=== PATIENT | female | born 1980 | race Caucasian/White ===

== ENCOUNTER 2022-11-24 07:08 | Outpatient (OUT) | payer SELFPAY ==
--- NOTE | 2022-11-24 | MM_ITS ---
Patient: FABI CARLTON Exam Date: 11/24/2022 : 1980 Gender:F Ordering : DR Ceasar Smith . Admission #: [id number] Family : SAGE RESTREPO Order #: [id number] CLICK HERE TO VIEW EXAM RADIOLOGY REPORT PROCEDURE: MM TOMOSYNTHESIS SCREENING BI COMPARISON: MG MAMM RT DIAG FU, 04/08/2021. MG MAMM DIAGNOSTIC 3D SHERIF CAD, 10/21/2021. INDICATIONS: Screening Calculator Name NCI Breast Cancer Risk Assessment Tool 5 Year Breast Cancer Risk 1.70% Lifetime Breast Cancer Risk 19.70% Personal Breast Cancer No Personal Ovarian Cancer No Treatments None Family Cancers Mother with breast cancer at age 60. LOCATION: [facility] BREAST COMPOSITION: Heterogeneously dense,which may obscure small masses. FINDINGS: DIAGNOSTIC CATEGORY 2--BENIGN FINDING. NO CHANGE FROM COMPARISON. Very dense heterogeneous parenchymal pattern grossly stable but limiting diagnostic sensitivity. Scattered benign-appearing nodules are present. Scattered benign-appearing calcifications are present. Scattered benign-appearing lymph nodes are present. RIGHT BREAST: No significant suspicious finding. LEFT BREAST: No significant suspicious finding. RECOMMENDATIONS: ROUTINE MAMMOGRAM AND CLINICAL EVALUATION IN 12 MONTHS. PLEASE NOTE: A NORMAL MAMMOGRAM DOES NOT EXCLUDE THE POSSIBILITY OF BREAST CANCER. A CLINICALLY SUSPICIOUS PALPABLE LUMP SHOULD BE BIOPSIED. Dictated by: Mike Guillen MD on 11/24/2022 at 08:20 Approved by: Mkie Guillen MD on 11/24/2022 at 08:21
== END 2022-11-24 07:09 | disposition home or self-care (01) ==
LOC: MAMMO 07:08
PROVIDERS: Visit Provider Obstetrics & Gynecology
DX: Z12.31 Encounter for screening mammogram for malignant neoplasm of breast (principal); Z80.3 Family history of malignant neoplasm of breast
CPT/HCPCS: 77063; 77067

== ENCOUNTER 2023-01-24 20:18 | Outpatient (REF) | payer BC, SELFPAY ==
--- OUTSIDE RECORDS SUMMARY | 2023-01-25 10:12 | XMS_ITS | CCD ---
Author Name Unknown Address [address] [place] [address] Organization [facility] Care Team Providers Care [employer] Worker Name Role Phone Cyril Britt Primary Care Provider [phone] WENDY FOREMAN Attending Unavailable CYRIL BRITT Primary Care Unavailable MARY JANE SMITH HE Referring Unavailable CYRIL BRITT Primary Care Unavailable WILMA, DR NELSY Huizar Primary Care Unavailable RONY, DR HINTON Admitting Unavailable WEST, DR EDNA Reyes Consulting Unavailable RONY, DR HINTON Attending Unavailable RONY, DR HINTON Consulting Unavailable RONY, DR HINTON Admitting Unavailable RINE, DR NELSY Huizar Primary Care Unavailable RONY, DR HINTON Attending Unavailable RONY, DR HINTON Consulting Unavailable ZIEBER, DR JIMBO Dale Consulting Unavailable RONY, DR HINTON Admitting Unavailable RINE, DR NELSY Huizar Primary Care Unavailable RONY, DR HINTON Attending Unavailable RONY, DR HINTON Consulting Unavailable RONY, DR HINTON Admitting Unavailable WEST, DR EDNA Reyes Consulting Unavailable RINE, DR NELSY Huizar Primary Care Unavailable RONY, DR HINTON Attending Unavailable RONY, DR HINTON Consulting Unavailable SELF, SELF Referring Unavailable HOLLY WHITE Attending Unavaila ble Allergies Allergy Classification Reported Allergen(s) Allergy Type Date of Onset Reaction(s) Facility (2 sources) Codeine Drug Allergy 3 Nausea And Vomiting [facility] [place] (1 source) Codeine Drug Allergy 5 [facility] Medications Current Medications Medication Drug Class(es) Dates Sig (Normalized) Sig (Original) doxycycline hyclate 100 mg oral tablet (1 source) Tetracycline-clas s Drug Start: 05-11-2019 End: 05-21-2019 take 1 tablet by mouth twice daily doxycycline hyclate (VIBRA-TABS) 100 MG tablet Take 1 tablet by mouth 2 times daily for 10 days 20 tablet 0 05/11/2019 05/21/2019 Active loratadine 10 mg oral capsule (2 sources) take 1 capsule by mouth once daily loratadine (CLARITIN) 10 MG capsule Take 10 mg by mouth daily 0 Active omeprazole 20 mg delayed release oral capsule (2 sources) Proton Pump Inhibitor take 1 capsule by mouth once daily omeprazole (PRILOSEC) 20 MG capsule Take 20 mg by mouth daily. 0 Active Problems Active Problems Problem Classification Problem Date Documented Da te Episodic/Chronic Menstrual disorders (4 sources) Excessive and frequent menstruation with regular cycle; Translations: [EXCESS FREQ MENSTRUATION W/REG CYCL] Onset: 10-21-2021 Chronic Nonmalignant breast conditions (5 sources) Mastodynia; Translations: [Solitary cyst of right breast] Onset: 03-30-2021 Episodic Residual codes; unclassified (3 sources) Family history of malignant neoplasm of breast; Translations: [FAMILY HX MALIG NEOPLASM OF BREAST] Onset: 03-30-2021 Episodic Skin and subcutaneous tissue infections (1 source) Abscess; Translations: [Abscess] Episodic Past or Other Problems Problem Classification Problem Date Documented Date Episodic/Chronic Immunizations and screening for infectious disease (1 source) Encounter for screening for human papillomavirus (HPV); Translations: [ENC SCREENING HUMAN PAPILLOMAVIRUS] Onset: 03-10-2021 Episodic Other screening for suspected conditions (not mental disorders or infectious disease) (12 sources) Other abnormal and inconclusive findings on diagnostic imaging of breast; Translations: [Encounter for screening mammogram for malignant neoplasm of breast] Onset: 03-08-2021 Episodic Results Test Name Value Interpretation Reference Range Facility CBC AUTO DIFFon 10-21-2021 BASO # 0.1 103/ul Normal 0.0-0.1 [facility] Comment on above: Performed By: #### C BC #### [facility] [address] [address] [address] Ilsa Soto Basophils/100 WBC (Bld) 1.1 % Normal 0.2-2.0 [facility] Comment on above: Performed By: #### C BC #### [facility] [address] [address] [address] Ilsa Soto EO # 0.1 103/ul Normal 0.0-0.7 [facility] Comment on above: Performed By: #### C BC #### [facility] [address] [place] [address] Dr. Ilsa Soto Eosinophils/100 WBC (Bld) 2.0 % Normal 0.9-7.0 [facility] Comment on above: Performed By: #### C BC #### [facility] [address] [place] [address] Dr. Ilsa Soto Erythrocyte distribution width (RBC) [Ratio] 11.7 % Normal 11.0-15.0 [facility] Comment on above: Performed By: #### C BC #### [facility] [address] [place] [address] Dr. Ilsa Soto Hematocrit (Bld) [Volume fraction] 41.0 % Normal 36.0-48.0 [facility] Comment on above: Performed By: #### C BC #### [facility] [address] [place] [address] Dr. Ilsa Soto Hemoglobin (Bld) [Mass/Vol] 14.1 g/dL Normal 12.0-16.0 [facility] Comment on above: Performed By: #### C BC #### [facility] [address] [place] [address] Dr. Ilsa Soto IG # 0.02 10e3/ul Normal 0.00-0.03 [facility] Comment on above: Performed By: #### C BC #### [facility] [address] [place] [address] Dr. Ilsa Soto IG % 0.3 % Normal 0.0-0.5 [facility] Comment on above: Performed By: #### C BC #### [facility] [address] [place] [address] Dr. Ilsa Soto LYMPH # 2.3 103/ul Normal 1.2-3.8 [facility] Comment on above: Performed By: #### C BC #### [facility] [address] [place] [address] Dr. Ilsa Soto Lymphocytes/100 WBC (Bld) 32.4 % Normal 20.5-60.0 [facility] Comment on above: Performed By: #### C BC #### [facility] [address] [place] [address] Dr. Ilsa Soto MANUAL DIFF REQ NO Normal [facility] Comment on above: Performed By: #### C BC #### [facility] [address] [place] [address] Dr. Ilsa Soto MCH (RBC) [Entitic mass] 32.5 pg Normal 26.7-34.0 [facility] Comment on above: Performed By: #### C BC #### [facility] [address] [place] [address] Dr. Ilsa Soto MCHC (RBC) [Mass/Vol] 34.4 g/dL Normal 29.9-35.2 [facility] Comment on above: Performed By: #### C BC #### [facility] [address] [place] [address] Dr. Ilsa Soto MCV (RBC) [Entitic vol] 94.5 fL Normal 81.0-99.0 [facility] Comment on above: Performed By: #### C BC #### [facility] [address] [place] [address] Dr. Ilsa Soto MONO # 0.5 103/ul Normal 0.3-0.8 [facility] Comment on above: Performed By: #### C BC #### [facility] [address] [place] [address] Dr. Ilsa Soto Monocytes/100 WBC (Bld) 6.9 % Normal 1.7-12.0 [facility] Comment on above: Performed By: #### C BC #### [facility] [address] [place] [address] Dr. Ilsa Soto NEUT # 4.1 103/ul Normal 1.4-6.5 [facility] Comment on above: Performed By: #### C BC #### [facility] [address] [place] [address] Dr. Ilsa Soto Neutrophils/100 WBC (Bld) 57.3 % Normal 43.0-75.0 [facility] Comment on above: Performed By: #### C BC #### [facility] [address] [place] [address] Dr. Ilsa Soto Platelet mean volume (Bld) [Entitic vol] 9.3 fL Critically low 9.5-13.5 [facility] Comment on above: Performed By: #### C BC #### [facility] [address] [place] [address] Dr. Ilsa Soto PLT 272 103/ul Normal 150-450 [facility] Comment on above: Performed By: #### C BC #### [facility] [address] [place] [address] Dr. Ilsa Soto RBC 4.34 106/ul Normal 4.20-5.40 [facility] Comment on above: Performed By: #### C BC #### [facility] [address] [place] [address] Dr. Ilsa Soto WBC 7.1 103/ul Normal 4.0-11.0 [facility] Comment on above: Performed By: #### C BC #### [facility] [address] [place] [address] Dr. Ilsa Soto FREE T4on 10-21-2021 Free T4 [Mass/Vol] 1.14 ng/dL Normal 0.76-1.46 [facility] Comment on above: Performed By: #### P TT, PT #### [facility] [address] [place] [address] Dr. Ilsa Soto GLYCOHEMOGLOBIN A1Con 2021 ADA RECOMMENDATION SEE BELOW Normal [facility] Comment on above: Result Comment: ADA RECOMMENDED LIMIT 4.0 - 6.0 ADA THERAPEUTIC TARGET < 7.0 ACTION SUGGESTED > 7.0 Performed By: #### P TT, PT #### [facility] [address] [place] [address] Dr. Ilsa Soto Glucose [Mass/Vol] 103 mg/dL Normal [facility] Comment on above: Performed By: #### P TT, PT #### [facility] [address] [place] [address] Dr. Ilsa Soto HbA1c (Bld) [Mass fraction] 5.2 % Normal 4.5-6.2 [facility] Comment on above: Performed By: #### P TT, PT #### [facility] [address] [address] [address] Ilsa Soto MG MAMM DIAGNOSTIC 3D SHERIF CA Don 10-21-2021 MG MAMM DIAGNOSTIC 3D SHERIF CAD Patient: FABI CARLTON Exam Date: 10/21/2021 : 1980 Gender:F Ordering : DR MARY JANE SMITH . Admission #: [id number] Family : Order #: [id number] CLICK HERE TO VIEW EXAM RADIOLOGY REPORT PROCEDURE: MAMMOGRAM DIAGNOSTIC 3D BILATERAL CAD, 10/21/2021, 12:59 ULTRASOUND BREAST BILATERAL COMPLETE, 10/21/2021, 14:56 COMPARISON: MG MAMM RT DIAG FU, 04/08/2021. INDICATIONS: Pain of breast Calculator Name NCI Breast Cancer Risk Assessment Tool 5 Year Breast Cancer Risk 1.50% Lifetime Breast Cancer Risk 19.90% Personal Breast Cancer No Personal Ovarian Cancer No Treatments None Family Cancers Mother with breast cancer at age 60. LOCATION: [facility] BREAST COMPOSITION: Heterogeneously dense,which may obscure small masses. FINDINGS: DIAGNOSTIC CATEGORY 2--BENIGN FINDING: The breasts are very heterogeneous in echotexture with scattered microcalcifications. Benign-appearing bilateral axillary lymph nodes. No new areas of clustered suspicious microcalcification, architectural distortion or mass lesion. Ultrasound demonstrates dense fibroglandular tissue bilaterally with multiple areas of anechoic echogenicity consistent with simple cysts. No focal mass observed by ultrasound. I favor overall fibrocystic changes of the breast. Further evaluation of breast pain should be based on clinical and physical exam. RECOMMENDATIONS: ROUTINE MAMMOGRAM AND CLINICAL EVALUATION IN 12 MONTHS. PLEASE NOTE: A NORMAL MAMMOGRAM DOES NOT EXCLUDE THE POSSIBILITY OF BREAST CANCER. A CLINICALLY SUSPICIOUS PALPABLE LUMP SHOULD BE BIOPSIED. Dictated by: Edna Purvis MD on 10/21/2021 at 15:20 Approved by: Edna Purvis MD on 10/21/2021 at 15:25 Normal [facility] PREG QUANT HCGon 10-21-2021 HCG QUANT 1 mIU/mL Normal [facility] Comment on above: Performed By: #### P TT, PT #### [facility] [address] [place] [address] Dr. Ilsa Soto HCG RANGE SEE BELOW Normal [facility] Comment on above: Result Comment: 5-50 0.2-1 WEEK 50-500 1-2 WEEKS 100-5,000 2-3 WEEKS 500-10,000 3-4 WEEKS 1,000-50,000 4-5 WEEKS 10,000-100,000 5-6 WEEKS 15,000-200,000 6-8 WEEKS 10,000-100,000 2-3 MONTHS Performed By: #### P TT, PT #### [facility] [address] [place] [address] Dr. Ilsa Soto PROTIMEon 10-21-2021 INR Coag (PPP) [Relative time] 1.01 {INR} Normal [facility] Comment on above: Performed By: #### P TT, PT #### [facility] [address] [place] [address] Dr. Ilsa Soto INR GUIDELINES SEE BELOW Normal [facility] Comment on above: Result Comment: RODY RED INR: 2.0 - 3.0 CONDITIONS NOT LISTED BELOW 2.5 - 3.5 FOR PROSTHETIC HEART VALVE REPLACEMENT 2.5 - 3.5 RECURRENT THROMBOSIS Performed By: #### P TT, PT #### [facility] [address] [place] [address] Dr. Ilsa Soto PT Coag (PPP) [Time] 10.9 s Normal 9.0-11.6 [facility] Comment on above: Performed By: #### P TT, PT #### [facility] [address] [place] [address] Dr. Ilsa Soto PTTon 10-21-2021 aPTT Coag (Bld) [Time] 27.5 s Normal 22.3-36.2 [facility] Comment on above: Performed By: #### P TT, PT #### [facility] [address] [place] [address] Dr. Ilsa Soto TSHon 10-21-2021 TSH 1.571 uIU/mL Normal 0.358-3.740 [facility] Comment on above: Performed By: #### P TT, PT #### [facility] [address] [address] [address] Ilsa Soto US BREAST SHERIF COMPLETEon US BREAST SHERIF COMPLETE Patient: FABI CARLTON Exam Date: 10/21/2021 : 1980 Gender:F Ordering : DR MARY JANE SMITH . Admission #: [id number] Family : Order #: [id number] CLICK HERE TO VIEW EXAM RADIOLOGY REPORT PROCEDURE: MAMMOGRAM DIAGNOSTIC 3D BILATERAL CAD, 10/21/2021, 12:59 ULTRASOUND BREAST BILATERAL COMPLETE, 10/21/2021, 14:56 COMPARISON: MG MAMM RT DIAG FU, 04/08/2021. INDICATIONS: Pain of breast Calculator Name NCI Breast Cancer Risk Assessment Tool 5 Year Breast Cancer Risk 1.50% Lifetime Breast Cancer Risk 19.90% Personal Breast Cancer No Personal Ovarian Cancer No Treatments None Family Cancers Mother with breast cancer at age 60. LOCATION: [facility] BREAST COMPOSITION: Heterogeneously dense,which may obscure small masses. FINDINGS: DIAGNOSTIC CATEGORY 2--BENIGN FINDING: The breasts are very heterogeneous in echotexture with scattered microcalcifications. Benign-appearing bilateral axillary lymph nodes. No new areas of clustered suspicious microcalcification, architectural distortion or mass lesion. Ultrasound demonstrates dense fibroglandular tissue bilaterally with multiple areas of anechoic echogenicity consistent with simple cysts. No focal mass observed by ultrasound. I favor overall fibrocystic changes of the breast. Further evaluation of breast pain should be based on clinical and physical exam. RECOMMENDATIONS: ROUTINE MAMMOGRAM AND CLINICAL EVALUATION IN 12 MONTHS. PLEASE NOTE: A NORMAL MAMMOGRAM DOES NOT EXCLUDE THE POSSIBILITY OF BREAST CANCER. A CLINICALLY SUSPICIOUS PALPABLE LUMP SHOULD BE BIOPSIED. Dictated by: Edna Purvis MD on 10/21/2021 at 15:20 Approved by: Edna Purvis MD on 10/21/2021 at 15:25 Normal [facility] US PELVIS AND TRANSVAGon US PELVIS AND TRANSVAG EXAMINATION: US PELVIS AND TRANSVAG HISTORY: Excessive and frequent menstruation COMPARISON: 07/18/2019 FINDINGS: Transabdominal and transvaginal images The uterus measures 8.7 x 5.7 x 3.8 cm, anteverted. Heterogeneous echotexture with no definite focal mass The endometrium measures 5 mm, normal The right ovary is not visualized The left ovary is normal in appearance measuring 1.7 x 1.5 x 1.5 cm. Normal color Doppler flow No free fluid IMPRESSION: Heterogeneous myometrium with no focal mass Electronically authenticated by: EDNA PURVIS Date: 2021-10-21 16:18 Normal [facility] Complete Blood Count with Au to Diffon 06-14-2021 Basophils (Bld) [#/Vol] 0.07 10*3/uL Normal 0.00-0.20 [facility] Comment on above: Performed By: #### Iesha COBB FE Prof #### [facility] [address] [place] [address] Basophils/100 WBC (Bld) 1.2 % Normal [facility] Comment on above: Performed By: #### Iesha COBB FE Prof #### [facility] [address] [place] [address] Eosinophils (Bld) [#/Vol] 0.12 10*3/uL Normal 0.02-0.50 [facility] Comment on above: Performed By: #### Iesha COBB, FE Prof #### [facility] [address] [place] [address] Eosinophils/100 WBC (Bld) 2.0 % Normal [facility] Comment on above: Performed By: #### Iesha COBB FE Prof #### [facility] [address] [place] [address] Erythrocyte distribution width (RBC) [Ratio] 12.7 % Normal 11.0-15.0 [facility] Comment on above: Performed By: #### Iesha COBB FE Prof #### [facility] [address] [place] [address] Hematocrit (Bld) [Volume fraction] 44.4 % Normal 35.0-47.0 [facility] Comment on above: Performed By: #### Iesha COBB FE Prof #### [facility] [address] [place] [address] Hemoglobin (Bld) [Mass/Vol] 14.7 g/dL Normal 11.6-15.5 [facility] Comment on above: Performed By: #### Iesha COBB FE Prof #### [facility] [address] [place] [address] Lymphocytes (Bld) [#/Vol] 2.1 10*3/uL Normal 0.9-3.9 [facility] Comment on above: Performed By: #### Iesha COBB, FE Prof #### [facility] [address] [place] [address] Lymphocytes/100 WBC (Bld) 34.9 % Normal [facility] Comment on above: Performed By: #### Iesha COBB, FE Prof #### [facility] [address] [place] [address] MCH (RBC) [Entitic mass] 30.8 pg Normal 27.0-33.0 [facility] Comment on above: Performed By: #### Iesha COBB, FE Prof #### [facility] [address] [place] [address] MCHC (RBC) [Mass/Vol] 33.1 g/dL Normal 32.0-36.0 [facility] Comment on above: Performed By: #### Iesha COBB, FE Prof #### [facility] [address] [place] [address] MCV (RBC) [Entitic vol] 93 fL Normal 80-100 [facility] Comment on above: Performed By: #### Iesha COBB, FE Prof #### [facility] [address] [place] [address] Monocytes (Bld) [#/Vol] 0.5 10*3/uL Normal 0.2-0.9 [facility] Comment on above: Performed By: #### Iesha COBB, FE Prof #### [facility] [address] [place] [address] Monocytes/100 WBC (Bld) 7.6 % Normal [facility] Comment on above: Performed By: #### Iesha COBB, FE Prof #### [facility] [address] [place] [address] Neutrophils (Bld) [#/Vol] 3.3 10*3/uL Normal 1.5-7.8 [facility] Comment on above: Performed By: #### Iesha COBB, FE Prof #### [facility] [address] [place] [address] Neutrophils/100 WBC (Bld) 54.0 % Normal [facility] Comment on above: Performed By: #### C BCAD, FE Prof #### [facility] [address] [place] [address] Platelet mean volume (Bld) [Entitic vol] 10.10 fL Normal 7.50-12.50 [facility] Comment on above: Performed By: #### C BCAD, FE Prof #### [facility] [address] [place] [address] Platelets (Bld) [#/Vol] 255 10*3/uL Normal 140-400 [facility] Comment on above: Performed By: #### C BCAD, FE Prof #### [facility] [address] [place] [address] RBC (Bld) [#/Vol] 4.77 10*6/uL Normal 3.90-5.20 [facility] Comment on above: Performed By: #### Iesha BCAD, FE Prof #### [facility] [address] [place] [address] RDW-SD 43.6 fL Normal 37.0-50.0 [facility] Comment on above: Performed By: #### C BCAD, FE Prof #### [facility] [address] [place] [address] WBC (Bld) [#/Vol] 6.1 10*3/uL Normal 3.8-11.0 [facility] Comment on above: Performed By: #### Iesha BCAD, FE Prof #### [facility] [address] [place] [address] Vitamin D 25-OHon 06-14-2021 VIT D 25 OH 60 ng/mL Normal 30-100 [facility] Comment on above: Order Comment: [facility] Testing performed at: QPT, [facility], [address], [address] [facility], [place], [address], New Car Inspector: Scout Lin MD [facility] Collection Date/Time: [id number] [facility] Results Received Date/Time: [id number] [facility] Reported Date/Time: [id number] Result Comment: Niru min D Status 25-OH Vitamin D: Deficiency: <20 ng/mL Insufficiency: 20 - 29 ng/mL Optimal: > or = 30 ng/mL For 25-OH Vitamin D testing on patients on D2-supplementation and patients for whom quantitation of D2 and D3 fractions is required, the QuestAssureD(TM) 25-OH VIT D, (D2,D3), LC/MS/MS is recommended: order code [id number] (patients >2yrs). See Note 1 Note 1 For additional information, please refer to http://education.Armor5/faq/WTL331 (This link is being provided for informational/ educational purposes only.) Performed By: #### V ITD #### [facility] [address] [place] [address] MG MAMM RT DIAG FUon 022 MG MAMM RT DIAG Patient: FABI CARLTON Exam Date: 04/08/2021 : 1980 Gender:F Ordering : DR MARY JANE SMITH . Admission #: [id number] Family : Order #: [id number] CLICK HERE TO VIEW EXAM RADIOLOGY REPORT PROCEDURE: MAMMOGRAM RIGHT DIAGNOSTIC DIGITAL FOLLOW UP, 04/08/2021, 11:01 ULTRASOUND BREAST RIGHT LIMITED, 04/08/2021, 11:21 COMPARISON: MG MAMM SCREEN 3D SHERIF CAD, 03/28/2021. INDICATIONS: Abnormal findings on diagnostic imaging of breast Calculator Name NCI Breast Cancer Risk Assessment Tool 5 Year Breast Cancer Risk 1.50% Lifetime Breast Cancer Risk 19.90% Personal Breast Cancer No Personal Ovarian Cancer No Treatments None Family Cancers Mother with breast cancer at age 60. LOCATION: [facility] BREAST COMPOSITION: Heterogeneously dense,which may obscure small masses. FINDINGS: DIAGNOSTIC CATEGORY 3--PROBABLY BENIGN FINDING. THE FOLLOWING FINDING(S) HAS A HIGH PROBABILITY OF A BENIGN ETIOLOGY: Two spot compression views demonstrate partial dispersion on the MLO projection with the area of focal asymmetry measuring 0.9 x 0.7 cm, still present on the CC projection. No suspicious calcifications. Ultrasound demonstrates at the 4 o'clock position a in oval well-circumscribed 5.8 x 2.2 x 5.6 mm lesion having both solid and cystic components. I favor a complex cyst over a lymph node. The ultrasound findings likely do not correspond to the mammographic findings. Six-month follow-up of both areas is recommended RECOMMENDATIONS: SHORT TERM FOLLOW-UP ULTRASOUND RIGHT BREAST IN 6 MONTHS. SHORT TERM FOLLOW-UP DIAGNOSTIC MAMMOGRAM RIGHT BREAST IN 6 MONTHS. PLEASE NOTE: A NORMAL MAMMOGRAM DOES NOT EXCLUDE THE POSSIBILITY OF BREAST CANCER. A CLINICALLY SUSPICIOUS PALPABLE LUMP SHOULD BE BIOPSIED. Dictated by: Edna Purvis MD on 04/08/2021 at 11:44 Approved by: Edna Purivs MD on 04/08/2021 at 11:50 Normal [facility] US BREAST RIGHT LIMITEDon US BREAST RIGHT LIMITED Patient: FABI CARLTON Exam Date: 04/08/2021 : 1980 Gender:F Ordering : DR MARY JANE SMITH . Admission #: [id number] Family : Order #: [id number] CLICK HERE TO VIEW EXAM RADIOLOGY REPORT PROCEDURE: MAMMOGRAM RIGHT DIAGNOSTIC DIGITAL FOLLOW UP, 04/08/2021, 11:01 ULTRASOUND BREAST RIGHT LIMITED, 04/08/2021, 11:21 COMPARISON: MG MAMM SCREEN 3D SHERIF CAD, 03/28/2021. INDICATIONS: Abnormal findings on diagnostic imaging of breast Calculator Name NCI Breast Cancer Risk Assessment Tool 5 Year Breast Cancer Risk 1.50% Lifetime Breast Cancer Risk 19.90% Personal Breast Cancer No Personal Ovarian Cancer No Treatments None Family Cancers Mother with breast cancer at age 60. LOCATION: [facility] BREAST COMPOSITION: Heterogeneously dense,which may obscure small masses. FINDINGS: DIAGNOSTIC CATEGORY 3--PROBABLY BENIGN FINDING. THE FOLLOWING FINDING(S) HAS A HIGH PROBABILITY OF A BENIGN ETIOLOGY: Two spot compression views demonstrate partial dispersion on the MLO projection with the area of focal asymmetry measuring 0.9 x 0.7 cm, still present on the CC projection. No suspicious calcifications. Ultrasound demonstrates at the 4 o'clock position a in oval well-circumscribed 5.8 x 2.2 x 5.6 mm lesion having both solid and cystic components. I favor a complex cyst over a lymph node. The ultrasound findings likely do not correspond to the mammographic findings. Six-month follow-up of both areas is recommended RECOMMENDATIONS: SHORT TERM FOLLOW-UP ULTRASOUND RIGHT BREAST IN 6 MONTHS. SHORT TERM FOLLOW-UP DIAGNOSTIC MAMMOGRAM RIGHT BREAST IN 6 MONTHS. PLEASE NOTE: A NORMAL MAMMOGRAM DOES NOT EXCLUDE THE POSSIBILITY OF BREAST CANCER. A CLINICALLY SUSPICIOUS PALPABLE LUMP SHOULD BE BIOPSIED. Dictated by: Edna Purvis MD on 04/08/2021 at 11:44 Approved by: Edna Purvis MD on 04/08/2021 at 11:50 Normal [facility] MG MAMM SCREEN 3D SHERIF CADon 03-28-2021 MG MAMM SCREEN 3D SHERIF CAD Patient: FABI CARLTON Exam Date: 03/28/2021 : 1980 Gender:F Ordering : DR MARY JANE SMITH . Admission #: [id number] Family : Order #: [id number] CLICK HERE TO VIEW EXAM RADIOLOGY REPORT PROCEDURE: MAMMOGRAM SCREENING 3D BILATERAL CAD COMPARISON: MG MAMM SCREEN SHERIF W CAD, 2019. INDICATIONS: Screening mammography Calculator Name NCI Breast Cancer Risk Assessment Tool 5 Year Breast Cancer Risk 1.50% Lifetime Breast Cancer Risk 19.90% Personal Breast Cancer No Personal Ovarian Cancer No Treatments None Family Cancers Mother with breast cancer at age 60. LOCATION: [facility] BREAST COMPOSITION: Heterogeneously dense,which may obscure small masses. FINDINGS: DIAGNOSTIC CATEGORY 0--INCOMPLETE: NEED ADDITIONAL IMAGING EVALUATION. RIGHT BREAST: 9 mm spiculated asymmetry within the medial mid breast on the CC view, suspected to be within the lower breast on the MLO view. Tomographic views suggests this represents summation of overlapping fibroglandular tissue. Spot magnification views and ultrasound evaluation are recommended for further evaluation/confirmati on. LEFT BREAST: No significant suspicious finding. No significant change has occurred. RECOMMENDATIONS: ADDITIONAL MAMMOGRAPHIC VIEWS REQUIRED: RIGHT BREAST - RIGHT CRANIOCAUDAL SPOT MAGNIFICATION VIEW - RIGHT OBLIQUE SPOT MAGNIFICATION VIEW - ULTRASOUND: RIGHT BREAST PLEASE NOTE: A NORMAL MAMMOGRAM DOES NOT EXCLUDE THE POSSIBILITY OF BREAST CANCER. A CLINICALLY SUSPICIOUS PALPABLE LUMP SHOULD BE BIOPSIED. Dictated by: Jimbo Mclean M.D. on 03/29/2021 at 11:38 Approved by: Jimbo Mclean M.D. on 03/29/2021 at 11:46 Normal [facility] Complete Blood Count with Au to Diffon 03-21-2021 BASOABS 52 cells/uL Normal 0-200 [facility] Uniform Attendant Comment on above: Order Comment: [facility] performed at: [facility], [facility], [address] [place] [address], [address] [place], [address], New Car Inspector: Scout Lin MD [facility] Collection Date/Time: [facility] Results Received Date/Time: [facility] Reported Date/Time: Performed By: #### Iesha COBB FE Prof #### [facility] Default [address] [place] [address] Basophils/100 WBC (Bld) 1.2 % Normal [facility] Comment on above: Order Comment: [facility] performed at: [employer] [employer], [address] , [address] [place] [address], [address] [place] [address], New Car Inspector: Scout Lin MD [facility] Collection Date/Time: [facility] Results Received Date/Time: [facility] Reported Date/Time: Performed By: #### Iesha COBB, FE Prof #### [facility] Default [address] [place] [address] EOSABS 103 cells/uL Normal 15-500 [facility] Comment on above: Order Comment: [facility] performed at: [employer] [employer], [address] , [address] [place] [address], [address] [place] [address], New Car Inspector: Scout Lin MD [facility] Date/Time: [facility] Results Received Date/Time: [facility] Reported Date/Time: Performed By: #### Iesha COBB, FE Prof #### [facility] Default [address] [place] [address] Eosinophils/100 WBC (Bld) 2.4 % Normal [facility] Comment on above: Order Comment: [facility] performed at: [employer] [employer], [address] , [address] [place] [address], [address] [place] [address], New Car Inspector: Scout Lin MD [facility] Date/Time: [facility] Results Received Date/Time: [facility] Reported Date/Time: Performed By: #### Iesha COBB, FE Prof #### [facility] Default [address] [place] [address] Erythrocyte distribution width (RBC) [Ratio] 18.5 % High 11.0-15.0 [facility] Uniform Attendant Comment on above: Order Comment: [facility] performed at: [employer] [employer], [address] [place] [address], [address] [place] [address], [address] [place] [address], New Car Inspector: Scout Lin MD [facility] Date/Time: [facility] Results Received Date/Time: [facility] Reported Date/Time: Performed By: #### Iesha COBB, FE Prof #### [facility] Default [address] [place] [address] Hematocrit (Bld) [Volume fraction] 41.6 % Normal 35.0-45.0 [facility] Uniform Attendant Comment on above: Order Comment: [facility] performed at: [facility], [employer], [address] [place] [address], [address] [place] [address], [address] [place] [address], New Car Inspector: Scout Lin MD [facility] Date/Time: [facility] Results Received Date/Time: [facility] Reported Date/Time: Performed By: #### Iesha COBB, FE Prof #### [facility] Default [address] [place] [address] Hemoglobin (Bld) [Mass/Vol] 13.6 g/dL Normal 11.7-15.5 [facility] Uniform Attendant Comment on above: Order Comment: [facility] performed at: [employer] [facility], [address] [place] [address], [address] [place] [address], [address] [place] [address], New Car Inspector: Scout Lin MD [facility] Date/Time: [facility] Results Received Date/Time: [facility] Reported Date/Time: Performed By: #### Iesha COBB, FE Prof #### [facility] Default [address] [place] [address] Lymphocytes (Bld) [#/Vol] 1.961 10*3/uL Normal 850-3900 [facility] Uniform Attendant Comment on above: Order Comment: [facility] performed at: [employer] [employer] [facility], [address] [facility], [address] [place] [address], [id number], New Car Inspector: Scout Lin MD [facility] Date/Time: [facility] Results Received Date/Time: [facility] Reported Date/Time: Performed By: #### Iesha COBB, FE Prof #### [facility] Default [address] [place] [address] Lymphocytes/100 WBC (Bld) 45.6 % Normal [facility] Uniform Attendant Comment on above: Order Comment: [facility] performed at: [employer] [employer] [facility], [address] [place] [address], [address] [place] [address], [address] [place] [address], New Car Inspector: Scout Lin MD [facility] Date/Time: [facility] Results Received Date/Time: [facility] Reported Date/Time: Performed By: #### Iesha COBB, FE Prof #### [facility] Default [address] [place] [address] MCH (RBC) [Entitic mass] 28.5 pg Normal 27.0-33.0 [facility] Uniform Attendant Comment on above: Order Comment: [facility] performed at: [employer] [employer] [facility], [address] [facility], [address] [place] [address], [phone], New Car Inspector: Scout Lin MD [facility] Date/Time: [facility] Results Received Date/Time: [facility] Reported Date/Time: Performed By: #### Iesha COBB, FE Prof #### [facility] Default [address] [place] [address] MCHC (RBC) [Mass/Vol] 32.7 g/dL Normal 32.0-36.0 [facility] Uniform Attendant Comment on above: Order Comment: [facility] performed at: [facility], [employer], [address] [place] [address], [address] [place] [address], [address] [place] [address], New Car Inspector: Scout Lin MD [facility] Date/Time: [facility] Results Received Date/Time: [facility] Reported Date/Time: Performed By: #### Iesha COBB FE Prof #### [facility] Default [address] [place] [address] MCV (RBC) [Entitic vol] 87.0 fL Normal 80.0-100.0 [facility] Specialist Comment on above: Order Comment: [facility] performed at: [employer] [employer] [facility], [address] , [address] [place] [address], [address] [place] [address], New Car Inspector: Scout Lin MD [facility] Date/Time: [facility] Results Received Date/Time: [facility] Reported Date/Time: Performed By: #### Iesha COBB, FE Prof #### [facility] Default [address] [place] [address] MONOABS 353 cells/uL Normal 200-950 [facility] Specialist Comment on above: Order Comment: [facility] performed at: [employer] [employer] [facility], [address] [facility], [address] [place] [address], [address] [place] [address], New Car Inspector: Scout Lin MD [facility] Date/Time: [facility] Results Received Date/Time: [facility] Reported Date/Time: Performed By: #### Iesha COBB FE Prof #### [facility] Default [address] [place] [address] Monocytes/100 WBC (Bld) 8.2 % Normal [facility] Specialist Comment on above: Order Comment: [facility] performed at: [employer] [facility], [address] [facility], [address] [place] [address], [address] [place] [address], New Car Inspector: Scout Lin MD [facility] Date/Time: [facility] Results Received Date/Time: [facility] Reported Date/Time: Performed By: #### Iesha COBB, FE Prof #### [facility] Default [address] [place] [address] Neutrophils (Bld) [#/Vol] 1.832 10*3/uL Normal 3727-1612 [facility] Specialist Comment on above: Order Comment: [facility] performed at: [employer] [employer] [facility], [address] [place] [address], [address] [place] [address], [address] [place] [address], New Car Inspector: Scout Lin MD [facility] Date/Time: [facility] Results Received Date/Time: [facility] Reported Date/Time: Performed By: #### Iesha COBB, FE Prof #### [facility] Default [address] [place] [address] Neutrophils/100 WBC (Bld) 42.6 % Normal [facility] Specialist Comment on above: Order Comment: [facility] performed at: [employer] [employer] [facility], [address] [place] [address], [address] [place] [address], [address] [place] [address], New Car Inspector: Scout Lin MD [facility] Date/Time: [facility] Results Received Date/Time: [facility] Reported Date/Time: Performed By: #### Iesha COBB, FE Prof #### [facility] Default [address] [place] [address] Platelet mean volume (Bld) [Entitic vol] 10.7 fL Normal 7.5-12.5 [facility] Uniform Attendant Comment on above: Order Comment: [facility] performed at: [employer] [facility], [address] [place] [address], [address] [place] [address], [address] [place] [address], New Car Inspector: Scout Lin MD [facility] Collection Date/Time: [facility] Results Received Date/Time: [facility] Reported Date/Time: Performed By: #### Iesha COBB, FE Prof #### [facility] Default [address] [place] [address] Platelets (Bld) [#/Vol] 265 10*3/uL Normal 140-400 [facility] Uniform Attendant Comment on above: Order Comment: [facility] performed at: [employer] [employer] [facility], [address] , [address] [place] [address], [address] [place] [address], New Car Inspector: Scout Lin MD [facility] Date/Time: [facility] Results Received Date/Time: [facility] Reported Date/Time: Performed By: #### Iesha DUGGAND, FE Prof #### [facility] Default [address] [place] [address] RBC (Bld) [#/Vol] 4.78 10*6/uL Normal 3.80-5.10 [facility] Uniform Attendant Comment on above: Order Comment: [facility] performed at: [employer], [address] , [address] [place] [address], [address] [place] [address], New Car Inspector: Scout Lin MD [facility] Date/Time: [facility] Results Received Date/Time: [facility] Reported Date/Time: Performed By: #### Iesha COBB, FE Prof #### [facility] Default [address] [place] [address] WBC (Bld) [#/Vol] 4.3 10*3/uL Normal 3.8-10.8 [facility] Uniform Attendant Comment on above: Order Comment: [facility] performed at: [employer] [facility], [address] , [address] [place] [address], [address] [place] [address], New Car Inspector: Scout Lin MD [facility] Collection Date/Time: [facility] Results Received Date/Time: [facility] Reported Date/Time: Performed By: #### Iesha DUGGAND, FE Prof #### [facility] Default [address] [place] [address] Iron Profileon 03-21-2021 % SATURATION 26 % (calc) Normal 16-45 [facility] Uniform Attendant Comment on above: Order Comment: [facility] performed at: [employer] [employer] [facility], [address] , [address] [place] [address], [address] [place] [address], New Car Inspector: Scout Lin MD [facility] Date/Time: [facility] Results Received Date/Time: [facility] Reported Date/Time: Performed By: #### C BCAD, FE Prof #### [facility] Default [address] [place] [address] FE 85 mcg/dL Normal 40-190 [facility] Uniform Attendant Comment on above: Order Comment: [facility] performed at: [employer] [employer] [facility], [address] [place] [address], [address] [place] [address], [address] [place] [address], New Car Inspector: Scout Lin MD [facility] Date/Time: [facility] Results Received Date/Time: [facility] Reported Date/Time: Performed By: #### C BCAD, FE Prof #### [facility] Default [address] [place] [address] IRON BINDING CAPACITY 325 mcg/dL (calc) Normal 250-450 [facility] Uniform Attendant Comment on above: Order Comment: [facility] performed at: [employer] [facility], [address] [place] [address], [address] [place] [address], [address] [place] [address], New Car Inspector: Scout Lin MD [facility] Date/Time: [facility] Results Received Date/Time: [facility] Reported Date/Time: Performed By: #### C BCAD, FE Prof #### [facility] Default [address] [place] [address] Q - UR CULT REFLEXon 022 REFLEXIVE URINE CULTURE SEE NOTE Normal [facility] Specialist Comment on above: Order Comment: [facility] performed at: [employer] [employer] [facility], [address] [place] [address], [address] [place] [address], [address] [place] [address], New Car Inspector: Scout Lin MD [facility] Date/Time: [facility] Results Received Date/Time: [facility] Reported Date/Time: Result Comment: NO C ULTURE INDICATED Performed By: #### C BCAD, FE Prof #### [facility] Default [address] [place] [address] Q - URINALYSIS,COMPLETE,WITH REFLEX TO CULTUREon 03-21-2021 Appearance (U) CLOUDY Abnormal CLEAR [facility] Specialist Comment on above: Order Comment: [facility] performed at: [employer] [employer] [facility], [address] [place] [address], [address] [place] [address], [address] [place] [address], New Car Inspector: Scout Lin MD [facility] Collection Date/Time: [facility] Results Received Date/Time: [facility] Reported Date/Time: Performed By: #### Iesha COBB, FE Prof #### [facility] Default [address] [place] [address] BACTERIA MANY Abnormal NONE SEEN [facility] Uniform Attendant Comment on above: Order Comment: [facility] performed at: [employer] [employer] [facility], [address] [place] [address], [address] [place] [address], [address] [place] [address], New Car Inspector: Scout Lin MD [facility] Date/Time: [facility] Results Received Date/Time: [facility] Reported Date/Time: Performed By: #### Iesha COBB, FE Prof #### [facility] Default [address] [place] [address] Bilirubin Ql (U) Negative Normal NEGATIVE [facility] Uniform Attendant Comment on above: Order Comment: [facility] performed at: [employer] [employer] [facility], [address] [place], [place] [id number] , [address] [place] [address], [address] [place] [address], New Car Inspector: Scout Lin MD [facility] Date/Time: [facility] Results Received Date/Time: [facility] Reported Date/Time: Performed By: #### Iesha COBB, FE Prof #### [facility] Default [address] [place] [address] CALCIUM OXALATE CRYSTALS FEW Normal NONE OR FEW [facility] Uniform Attendant Comment on above: Order Comment: [facility] performed at: [employer] [employer] [facility], [address] , [address] [place] [address], [address] [place] [address], New Car Inspector: Scout Lin MD [facility] Date/Time: [facility] Results Received Date/Time: [facility] Reported Date/Time: Performed By: #### Iesha COBB, FE Prof #### [facility] Default [address] [place] [address] Color (U) YELLOW Normal YELLOW [facility] Uniform Attendant Comment on above: Order Comment: [facility] performed at: [employer] [facility], [address] [facility], [address] [place] [address], [address] [place] [address], New Car Inspector: Scout Lin MD [facility] Date/Time: [facility] Results Received Date/Time: [facility] Reported Date/Time: Performed By: #### Iesha COBB, FE Prof #### [facility] Default [address] [place] [address] Glucose Ql (U) Negative Normal NEGATIVE [facility] Uniform Attendant Comment on above: Order Comment: [facility] performed at: [employer] [employer] [facility], [address] [facility], [address] [place] [address], [address] [place] [address], New Car Inspector: Scout Lin MD [facility] Date/Time: [facility] Results Received Date/Time: [facility] Reported Date/Time: Performed By: #### C REZA, FE Prof #### [facility] Default [address] [place] [address] HYALINE CAST NONE SEEN Normal NONE SEEN [facility] Uniform Attendant Comment on above: Order Comment: [facility] performed at: [employer] [employer] [facility], [address] [facility], [address] [place] [address], [address] [place] [address], New Car Inspector: Scout Lin MD [facility] Date/Time: [facility] Results Received Date/Time: [facility] Reported Date/Time: Performed By: #### Iesha COBB, FE Prof #### [facility] Default [address] [place] [address] Ketones Ql (U) Negative Normal NEGATIVE [facility] Uniform Attendant Comment on above: Order Comment: [facility] performed at: [facility], [employer], [address] [facility], [address] [place] [address], [address] [place] [address], New Car Inspector: Scout Lin MD [facility] Date/Time: [facility] Results Received Date/Time: [facility] Reported Date/Time: Performed By: #### C REZA, FE Prof #### [facility] Default [address] [place] [address] Leukocyte esterase Test strip Ql (U) Negative Normal NEGATIVE [facility] Uniform Attendant Comment on above: Order Comment: [facility] performed at: [facility], [employer], [address] [place] [address], [address] [place] [address], [address] [place] [address], New Car Inspector: Scout Lin MD [facility] Date/Time: [facility] Results Received Date/Time: [facility] Reported Date/Time: Performed By: #### C REZA, FE Prof #### [facility] Default [address] [place] [address] Nitrite Ql (U) Positive Abnormal NEGATIVE [facility] Uniform Attendant Comment on above: Order Comment: [facility] performed at: [facility], [employer], [address] [facility], [address] [place] [address], [address] [place] [address], New Car Inspector: Scout Lin MD [facility] Date/Time: [facility] Results Received Date/Time: [facility] Reported Date/Time: Performed By: #### Iesha COBB, FE Prof #### [facility] Default [address] [place] [address] OCCULT BLOOD Negative Normal NEGATIVE [facility] Uniform Attendant Comment on above: Order Comment: [facility] performed at: [facility], [employer] [facility], [address] [place] [address], [address] [place] [address], [address] [place] [address], New Car Inspector: Scout Lin MD [facility] Date/Time: [facility] Results Received Date/Time: [facility] Reported Date/Time: Performed By: #### Iesha COBB, FE Prof #### [facility] Default [address] [place] [address] pH (U) 5.5 [pH] Normal 5.0-8.0 [facility] Uniform Attendant Comment on above: Order Comment: [facility] performed at: [employer] [employer] [facility], [address] [facility], [address] [place] [address], [address] [place] [address], New Car Inspector: Scout Lin MD [facility] Date/Time: [facility] Results Received Date/Time: [facility] Reported Date/Time: Performed By: #### Iesha COBB, FE Prof #### [facility] Default [address] [place] [address] Protein Ql (U) Negative Normal NEGATIVE [facility] Specialist Comment on above: Order Comment: [facility] performed at: [employer] [employer] [facility], [address] [facility], [address] [place] [address], [address] [place] [address], New Car Inspector: Scout Lin MD [facility] Date/Time: [facility] Results Received Date/Time: [facility] Reported Date/Time: Performed By: #### Iesha COBB, FE Prof #### [facility] Default [address] [place] [address] RBC NONE SEEN Normal < OR = 2 [facility] Uniform Attendant Comment on above: Order Comment: [facility] performed at: [employer] [employer] [facility], [address] , [address] [place] [address], [address] [place] [address], New Car Inspector: Scout Lin MD [facility] Date/Time: [facility] Results Received Date/Time: [facility] Reported Date/Time: Performed By: #### Iesha COBB, FE Prof #### [facility] Default [address] [place] [address] Specific gravity (U) [Rel density] 1.019 Normal 1.001-1.035 [facility] Uniform Attendant Comment on above: Order Comment: [facility] performed at: [facility], [employer] [facility], [address] [facility], [address] [place] [address], [address] [place] [address], New Car Inspector: Scout Lin MD [facility] Date/Time: [facility] Results Received Date/Time: [facility] Reported Date/Time: Performed By: #### Iesha COBB, FE Prof #### [facility] Default [address] [place] [address] SQUAMOUS EPITHELIAL CELLS 0-5 Normal < OR = 5 [facility] Uniform Attendant Comment on above: Order Comment: [facility] performed at: [facility], [facility], [address] [facility], [address] [place] [address], [address] [place] [address], New Car Inspector: Scout Lin MD [facility] Date/Time: [facility] Results Received Date/Time: [facility] Reported Date/Time: Performed By: #### Iesha COBB, FE Prof #### [facility] Default [address] [place] [address] WBC 0-5 Normal < OR = 5 [facility] Uniform Attendant Comment on above: Order Comment: [facility] performed at: [facility], [facility], 5 [facility], [address] [place] [address], [address] [place] [address], New Car Inspector: Scout Lin MD [facility] Collection Date/Time: [facility] Results Received Date/Time: [facility] Reported Date/Time: Performed By: #### Iesha COBB, FE Prof #### [facility] [address] [place] [address] PAP ACOG PANEL 2: 30 to 65on 03-11-2021 . . Normal [facility] Comment on above: Result Comment: Perf ormed at: WB Performed By: #### [id number] #### [facility] [address] [place] [address] Dr. Ilsa Soto Age Gdln ACOG Testing 30-65 Normal [facility] Comment on above: Performed By: #### [id number] #### [facility] [address] [place] [address] Dr. Ilsa Soto DIAGNOSIS: Comment Normal [facility] Comment on above: Result Comment: NEGA TIVE FOR INTRAEPITHELIAL LESION OR MALIGNANCY. Performed at: WB Performed By: #### 4 [id number] #### [facility] [address] [place] [address] Dr. Ilsa Soto HPV Aptima Negative Normal Negative [facility] Comment on above: Result Comment: This nucleic acid amplification test detects fourteen high-risk HPV types (16,18,31,33,35,39,45,51,52,56,58,59,66,68) without differentiation. Performed at: =G Performed By: #### [id number] #### [facility] [address] [place] [address] Dr. Ilsa Soto Methodology: Comment Normal [facility] Comment on above: Result Comment: This liquid based ThinPrep(R) pap test was screened with the use of an image guided system. Performed at: WB Performed By: #### [id number] #### [facility] [address] [place] [address] Dr. Ilsa Soto Note: Comment Normal [facility] Comment on above: Result Comment: The Pap smear is a screening test designed to aid in the detection of premalignant and malignant conditions of the uterine cervix. It is not a diagnostic procedure and should not be used as the sole means of detecting cervical cancer. Both false-positive and false-negative reports do occur. . Performed at: WB Performed By: #### 4 [id number] #### [facility] [address] [place] [address] Dr. Ilsa Soto Performed by: Comment Normal [facility] Comment on above: Result Comment: Shai Rodriguez, Director Public Policy (ASCP) Performed at: WB Performed By: #### 4 [id number] #### [facility] [address] [place] [address] Dr. Ilsa Soto Specimen adequacy: Comment Normal [facility] Comment on above: Result Comment: Sati sfactory for evaluation. Endocervical and/or squamous metaplastic cells (endocervical component) are present. Performed at: WB Performed By: #### 4 [id number] #### [facility] [address] [address] [address] Ilsa Soto Complete Blood Counton 01-24 Erythrocyte distribution width (RBC) [Ratio] 13.8 % Normal 11.0-15.0 [facility] Attendant Comment on above: Performed By: #### C REZA, FE Prof #### [facility] [address] [place] [address] Hematocrit (Bld) [Volume fraction] 33.9 % Low 35.0-47.0 [facility] Attendant Comment on above: Performed By: #### Iesha COBB, FE Prof #### [facility] [address] [place] [address] Hemoglobin (Bld) [Mass/Vol] 10.7 g/dL Low 11.6-15.5 [facility] Comment on above: Performed By: #### Iesha COBB, FE Prof #### [facility] [address] [place] [address] MCH (RBC) [Entitic mass] 27.1 pg Normal 27.0-33.0 [facility] Comment on above: Performed By: #### Iesha COBB, FE Prof #### [facility] [address] [place] [address] MCHC (RBC) [Mass/Vol] 31.6 g/dL Low 32.0-36.0 [facility] Attendant Comment on above: Performed By: #### C REZA, FE Prof #### [facility] [address] [place] [address] MCV (RBC) [Entitic vol] 86 fL Normal 80-100 [facility] Attendant Comment on above: Performed By: #### Iesha COBB, FE Prof #### [facility] [address] [place] [address] Platelet mean volume (Bld) [Entitic vol] 10.10 fL Normal 7.50-12.50 [facility] Uniform Attendant Comment on above: Performed By: #### Iesha COBB, FE Prof #### [facility] [address] [place] [address] Platelets (Bld) [#/Vol] 335 10*3/uL Normal 140-400 [facility] Comment on above: Performed By: #### C REZA, FE Prof #### [facility] [address] [place] [address] RBC (Bld) [#/Vol] 3.95 10*6/uL Normal 3.90-5.20 [facility] Comment on above: Performed By: #### C REZA, FE Prof #### [facility] [address] [place] [address] RDW-SD 43.7 fL Normal 37.0-50.0 [facility] Comment on above: Performed By: #### C REZA, FE Prof #### [facility] [address] [place] [address] WBC (Bld) [#/Vol] 3.6 10*3/uL Low 3.8-11.0 [facility] Comment on above: Performed By: #### C REZA, FE Prof #### [facility] [address] [place] [address] Comprehensive Metabolic Pane [facility] 01-24-2021 Albumin [Mass/Vol] 4.4 g/dL Normal 3.6-5.1 [facility] Comment on above: Performed By: #### C MP, TSH, FT4, VITD, LIPD, CBC #### [facility] [address] [place], [place] [id number] Albumin/Globulin [Mass ratio] 1.8 {ratio} Normal 1.0-2.5 [facility] Comment on above: Performed By: #### C MP, TSH, FT4, VITD, LIPD, CBC #### [facility] [address] [place], [place] [id number] ALP [Catalytic activity/Vol] 84 U/L Normal 35-119 [facility] Comment on above: Performed By: #### C MP, TSH, FT4, VITD, LIPD, CBC #### [facility] [address] [place], [place] [id number] ALT [Catalytic activity/Vol] 17 U/L Normal 6-33 [facility] Comment on above: Result Comment: 01/05 Female reference range changed. Performed By: #### C MP, TSH, FT4, VITD, LIPD, CBC #### [facility] [address] [place], [place] [id number] Anion gap [Moles/Vol] 16 mmol/L Normal 12-20 [facility] Comment on above: Result Comment: Effe ctive 02/10/2019 reference range changed. Performed By: #### C MP, TSH, FT4, VITD, LIPD, CBC #### [facility] [address] [place], [place] [id number] AST [Catalytic activity/Vol] 16 U/L Normal 9-34 [facility] Comment on above: Performed By: #### C MP, TSH, FT4, VITD, LIPD, CBC #### [facility] [address] [place], [place] [id number] BUN/CREA 14 Ratio Normal 6-22 [facility] Comment on above: Performed By: #### C MP, TSH, FT4, VITD, LIPD, CBC #### [facility] [address] [place], [place] [id number] Calcium [Mass/Vol] 9.4 mg/dL Normal 8.6-10.2 [facility] Comment on above: Performed By: #### C MP, TSH, FT4, VITD, LIPD, CBC #### [facility] [address] [place], [place] [id number] Chloride [Moles/Vol] 105 mmol/L Normal 98-107 [facility] Comment on above: Performed By: #### C MP, TSH, FT4, VITD, LIPD, CBC #### [facility] [address] [place], [place] [id number] CO2 [Moles/Vol] 21 mmol/L Normal 20-31 [facility] Comment on above: Performed By: #### C MP, TSH, FT4, VITD, LIPD, CBC #### [facility] [address] [place], [place] [id number] Creatinine [Mass/Vol] 0.8 mg/dL Normal 0.6-1.4 [facility] Attendant Comment on above: Performed By: #### C MP, TSH, FT4, VITD, LIPD, CBC #### [facility] [address] [place], [place] [id number] eGFRAA 94 mL/min/1.73m2 Normal >60 [facility] Attendant Comment on above: Performed By: #### C MP, TSH, FT4, VITD, LIPD, CBC #### [facility] [address] [place], [place] [id number] eGFRNAA 78 mL/min/1.73m2 Normal >60 [facility] Attendant Comment on above: Performed By: #### C MP, TSH, FT4, VITD, LIPD, CBC #### [facility] [address] [place], [place] [id number] Globulin (S) [Mass/Vol] 2.5 g/dL Normal 1.9-3.7 [facility] Attendant Comment on above: Performed By: #### C MP, TSH, FT4, VITD, LIPD, CBC #### [facility] [address] [place], [place] [id number] Glucose [Mass/Vol] 101 mg/dL High 65-99 [facility] Uniform Attendant Comment on above: Result Comment: For FASTING Glucose --- ADA reference ranges: Normal 65-99 mg/dl Prediabetes 100-125 Diabetes >/= 126 Performed By: #### C MP, TSH, FT4, VITD, LIPD, CBC #### [facility] [address] [place], [place] [id number] Potassium [Moles/Vol] 3.9 mmol/L Normal 3.5-5.5 [facility] Attendant Comment on above: Performed By: #### C MP, TSH, FT4, VITD, LIPD, CBC #### [facility] [address] [place], [place] [id number] Protein [Mass/Vol] 6.9 g/dL Normal 6.1-8.1 [facility] Uniform Attendant Comment on above: Performed By: #### C MP, TSH, FT4, VITD, LIPD, CBC #### [facility] [address] [place], [place] [id number] Sodium [Moles/Vol] 139 mmol/L Normal 135-146 [facility] Uniform Attendant Comment on above: Performed By: #### C MP, TSH, FT4, VITD, LIPD, CBC #### [facility] [address] [place], [place] [id number] TBIL <0.3 Normal [facility] Attendant Comment on above: Performed By: #### C MP, TSH, FT4, VITD, LIPD, CBC #### [facility] [address] [place], [place] [id number] Urea nitrogen [Mass/Vol] 11 mg/dL Normal 7-25 [facility] Attendant Comment on above: Performed By: #### C MP, TSH, FT4, VITD, LIPD, CBC #### [facility] [address] [place], [place] [id number] Free T4on 01-24-2021 Free T4 [Mass/Vol] 1.10 ng/dL Normal 0.80-1.80 [facility] Uniform Attendant Comment on above: Performed By: #### C MP, TSH, FT4, VITD, LIPD, CBC #### [facility] [address] [place], [place] [id number] Lipid Panelon 01-24-2021 Cholesterol [Mass/Vol] 215 mg/dL High 125-200 [facility] Attendant Comment on above: Result Comment: Low risk < 200mg/dL Borderline risk 201-239 mg/dl High risk > or equal to 240 Performed By: #### C REZA, FE Prof #### [facility] [address] [place] [address] Cholesterol in HDL [Mass/Vol] 65 mg/dL Normal >40 [facility] Attendant Comment on above: Result Comment: High Cardiovascular Risk HDL <40 mg/dL Low Cardiovascular Risk HDL > or equal to 60 mg/dl Performed By: #### C REZA, FE Prof #### [facility] [address] [place] [address] Cholesterol in LDL [Mass/Vol] 132 mg/dL Normal [facility] Attendant Comment on above: Result Comment: LDL ATP III CLASSIFICATION LDL less than 100 mg/dl Optimal LDL 100-129 mg/dl Near or above optimal LDL 130-159 Borderline high LDL 160-189 High LDL greater than 189 mg/dl Very High Performed By: #### C REZA, FE Prof #### [facility] [address] [place] [address] Cholesterol in VLDL [Mass/Vol] 18 mg/dL Normal [facility] Comment on above: Performed By: #### C REZA, FE Prof #### [facility] Default [address] [place] [address] Cholesterol.total/Ch olesterol in HDL [Mass ratio] 3 {ratio} Normal [facility] Comment on above: Performed By: #### C REZA, FE Prof #### [facility] [address] [place] [address] Triglyceride [Mass/Vol] 91 mg/dL Normal 30-150 [facility] Comment on above: Result Comment: TRIG ATPIII CLASSIFICATIONS TRIG less than 150 mg/dl Normal TRIG 150-199 mg/dl Borderline High TRIG 200-500 mg/dl High TRIG greather than 500 mg/dl Very High Performed By: #### C REZA, FE Prof #### [facility] [address] [place] [address] Q - CULTURE,URINE,ROUTINEon 01-24-2021 CULTURE, URINE, ROUTINE SEE NOTE Abnormal [facility] Attendant Comment on above: Order Comment: [facility] Testing performed at: [facility], [address] [place] [address], [address] [place] [address], [phone], New Car Inspector: Scout Lin MD [facility] Collection Date/Time: [id number] [facility] Results Received Date/Time: [facility] Reported Date/Time: Result Comment: CULT URE, URINE, ROUTINE Micro Number: [id number] Test Status: Final Specimen Source: Urine Specimen Quality: Adequate Result: Greater than 100,000 CFU/mL of Escherichia coli E.coli INT CARLOS AMOX/CLAVULANATE S <=2 AMPICILLIN S 4 AMP/SULBACTAM S <=2 CEFAZOLIN NR <=4 2 CEFEPIME S <=1 CEFTRIAXONE S <=1 CIPROFLOXACIN S <=0.25 ERTAPENEM S <=0.5 GENTAMICIN S <=1 IMIPENEM S <=0.25 LEVOFLOXACIN S <=0.12 NITROFURANTOIN S <=16 PIP/TAZOBACTAM S <=4 TOBRAMYCIN S <=1 TRIMETHOPRIM/SULFA S <=20 S=Susceptible I=Intermediate R=Resistant * = Not Tested NR = Not Reported NN = See Therapy Comments THERAPY COMMENTS Note 1: For infections other than uncomplicated UTI caused by E. coli, K. pneumoniae or P. mirabilis: Cefazolin is resistant if CARLOS > or = 8 mcg/mL. (Distinguishing susceptible versus intermediate for isolates with CARLOS < or = 4 mcg/mL requires additional testing.) Note 2: For uncomplicated UTI caused by E. coli, K. pneumoniae or P. mirabilis: Cefazolin is susceptible if CARLOS <32 mcg/mL and predicts susceptible to the oral agents cefaclor, cefdinir, cefpodoxime, cefprozil, cefuroxime, cephalexin and loracarbef. Performed By: #### 6 304R, 3020X, %SBCULI #### [facility] [address] [place] [address] Q - UR CULT [id number] REFLEXIVE URINE CULTURE SEE NOTE Normal [facility] Att[facility] Comment on above: Order Comment: [facility] Testing performed at: [employer] [facility], [address] [place] [address], [address] [place] [address], [phone], New Car Inspector: Scout Lin MD [facility] Collection Date/Time: [facility] Results Received Date/Time: [facility] Reported Date/Time: Result Comment: CULT URE INDICATED - RESULTS TO FOLLOW Performed By: #### 6 304R, 3020X, %SBCULI #### [facility] [address] [place] [address] Q - URINALYSIS,COMPLETE,WITH REFLEX TO CULTUREon 01-24-2021 Appearance (U) CLOUDY Abnormal CLEAR [facility] Uniform Attendant Comment on above: Order Comment: [facility] Testing performed at: [facility], [address] [facility], [address] [place] [address], [phone], New Car Inspector: Scout Lin MD [facility] Collection Date/Time: [facility] Results Received Date/Time: [facility] Reported Date/Time: Performed By: #### 6 304R, 3020X, %SBCULI #### [facility] Default [address] [place] [address] BACTERIA MANY Abnormal NONE SEEN [facility] Specialist Comment on above: Order Comment: [facility] Testing performed at: [facility], [facility], [address] , [address] [place] [address], [phone], New Car Inspector: Scout Lin MD [facility] Collection Date/Time: [facility] Results Received Date/Time: [facility] Reported Date/Time: Performed By: #### 6 304R, 3020X, %SBCULI #### [facility] Default [address] [place] [address] Bilirubin Ql (U) Negative Normal NEGATIVE [facility] Specialist Comment on above: Order Comment: [facility] Testing performed at: [facility], [address] , [address] [place] [address], [phone], New Car Inspector: Scout Lin MD [facility] Collection Date/Time: [facility] Results Received Date/Time: [facility] Reported Date/Time: Performed By: #### 6 304R, 3020X, %SBCULI #### [facility] [address] [place] [address] Color (U) YELLOW Normal YELLOW [facility] Specialist Comment on above: Order Comment: [facility] Testing performed at: [facility], [address] , [address] [place] [address], [address] [place] [address], New Car Inspector: Scout Lin MD [facility] Collection Date/Time: [facility] Results Received Date/Time: [facility] Reported Date/Time: Performed By: #### 6 304R, 3020X, %SBCULI #### [facility] [address] [place] [address] Glucose Ql (U) Negative Normal NEGATIVE [facility] Specialist Comment on above: Order Comment: [facility] Testing performed at: [facility], [address] [facility], [address] [place] [address], [address] [place] [address], New Car Inspector: Scout Lin MD [facility] Collection Date/Time: [facility] Results Received Date/Time: [facility] Reported Date/Time: Performed By: #### 6 304R, 3020X, %SBCULI #### [facility] [address] [place] [address] HYALINE CAST 1-3 Abnormal NONE SEEN [facility] Uniform Attendant Comment on above: Order Comment: [facility] Testing performed at: [employer] [facility], [address] [place] [address], [address] [place] [address], [address] [place] [address], New Car Inspector: Scout Lin MD [facility] Collection Date/Time: [facility] Results Received Date/Time: [facility] Reported Date/Time: Performed By: #### 6 304R, 3020X, %SBCULI #### [facility] [address] [place] [address] Ketones Ql (U) TRACE Abnormal NEGATIVE [facility] Uniform Attendant Comment on above: Order Comment: [facility] Testing performed at: [employer] [facility], [address] [facility], [address] [place] [address], [address] [place] [address], New Car Inspector: Scout Lin MD [facility] Collection Date/Time: [facility] Results Received Date/Time: [facility] Reported Date/Time: Performed By: #### 6 304R, 3020X, %SBCULI #### [facility] [address] [place] [address] Leukocyte esterase Test strip Ql (U) TRACE Abnormal NEGATIVE [facility] Specialist Comment on above: Order Comment: [facility] Testing performed at: [employer] [facility], [address], [address] [place] [address], [phone], New Car Inspector: Scout Lin MD [facility] Collection Date/Time: [facility] Results Received Date/Time: [facility] Reported Date/Time: Performed By: #### 6 304R, 3020X, %SBCULI #### [facility] [address] [place] [address] Nitrite Ql (U) Positive Abnormal NEGATIVE [facility] Uniform Attendant Comment on above: Order Comment: [facility] Testing performed at: [facility], [address] , [address] [place] [address], [address] [place] [address], New Car Inspector: Scout Lin MD [facility] Collection Date/Time: [facility] Results Received Date/Time: [facility] Reported Date/Time: Performed By: #### 6 304R, 3020X, %SBCULI #### [facility] [address] [place] [address] OCCULT BLOOD 2+ Abnormal NEGATIVE [facility] Uniform Attendant Comment on above: Order Comment: [facility] Testing performed at: [facility], [address] , [address] [place] [address], [address] [place] [address], New Car Inspector: Scout Lin MD [facility] Collection Date/Time: [facility] Results Received Date/Time: [facility] Reported Date/Time: Performed By: #### 6 304R, 3020X, %SBCULI #### [facility] [address] [place] [address] pH (U) [pH] Normal 5.0-8.0 [facility] Uniform Attendant Comment on above: Order Comment: [facility] Testing performed at: [facility], [address] , [address] [place] [address], [address] [place] [address], New Car Inspector: Scout Lin MD [facility] Collection Date/Time: [id number] [facility] Results Received Date/Time: [facility] Reported Date/Time: Performed By: #### 6 304R, 3020X, %SBCULI #### [facility] [address] [place] [address] Protein Ql (U) Negative Normal NEGATIVE [facility] Specialist Comment on above: Order Comment: [facility] Testing performed at: [facility], [address] [place] [address], [address] [place] [address], [address] [place] [address], New Car Inspector: Scout Lin MD [facility] Collection Date/Time: [facility] Results Received Date/Time: [facility] Reported Date/Time: Performed By: #### 6 304R, 3020X, %SBCULI #### [facility] [address] [place] [address] RBC 0-2 Normal < OR = 2 [facility] Uniform Attendant Comment on above: Order Comment: [facility] Testing performed at: [facility], [address] [place] [address], [address] [place] [address], [address] [place] [address], New Car Inspector: Scout Lin MD [facility] Collection Date/Time: [facility] Results Received Date/Time: [facility] Reported Date/Time: Performed By: #### 6 304R, 3020X, %SBCULI #### [facility] [address] [place] [address] Specific gravity (U) [Rel density] 1.021 Normal 1.001-1.035 [facility] Uniform Attendant Comment on above: Order Comment: [facility] Testing performed at: [facility], [address] [place] [address], [address] [place] [address], [address] [place] [address], New Car Inspector: Scout Lin MD [facility] Collection Date/Time: [facility] Results Received Date/Time: [facility] Reported Date/Time: Performed By: #### 6 304R, 3020X, %SBCULI #### [facility] [address] [place] [address] SQUAMOUS EPITHELIAL CELLS 40-60 Abnormal < OR = 5 [facility] Specialist Comment on above: Order Comment: [facility] Testing performed at: [facility] [employer], [address] [facility], [address] [place] [address], [phone], New Car Inspector: Scout Lin MD [facility] Collection Date/Time: [facility] Results Received Date/Time: [facility] Reported Date/Time: Performed By: #### 6 304R, 3020X, %SBCULI #### [facility] [address] [place] [address] WBC 0-5 Normal < OR = 5 [facility] Specialist Comment on above: Order Comment: [facility] Testing performed at: [employer], [address] [facility], [address] [place] [address], [phone], New Car Inspector: Scout Lin MD [facility] Collection Date/Time: [facility] Results Received Date/Time: [facility] Reported Date/Time: Performed By: #### 6 304R, 3020X, %SBCULI #### [facility] [address] [place] [address] TSHon 01-24-2021 TSH 2.230 uIU/mL Normal 0.400-4.500 [facility] Uniform Attendant Comment on above: Performed By: #### C MP, TSH, FT4, VITD, LIPD, CBC #### [facility] [address] [place], [place] [id number] Vitamin D 25-OHon 01-24-2021 VIT D 25 OH 25 ng/ml Low >29 [facility] Specialist Comment on above: Result Comment: Niru min D Status Deficiency <20 ng/mL Insufficiency 20-29 ng/mL Optimal 30-100 ng/mL Possible Toxicity >=150 ng/mL Performed By: #### C MP, TSH, FT4, VITD, LIPD, CBC #### [facility] [address] [place], [place] [id number] HCG, Quanton 07-11-2019 HCG, Quant <1 Normal <5 [facility] Comment on above: Result Comment: Non-preg premeno <=5 Postmeno <=8 Male <=3 If HCG results do not concur with clinical observations, additional testing to confirm results is recommended. Elevated results not associated with may be found in patients with other diseases such as tumors of the germ cells (testis, ovaries, etc.), bladder, pancreas, stomach, lungs, and liver. Performed By: #### B HCG #### [facility] [address] [place] [address] Director [employer]: He Baptiste MD HCG, Quantitative, on 07-11-2019 hCG Quant <1 <5 IU/L [place], [place] Comment on above: Non-preg premeno <=5 Postmeno <=8 Male <=3 If HCG results do not concur with clinical observations, additional testing to confirm results is recommended. Elevated results not associated with may be found in patients with other diseases such as tumors of the germ cells (testis, ovaries, etc.), bladder, pancreas, stomach, lungs, and liver. Vital Signs Date Time Vital Sign Value Performing Clinician Faci lity 05-11-2019 10:32-0400 BMI (Body Mass Index) 37.11 kg/m2 [facility], [place] 05-11-2019 10:32-0400 Body Temperature 98.1 [degF] [facility], [place] 05-11-2019 10:32-0400 Body weight 86.18 kg [facility] , [place] 05-11-2019 10:32-0400 BP Diastolic 95 mm[Hg] [facility] , [place] 05-11-2019 10:32-0400 BP Systolic 126 mm[Hg] [facility] [place] 05-11-2019 10:32-0400 Height 152.4 cm [facility] [place] 05-11-2019 10:32-0400 Pulse (Heart Rate) 80 /min [facility] [place] 05-11-2019 10:32-0400 Pulse Oximetry 98 % [facility] [place], [place] 05-11-2019 10:32-0400 Respiratory Rate 16 /min [facility] , Encounters Encounter Date Encounter Type Care Provider Facility Start: 04-18-2022 ambulatory SELF SELF Facility:Pamela ESPA[facility]AES Start: 10-21-2021 End: 10-22-[address] NELSY DILLON Facility:[facility] Start: 04-08-2021 End: 04-09-[address] MARY JANE SMITH Facility:[facility] Start: 03-28-2021 End: 03-29-[address] MARY JANE SMITH Facility:[facility] Start: 03-08-2021 End: 03-08-[address] MARY JANE SMITH Facility:[facility] Start: 07-11-2019 End: 07-12-2019 [facility] Start: 07-11-2019 End: 07-11-2019 Subsequent hospital visit by physician Cyril Britt [facility] Start: 05-11-2019 End: 05-11-2019 Emergency department patient visit [facility] Start: 05-11-2019 End: 05-11-2019 Emergency department patient visit [facility] Work Phone: [facility] ED Comment on above: Abscess (Primary Dx) Procedures Date Procedure Procedure Detail Performing Clinician Start: 07-11-2019 Gonadotropin chorion ic quantitative WENDY FOREMAN Start: 07-11-2019 Gonadotropin chorion ic quantitative Mary Jane Smith Work Phone: Start: 05-11-2019 INCISION AND DRAINAGE Tito FOREMAN Plan of Treatment Date Care Activity Detail Author Start: 10-07-2019 Influenza vaccination Flu vacc ine (Season Ended) [place], [place] Start: 2018 Diabetes screen Diabetes screen [place], [place] Start: 2018 Lipid panel Lipid screen [place], [place] Start: 2018 Lipid screen Lipid screen [place], [place] Start: 1999 Cervical cancer screen Cervical canc er screen [place], [place] Start: 1999 Screening for malign ant neoplasm of cervix Cervical cancer screen [place], [place] Start: 1997 DTaP/Tdap/Td vaccine (1 - Tdap) DTaP/Tdap/Td vaccine (1 - Tdap) [place], [place] Start: 1993 HIV screen HIV screen Hailey Tyson [place], [place] Start: 1993 [facility] [place] [place] Payers Date Payer Category Payer Unknown [id number] 2019 Unknown [employer] [address] xxxxxxxxxxxx 2019-Present [phone] [address] [place] [address] xxxxxxxxxxxx [id number] 2019 Unknown [id number] 1978 Unknown [id number] 1978 Unknown [id number] 1978 Unknown [id number] 1978 Unknown [id number] 1978 Unknown [id number] 1978 Unknown [id number] 1978 Unknown [id number] 1959 Private Health Insurance [id number] Social History Date Type Detail Facility Start: 05-11-2019 Tobacco smoking status NHIS Never sm oker [place], [place] Sex Assigned At Not on file [place] Exposure to SARS-CoV -2 (event) Unable to assess [place] Discharge Instructions * Instructions* Wendy Foreman MD - 05/11/2019 If you have a fever unable to keep things by mouth or any other concerns please return to emergencydepartment. * Attachments The following attachments cannot be sent through Care Everywhere. * Abscess: Skin (Danish) documented in this encounter Assessments Diagnosis Abscess Cellulitis and abscess of unspecified site Advance Directives No Advanced Directives Records FoundDocuments on File Type Date Recorded Patient Part Time Expl anation Advance Directives and Living Will Power of Rn Hemodialysis Charge Summary Purpose Family History No Family History Records FoundNo Family History Records FoundNo Family History Records FoundNo Family History Records Found Additional Source Comments Reason for Visit (unrecogniz ed section and content) Reason Comments Abscess Right breast, ongoin g, but became infected 2 days ago INFORMATION SOURCE (unrecogn ized section and content) DATE CREATED AUTHOR 07/12/2019 [facility] DATE CREATED AUTHOR AUTHOR'S ORGANIZ ATION 06/16/2021 [facility] dical Specialist DATE CREATED AUTHOR AUTHOR'S ORGANIZ ATION 11/04/2021 [facility] DATE CREATED AUTHOR AUTHOR'S ORGANIZ ATION 04/18/[address] [facility] FOR RECORDS PERTAINING TO PATIENTS WHO ARE OR HAVE BEEN ENROLLED IN A CHEMICAL DEPENDENCY/SUBSTANCEABUSE PROGRAM, SOME INFORMATION MAY BE OMITTED. This clinical summary was aggregated from multiple sources. Caution should be exercised in using it in the provision of clinical care. This summary normalizes information from multiple sources, and as a consequence, information in this document may materially change the coding, format and clinical context of patient data. In addition, data may be omitted in some cases. CLINICAL DECISIONS SHOULD BE BASED ON THE PRIMARY CLINICAL RECORDS. [employer] provides no warranty or guarantee of the accuracy or completeness of information in this document.
[2023-01-31 11:08] LABS: Age Gdln ACOG Testing Note (.); HPV Aptima Negative (Negative); IGP, Aptima HPV, rfx 16/18,45 Note (.)
== END 2023-01-24 20:19 | disposition home or self-care (01) ==
LOC: LAB 20:18
PROVIDERS: Visit Provider Obstetrics & Gynecology
DX: Z01.419 Encounter for gynecological examination (general) (routine) without abnormal findings (principal)
CPT/HCPCS: 87624; G0145

== ENCOUNTER 2023-12-21 06:59 | Outpatient (OUT) | payer OTHER, SELFPAY ==
--- OUTSIDE RECORDS SUMMARY | 2023-12-21 07:04 | XMS_ITS | CCD ---
Author Organization [facility] Care Team Providers Care Prior Authorization Nurse Name Role Phone Cyril Britt Primary Care Provider [phone] WILMA, DR ASHLEIGH Huizar Primary Care Unavailable RONY, DR HINTON Admitting Unavailable WEST, DR EDNA Reyes Consulting Unavailable RONY, DR HINTON Attending Unavailable RONY, DR HINTON Consulting Unavailable RONY, DR HINTON Admitting Unavailable RINE, DR ASHLEIGH Huizar Primary Care Unavailable RONY, DR HINTON Attending Unavailable RONY, DR HINTON Consulting Unavailable ZIEBER, DR ANAMIKA Dale Consulting Unavailable RONY, DR HINTON Admitting Unavailable RINE, DR ASHLEIGH Huizar Primary Care Unavailable RONY, DR HINTON Attending Unavailable RONY, DR HINTNO Consulting Unavailable RONY, DR HINTON Admitting Unavailable WEST, DR EDNA Reyes Consulting Unavailable RINGogo, DR ASHLEIGH Huizar Primary Care Unavailable RONY, DR HINTON Attending Unavailable RONY, DR HINTON Consulting Unavailable SELF, SELF Referring Unavailable HOLLY WHITE Attending Unavaila ble Cyril Britt DO Primary Care Provider Cyril Britt DO Primary Care Provider Cyril Britt DO Unavailable Kimberly Garcia PA-C Attending Kobe LYONS, Mary Patton Primary Care Liliana Diana Finch Attending Unavailable Kimberly Garcia PA-C Referring Kobe LYONS, Mary Patton Primary Care Liliana vailable Radha SHARP, Kimberly Loyola Attending Kobe Dillon CNP, Ashleigh Loyola Referring Unavailable Abraham LYONS, [facility] Primary Care Liliana vailable ENID DENIS Referring Unavailab le CYRIL BRITT Primary Care Unavailable RINE, ASHLEIGH L Referring Unavailable LORENZACYRIL Dale Primary Care Unavailable RINE, ASHLEIGH L Referring Unavailable LORENZACYRIL Primary Care Unavailable LORENZACYRIL Primary Care Unavailable DARLENE NUÑEZ Attending Unavailable CYRIL BRITT Primary Care Unavailable RINE, ASHLEIGH L Referring Unavailable LORENZACYRIL Primary Care Unavailable RINE, ASHLEIGH L Referring Unavailable DANNI RICHARDSON Attending Unavailable ISAE, ASHLEIGH L Attending Unavailable ISAEJACQUELINERI L Attending Unavailable CYRIL DUCKWORTH Attending Unavailable ENID DENIS Referring Unavailable ISAE ASHLEIGH L Attending Unavailable CEASAR SMITH Attending Unavailable DANNI RICHARDSON Attending Unavailable ASHLEIGH DILLON Attending Unavailable CEASAR SMITH Attending Unavailable Allergies Allergy Classification Reported Allergen(s) Allergy Type Date of Onset Reaction(s) Facility (13 sources) Codeine; Translations: [codeine] Drug Allergy 3 Nausea And Vomiting [place], [place] (1 source) Codeine Drug Allergy 5 [facility] Repository Medications Current Medications Medication Drug Class(es) Dates Sig (Normalized) Sig (Original) [id number] 200 actuat albuterol 0.09 mg/actuat metered dose inhaler (1 source) beta2-Adrenergic Agonist Start: 03-20-2023 End: 03-19-2024 take 2 puff(s) by inhalation every four hours for wheezing albuterol HFA 90 mcg/act inhaler Indications: Acute cough Inhale 2 puffs every 4 (four) hours if needed for wheezing 18 g 1 03/20/2023 03/19/2024 Active amoxicillin 500 mg oral capsule (3 sources) Penicillin-class Antibacterial Start: 03-19-2023 take 2 capsules by mouth in the morning amoxicillin (Amoxil) 500 MG capsule Indications: Pharyngitis due to other organism Take 2 capsules (1,000 mg) by mouth in the morning and 2 capsules (1,000 mg) before bedtime. 40 capsule 0 03/19/2023 Active ascorbic acid 250 mg oral tablet (10 sources) Vitamin C take 1 tablet by mouth once daily Ascorbic Acid (VITAMIN C) 250 MG tablet Take 1 tablet by mouth daily 0 Active atorvastatin 10 mg oral tablet (11 sources) HMG-CoA Reductase Inhibitor Start: 12-13-2022 End: 03-20-2023 take 1 tablet by mouth once daily in the morning atorvastatin (Lipitor) 10 MG tablet Indications: Dyslipidemia (CMS/HCC) TAKE ONE TABLET BY MOUTH EVERY MORNING 30 tablet 2 03/20/2023 Active benzonatate 200 mg oral capsule (1 source) Non-narcotic Antitussive Start: 03-20-2023 End: 03-27-2023 take 1 capsule by mouth three times daily as needed for cough benzonatate (Tessalon) 200 MG capsule Indications: Acute cough Take 1 capsule (200 mg) by mouth 3 (three) times a day as needed for cough for up to 7 days Do not crush or chew. 20 capsule 0 03/20/2023 03/27/2023 Active chlorthalidone 25 mg oral tablet (11 sources) Thiazide-like Diuretic Start: 12-13-2022 End: 03-20-2023 take 1 tablet by mouth once daily in the morning as needed chlorthalidone (Hygroton) 25 MG tablet Indications: Localized edema TAKE ONE TABLET BY MOUTH EVERY MORNING NEEDED 30 tablet 2 03/20/2023 Active doxycycline hyclate 100 mg oral tablet (1 source) Tetracycline-class Drug Start: 05-11-2019 End: 05-21-2019 take 1 tablet by mouth twice daily doxycycline hyclate (VIBRA-TABS) 100 MG tablet Take 1 tablet by mouth 2 times daily for 10 days 20 tablet 0 05/11/2019 05/21/2019 Active ergocalciferol 1.25 mg oral capsule (10 sources) Provitamin D2 Compound Start: 12-06-2022 take 1 capsule by mouth every week ergocalciferol (Vitamin D2) 1.25 MG (80810 UT) capsule Indications: Vitamin D deficiency Take 1 capsule (1.25 mg) by mouth 1 (one) time per week. 12 capsule 1 12/06/2022 Active estradiol 0.5 mg oral tablet (10 sources) Estrogen Start: 02-27-2023 End: 05-28-2023 take 1 tablet by mouth in the morning estradiol (Estrace) 0.5 MG tablet Indications: Vaginal dryness Take 1 tablet (0.5 mg) by mouth in the morning. Take 1 tablet by mouth for 30 days. 30 tablet 2 02/27/2023 05/28/2023 Active loratadine 10 mg oral capsule (5 sources) take 1 capsule by mouth once daily loratadine (CLARITIN) 10 MG capsule Take 10 mg by mouth daily 0 Active meclizine hydrochloride 25 mg oral tablet (10 sources) Antiemetic Start: 02-28-2023 take 1 tablet by mouth four times daily as needed for dizziness meclizine (Antivert) 25 MG tablet Indications: Vertigo Take 1 tablet (25 mg) by mouth 4 (four) times a day as needed for dizziness 30 tablet 1 03/13/2023 Active take 1 tablet by caesar th three times daily as needed for dizziness meclizine (ANTIVERT) 25 MG tablet Take 1 tablet by mouth 3 times daily as needed for Dizziness 0 Active meloxicam 15 mg disintegrating oral tablet (10 sources) Nonsteroidal Anti-inflammatory Drug Start: 09-13-2022 take 1 tablet by mouth in the morning Meloxicam 15 MG tablet dispersible Indications: Trochanteric bursitis of both hips Take 15 mg by mouth in the morning. 30 tablet 2 09/13/2022 Active take 1 tablet by mouth once rima y meloxicam (MOBIC) 15 MG tablet Take 1 tablet by mouth daily 0 Active methylPREDNISolone (4 sources) Corticosteroid Start: 03-17-2023 End: 03-24-2023 methylPREDNISolone (MEDROL, JEANNINE,) 4 MG tablets Indications: Acute cough Follow schedule on package instructions 21 tablet 0 03/17/2023 03/24/2023 Active Multiple Vitamins-Minerals (Eye Vitamins) capsule (7 sources) take 1 tablet by mouth in the morning Multiple Vitamins-Minerals (Eye Vitamins) capsule Take 1 tablet by mouth in the morning. 0 Active Multiple Vitamins-Minerals (THERAPEUTIC MULTIVITAMIN-MINERALS) tablet (3 sources) take 1 tablet by mouth once daily Multiple Vitamins-Minerals (THERAPEUTIC MULTIVITAMIN-MINERALS ) tablet Take 1 tablet by mouth daily 0 Active omeprazole 20 mg delayed release oral capsule (12 sources) Proton Pump Inhibitor Start: 03-06-2023 End: 03-05-2024 take 1 capsule by mouth before mealtime omeprazole (PriLOSEC) [address] capsule Indications: Gastroesophageal reflux disease without esophagitis Take 1 capsule (20 mg) by mouth in the morning. Take before meals. Do not crush or chew.. 0 03/06/2023 03/05/2024 Active ondansetron 4 mg oral tablet (7 sources) Serotonin-3 Receptor Antagonist Start: 02-28-2023 take 1 tablet by mouth every eight hours for vomiting ondansetron (Zofran) 4 MG tablet Indications: Vertigo Take 1 tablet (4 mg) by mouth every 8 (eight) hours if needed for vomiting 12 tablet 0 02/28/2023 Active oseltamivir 75 mg oral capsule (4 sources) Neuraminidase Inhibitor Start: 03-19-2023 take 1 capsule by mouth in the morning oseltamivir (Tamiflu) 75 MG capsule Indications: Influenza B Take 1 capsule (75 mg) by mouth in the morning and 1 capsule (75 mg) before bedtime. 10 capsule 0 03/19/2023 Active predniSONE 20 mg oral tablet (7 sources) Start: 03-09-2023 predniSONE (Deltasone) 20 MG tablet Indications: Vertigo 3 daily for 3 days, 2 daily for 3 days, then 1 daily for 3 days 18 tablet 0 03/09/2023 Active 72 hr scopolamine 0.0139 mg/hr transdermal system (6 sources) Anticholinergic Start: 03-13-2023 scopolamine (Transderm-Scop) 1 mg/72 hr patch 72 hour patch Indications: Vertigo Place 1 patch on the skin every 3rd (third) day 2 patch 0 03/13/2023 Active Completed/Discontinued Medications Medication Drug Class(es) Dates Sig (Normalized) Sig (Original) gadoteridol (PROHANCE) injection 17 mL (1 source) Start: 03-30-2023 End: 03-30-2023 gadoteridol (PROHANCE) injection 17 mL 1 ml ketorolac tromethamine 30 mg/ml cartridge (1 source) Nonsteroidal Anti-inflammatory Drug, Cyclooxygenase Inhibitor Start: 03-07-2023 End: 03-07-2023 ketorolac (TORADOL) injection 30 mg 50 ml sodium chloride 9 mg/ml injection (1 source) Start: 03-07-2023 End: 03-07-2023 sodium chloride 0.9 % bolus 1,000 mL Problems Active Problems Problem Classification Problem Date Documented Date Episodic/Chronic Disorders of lipid metabolism (8 sources) Dyslipidemia; Translations: [Hyperlipidemia, unspecified] Onset: 09-11-2022 09-11-2022 Chronic Esophageal disorders (7 sources) Gastroesophageal reflux disease without esophagitis; Translations: [Gastro-esophageal reflux disease without esophagitis] Onset: 09-11-2022 09-11-2022 Chronic Headache; including migraine (7 sources) Migraine with aura; Translations: [Migraine with aura, not intractable, without status migrainosus] Onset: 08-01-2007 09-11-2022 Chronic Influenza (1 source) Influenza due to Influenza B virus; Translations: [Influenza due to other identified influenza virus with other respiratory manifestations] 03-19-2023 Episodic Menstrual disorders (4 sources) Excessive and frequent menstruation with regular cycle; Translations: [EXCESS FREQ MENSTRUATION W/REG CYCL] Onset: 10-21-2021 Chronic Nutritional deficiencies (7 sources) Vitamin D deficiency; Translations: [Vitamin D deficiency, unspecified] Onset: 09-11-2022 09-11-2022 Chronic Other circulatory disease (1 source) Elevated blood-pressure reading, without diagnosis of hypertension; Translations: [Elevated blood-pressure reading, without diagnosis of hypertension] Onset: 08-28-2023 Episodic Other circulatory disease (1 source) Elevated blood-pressure reading without diagnosis of hypertension; Translations: [Elevated blood-pressure reading, without diagnosis of hypertension] 08-28-2023 Episodic Other lower respiratory disease (1 source) Cough; Translations: [Acute cough] 03-20-2023 Episodic Other lower respiratory disease (1 source) Other forms of dyspnea; Translations: [Other forms of dyspnea] Onset: 08-28-2023 Episodic Other nervous system disorders (7 sources) Impairment of balance; Translations: [Other abnormalities of gait and mobility] Onset: 03-15-2023 03-15-2023 Episodic Other nervous system disorders (1 source) Ataxia; Translations: [Ataxia, unspecified] 03-30-2023 Episodic Other upper respiratory disease (7 sources) Allergic rhinitis; Translations: [Allergic rhinitis, unspecified] Onset: 08-01-2007 09-11-2022 Chronic Other upper respiratory infections (1 source) Infective pharyngitis; Translations: [Acute pharyngitis due to other specified organisms] 03-19-2023 Episodic Peripheral and visceral atherosclerosis (2 sources) Unspecified atherosclerosis; Translations: [Arteriosclerotic vascular disease] Onset: 08-28-2023 08-28-2023 Chronic Residual codes; unclassified (3 sources) Family history of malignant neoplasm of breast; Translations: [FAMILY HX MALIG NEOPLASM OF BREAST] Onset: 03-30-2021 Episodic Residual codes; unclassified (1 source) Localized edema; Translations: [Localized edema] 03-20-2023 Episodic Residual codes; unclassified (1 source) Family history of ischemic heart disease and other diseases of the circulatory system; Translations: [Family history of ischemic heart disease and other diseases of the circulatory system] Onset: 08-28-2023 Episodic Residual codes; unclassified (1 source) FH: Cardiovascular disease; Translations: [Family history of ischemic heart disease and other diseases of the circulatory system] 08-28-2023 Episodic Skin and subcutaneous tissue infections (1 source) Abscess; Translations: [Abscess] Episodic Spondylosis; intervertebral disc disorders; other back problems (7 sources) Neck pain; Translations: [Cervicalgia] Onset: 03-16-2023 03-16-2023 Episodic Past or Other Problems Problem Classification Problem Date Documented Date Episodic/Chronic Conditions associated with dizziness or vertigo (11 sources) Benign paroxysmal positional vertigo; Translations: [Benign paroxysmal vertigo, unspecified ear] Onset: 03-07-2023 03-07-2023 Episodic Deficiency and other anemia (7 sources) Microcytic anemia; Translations: [Iron deficiency anemia, unspecified] Onset: 09-11-2022 Resolved: 09-13-2022 09-13-2022 Episodic Genitourinary symptoms and ill-defined conditions (7 sources) Dysuria; Translations: [Dysuria] Onset: 09-11-2022 Resolved: 09-13-2022 09-13-2022 Episodic Immunizations and screening for infectious disease (1 source) Encounter for screening for human papillomavirus (HPV); Translations: [ENC SCREENING HUMAN PAPILLOMAVIRUS] Onset: 03-10-2021 Episodic Mood disorders (7 sources) Affective psychosis; Translations: [Unspecified mood [affective] disorder] Onset: 09-11-2022 Resolved: 09-13-2022 09-13-2022 Chronic Nonmalignant breast conditions (12 sources) Mastodynia; Translations: [Solitary cyst of right breast] Onset: 03-30-2021 09-11-2022 Episodic Other nervous system disorders (1 source) Ataxia, unspecified; Translations: [Ataxia, unspecified] Onset: 03-30-2023 Episodic Other nervous system disorders (1 source) Other symptoms and signs involving cognitive functions and awareness; Translations: [Other symptoms and signs involving cognitive functions and awareness] Onset: 03-06-2023 Episodic Other nervous system disorders (1 source) Unspecified abnormalities of gait and mobility; Translations: [Unspecified abnormalities of gait and mobility] Onset: 03-06-2023 Episodic Other nutritional; endocrine; and metabolic disorders (7 sources) Abnormal weight gain; Translations: [Abnormal weight gain] Onset: 09-11-2022 09-11-2022 Episodic Other nutritional; endocrine; and metabolic disorders (7 sources) Weight loss; Translations: [Abnormal weight loss] Onset: 09-11-2022 Resolved: 09-13-2022 09-13-2022 Episodic Other screening for suspected conditions (not mental disorders or infectious disease) (19 sources) Other abnormal and inconclusive findings on diagnostic imaging of breast; Translations: [Encounter for screening mammogram for malignant neoplasm of breast] Onset: 03-08-2021 Resolved: 09-13-2022 Episodic Results Test Name Value Interpretation Reference Range Facility Vascular AAA screeningon No evidence of abdominal aortic aneurysm. [facility] EXAMINATION: RETROPERITONEAL ULTRASOUND OF THE AORTA 08/28/2023 TECHNIQUE: Duplex ultrasound using B-mode/zamora scaled imaging, Doppler spectral analysis and color flow Doppler was obtained of the aorta. COMPARISON: None. HISTORY: ORDERING SYSTEM PROVIDED HISTORY: Screening for AAA FINDINGS: Aorta: Proximal: 2.1 x 2 cm. Mid: 1.9 x 1.8 cm. Distal: 1.7 x 1.6 cm. Iliacs: Iliac arteries are patent and normal in caliber. [facility] Silva Kitchen MD - 08/29/2023 EXAMINATION: RETROPERITONEAL ULTRASOUND OF THE AORTA 08/28/2023 TECHNIQUE: Duplex ultrasound using B-mode/zamora scaled imaging, Doppler spectral analysis and color flow Doppler was obtained of the aorta. COMPARISON: None. HISTORY: ORDERING SYSTEM PROVIDED HISTORY: Screening for AAA FINDINGS: Aorta: Proximal: 2.1 x 2 cm. Mid: 1.9 x 1.8 cm. Distal: 1.7 x 1.6 cm. Iliacs: Iliac arteries are patent and normal in caliber. IMPRESSION: No evidence of abdominal aortic aneurysm. [facility] Vascular AAA screeningOrdere d By: Silva Kitchen on 08-29-2023 [facility] Work Phone: Vascular AAA screeningon Radiology Study observation (narrative) [facility] Otolaryngology Office/Clinic Noteon 04-19-2023 Otolaryngology Office/Clinic Note Chief Complaint VNG History of Present Illness History of Present Illness pt is here for VNG Review of Systems no pertinent ros Physical Exam Additional Vitals No qualifying data available. Assessment/Plan 1. Vertigo vng completed Medical Decision Making Chronic conditions NOT treated during this visit that affected my overall medical decision making: [] Treatment plans discussed but not opted for at this time: [] Prescribed medication that requires intensive monitoring for toxicity: [] I have reviewed the patient?s medication list for medication interactions/contraindi cations and/or for upcoming procedures: [yes or no] Time Spent with the Patient I have personally spent [] minutes on this date, directly related to today's patient visit, including pre and post visit work, for this date of service. Time listed does not include time spent on separately billable services. Problem List/Past Medical History Ongoing Abnormal weight gain Allergic rhinitis Disorder of breast Dyslipidemia Gastroesophageal reflux disease without esophagitis Migraine with aura Vitamin D deficiency Historical No qualifying data Medications amoxicillin-clavulanate 875 mg-125 mg oral tablet atorvastatin 10 mg oral tablet benzonatate 200 mg oral capsule chlorthalidone 25 mg oral tablet ergocalciferol 50,000 intl units (1.25 mg) oral capsule estradiol 0.5 mg oral tablet Eye Multivitamin, Oral, Daily meloxicam 15 mg oral tablet omeprazole 20 mg oral delayed release capsule, 20 mg= 1 caps, Oral, Daily scopolamine 1 mg/72 hr transdermal film, extended release Allergies codeine (Heart rate altered, Vomiting, Nausea) Social History Tobacco Never (less than 100 in lifetime) Use:. Electronically signed by ___ Radha SHARPKimberly 04/19/23 10:[address] [facility] MR Brain WO and W contrast Rayne Lopez 03-31-2023 No acute intracrania l abnormality. No structural lesion identified to account for the patient's symptoms. Minimal left sphenoid sinus disease. [facility] EXAMINATION: MRI OF THE BRAIN and IAC WITHOUT AND WITH CONTRAST 03/30/2023 9:44 am TECHNIQUE: Multiplanar multisequence MRI of the head/brain and IAC was performed without and with the administration of intravenous contrast. COMPARISON: None. HISTORY: ORDERING SYSTEM PROVIDED HISTORY: Ataxia TECHNOLOGIST PROVIDED HISTORY: STAT Creatinine as needed:->No What is the sedation requirement?->None FINDINGS: INTRACRANIAL STRUCTURES/VENTRICLES: There is no acute infarct. No mass effect or midline shift. No evidence of an acute intracranial hemorrhage. The ventricles and sulci are normal in size and configuration. The sellar/suprasellar regions appear unremarkable. The normal signal voids within the major intracranial vessels appear maintained. No abnormal focus of enhancement is seen within the brain. Normal appearance of the IAC. ORBITS: The visualized portion of the orbits demonstrate no acute abnormality. SINUSES: Trace mucosal thickening in the left sphenoid sinus. The remaining paranasal sinuses are clear. BONES/SOFT TISSUES: The bone marrow signal intensity appears normal. The soft tissues demonstrate no acute abnormality. [facility] Sushant Conrad MD - 03/31/2023 EXAMINATION: MRI OF THE BRAIN and IAC WITHOUT AND WITH CONTRAST 03/30/2023 9:44 am TECHNIQUE: Multiplanar multisequence MRI of the head/brain and IAC was performed without and with the administration of intravenous contrast. COMPARISON: None. HISTORY: ORDERING SYSTEM PROVIDED HISTORY: Ataxia TECHNOLOGIST PROVIDED HISTORY: STAT Creatinine as needed:->No What is the sedation requirement?->None FINDINGS: INTRACRANIAL STRUCTURES/VENTRICLES: There is no acute infarct. No mass effect or midline shift. No evidence of an acute intracranial hemorrhage. The ventricles and sulci are normal in size and configuration. The sellar/suprasellar regions appear unremarkable. The normal signal voids within the major intracranial vessels appear maintained. No abnormal focus of enhancement is seen within the brain. Normal appearance of the IAC. ORBITS: The visualized portion of the orbits demonstrate no acute abnormality. SINUSES: Trace mucosal thickening in the left sphenoid sinus. The remaining paranasal sinuses are clear. BONES/SOFT TISSUES: The bone marrow signal intensity appears normal. The soft tissues demonstrate no acute abnormality. IMPRESSION: No acute intracranial abnormality. No structural lesion identified to account for the patient's symptoms. Minimal left sphenoid sinus disease. [facility] MR Brain WO and W contrast I VOrdered By: Sushant Conrad on 03-31-2023 [facility] MRI BRAIN W WO CONTRASTon MRI BRAIN W WO CONTRAST EXAMINATION: MRI OF THE BRAIN and IAC WITHOUT AND WITH CONTRAST 03/30/2023 9:44 am TECHNIQUE: Multiplanar multisequence MRI of the head/brain and IAC was performed without and with the administration of intravenous contrast. COMPARISON: None. HISTORY: ORDERING SYSTEM PROVIDED HISTORY: Ataxia TECHNOLOGIST PROVIDED HISTORY: STAT Creatinine as needed:->No What is the sedation requirement?->None FINDINGS: INTRACRANIAL STRUCTURES/VENTRICLES: There is no acute infarct. No mass effect or midline shift. No evidence of an acute intracranial hemorrhage. The ventricles and sulci are normal in size and configuration. The sellar/suprasellar regions appear unremarkable. The normal signal voids within the major intracranial vessels appear maintained. No abnormal focus of enhancement is seen within the brain. Normal appearance of the IAC. ORBITS: The visualized portion of the orbits demonstrate no acute abnormality. SINUSES: Trace mucosal thickening in the left sphenoid sinus. The remaining paranasal sinuses are clear. BONES/SOFT TISSUES: The bone marrow signal intensity appears normal. The soft tissues demonstrate no acute abnormality. IMPRESSION: No acute intracranial abnormality. No structural lesion identified to account for the patient's symptoms. Minimal left sphenoid sinus disease. Interpreted by: Sushant Conrad MD Signed by: Sushant Conrad MD 03/31/23 Final result Normal [facility] MR Brain WO and W contrast I Von 03-30-2023 Radiology Study observation (narrative) [facility] Otolaryngology Office/Clinic Noteon 03-22-2023 Otolaryngology Office/Clinic Note History of Present Illness History of Present Illness HPI: Pt is a 43 yr old female in office for vertigo. Pt states ongoing 4 wks. Pt states she has cold as well. Fells like on boat. More imbalance than fainting sensation. No tinnitus. Pain/Pressure in rt ear. Pressure in back of head. Has sinus infection recently. Pt states initially this started with her waking up with spinning. This lasted all day with n/v. BP was elevated at first, this seemed to gradually get better but not fully resolve to now feels like she is moving all the time. every 3 days she will feel worse. she has had several rounds of atb that help some. tried meclizine but has been off for the last 6d. nothing has fully resolved issues. She has current head cold and congestion.SHe has some right ear pressure that fluctuates but states this was not happening at first. hearing is unaffected. prior to the last several months, no hx of issues. she has been to ED and GP with normal labs and MRI is planned for near future. Review of Systems General Adult ROS Fatigue: No Appetite change: No Other General: No Weakness: No Weight gain: No Weight Loss: No Cardiovascular Chest pain/pressure: No Claudication: No Edema: No Orthopnea: No Other Cardiovascular: No Palpitations: No Syncope: No EENMT Bleeding gums: No Dental pain: No Ear drainage: No Ear pain: Yes Facial pain: Yes Hearing loss: No Hoarseness: No Mouth lesions: No Nasal congestion: No Nasal discharge: No Nosebleeds: No Other EENMT: Yes Postnasal drainage: No Sore_throat: No Tinnitus: No Vision Changes: No Gastrointestinal Abdominal pain: No Constipation: No Diarrhea: No Dysphagia: No Fecal incontinence: No Heartburn: No Nausea: No Other GI: No Stools, black/bloody: No Vomiting: No Vomiting blood: No Genitourinary Decreased urine output: No Dysuria: No Frequency: No Genital irritation: No Hematuria: No Hesitancy: No Impaired urge sensation: No Other Genitourinary: No Polyuria: No Sexual dysfunction: No Urgency: No Urinary Incontinence: No Vaginal discharge: No Hematologic/Lymphatic Musculoskeletal Neurological Psychiatric Respiratory Apnea: No Cough: No Hemoptysis: No Other Respiratory: No Shortness_of_breath: No Snoring: No Sputum production: No Wheezing: No Skin Physical Exam Vitals & Measurements T: 36.7 ?C (Temporal Artery) HT: 152.8 cm WT: 90.6 kg WT: 90.6 kg (Dosing) BMI: 38.8 Additional Vitals No qualifying data available. Overall:[Communication mode is clear, normal] [Appearance- no acute distress, appears stated age and is well nourished] Assistive device:[ none] Head:[normocephalic, no trauma, lesions or asymmetry] Ocular appearance:[ Conjuctiva- clear and bright, no drainage or infection. EOM intact] Ears:[ external ear- normal shape, no signs of infection, mass, lesion or asymmetry bilaterally. Ear canal is healthy, free from wax and infection, right. left has wax, this was removed with microinstrumentation without issue] [Eardrum-healthy, no sign of infection, trauma, perforation or infection, right left has retraction] [Middle ear- healthy, no obvious fluid present or infection] Nose:[ External- healthy, no sign of asymmetry, lesion or infection] Septum:[ Midline, no sign of perforation, infection or deviation] Turbinates:[ normal, no hypertrophy, mass or polyp] Nasal passages:[ clear, no infection, drainage or obstruction] Oral cavity:[ Normal, tongue healthy no mass, lesion or infection. Soft and hard palate normal. Bimanual palpation is normal. Mucosa moist, free from infection][ Benign gingiva, good dental hygiene][Tonsil size is normal, no asymmetry, mass or lesionn][oropharynx- clear, no evidence of post nasal drip, cobblestoning or other abnormalities] Nasopharynx:[ unable to view with mirror due to gagging] Larynx:[ Unable to view with mirror due to gagging] Neck:[ Salivary gland exam is normal, no enlargement or tenderness. No lymph node enlargement. TMJ exam is normal, no tenderness noted][ Thyroid exam is normal, no masses or tenderness] Mental Status:[Alert and oriented x3][Mood and affect normal][Gait is normal]. leslie-pike neg Audiogram:[ Word recognition is normal. Hearing is normal bilaterally. No asymmetry noted] Tympanogram: [Normal right, left retracted Assessment/Plan 1. Impacted cerumen, left ear wax present and cleaned left ear 2. Vertigo Pt has chronic now imbalance, feels like she is floating all the time. this makes it hard to function. this will come and go in intensity. Differential includes ortho assistant vs menieres issues. Discussed vng, monitoring salt and follow through with MRI. Leonid suggested as well for ET issues. REcheck onces testing is completed. PT to call if symptoms change or worsen 3. Dysfunction of both eustachian tubes Medical Decision Making Chronic conditions NOT treated during this visit that affected my overall medical decision m (more content not included)... [facility] Anion gap [Moles/Vol] 12 mmol/L 9 - 17 mmol/L [facility] Calcium [Mass/Vol] 9.8 mg/dL 8.6 - 10. 4 mg/dL [facility] Chloride [Moles/Vol] 97 mmol/L Low 98 - 10 7 mmol/L [facility] CO2 [Moles/Vol] 26 mmol/L 20 - 31 mmol/L [place] [facility] Creatinine [Mass/Vol] 0.7 mg/dL 0.5 - 0.9 mg/dL [facility] GFR/1.73 sq M.predicted MDRD (S/P/Bld) [Vol rate/Area] - [facility] Comment on above: These results are not intended for use in patients <18 years of age. eGFR results are calculated without a race factor using the 2020 CKD-EPI equation. Careful clinical correlation is recommended, particularly when comparing to results calculated using previous equations. The CKD-EPI equation is less accurate in patients with extremes of muscle mass, extra-renal metabolism of creatine, excessive creatine ingestion, or following therapy that affects renal tubular secretion. Glucose [Mass/Vol] 121 mg/dL High 70 - 99 mg/dL [facility] Interpretation and review of laboratory results Abnormal [facility] Potassium [Moles/Vol] 3.4 mmol/L Low 3.7 - 5.3 mmol/L [facility] Sodium [Moles/Vol] 135 mmol/L 135 - 144 mmol/L [place] [facility] Urea nitrogen [Mass/Vol] 15 mg/dL 6 - 20 mg/dL [place] [facility] Urea nitrogen/Creatinine [Mass ratio] 21 mg/mg High 9 - 20 [place] [facility] Basic Metabolic Profon 03-07 Anion gap [Moles/Vol] 12 mmol/L Normal 9-17 [facility] Comment on above: Performed By: #### C RP, BMP, SED, CDP #### [facility] [address] [place], [place] [id number] Career Technology Teacher: Edna Sanchez MD BUN/CRE Ratio 21 High 9-20 [facility] Comment on above: Performed By: #### C RP, BMP, SED, CDP #### [facility] [address] [place], [place] [id number] Career Technology Teacher: Edna Sanchez MD Calcium [Mass/Vol] 9.8 mg/dL Normal 8.6-10.4 [facility] Comment on above: Performed By: #### C RP, BMP, SED, CDP #### [facility] [address] [place], [place] [id number] Career Technology Teacher: Edna Sanchez MD Chloride [Moles/Vol] 97 mmol/L Low 98-107 [facility] Comment on above: Performed By: #### C RP, BMP, SED, CDP #### [facility] [address] [place], [place] [id number] Career Technology Teacher: Edna Sanchez MD CO2 [Moles/Vol] 26 mmol/L Normal - [facility] Comment on above: Performed By: #### C RP, BMP, SED, CDP #### [facility] [address] [place], [place] [id number] Career Technology Teacher: Edna Sanchez MD Creatinine [Mass/Vol] 0.7 mg/dL Normal 0.5-0.9 [facility] Comment on above: Performed By: #### C RP, BMP, SED, CDP #### [facility] [address] [place], [place] [id number] Career Technology Teacher: Enda Sanchez MD GFR/1.73 sq M.predicted among non-blacks MDRD (S/P/Bld) [Vol rate/Area] mL/min/{1.73_m2} Normal >60 [facility] Comment on above: Result Comment: These results are not intended for use in patients <18 years of age. eGFR results are calculated without a race factor using the 2020 CKD-EPI equation. Careful clinical correlation is recommended, particularly when comparing to results calculated using previous equations. The CKD-EPI equation is less accurate in patients with extremes of muscle mass, extra-renal metabolism of creatine, excessive creatine ingestion, or following therapy that affects renal tubular secretion. Performed By: #### C RP, BMP, SED, CDP #### [facility] [address] [place] [address] Career Technology Teacher: Edna Sanchez MD Glucose [Mass/Vol] 121 mg/dL High 70-99 [facility] Comment on above: Performed By: #### C RP, BMP, SED, CDP #### [facility] [address] [place], [place] [id number] Career Technology Teacher: Edna Sanchez MD Potassium [Moles/Vol] 3.4 mmol/L Low 3.7-5.3 [facility] Comment on above: Performed By: #### C RP, BMP, SED, CDP #### [facility] [address] [place], [place] [id number] Career Technology Teacher: Edna Sanchez MD Sodium [Moles/Vol] 135 mmol/L Normal 135-144 [facility] Comment on above: Performed By: #### C RP, BMP, SED, CDP #### [facility] [address] [place], [place] [id number] Career Technology Teacher: Edna Sanchez MD Urea nitrogen [Mass/Vol] 15 mg/dL Normal 6-20 [facility] Comment on above: Performed By: #### C RP, BMP, SED, CDP #### [facility] [address] [place] [address] Career Technology Teacher: Edna Sanchez MD C-Reactive Proteinon 024 CRP High sensitivity method [Mass/Vol] mg/L 0.0 - 5.0 mg/L [facility] CRP [Mass/Vol] mg/L Normal 0.0-5.0 [facility] Comment on above: Performed By: #### C RP, BMP, SED, CDP #### [facility] [address] [place] [address] Career Technology Teacher: Edna Sanchez MD CBC with Auto Differentialon 03-07-2023 Basophils (Bld) [#/Vol] 0.04 10*3/uL [facility] Basophils/100 WBC (Bld) 0 % 0 - 2 % [facility] Eosinophils (Bld) [#/Vol] [facility] Eosinophils/100 WBC (Bld) 0 % Low 1 - 4 % [facility] Erythrocyte distribution width (RBC) [Ratio] 11.2 % Low 11.8 - 14.4 % [facility] Hematocrit (Bld) [Volume fraction] 46.3 % 36.3 - 47.1 % [facility] Hemoglobin (Bld) [Mass/Vol] 16.7 g/dL High 11.9 - 15.1 g/dL [facility] Immature granulocytes (Bld) [#/Vol] 0.20 10*3/uL [facility] Immature granulocytes/100 WBC (Bld) 1 % High 0 [facility] Interpretation and review of laboratory results Abnormal [facility] Lymphocytes/100 WBC (Bld) 10 % Low 24 - 43 % [facility] Lymphocytes/100 WBC (Bld) 1.66 % [facility] MCH (RBC) [Entitic mass] 31.9 pg 25.2 - 33.5 pg [facility] MCHC (RBC) [Mass/Vol] 36.1 g/dL High 28.4 - 34.8 g/dL [facility] MCV (RBC) [Entitic vol] 88.4 fL 82.6 - 102.9 fL [facility] Monocytes/100 WBC (Bld) 3 % 3 - 12 % [facility] Monocytes/100 WBC (Bld) 0.44 % [facility] Neutrophils/100 WBC (Bld) 86 % High 36 - 65 % [facility] Nucleated RBC/100 WBC (Bld) [Ratio] 0.0 % 0.0 per 100 WBC [facility] Platelet mean volume (Bld) [Entitic vol] 9.4 fL 8.1 - 13.5 fL [facility] Platelets (Bld) [#/Vol] 364 10*3/uL [facility] RBC (Bld) [#/Vol] 5.24 10*6/uL High 3.95 - 5.1 1 m/uL [facility] Segmented neutrophils/100 WBC (Bld) 13.62 % High [facility] WBC other (Bld) [#/Vol] 16.0 High [facility] CBC with Diffon 03-07-2023 Abs. Basophil 0.04 k/uL Normal 0.00-0.20 [facility] Comment on above: Performed By: #### C RP, BMP, SED, CDP #### [facility] [address] [place] [address] Dr. [place], [place] [address] Career Technology Teacher: Edna Sanchez MD Abs. Eosinophil <0.03 Normal 0.00-0.44 [facility] Comment on above: Performed By: #### C RP, BMP, SED, CDP #### [address] [place] [address] Career Technology Teacher: Edna Sanchez MD Abs.Imm.Granulocyte 0.20 k/uL Normal 0.00-0.30 [facility] Comment on above: Performed By: #### C RP, BMP, SED, CDP #### [address] [place] [address] Career Technology Teacher: Edna Sanchez MD Abs.Neutrophil (Seg) 13.62 k/uL High 1.50-8.10 [facility] Comment on above: Performed By: #### C RP, BMP, SED, CDP #### [facility] [address] [place] [address] Dr. [place], [facility]83 Career Technology Teacher: Edna Sanchez MD Basophils/100 WBC (Bld) 0 % Normal 0-2 [facility] Comment on above: Performed By: #### C RP, BMP, SED, CDP #### [address] [place], [facility]83 Career Technology Teacher: Edna Sanchez MD Eosinophils/100 WBC (Bld) 0 % Low 1-4 [facility] Comment on above: Performed By: #### C RP, BMP, SED, CDP #### [address] [place] [id number] Career Technology Teacher: Edna Sanchez MD Erythrocyte distribution width (RBC) [Ratio] 11.2 % Low 11.8-14.4 [facility] Comment on above: Performed By: #### C RP, BMP, SED, CDP #### [address] [place], [facility]83 Career Technology Teacher: Edna Sanchez MD Hematocrit (Bld) [Volume fraction] 46.3 % Normal 36.3-47.1 [facility] Comment on above: Performed By: #### C RP, BMP, SED, CDP #### [address] [place], [facility]83 Career Technology Teacher: Edna Sanchez MD Hemoglobin (Bld) [Mass/Vol] 16.7 g/dL High 11.9-15.1 [facility] Comment on above: Performed By: #### C RP, BMP, SED, CDP #### [address] [place] [address] Career Technology Teacher: Edna Sanchez MD Immature granulocytes/100 WBC (Bld) 1 % High 0 [facility] Comment on above: Performed By: #### C RP, BMP, SED, CDP #### [address] [place], [facility]83 Career Technology Teacher: Edna Sanchez MD Lymphocytes (Bld) [#/Vol] 1.66 10*3/uL Normal 1.10-3.70 [facility] Comment on above: Performed By: #### C RP, BMP, SED, CDP #### [address] [place], [facility]83 Career Technology Teacher: Edna Sanchez MD Lymphocytes/100 WBC (Bld) 10 % Low 24-43 [facility] Comment on above: Performed By: #### C RP, BMP, SED, CDP #### [address] [place], [facility]83 Career Technology Teacher: Edna Sanchez MD MCH (RBC) [Entitic mass] 31.9 pg Normal 25.2-33.5 [facility] Comment on above: Performed By: #### C RP, BMP, SED, CDP #### [address] [place], [facility]83 Career Technology Teacher: Edna Sanchez MD MCHC (RBC) [Mass/Vol] 36.1 g/dL High 28.4-34.8 [facility] Comment on above: Performed By: #### C RP, BMP, SED, CDP #### [address] [place], [facility]83 Career Technology Teacher: Edna Sanchez MD MCV (RBC) [Entitic vol] 88.4 fL Normal 82.6-102.9 [facility] Comment on above: Performed By: #### C RP, BMP, SED, CDP #### [address] [place], [facility]83 Career Technology Teacher: Edna Sanchez MD Monocytes (Bld) [#/Vol] 0.44 10*3/uL Normal 0.10-1.20 [facility] Comment on above: Performed By: #### C RP, BMP, SED, CDP #### [facility] [address] [place], [place] [id number] Career Technology Teacher: Edna Sanchez MD Monocytes/100 WBC (Bld) 3 % Normal 3-12 [facility] Comment on above: Performed By: #### C RP, BMP, SED, CDP #### [facility] [address] [place], [place] [id number] Career Technology Teacher: Edna Sanchez MD Neutrophil (Seg) 86 % High 36-65 [facility] Comment on above: Performed By: #### C RP, BMP, SED, CDP #### [facility] [address] [place], [facility]83 Career Technology Teacher: Edna Sanchez MD NRBC Automated 0.0 per 100 WBC Normal 0.0 [facility] Comment on above: Performed By: #### C RP, BMP, SED, CDP #### [address] [place], [facility]83 Career Technology Teacher: Edna Sanchez MD Platelet mean volume (Bld) [Entitic vol] 9.4 fL Normal 8.1-13.5 [facility] Comment on above: Performed By: #### C RP, BMP, SED, CDP #### [address] [place], [facility]83 Career Technology Teacher: Edna Sanchez MD Platelets (Bld) [#/Vol] 364 10*3/uL Normal 138-453 [facility] Comment on above: Performed By: #### C RP, BMP, SED, CDP #### [address] [place], [place] [id number] Career Technology Teacher: Edna Sanchez MD RBC (Bld) [#/Vol] 5.24 10*6/uL High 3.95-5.11 [facility] Comment on above: Performed By: #### C RP, BMP, SED, CDP #### [address] [place] [address] Career Technology Teacher: Edna Sanchez MD WBC (Bld) [#/Vol] 16.0 10*3/uL High 3.5-11.3 [facility] Comment on above: Performed By: #### C RP, BMP, SED, CDP #### [facility] [address] [place] [id number] Career Technology Teacher: Edna Sanchez MD Sedimentation Rateon 024 ESR Photometric method (Bld) [Velocity] 19 [facility] Sedimentation Rate 19 mm/Hr Normal 0-20 [facility] Comment on above: Performed By: #### C RP, BMP, SED, CDP #### [facility] [address] [place] [address] Career Technology Teacher: Edna Sanchez MD BUN + Creatinineon 4 Creatinine [Mass/Vol] 0.8 mg/dL Normal 0.5-0.9 [facility] Comment on above: Performed By: #### B UNCRT #### [facility] [address] [place] [address] Career Technology Teacher: Edna Sanchez MD GFR/1.73 sq M.predicted among non-blacks MDRD (S/P/Bld) [Vol rate/Area] mL/min/{1.73_m2} Normal >60 [facility] Comment on above: Result Comment: These results are not intended for use in patients <18 years of age. eGFR results are calculated without a race factor using the 2020 CKD-EPI equation. Careful clinical correlation is recommended, particularly when comparing to results calculated using previous equations. The CKD-EPI equation is less accurate in patients with extremes of muscle mass, extra-renal metabolism of creatine, excessive creatine ingestion, or following therapy that affects renal tubular secretion. Performed By: #### B UNCRT #### [facility] [address] [place] [id number] Career Technology Teacher: Edna Sanchez MD Urea nitrogen [Mass/Vol] 16 mg/dL Normal 6-20 [facility] Comment on above: Performed By: #### B UNCRT #### [facility] [address] [place] [address] Career Technology Teacher: Edna Sanchez MD CTA HEAD NECK W WO CONTRASTo n 03-06-2023 CTA HEAD NECK W WO CONTRAST EXAMINATION: CTA OF THE HEAD AND NECK WITH CONTRAST 03/06/2023 3:04 pm: TECHNIQUE: CTA of the head and neck was performed with the administration of intravenous contrast. Multiplanar reformatted images are provided for review. MIP images are provided for review. Stenosis of the internal carotid arteries measured using NASCET criteria. Automated exposure control, iterative reconstruction, and/or weight based adjustment of the mA/kV was utilized to reduce the radiation dose to as low as reasonably achievable. COMPARISON: None. HISTORY: ORDERING SYSTEM PROVIDED HISTORY: Vertigo TECHNOLOGIST PROVIDED HISTORY: STAT Creatinine as needed:->No FINDINGS: CTA NECK: AORTIC ARCH/ARCH VESSELS: No dissection or arterial injury. No significant stenosis of the brachiocephalic or subclavian arteries. CAROTID ARTERIES: No dissection, arterial injury, or hemodynamically significant stenosis by NASCET criteria. VERTEBRAL ARTERIES: No dissection, arterial injury, or significant stenosis. SOFT TISSUES: The lung apices are clear. Scattered calcified granuloma are seen. No cervical or superior mediastinal lymphadenopathy. The larynx and pharynx are unremarkable. No acute abnormality of the salivary and thyroid glands. BONES: No acute osseous abnormality. CTA HEAD: ANTERIOR CIRCULATION: No significant stenosis of the intracranial internal carotid, anterior cerebral, or middle cerebral arteries. No aneurysm. POSTERIOR CIRCULATION: No significant stenosis of the vertebral, basilar, or posterior cerebral arteries. No aneurysm. OTHER: No dural venous sinus thrombosis on this non-dedicated study. BRAIN: No mass effect or midline shift. No extra-axial fluid collection. The zamora-white differentiation is maintained. IMPRESSION: Unremarkable CTA of the head and neck. Interpreted by: Frederick Casas MD Signed by: Frederick Casas MD 03/06/23 Final result Normal [facility] CBC AUTO DIFFon 10-21-2021 BASO # 0.1 103/ul Normal 0.0-0.1 [facility] Comment on above: Performed By: #### C BC #### [facility] [address] [place] [address] Dr. Ilsa Soto Basophils/100 WBC (Bld) 1.1 % Normal 0.2-2.0 [facility] Comment on above: Performed By: #### C BC #### [facility] [address] [place] [address] Dr. Ilsa Soto EO # 0.1 103/ul Normal 0.0-0.7 [facility] Comment on above: Performed By: #### C BC #### [facility] [address] [place] [address] Dr. Ilsa Soto Eosinophils/100 WBC (Bld) 2.0 % Normal 0.9-7.0 [facility] Comment on above: Performed By: #### C BC #### [facility] [address] [place] [address] Dr. Ilsa Soto Erythrocyte distribution width (RBC) [Ratio] 11.7 % Normal 11.0-15.0 [facility] Comment on above: Performed By: #### C BC #### [facility] [address] [place] [address] Dr. Ilsa Soto Hematocrit (Bld) [Volume fraction] 41.0 % Normal 36.0-48.0 [facility] Comment on above: Performed By: #### C BC #### [facility] [address] [place] [address] Dr. Ilsa Soto Hemoglobin (Bld) [Mass/Vol] 14.1 g/dL Normal 12.0-16.0 [facility] Comment on above: Performed By: #### C BC #### [facility] [address] [place] [address] Dr. Ilsa Soto IG # 0.02 10e3/ul Normal 0.00-0.03 [facility] Comment on above: Performed By: #### C BC #### [facility] [address] [place] [address] Dr. Ilsa Soto IG % 0.3 % Normal 0.0-0.5 [facility] Comment on above: Performed By: #### C BC #### [facility] [address] [place] [address] Dr. Ilsa Soto LYMPH # 2.3 103/ul Normal 1.2-3.8 [facility] Comment on above: Performed By: #### C BC #### [facility] [address] [place] [address] Dr. Ilsa Soto Lymphocytes/100 WBC (Bld) 32.4 % Normal 20.5-60.0 [facility] Comment on above: Performed By: #### C BC #### [facility] [address] [place] [address] Dr. Ilsa Soto MANUAL DIFF REQ NO Normal [facility] Comment on above: Performed By: #### C BC #### [facility] [address] [place] [address] Dr. Ilsa Soto MCH (RBC) [Entitic mass] 32.5 pg Normal 26.7-34.0 [facility] Comment on above: Performed By: #### C BC #### [facility] [address] [place] [address] Dr. Ilsa Soto MCHC (RBC) [Mass/Vol] 34.4 g/dL Normal 29.9-35.2 [facility] Comment on above: Performed By: #### C BC #### [facility] [address] [place] [address] Dr. Ilsa Soto MCV (RBC) [Entitic vol] 94.5 fL Normal 81.0-99.0 [facility] Comment on above: Performed By: #### C BC #### [facility] [address] [place] [address] Dr. Ilsa Soto MONO # 0.5 103/ul Normal 0.3-0.8 [facility] Comment on above: Performed By: #### C BC #### [facility] [address] [place] [address] Dr. Ilsa Soto Monocytes/100 WBC (Bld) 6.9 % Normal 1.7-12.0 [facility] Comment on above: Performed By: #### C BC #### [facility] [address] [address] [address] Ilsa Soto NEUT # 4.1 103/ul Normal 1.4-6.5 [facility] Comment on above: Performed By: #### C BC #### [facility] [address] [place] [address] Dr. Ilsa Soto Neutrophils/100 WBC (Bld) 57.3 % Normal 43.0-75.0 [facility] Comment on above: Performed By: #### C BC #### [facility] [address] [place] [address] Dr. Ilsa Soto Platelet mean volume (Bld) [Entitic vol] 9.3 fL Critically low 9.5-13.5 [facility] Comment on above: Performed By: #### C BC #### [facility] [address] [place] [address] Dr. Ilsa Soto PLT 272 103/ul Normal 150-450 [facility] Comment on above: Performed By: #### C BC #### [facility] [address] [place] [address] Dr. Ilsa Soto RBC 4.34 106/ul Normal 4.20-5.40 [facility] Comment on above: Performed By: #### C BC #### [facility] [address] [place] [address] Dr. Ilsa Soto WBC 7.1 103/ul Normal 4.0-11.0 [facility] Comment on above: Performed By: #### C BC #### [facility] [address] [place] [address] Dr. Ilsa Soto FREE T4on 10-21-2021 Free T4 [Mass/Vol] 1.14 ng/dL Normal 0.76-1.46 [facility] Comment on above: Performed By: #### P TT, PT #### [facility] [address] [place] [address] Dr. Ilsa Soto GLYCOHEMOGLOBIN A1Con 2021 ADA RECOMMENDATION SEE BELOW Normal [facility] Comment on above: Result Comment: ADA RECOMMENDED LIMIT 4.0 - 6.0 ADA THERAPEUTIC TARGET < 7.0 ACTION SUGGESTED > 7.0 Performed By: #### P TT, PT #### [facility] [address] [place], [place] [address] Dr. Ilsa Soto Glucose [Mass/Vol] 103 mg/dL Normal [facility] Comment on above: Performed By: #### P TT, PT #### [facility] [address], [place] [address] Dr. Ilsa Soto HbA1c (Bld) [Mass fraction] 5.2 % Normal 4.5-6.2 [facility] Comment on above: Performed By: #### P TT, PT #### [facility] [address], [place] [address] Dr. Ilsa Soto MG MAMM DIAGNOSTIC 3D SHERIF CA Don 10-21-2021 MG MAMM DIAGNOSTIC 3D SHERIF CAD Patient: FABI CARLTON Exam Date: 10/21/2021 : 1980 Gender:F Ordering : DR CEASAR SMITH . Admission #: [id number] Family : Order #: [id number] CLICK HERE TO VIEW EXAM RADIOLOGY REPORT [...] breast cancer at age 58. LOCATION: [facility] BREAST COMPOSITION: Heterogeneously dense,which may obscure small [...] MD on 10/21/2021 at 15:25 Normal [facility] PREG QUANT HCGon 10-21-2021 HCG QUANT 1 mIU/mL Normal [facility] Comment on above: Performed By: #### P TT, PT #### [facility] [address] [place] [address] Dr. Ilsa Soto HCG RANGE SEE BELOW Normal [facility] Comment on above: Result Comment: 5-50 0.2-1 WEEK 50-500 1-2 WEEKS 100-5,000 2-3 WEEKS 500-10,000 3-4 WEEKS 1,000-50,000 4-5 WEEKS 10,000-100,000 5-6 WEEKS 15,000-200,000 6-8 WEEKS 10,000-100,000 2-3 MONTHS Performed By: #### P TT, PT #### [facility] [address] [place] [address] Dr. Ilsa Soto PROTIMEon 10-21-2021 INR Coag (PPP) [Relative time] 1.01 {INR} Normal [facility] Comment on above: Performed By: #### P TT, PT #### [facility] [address] [place] [address] Dr. Ilsa Soto INR GUIDELINES SEE BELOW Normal [facility] Comment on above: Result Comment: RODY RED INR: 2.0 - 3.0 CONDITIONS NOT LISTED BELOW 2.5 - 3.5 FOR PROSTHETIC HEART VALVE REPLACEMENT 2.5 - 3.5 RECURRENT THROMBOSIS Performed By: #### P TT, PT #### [facility] [address] [place] [address] Dr. Ilsa Soto PT Coag (PPP) [Time] 10.9 s Normal 9.0-11.6 [facility] Comment on above: Performed By: #### P TT, PT #### [facility] [address] [place] [address] Dr. Ilsa Soto PTTon 10-21-2021 aPTT Coag (Bld) [Time] 27.5 s Normal 22.3-36.2 [facility] Comment on above: Performed By: #### P TT, PT #### [facility] [address], [place] [address] Dr. Ilsa Soto TSHon 10-21-2021 TSH 1.571 uIU/mL Normal 0.358-3.740 [facility] Comment on above: Performed By: #### P TT, PT #### [facility] [address], [place] [address] Dr. Ilsa Soto US BREAST SHERIF COMPLETEon US BREAST SHERIF COMPLETE Patient: FABI CARLTON Exam Date: 10/21/2021 : 1980 Gender:F Ordering : DR CEASAR SMITH . Admission #: [id number] Family : Order #: [id number] CLICK HERE TO VIEW EXAM RADIOLOGY REPORT [...] breast cancer at age 58. LOCATION: [facility] BREAST COMPOSITION: Heterogeneously dense,which may obscure small [...] MD on 10/21/2021 at 15:25 Normal [facility] US PELVIS AND TRANSVAGon US PELVIS AND [...] EDNA PURVIS Date: 2021-10-21 16:18 Normal [facility] Complete Blood Count with Au to Diffon 06-14-2021 Basophils (Bld) [#/Vol] 0.07 10*3/uL Normal 0.00-0.20 [facility] Comment on above: Performed By: #### Iesha OCBB FE Prof #### [facility] Default [address] [place] [address] Basophils/100 WBC (Bld) 1.2 % Normal [facility] Comment on above: Performed By: #### Iesha COBB FE Prof #### [facility] [address] [place] [address] Eosinophils (Bld) [#/Vol] 0.12 10*3/uL Normal 0.02-0.50 [facility] Comment on above: Performed By: #### Iesha COBB FE Prof #### [facility] [address] [place] [address] Eosinophils/100 WBC (Bld) 2.0 % Normal [facility] Comment on above: Performed By: #### Iesha COBB FE Prof #### [facility] [address] [place] [address] Erythrocyte distribution width (RBC) [Ratio] 12.7 % Normal 11.0-15.0 [facility] Comment on above: Performed By: #### Iesha COBB FE Prof #### [facility] [address] [place] [address] Hematocrit (Bld) [Volume fraction] 44.4 % Normal 35.0-47.0 [facility] Comment on above: Performed By: #### C REZA, FE Prof #### [facility] [address] [place] [address] Hemoglobin (Bld) [Mass/Vol] 14.7 g/dL Normal 11.6-15.5 [facility] Comment on above: Performed By: #### Iesha COBB, FE Prof #### [facility] [address] [place] [address] Lymphocytes (Bld) [#/Vol] 2.1 10*3/uL Normal 0.9-3.9 [facility] Comment on above: Performed By: #### Iesha COBB, FE Prof #### [facility] [address] [place] [address] Lymphocytes/100 WBC (Bld) 34.9 % Normal [facility] Comment on above: Performed By: #### Iesha COBB, FE Prof #### [facility] [address] [place] [address] MCH (RBC) [Entitic mass] 30.8 pg Normal 27.0-33.0 [facility] Comment on above: Performed By: #### C REZA, FE Prof #### [facility] [address] [place] [address] MCHC (RBC) [Mass/Vol] 33.1 g/dL Normal 32.0-36.0 [facility] Comment on above: Performed By: #### Iesha COBB, FE Prof #### [facility] [address] [place] [address] MCV (RBC) [Entitic vol] 93 fL Normal 80-100 [facility] Comment on above: Performed By: #### C REZA, FE Prof #### [facility] [address] [place] [address] Monocytes (Bld) [#/Vol] 0.5 10*3/uL Normal 0.2-0.9 [facility] Comment on above: Performed By: #### Iesha COBB, FE Prof #### [facility] [address] [place] [address] Monocytes/100 WBC (Bld) 7.6 % Normal [facility] Comment on above: Performed By: #### Iesha COBB, FE Prof #### [facility] [address] [place] [address] Neutrophils (Bld) [#/Vol] 3.3 10*3/uL Normal 1.5-7.8 [facility] Comment on above: Performed By: #### Iesah COBB, GADIEL Prof #### [facility] [address] [place] [address] Neutrophils/100 WBC (Bld) 54.0 % Normal [facility] Comment on above: Performed By: #### Iesha COBB, FE Prof #### [facility] [address] [place] [address] Platelet mean volume (Bld) [Entitic vol] 10.10 fL Normal 7.50-12.50 [facility] Comment on above: Performed By: #### Iesha COBB, GADIEL Prof #### [facility] [address] [place] [address] Platelets (Bld) [#/Vol] 255 10*3/uL Normal 140-400 [facility] Comment on above: Performed By: #### Iesha COBB, GADIEL Prof #### [facility] [address] [place] [address] RBC (Bld) [#/Vol] 4.77 10*6/uL Normal 3.90-5.20 [facility] Comment on above: Performed By: #### Iesha COBB, GADIEL Prof #### [facility] [address] [place] [address] RDW-SD 43.6 fL Normal 37.0-50.0 [facility] Comment on above: Performed By: #### Iesha COBB, GADIEL Prof #### [facility] [address] [place] [address] WBC (Bld) [#/Vol] 6.1 10*3/uL Normal 3.8-11.0 [facility] Comment on above: Performed By: #### Iesha COBB, FE Prof #### [facility] [address] [place] [address] Vitamin D 25-OHon 06-14-2021 VIT D 25 OH 60 ng/mL Normal 30-100 [facility] Comment on above: Order Comment: [facility] performed at: [facility], [facility], [address], [address] [facility], [place], [address], [employer] Specialist: Scout Lin MD [facility] Collection Date/Time: [id number] [facility] Results Received Date/Time: [id number] [facility] Reported Date/Time: [id number] Result Comment: Niru min D Status 25-OH Vitamin D: Deficiency: <20 ng/mL Insufficiency: 20 - 29 ng/mL Optimal: > or = 30 ng/mL For 25-OH Vitamin D testing on patients on D2-supplementation and patients for whom quantitation of D2 and D3 fractions is required, the QuestAssureD(TM) 25-OH VIT D, (D2,D3), LC/MS/MS is recommended: order code 84563 (patients >2yrs). See Note 1 Note 1 For additional information, please refer to http://education.AutoSpot/faq/ATH033 (This link is being provided for informational/ educational purposes only.) Performed By: #### V ITD #### [facility] [address] [place] [address] MG MAMM RT DIAG FUon 022 MG MAMM RT DIAG FU Patient: GREGORY CARLTON Exam Date: 04/08/2021 : 1980 Gender:F Ordering : DR CEASAR SMITH . Admission #: [id number] Family : Order #: [id number] CLICK HERE TO VIEW EXAM RADIOLOGY REPORT [...] breast cancer at age 58. LOCATION: [facility] BREAST COMPOSITION: Heterogeneously dense,which may obscure small [...] MD on 04/08/2021 at 11:50 Normal [facility] US BREAST RIGHT LIMITEDon US BREAST RIGHT LIMITED Patient: FABI CARLTON Exam Date: 04/08/2021 : 1980 Gender:F Ordering : DR CEASAR SMITH . Admission #: [id number] Family : Order #: [id number] CLICK HERE TO VIEW EXAM RADIOLOGY REPORT [...] breast cancer at age 58. LOCATION: [facility] BREAST COMPOSITION: Heterogeneously dense,which may obscure small [...] Purvis MD on 04/08/2021 at 11:50 Normal [facility] MG MAMM SCREEN 3D SHERIF CADon 03-28-2021 MG MAMM SCREEN 3D SHERIF CAD Patient: FABI CARLTON Exam Date: 03/28/2021 : 1980 Gender:F Ordering : DR CEASAR SMITH . Admission #: [id number] Family : Order #: [id number] CLICK HERE TO VIEW EXAM RADIOLOGY REPORT [...] breast cancer at age 58. LOCATION: [facility] BREAST COMPOSITION: Heterogeneously dense,which may obscure small masses. FINDINGS: DIAGNOSTIC CATEGORY 0--INCOMPLETE: NEED ADDITIONAL IMAGING EVALUATION. RIGHT BREAST: 9 mm spiculated asymmetry within the medial mid breast on the CC view, suspected to be within the lower breast on the MLO view. Tomographic views suggests this represents summation of overlapping fibroglandular tissue. Spot magnification views and ultrasound evaluation are recommended for further evaluation/confirmation . LEFT BREAST: No significant suspicious finding. No significant change has occurred. RECOMMENDATIONS: ADDITIONAL MAMMOGRAPHIC VIEWS REQUIRED: RIGHT BREAST - RIGHT CRANIOCAUDAL SPOT MAGNIFICATION VIEW - RIGHT OBLIQUE SPOT MAGNIFICATION VIEW - ULTRASOUND: RIGHT BREAST PLEASE NOTE: A NORMAL MAMMOGRAM DOES NOT EXCLUDE THE POSSIBILITY OF BREAST CANCER. A CLINICALLY SUSPICIOUS PALPABLE LUMP SHOULD BE BIOPSIED. Dictated by: Anamika Mclean M.D. on 03/29/2021 at 11:38 Approved by: Anamika Mclean M.D. on 03/29/2021 at 11:46 Normal [facility] Complete Blood Count with Au to Diffon 03-21-2021 BASOABS 52 cells/uL Normal 0-200 [facility] Comment on above: Order Comment: [facility] performed at: [facility], [facility], [address] , [address] [place] [address], [address], [employer] Specialist: Scout Lin MD [facility] Collection Date/Time: [facility] Results Received Date/Time: [facility] Reported Date/Time: Performed By: #### Iesha COBB, FE Prof #### [facility] [address] [place] [address] Basophils/100 WBC (Bld) 1.2 % Normal [facility] Comment on above: Order Comment: [facility] performed at: [facility], [facility], [address] [place] [address], [address] [place] [address], [address] [place] [address], [employer] Specialist: Scout Lin MD [facility] Date/Time: [facility] Results Received Date/Time: [facility] Reported Date/Time: Performed By: #### Iesha COBB, FE Prof #### [facility] Default [address] [place] [address] EOSABS 103 cells/uL Normal 15-500 [facility] Comment on above: Order Comment: [facility] performed at: [facility], [facility], [address] [place] [address], [address] [place] [address], [address] [place] [address], [employer] Specialist: Scout Lin MD [facility] Date/Time: [facility] Results Received Date/Time: [facility] Reported Date/Time: Performed By: #### Iesha COBB, FE Prof #### [facility] Default [address] [place] [address] Eosinophils/100 WBC (Bld) 2.4 % Normal [facility] Comment on above: Order Comment: [facility] performed at: [facility], [facility], [address] [place] [address], [address] [place] [address], [address] [place] [address], [employer] Specialist: Scout Lin MD [facility] Date/Time: [facility] Results Received Date/Time: [facility] Reported Date/Time: Performed By: #### Iesha COBB FE Prof #### [facility] [address] [place] [address] Erythrocyte distribution width (RBC) [Ratio] 18.5 % High 11.0-15.0 [facility] Comment on above: Order Comment: [facility] performed at: [facility], [facility], [address] [facility], [address] [place] [address], [address] [place] [address], [employer] Specialist: Scout Lin MD [facility] Date/Time: [facility] Results Received Date/Time: [facility] Reported Date/Time: Performed By: #### Iesha COBB FE Prof #### [facility] [address] [place] [address] Hematocrit (Bld) [Volume fraction] 41.6 % Normal 35.0-45.0 [facility] Comment on above: Order Comment: [facility] performed at: [facility], [facility], [address] [place] [address], [address] [place] [address], [address] [place] [address], [employer] Specialist: Scout Lin MD [facility] Date/Time: [facility] Results Received Date/Time: [facility] Reported Date/Time: Performed By: #### Iesha COBB, FE Prof #### [facility] [address] [place] [address] Hemoglobin (Bld) [Mass/Vol] 13.6 g/dL Normal 11.7-15.5 [facility] Comment on above: Order Comment: [facility] performed at: [facility], [facility], [address] [facility], [address] [place] [address], [address] [place] [address], [employer] Specialist: Scout Lin MD [facility] Date/Time: [facility] Results Received Date/Time: [facility] Reported Date/Time: Performed By: #### Iesha COBB, FE Prof #### [facility] Default [address] [place] [address] Lymphocytes (Bld) [#/Vol] 1.961 10*3/uL Normal 850-3900 [facility] Comment on above: Order Comment: [facility] performed at: [facility], [facility], [address] , [address] [place] [address], [address] [place] [address], [employer] Specialist: Scout Lin MD [facility] Date/Time: [facility] Results Received Date/Time: [facility] Reported Date/Time: Performed By: #### Iesha COBB, FE Prof #### [facility] Default [address] [place] [address] Lymphocytes/100 WBC (Bld) 45.6 % Normal [facility] Comment on above: Order Comment: [facility] performed at: [facility], [facility], [address] , [address] [place] [address], [address] [place] [address], [employer] Specialist: Scout Lin MD [facility] Date/Time: [facility] Results Received Date/Time: [facility] Reported Date/Time: Performed By: #### Iesha COBB, FE Prof #### [facility] Default [address] [place] [address] MCH (RBC) [Entitic mass] 28.5 pg Normal 27.0-33.0 [facility] Comment on above: Order Comment: [facility] performed at: [facility], [facility], [address] , [address] [place] [address], [address] [place] [address], [employer] Specialist: Scout Lin MD [facility] Date/Time: [facility] Results Received Date/Time: [facility] Reported Date/Time: Performed By: #### Iesha OCBB, FE Prof #### [facility] Default [address] [place] [address] MCHC (RBC) [Mass/Vol] 32.7 g/dL Normal 32.0-36.0 [facility] Comment on above: Order Comment: [facility] performed at: [facility], [facility], [address] [facility], [address] [place] [address], [address], [employer] Specialist: Scout Lin MD [facility] Date/Time: [facility] Results Received Date/Time: [facility] Reported Date/Time: Performed By: #### Iesha COBB, FE Prof #### [facility] Default [address] [place] [address] MCV (RBC) [Entitic vol] 87.0 fL Normal 80.0-100.0 [facility] Comment on above: Order Comment: [facility] performed at: [facility], [facility], [address] [place] [address], [address] [place] [address], [phone], [employer] Specialist: Scout Lin MD [facility] Date/Time: [facility] Results Received Date/Time: [facility] Reported Date/Time: Performed By: #### Iesha COBB, FE Prof #### [facility] Default [address] [place] [address] MONOABS 353 cells/uL Normal 200-950 [facility] Comment on above: Order Comment: [facility] performed at: [facility], [facility], [address] [place] [address], [address] [place] [address], [address], [employer] Specialist: Scout Lin MD [facility] Date/Time: [facility] Results Received Date/Time: [facility] Reported Date/Time: Performed By: #### Iesha COBB, FE Prof #### [facility] Default [address] [place] [address] Monocytes/100 WBC (Bld) 8.2 % Normal [facility] Comment on above: Order Comment: [facility] performed at: [facility], [facility], [address] [place] [address], [address] [place] [address], [address] [place] [address], [employer] Specialist: Scout Lin MD [facility] Date/Time: [facility] Results Received Date/Time: [facility] Reported Date/Time: Performed By: #### Iesha COBB, FE Prof #### [facility] Default [address] [place] [address] Neutrophils (Bld) [#/Vol] 1.832 10*3/uL Normal 9992-0343 [facility] Comment on above: Order Comment: [facility] performed at: [facility], [facility], [address] [place] [address], [address] [place] [address], [address] [place] [address], [employer] Specialist: Scout Lin MD [facility] Date/Time: [facility] Results Received Date/Time: [facility] Reported Date/Time: Performed By: #### Iesha COBB, FE Prof #### [facility] Default [address] [place] [address] Neutrophils/100 WBC (Bld) 42.6 % Normal [facility] Comment on above: Order Comment: [facility] performed at: [facility], [facility], [address] [place] [address], [address] [place] [address], [address] [place] [address], [employer] Specialist: Scout Lin MD [facility] Date/Time: [facility] Results Received Date/Time: [facility] Reported Date/Time: Performed By: #### Iesha COBB, FE Prof #### [facility] Default [address] [place] [address] Platelet mean volume (Bld) [Entitic vol] 10.7 fL Normal 7.5-12.5 [facility] Comment on above: Order Comment: [facility] performed at: [facility], [facility], [address] [facility], [address] [place] [address], [address] [place] [address], [employer] Specialist: Scout Lin MD [facility] Date/Time: [facility] Results Received Date/Time: [facility] Reported Date/Time: Performed By: #### Iesha COBB, FE Prof #### [facility] Default [address] [place] [address] Platelets (Bld) [#/Vol] 265 10*3/uL Normal 140-400 [facility] Comment on above: Order Comment: [facility] performed at: [facility], [facility], [address] , [address] [place] [address], [address] [place] [address], [employer] Specialist: Scout Lin MD [facility] Date/Time: [facility] Results Received Date/Time: [facility] Reported Date/Time: Performed By: #### Iesha COBB, FE Prof #### [facility] Default [address] [place] [address] RBC (Bld) [#/Vol] 4.78 10*6/uL Normal 3.80-5.10 [facility] Comment on above: Order Comment: [facility] performed at: [facility], [facility], [address] , [address] [place] [address], [address] [place] [address], [employer] Specialist: Scout Lin MD [facility] Date/Time: [facility] Results Received Date/Time: [facility] Reported Date/Time: Performed By: #### Iesha COBB, FE Prof #### [facility] Default [address] [place] [address] WBC (Bld) [#/Vol] 4.3 10*3/uL Normal 3.8-10.8 [facility] Comment on above: Order Comment: [facility] performed at: [facility], [facility], [address] [place] , [address] [place] [address], [address] [place] [address], [employer] Specialist: Scout Lin MD [facility] Collection Date/Time: [facility] Results Received Date/Time: [facility] Reported Date/Time: Performed By: #### C BCAD, FE Prof #### [facility] [address] [place] [address] Iron Profileon 03-21-2021 % SATURATION 26 % (calc) Normal 16-45 [facility] Comment on above: Order Comment: [facility] Testing performed at: [facility], [address] [facility], [address] [place] [address], [address] [place] [address], [employer] Specialist: Scout Lin MD [facility] Collection Date/Time: [facility] Results Received Date/Time: [facility] Reported Date/Time: Performed By: #### C BCAD, FE Prof #### [facility] [address] [place] [address] FE 85 mcg/dL Normal 40-190 [facility] Comment on above: Order Comment: [facility] Testing performed at: [facility], [facility], [address] [place] [address], [address] [place] [address], [employer] Specialist: Scout Lin MD [facility] Collection Date/Time: [facility] Results Received Date/Time: [facility] Reported Date/Time: Performed By: #### C BCAD, FE Prof #### [facility] [address] [place] [address] IRON BINDING CAPACITY 325 mcg/dL (calc) Normal 250-450 [facility] Comment on above: Order Comment: [facility] Testing performed at: [facility], [address] [facility], [address] [place] [address], [address] [place] [address], [employer] Specialist: Scout Lin MD [facility] Collection Date/Time: [facility] Results Received Date/Time: [facility] Reported Date/Time: Performed By: #### C BCAD, FE Prof #### [facility] [address] [place] [address] Q - UR CULT REFLEXon 022 REFLEXIVE URINE CULTURE SEE NOTE Normal [facility] Comment on above: Order Comment: [facility] Testing performed at: [facility], [address] [place] , [address] [place] [address], [address] [place] [address], [employer] Specialist: Scout Lin MD [facility] Collection Date/Time: [facility] Results Received Date/Time: [facility] Reported Date/Time: Result Comment: NO C ULTURE INDICATED Performed By: #### C REZA, FE Prof #### [facility] Default [address] [place] [address] Q - URINALYSIS,COMPLETE,WITH REFLEX TO CULTUREon 03-21-2021 Appearance (U) CLOUDY Abnormal CLEAR [facility] Comment on above: Order Comment: [facility] Testing performed at: [facility], [facility], [address] [place] , [address] [place] [address], [address] [place] [address], [employer] Specialist: Scout Lin MD [facility] Collection Date/Time: [facility] Results Received Date/Time: [facility] Reported Date/Time: Performed By: #### C REZA, FE Prof #### [facility] [address] [place] [address] BACTERIA MANY Abnormal NONE SEEN [facility] Comment on above: Order Comment: [facility] Testing performed at: [facility], [facility], [address] [place] , [address] [place] [address], [address] [place] [address], [employer] Specialist: Scout Lin MD [facility] Collection Date/Time: [facility] Results Received Date/Time: [facility] Reported Date/Time: Performed By: #### C REZA, FE Prof #### [facility] [address] [place] [address] Bilirubin Ql (U) Negative Normal NEGATIVE [facility] Comment on above: Order Comment: [facility] Testing performed at: [facility], [facility], [address] [place] , [address] [place] [address], [address] [place] [address], [employer] Specialist: Scout Lin MD [facility] Collection Date/Time: [facility] Results Received Date/Time: [facility] Reported Date/Time: Performed By: #### Iesha COBB, FE Prof #### [facility] [address] [place] [address] CALCIUM OXALATE CRYSTALS FEW Normal NONE OR FEW [facility] Comment on above: Order Comment: [facility] Testing performed at: [facility], [facility], [address] [place] [address], [address] [place] [address], [address] [place] [address], [employer] Specialist: Scout Lin MD [facility] Collection Date/Time: [facility] Results Received Date/Time: [facility] Reported Date/Time: Performed By: #### Iesha COBB, FE Prof #### [facility] [address] [place] [address] Color (U) YELLOW Normal YELLOW [facility] Comment on above: Order Comment: [facility] Testing performed at: [facility], [facility], [address] [place] [address], [address] [place] [address], [address] [place] [address], [employer] Specialist: Scout iLn MD [facility] Collection Date/Time: [facility] Results Received Date/Time: [facility] Reported Date/Time: Performed By: #### Iesha COBB FE Prof #### [facility] [address] [facility] [place] [address] Glucose Ql (U) Negative Normal NEGATIVE [facility] Comment on above: Order Comment: [facility] Testing performed at: [facility], [address] [facility], [address] [place] [address], [address] [place] [address], [employer] Specialist: Scout Lin MD [facility] Collection Date/Time: [facility] Results Received Date/Time: [facility] Reported Date/Time: Performed By: #### Iesha COBB, FE Prof #### [facility] [address] [place] [address] HYALINE CAST NONE SEEN Normal NONE SEEN [facility] Comment on above: Order Comment: [facility] Testing performed at: [facility], [address] [facility], [address] [place] [address], [address] [place] [address], [employer] Specialist: Scout Lin MD [facility] Collection Date/Time: [facility] Results Received Date/Time: [facility] Reported Date/Time: Performed By: #### Iesha COBB, FE Prof #### [facility] Default [address] [place] [address] Ketones Ql (U) Negative Normal NEGATIVE [facility] Comment on above: Order Comment: [facility] Testing performed at: [facility], [facility], [address] [place] [address], [address] [place] [address], [address] [place] [address], [employer] Specialist: Scout Lin MD [facility] Collection Date/Time: [facility] Results Received Date/Time: [facility] Reported Date/Time: Performed By: #### Iesha COBB, FE Prof #### [facility] [address] [place] [address] Leukocyte esterase Test strip Ql (U) Negative Normal NEGATIVE [facility] Comment on above: Order Comment: [facility] Testing performed at: [facility], [facility], [address] [place] [address], [address] [place] [address], [address] [place] [address], [employer] Specialist: Scout Lin MD [facility] Collection Date/Time: [facility] Results Received Date/Time: [facility] Reported Date/Time: Performed By: #### Iesha COBB, FE Prof #### [facility] [address] [place] [address] Nitrite Ql (U) Positive Abnormal NEGATIVE [facility] Comment on above: Order Comment: [facility] Testing performed at: [facility], [address] [place] [address], [address] [place] [address], [address] [place] [address], [employer] Specialist: Scout Lin MD [facility] Collection Date/Time: [facility] Results Received Date/Time: [facility] Reported Date/Time: Performed By: #### Iesha COBB, FE Prof #### [facility] Default [address] [place] [address] OCCULT BLOOD Negative Normal NEGATIVE [facility] Comment on above: Order Comment: [facility] Testing performed at: [facility], [facility], [address] [facility], [address] [place] [address], [address] [place] [address], [employer] Specialist: Scout Lin MD [facility] Collection Date/Time: [facility] Results Received Date/Time: [facility] Reported Date/Time: Performed By: #### Iesha COBB, FE Prof #### [facility] Default [address] [place] [address] pH (U) 5.5 [pH] Normal 5.0-8.0 [facility] Comment on above: Order Comment: [facility] Testing performed at: [facility], [facility], [address] [place] [address], [address] [place] [address], [address] [place] [address], [employer] Specialist: Scout Lin MD [facility] Collection Date/Time: [facility] Results Received Date/Time: [facility] Reported Date/Time: Performed By: #### Iesha COBB, FE Prof #### [facility] Default [address] [place] [address] Protein Ql (U) Negative Normal NEGATIVE [facility] Comment on above: Order Comment: [facility] Testing performed at: [facility], [facility], [address] [facility], [address] [place] [address], [address] [place] [address], [employer] Specialist: Scout Lin MD [facility] Collection Date/Time: [facility] Results Received Date/Time: [facility] Reported Date/Time: Performed By: #### Iesha COBB, FE Prof #### [facility] Default [address] [place] [address] RBC NONE SEEN Normal < OR = 2 [facility] Comment on above: Order Comment: [facility] Testing performed at: [facility], [facility], [address] [place] [address], [address] [place] [address], [address] [place] [address], [employer] Specialist: Scout Lin MD [facility] Collection Date/Time: [facility] Results Received Date/Time: [facility] Reported Date/Time: Performed By: #### Iesha COBB, FE Prof #### [facility] [address] [place] [address] Specific gravity (U) [Rel density] 1.019 Normal 1.001-1.035 [facility] Comment on above: Order Comment: [facility] Testing performed at: [facility], [facility], [address] [place] [address], [address] [place] [address], [address] [place] [address], [employer] Specialist: Scout Lin MD [facility] Collection Date/Time: [facility] Results Received Date/Time: [facility] Reported Date/Time: Performed By: ###Francisco Javier COBB, FE Prof #### [facility] [address] [place] [address] SQUAMOUS EPITHELIAL CELLS 0-5 Normal < OR = 5 [facility] Comment on above: Order Comment: [facility] Testing performed at: [facility], [facility], [address] [place] [address], [address] [place] [address], [address] [place] [address], [employer] Specialist: Scout Lin MD [facility] Collection Date/Time: [facility] Results Received Date/Time: [facility] Reported Date/Time: Performed By: #### Iesha COBB, FE Prof #### [facility] [address] [place] [address] WBC 0-5 Normal < OR = 5 [facility] Comment on above: Order Comment: [facility] Testing performed at: [facility], [facility], [address] [place] [address], [address] [place] [address], [address] [place] [address], [employer] Specialist: Scout Lin MD [facility] Collection Date/Time: [facility] Results Received Date/Time: [facility] Reported Date/Time: Performed By: #### C REZA, GADIEL Prof #### [facility] Default [address] [place] [address] PAP ACOG PANEL 2: 30 to 65on 03-11-2021 . . Normal [facility] Comment on above: Result Comment: Perf ormed at: WB Performed By: #### [id number] #### [facility] [address] [address] [address] Ilsa Soto Age Gdln ACOG Testing 30-65 Normal [facility] Comment on above: Performed By: #### [id number] #### [facility] [address] [address] [address] Ilsa Soto DIAGNOSIS: Comment Normal [facility] Comment on above: Result Comment: NEGA TIVE FOR INTRAEPITHELIAL LESION OR MALIGNANCY. Performed at: WB Performed By: #### [id number] #### [facility] [address] [address] [address] Ilsa Soto HPV Aptima Negative Normal Negative [facility] Comment on above: Result Comment: This nucleic acid amplification test detects fourteen high-risk HPV types (16,18,31,33,35,39,45,51,52,56,58,59,66,68) without differentiation. Performed at: =G Performed By: #### [id number] #### [facility] [address] [address] [address] Ilsa Soto Methodology: Comment Normal [facility] Comment on above: Result Comment: This liquid based ThinPrep(R) pap test was screened with the use of an image guided system. Performed at: WB Performed By: #### [id number] #### [facility] [address] [address] [address] Ilsa Soto Note: Comment Normal [facility] Comment on above: Result Comment: The Pap smear is a screening test designed to aid in the detection of premalignant and malignant conditions of the uterine cervix. It is not a diagnostic procedure and should not be used as the sole means of detecting cervical cancer. Both false-positive and false-negative reports do occur. . Performed at: WB Performed By: #### [id number] #### [facility] [address] [address] [address] Ilsa Soto Performed by: Comment Normal [facility] Comment on above: Result Comment: Shai Rodriguez, Director Medicare Sales (ASCP) Performed at: WB Performed By: #### 4 [id number] #### [facility] [address] [place], [place] [address] Dr. Ilsa Soto Specimen adequacy: Comment Normal [facility] Comment on above: Result Comment: Sati sfactory for evaluation. Endocervical and/or squamous metaplastic cells (endocervical component) are present. Performed at: WB Performed By: #### [id number] #### [facility] [address] [address] [address] Ilsa Soto Complete Blood Counton 01-24 Erythrocyte distribution width (RBC) [Ratio] 13.8 % Normal 11.0-15.0 [facility] Comment on above: Performed By: #### C REZA FE Prof #### [facility] Default [address] [place] [address] Hematocrit (Bld) [Volume fraction] 33.9 % Low 35.0-47.0 [facility] Specialist Comment on above: Performed By: #### Iesha COBB FE Prof #### [facility] Default [address] [place] [address] Hemoglobin (Bld) [Mass/Vol] 10.7 g/dL Low 11.6-15.5 [facility] Comment on above: Performed By: #### C REZA FE Prof #### [facility] Default [address] [place] [address] MCH (RBC) [Entitic mass] 27.1 pg Normal 27.0-33.0 [facility] Specialist Comment on above: Performed By: #### C REZA FE Prof #### [facility] Default [address] [place] [address] MCHC (RBC) [Mass/Vol] 31.6 g/dL Low 32.0-36.0 [facility] Comment on above: Performed By: #### C REZA FE Prof #### [facility] [address] [place] [address] MCV (RBC) [Entitic vol] 86 fL Normal 80-100 [facility] Specialist Comment on above: Performed By: #### C BCAD, FE Prof #### [facility] [address] [place] [address] Platelet mean volume (Bld) [Entitic vol] 10.10 fL Normal 7.50-12.50 [facility] Specialist Comment on above: Performed By: #### C BCAD, FE Prof #### [facility] Default [address] [place] [address] Platelets (Bld) [#/Vol] 335 10*3/uL Normal 140-400 [facility] Specialist Comment on above: Performed By: #### C BCAD, FE Prof #### [facility] [address] [place] [address] RBC (Bld) [#/Vol] 3.95 10*6/uL Normal 3.90-5.20 [facility] Comment on above: Performed By: #### C BCAD, FE Prof #### [facility] [address] [place] [address] RDW-SD 43.7 fL Normal 37.0-50.0 [facility] Comment on above: Performed By: #### C BCAD, FE Prof #### [facility] [address] [place] [address] WBC (Bld) [#/Vol] 3.6 10*3/uL Low 3.8-11.0 [facility] Comment on above: Performed By: #### C BCAD, FE Prof #### [facility] Default [address] [place] [address] Comprehensive Metabolic Pane catrachita 01-24-2021 Albumin [Mass/Vol] 4.4 g/dL Normal 3.6-5.1 [facility] Comment on above: Performed By: #### C MP, TSH, FT4, VITD, LIPD, CBC #### [facility] [address] [place], [place] [id number] Albumin/Globulin [Mass ratio] 1.8 {ratio} Normal 1.0-2.5 [facility] Comment on above: Performed By: #### C MP, TSH, FT4, VITD, LIPD, CBC #### [facility] [address] [place], [place] [id number] ALP [Catalytic activity/Vol] 84 U/L Normal 35-119 [facility] Comment on above: Performed By: #### C MP, TSH, FT4, VITD, LIPD, CBC #### [facility] [address] [place], [place] [id number] ALT [Catalytic activity/Vol] 17 U/L Normal 6-33 [facility] Comment on above: Result Comment: 01/05 Female reference range changed. Performed By: #### C MP, TSH, FT4, VITD, LIPD, CBC #### [facility] [address] [place], [place] [id number] Anion gap [Moles/Vol] 16 mmol/L Normal 12-20 [facility] Comment on above: Result Comment: Effe ctive 02/10/2019 reference range changed. Performed By: #### C MP, TSH, FT4, VITD, LIPD, CBC #### [facility] [address] [place], [place] [id number] AST [Catalytic activity/Vol] 16 U/L Normal 9-34 [facility] Comment on above: Performed By: #### C MP, TSH, FT4, VITD, LIPD, CBC #### [facility] [address] [place], [place] [id number] BUN/CREA 14 Ratio Normal 6-22 [facility] Comment on above: Performed By: #### C MP, TSH, FT4, VITD, LIPD, CBC #### [facility] [address] [place], [place] [id number] Calcium [Mass/Vol] 9.4 mg/dL Normal 8.6-10.2 [facility] Comment on above: Performed By: #### C MP, TSH, FT4, VITD, LIPD, CBC #### [facility] [address] [place], [place] [id number] Chloride [Moles/Vol] 105 mmol/L Normal 98-107 [facility] Comment on above: Performed By: #### C MP, TSH, FT4, VITD, LIPD, CBC #### [facility] [address] [place], [place] [id number] CO2 [Moles/Vol] 21 mmol/L Normal 20-31 [facility] Comment on above: Performed By: #### C MP, TSH, FT4, VITD, LIPD, CBC #### [facility] [address] [place], [place] [id number] Creatinine [Mass/Vol] 0.8 mg/dL Normal 0.6-1.4 [facility] Comment on above: Performed By: #### C MP, TSH, FT4, VITD, LIPD, CBC #### [facility] [address] [place], [place] [id number] eGFRAA 94 mL/min/1.73m2 Normal >60 [facility] Comment on above: Performed By: #### C MP, TSH, FT4, VITD, LIPD, CBC #### [facility] [address] [place], [place] [id number] eGFRNAA 78 mL/min/1.73m2 Normal >60 [facility] Comment on above: Performed By: #### C MP, TSH, FT4, VITD, LIPD, CBC #### [facility] [address] [place], [place] [id number] Globulin (S) [Mass/Vol] 2.5 g/dL Normal 1.9-3.7 [facility] Comment on above: Performed By: #### C MP, TSH, FT4, VITD, LIPD, CBC #### [facility] [address] [place], [place] [id number] Glucose [Mass/Vol] 101 mg/dL High 65-99 [facility] Comment on above: Result Comment: For FASTING Glucose --- ADA reference ranges: Normal 65-99 mg/dl Prediabetes 100-125 Diabetes >/= 126 Performed By: #### C MP, TSH, FT4, VITD, LIPD, CBC #### [facility] [address] [place], [place] [id number] Potassium [Moles/Vol] 3.9 mmol/L Normal 3.5-5.5 [facility] Comment on above: Performed By: #### C MP, TSH, FT4, VITD, LIPD, CBC #### [facility] [address] [place], [place] [id number] Protein [Mass/Vol] 6.9 g/dL Normal 6.1-8.1 [facility] Comment on above: Performed By: #### C MP, TSH, FT4, VITD, LIPD, CBC #### [facility] [address], [place] [id number] Sodium [Moles/Vol] 139 mmol/L Normal 135-146 [facility] Comment on above: Performed By: #### C MP, TSH, FT4, VITD, LIPD, CBC #### [facility] [address] [place], [place] [id number] TBIL <0.3 Normal [facility] Specialist Comment on above: Performed By: #### C MP, TSH, FT4, VITD, LIPD, CBC #### [facility] [address] [place], [place] [id number] Urea nitrogen [Mass/Vol] 11 mg/dL Normal 7-25 [facility] Comment on above: Performed By: #### C MP, TSH, FT4, VITD, LIPD, CBC #### [facility] [address] [place], [place] [id number] Free T4on 01-24-2021 Free T4 [Mass/Vol] 1.10 ng/dL Normal 0.80-1.80 [facility] Comment on above: Performed By: #### C MP, TSH, FT4, VITD, LIPD, CBC #### [facility] [address] [place], [place] [id number] Lipid Panelon 01-24-2021 Cholesterol [Mass/Vol] 215 mg/dL High 125-200 [facility] Comment on above: Result Comment: Low risk < 200mg/dL Borderline risk 201-239 mg/dl High risk > or equal to 240 Performed By: #### C BCAD, FE Prof #### [facility] [address] [place] [address] Cholesterol in HDL [Mass/Vol] 65 mg/dL Normal >40 [facility] Comment on above: Result Comment: High Cardiovascular Risk HDL <40 mg/dL Low Cardiovascular Risk HDL > or equal to 60 mg/dl Performed By: #### C REZA, FE Prof #### [facility] Default [address] [place] [address] Cholesterol in LDL [Mass/Vol] 132 mg/dL Normal [facility] Specialist Comment on above: Result Comment: LDL ATP III CLASSIFICATION LDL less than 100 mg/dl Optimal LDL 100-129 mg/dl Near or above optimal LDL 130-159 Borderline high LDL 160-189 High LDL greater than 189 mg/dl Very High Performed By: #### C REZA, FE Prof #### [facility] [address] [place] [address] Cholesterol in VLDL [Mass/Vol] 18 mg/dL Normal [facility] Specialist Comment on above: Performed By: #### C REZA, FE Prof #### [facility] [address] [place] [address] Cholesterol.total/Ch olesterol in HDL [Mass ratio] 3 {ratio} Normal [facility] Specialist Comment on above: Performed By: #### C REZA, FE Prof #### [facility] [address] [place] [address] Triglyceride [Mass/Vol] 91 mg/dL Normal 30-150 [facility] Specialist Comment on above: Result Comment: TRIG ATPIII CLASSIFICATIONS TRIG less than 150 mg/dl Normal TRIG 150-199 mg/dl Borderline High TRIG 200-500 mg/dl High TRIG greather than 500 mg/dl Very High Performed By: #### C RZEA, FE Prof #### [facility] [address] [place] [address] Q - CULTURE,URINE,ROUTINEon 01-24-2021 CULTURE, URINE, ROUTINE SEE NOTE Abnormal [facility] Specialist Comment on above: Order Comment: [facility] performed at: [facility], [facility], [address] [place] [address], [address] [place] [address], [place], [address], [employer] Specialist: Scout Lin MD [facility] Date/Time: [facility] Results Received Date/Time: [facility] Reported Date/Time: Result Comment: CULT URE, URINE, ROUTINE Micro Number: [id number] Test Status: Final Specimen Source: Urine Specimen [...] 3020X, %SBCULI #### [facility] Default [address] [place] [address] Q - UR CULT [id number] 2020 REFLEXIVE URINE CULTURE SEE NOTE Normal [facility] Comment on above: Order Comment: [facility] performed at: [facility], [facility], [address] [facility], [address] [place] [address], [place], [address], [employer] Specialist: Scout Lin MD [facility] Date/Time: [facility] Results Received Date/Time: [facility] Reported Date/Time: Result Comment: CULT URE INDICATED - RESULTS TO FOLLOW Performed By: #### 6 [id number], 3020X, %SBCULI #### [facility] Default [address] [place] [address] Q - URINALYSIS,COMPLETE,WITH REFLEX TO CULTUREon 01-24-2021 Appearance (U) CLOUDY Abnormal CLEAR [facility] Comment on above: Order Comment: [facility] Testing performed at: [facility], [facility], [address] , [address] [place] [address], [address] [place] [address], [employer] Specialist: Scout Lin MD [facility] Collection Date/Time: [facility] Results Received Date/Time: [facility] Reported Date/Time: Performed By: #### 6 304R, 3020X, %SBCULI #### [facility] Default [address] [place] [address] BACTERIA MANY Abnormal NONE SEEN [facility] Comment on above: Order Comment: [facility] Testing performed at: [facility], [facility], [address] [place], [place] [address] , [address] [place] [address], [address] [place] [address], [employer] Specialist: Scout Lin MD [facility] Collection Date/Time: [facility] Results Received Date/Time: [facility] Reported Date/Time: Performed By: #### 6 304R, 3020X, %SBCULI #### [facility] Default [address] [place] [address] Bilirubin Ql (U) Negative Normal NEGATIVE [facility] Comment on above: Order Comment: [facility] Testing performed at: [facility], [facility], [facility] [address] , [address] [place] [address], [address] [place] [address], [employer] Specialist: Scout Lin MD [facility] Collection Date/Time: [facility] Results Received Date/Time: [facility] Reported Date/Time: Performed By: #### 6 304R, 3020X, %SBCULI #### [facility] Default [address] [place] [address] Color (U) YELLOW Normal YELLOW [facility] Comment on above: Order Comment: [facility] Testing performed at: [facility], [facility], [address], [address] [place] [address], [address] [place] [address], [employer] Specialist: Scout Lin MD [facility] Collection Date/Time: [facility] Results Received Date/Time: [facility] Reported Date/Time: Performed By: #### 6 304R, 3020X, %SBCULI #### [facility] Default [address] [place] [address] Glucose Ql (U) Negative Normal NEGATIVE [facility] Comment on above: Order Comment: [facility] Testing performed at: [facility], [facility], [address] [place] [address], [address] [place] [address], [address] [place] [address], [employer] Specialist: Scout Lin MD [facility] Collection Date/Time: [facility] Results Received Date/Time: [facility] Reported Date/Time: Performed By: #### 6 304R, 3020X, %SBCULI #### [facility] Default [address] [place] [address] HYALINE CAST 1-3 Abnormal NONE SEEN [facility] Comment on above: Order Comment: [facility] Testing performed at: [facility], [address] [place] [address], [address] [place] [address], [address] [place] [address], [employer] Specialist: Scout Lin MD [facility] Collection Date/Time: [facility] Results Received Date/Time: [facility] Reported Date/Time: Performed By: #### 6 304R, 3020X, %SBCULI #### [facility] Default [address] [place] [address] Ketones Ql (U) TRACE Abnormal NEGATIVE [facility] Comment on above: Order Comment: [facility] Testing performed at: [facility], [facility], [address] [facility], [address] [place] [address], [address] [place] [address], [employer] Specialist: Scout Lin MD [facility] Collection Date/Time: [facility] Results Received Date/Time: [facility] Reported Date/Time: Performed By: #### 6 304R, 3020X, %SBCULI #### [facility] Default [address] [place] [address] Leukocyte esterase Test strip Ql (U) TRACE Abnormal NEGATIVE [facility] Comment on above: Order Comment: [facility] Testing performed at: [facility], [facility], [address] , [address] [place] [address], [address] [place] [address], [employer] Specialist: Scout Lin MD [facility] Collection Date/Time: [facility] Results Received Date/Time: [facility] Reported Date/Time: Performed By: #### 6 304R, 3020X, %SBCULI #### [facility] [address] [place] [address] Nitrite Ql (U) Positive Abnormal NEGATIVE [facility] Specialist Comment on above: Order Comment: [facility] Testing performed at: [facility], [facility], [address] , [address] [place] [address], [address] [place] [address], [employer] Specialist: Scout Lin MD [facility] Collection Date/Time: [facility] Results Received Date/Time: [facility] Reported Date/Time: Performed By: #### 6 304R, 3020X, %SBCULI #### [facility] [address] [place] [address] OCCULT BLOOD 2+ Abnormal NEGATIVE [facility] Comment on above: Order Comment: [facility] Testing performed at: [facility], [facility], [address] , [address] [place] [address], [address] [place] [address], [employer] Specialist: Scout Lin MD [facility] Collection Date/Time: [facility] Results Received Date/Time: [facility] Reported Date/Time: Performed By: #### 6 304R, 3020X, %SBCULI #### [facility] Default [address] [place] [address] pH (U) [pH] Normal 5.0-8.0 [facility] Comment on above: Order Comment: [facility] Testing performed at: [facility], [facility], [facility], [address] [place] [address], [address] [place] [address], [employer] Specialist: Scout Lin MD [facility] Collection Date/Time: [facility] Results Received Date/Time: [facility] Reported Date/Time: Performed By: #### 6 304R, 3020X, %SBCULI #### [facility] Default [address] [place] [address] Protein Ql (U) Negative Normal NEGATIVE [facility] Comment on above: Order Comment: [facility] Testing performed at: [facility], [facility], [address] [place] [address], [address] [place] [address], [address] [place] [address], [employer] Specialist: Scout Lin MD [facility] Collection Date/Time: [facility] Results Received Date/Time: [facility] Reported Date/Time: Performed By: #### 6 304R, 3020X, %SBCULI #### [facility] Default [address] [place] [address] RBC 0-2 Normal < OR = 2 [facility] Comment on above: Order Comment: [facility] Testing performed at: [facility], [facility], [address] [place] [address], [address] [place] [address], [address] [place] [address], [employer] Specialist: Scout Lin MD [facility] Collection Date/Time: [facility] Results Received Date/Time: [facility] Reported Date/Time: Performed By: #### 6 304R, 3020X, %SBCULI #### [facility] Default [address] [place] [address] Specific gravity (U) [Rel density] 1.021 Normal 1.001-1.035 [facility] Comment on above: Order Comment: [facility] Testing performed at: [facility], [facility], [address] [place] [address], [address] [place] [address], [address] [place] [address], [employer] Specialist: Scout Lin MD [facility] Collection Date/Time: [facility] Results Received Date/Time: [facility] Reported Date/Time: Performed By: #### 6 304R, 3020X, %SBCULI #### [facility] Default [address] [place] [address] SQUAMOUS EPITHELIAL CELLS 40-60 Abnormal < OR = 5 [facility] Comment on above: Order Comment: [facility] performed at: [facility], [facility], [address] [place] [address], [address] [place] [address], [address] [place] [address], [employer] Specialist: Scout Lin MD [facility] Collection Date/Time: [facility] Results Received Date/Time: [facility] Reported Date/Time: Performed By: #### 6 304R, 3020X, %SBCULI #### [facility] Default [address] [place] [address] WBC 0-5 Normal < OR = 5 [facility] Comment on above: Order Comment: [facility] performed at: [facility], [facility], [address] [place] [address], [address] [place] [address], [address] [place] [address], [employer] Specialist: Scout Lin MD [facility] Collection Date/Time: [facility] Results Received Date/Time: [facility] Reported Date/Time: Performed By: #### 6 304R, 3020X, %SBCULI #### [facility] Default [address] [place] [address] TSHon 01-24-2021 TSH 2.230 uIU/mL Normal 0.400-4.500 [facility] Comment on above: Performed By: #### C MP, TSH, FT4, VITD, LIPD, CBC #### [facility] [address] [place], [place] [id number] Vitamin D 25-OHon 01-24-2021 VIT D 25 OH 25 ng/ml Low >29 [facility] Comment on above: Result Comment: Niru min D Status Deficiency <20 ng/mL Insufficiency 20-29 ng/mL Optimal 30-100 ng/mL Possible Toxicity >=150 ng/mL Performed By: #### C MP, TSH, FT4, VITD, LIPD, CBC #### [facility] [address] [place] [id number] HCG, Quantitative, on 07-11-2019 hCG Quant <1 <5 IU/L [place], [place] Comment on above: Non-preg premeno <=5 [...] Vital Sign Value Performing Clinician Faci lity 03-07-2023 17:35-0500 Diastolic blood pressure 80 mm[Hg] Darlene Nuñez DO Work Phone: [facility] [employer] 03-07-2023 17:35-0500 Heart rate 82 /min DarleneField Agent DO Work Phone: [facility] 03-07-2023 17:35-0500 Respiratory rate 16 /min DarleneField Agent DO Work Phone: [facility] 03-07-2023 17:35-0500 SaO2% (BldA) [Mass fraction] 95 % DarleneField Agent DO Work Phone: [facility] [employer] 03-07-2023 17:35-0500 Systolic blood pressure 120 mm[Hg] DarleneField Agent DO Work Phone: [facility] 03-07-2023 15:42-0500 Body temperature 98.29 [degF] DarleneField Agent DO Work Phone: [facility] 05-11-2019 10:32-0400 BMI (Body Mass Index) 37.11 kg/m2 Matt Fletcher [facility] [place] 05-11-2019 10:32-0400 Body Temperature 98.1 [degF] [facility] [place] 05-11-2019 10:32-0400 Body weight 86.18 kg [facility] , [place] 05-11-2019 10:32-0400 BP Diastolic 95 mm[Hg] Matt Fletcher [facility] , [place] 05-11-2019 10:32-0400 BP Systolic 126 mm[Hg] Matt Fletcher [facility] , [place] 05-11-2019 10:32-0400 Height 152.4 cm Matt Fletcher [facility] , [place] 05-11-2019 10:32-0400 Pulse (Heart Rate) 80 /min Matt Fletcher [facility], [place] 05-11-2019 10:32-0400 Pulse Oximetry 98 % [facility] , [place] 05-11-2019 10:32-0400 Respiratory Rate 16 /min [facility] Fletcher [facility] [place] Encounters Encounter Date Encounter Type Care Provider Facility Start: 10-15-2023 End: 10-15-2023 ambulatory ASHLEIGH L WILMA Not Available Start: 09-21-2023 End: 09-21-2023 ambulatory DANNI RICHARDSON Not Available Start: 08-28-2023 ambulatory ASHLEIGH Bhupendra DILLON [facility] Start: 08-28-2023 End: 08-30-2023 Subsequent hospital visit by physician [facility] Ultrasound Room [facility] Ultrasound Comment on above: Unspecified atherosc lerosis; Elevated blood pressure reading without diagnosis of hypertension; Family history of ischemic heart disease and other diseases of the circulatory system Start: 05-31-2023 End: 05-31-2023 ambulatory CEASAR SMITH Not Available Start: 05-08-2023 End: 05-08-2023 ambulatory ASHLEIGH L RINE Not Available Start: 04-19-2023 End: 04-20-2023 ambulatory Kimberly Garcia PA-C Facility[facility] Start: 03-30-2023 End: 04-01-2023 [facility]ulatory [facility] Start: 03-30-2023 End: 04-01-2023 Subsequent hospital visit by physician M[facility] Mri Scanner [facility] MRI Comment on above: Ataxia Start: 03-26-2023 Chart abstracting Cyril weston PT Work Phone: [facility] Start: 03-22-2023 End: 03-23-2023 ambulatory Kimberly Garcia PA-C Facility[facility] Start: 03-20-2023 Refill Ashleigh L Rine N P Work Phone: [facility] Comment on above: Localized edema; Dyslipidemia (CMS/HCC) Start: 03-20-2023 Telephone encounter Ashleigh L Ri ne [employer] Work Phone: [facility] Comment on above: Cough Start: 03-19-2023 Telephone encounter Ashleigh L Ri ne [employer] OPER[employer] Work Phone: [facility] Start: 03-16-2023 End: 03-16-2023 Evaluation Cyril Duckworth PT Work Phone: [facility] PT Comment on above: Balance disorder (Pr imary Dx); Cervicalgia; Unilateral vestibular weakness, right Start: 03-13-2023 Telephone encounter Jeff Duong Grey almaraz DO Work Phone: [facility] Start: 03-07-2023 End: 03-07-2023 Emergency department patient visit Darlene J Danny DO Work Phone: [facility] ED Comment on above: Benign paroxysmal po sitional vertigo, unspecified laterality (Primary Dx); Dizziness Start: 03-06-2023 End: 03-06-2023 Encounter for preprocedural laboratory examination [facility] Start: 03-06-2023 End: 03-08-2023 ambulatory [facility] Start: 03-06-2023 End: 03-06-2023 ambulatory ASHLEIGH L RINE Not Available Start: 02-28-2023 End: 02-28-2023 ambulatory ASHLEIGH L RINE Not Available Start: 02-09-2023 End: 02-09-2023 ambulatory DANNI RICHARDSON Not Available Start: 01-24-2023 End: 01-24-2023 ambulatory CEASAR SMITH Not Available Start: 04-18-2022 ambulatory SELF SELF Facility:[facility] Start: 10-21-2021 End: 10-22-[address] ASHLEIGH DILLON Facility:[facility] Start: 04-08-2021 End: 04-09-[address] CEASAR SMITH Facility:[facility] Start: 03-28-2021 End: 03-29-[address] CEASAR SMITH Facility:[facility] Start: 03-08-2021 End: 03-08-[address] CEASAR SMITH Facility:[facility] Start: 07-11-2019 End: 07-11-2019 Subsequent hospital visit by physician Cyril Britt [facility] Start: 05-11-2019 End: 05-11-2019 Emergency department patient visit Mattfarrukh Eucedamark Work Phone: [facility] ED Comment on above: Abscess (Primary Dx) Procedures Date Procedure Procedure Detail Performing Clinician Start: 08-28-2023 Us abdominal aorta r eal time screen study aaa Ashleigh Dillon SUPERVISOR [employer] OPERATOR Work Phone: Start: 03-30-2023 Mri brain brain stem w/o w/contrast material Enid Denis DO Work Phone: Start: 03-07-2023 Basic metabolic pane l calcium total Darlene J Nuñez DO Work Phone: Start: 03-07-2023 C-reactive protein Jave pavel J Nuñez DO Work Phone: Start: 11-24-2022 Mammography Jeff hobson DO Work Phone: Start: 03-08-2021 Microscopic observat ion [Identifier] in Cervix by Cyto stain Jeff Cannon DO Work Phone: Start: 07-11-2019 Gonadotropin chorion ic quantitative Ceasar Smith Work Phone: Plan of Treatment Date Care Activity Detail Author Start: 03-08-2026 Screening for malign ant neoplasm of cervix [facility] Start: 11-25-2023 Screening for malign ant neoplasm of breast Mammogram [facility] Start: 10-22-2023 Screening for malign ant neoplasm of breast Breast cancer screen [facility] Start: 09-06-2023 Influenza vaccination Flu vaccine (# 1) [facility] Start: 08-05-2023 Influenza vaccination Influenza Vacc ine (#1) [facility] Comment on above: Postponed from 10/06 (Patient Refused) Start: 03-26-2023 Chart abstracting 03/26/2023 A bstract [facility] [address] [place] [address] Cyril Duckworth, PT [address] [place] [address] [facility] Start: 03-26-2023 End: 03-26-2023 ambulatory 03/26/2023 9:00 AM EST Treatment [facility] [address] [place] [id number] Cyril Duckworth, PT [address] [place] [address] [facility] Start: 2023 Screening for malign ant neoplasm of colon [facility] Start: 10-06-2022 COVID-19 Vaccine ( season) COVID-19 Vaccine ( season) [facility] Start: 09-05-2022 Influenza vaccination Flu vaccine (# 1) [facility] Start: 10-07-2019 Influenza vaccination Flu vacc ine (Season Ended) [place], [place] Start: 2018 Diabetes screen Diabetes screen [place], [place] Start: 2018 Lipid panel Lipid screen [place], [place] Start: 2018 Lipid screen Lipid screen [place], [place] Start: 2013 Diabetes screen Diabetes screen [facility] Start: 02-08-2008 Screening for malign ant neoplasm of cervix [facility] Start: 1999 Cervical cancer screen Cervical canc er screen [place], [place] Start: 1999 Screening for malign ant neoplasm of cervix [facility] Start: 1997 DTaP/Tdap/Td vaccine (1 - Tdap) DTaP/Tdap/Td vaccine (1 - Tdap) [facility] Start: 02-08-1996 Hepatitis C screening Hepatitis C sc reen [facility] Start: 1993 HIV screen HIV screen [place], [place] Start: 1993 HIV screening HIV screen [facility] Start: 1990 Depression Screen Depression Screen [facility] Start: 02-08-1988 Lipid panel [facility]ids [facility] Start: 1978 Hepatitis B vaccine (1 of 3 - 3-dose series) Hepatitis B vaccine (1 of 3 - 3-dose series) [facility] Start: 1978 Screening for malign ant neoplasm of colon [facility] Immunizations Immunization Date Immunization Notes Care Provider Fa [facility] 01-22-2021 influenza, injectabl e, quadrivalent, preservative free Jeff Souzaedenjose DO Work Phone: [facility] 01-22-2021 influenza virus vacc ine, unspecified formulation Jeff Cannon DO Work Phone: [facility] 11-18-2018 influenza, seasonal, injectable Jeff Biedenjose DO Work Phone: [facility] 11-14-2018 Seasonal, quadrivale nt, recombinant, injectable influenza vaccine, preservative free Jeff Cannon DO Work Phone: [facility] 02-15-2017 seasonal influenza, intradermal, preservative free Jeff Biedenjose DO Work Phone: [facility] 02-10-2017 influenza, injectabl e, quadrivalent, preservative free Jeff Biedenbach DO Work Phone: [facility] Payers Date Payer Category Payer Unknown [id number] 2022 Unknown [id number] 2019 Unknown [employer] [address] xxxxxxxxxxxx 2019-Present [phone] [address] [place] [address] xxxxxxxxxxxx [id number] 1978 Unknown [id number] 2.16.840.1.000057.3.579.2 .593 1978 Unknown [id number] 2.16.840.1.825749.3.579.2 .593 1978 Unknown [id number] 2.16.840.1.881471.3.579.2 .593 1978 Unknown [id number] 2.16.840.1.323761.3.579.2 .593 1978 Unknown [id number] 2.16.840.1.644818.3.579.2 .594 1978 Unknown [id number] 2.16.840.1.680311.3.579.2 .196 1978 Unknown [id number] 2.16.840.1.202401.3.579.2 .196 1978 Unknown [id number] 2.16.840.1.354965.3.579.2 .196 1978 Unknown [id number] 2.16.840.1.594903.3.579.2 .173 1978 Unknown [id number] 2.16.840.1.029590.3.579.2 .173 1978 Unknown [id number] 2.16.840.1.795001.3.579.2 .173 1978 Unknown [id number] 2.16.840.1.936308.3.579.2 .173 1978 Unknown [id number] 2.16.840.1.665450.3.579.2 .173 1978 Unknown [id number] 2.16.840.1.839129.3.579.2 .173 1978 Unknown [id number] 2.16.840.1.670381.3.579.2 .9 1978 Unknown [id number] 2.16.840.1.412745.3.579.2 .9 1978 Unknown [id number] 2.16.840.1.133120.3.579.2 .1258 1978 Unknown [id number] 2.16.840.1.735139.3.579.2 .9 1978 Unknown [id number] 2.16.840.1.701338.3.579.2 .1258 1978 Unknown [id number] 2.16.840.1.257718.3.579.2 .9 1978 Unknown [id number] 2.16.840.1.945844.3.579.2 .9 1978 Unknown [id number] 2.16.840.1.262466.3.579.2 .9 1978 Unknown [id number] 2.16.840.1.135573.3.579.2 .9 1959 Private Health Insurance [id number] Social History Date Type Detail Facility Start: 05-11-2019 End: 09-13-2022 Tobacco smoking status [facility] Never smoker [facility] [employer] Start: 1980 Sex Assigned At Not on file [place] Exposure to SARS-CoV -2 (event) Unable to assess [place], [place] Start: 05-11-2019 End: 09-13-2022 Tobacco use and exposure Smokeless tobacco non-user [employer] Start: 05-11-2020 End: 02-28-2023 History of Social function [facility] Start: 05-11-2020 End: 02-28-2023 Tobacco use panel [facility] Start: 03-06-2023 Alcohol intake Current drinke r of alcohol (finding) [facility] Within the last year , have you been afraid of your partner or ex-partner? No [facility] Do you belong to any clubs or organizations such as advent groups, unions, fraternal or athletic groups, or school groups? Yes [facility] Are you now , , , , never or living with a partner? [facility] How often to you hav e a drink containing alcohol? Monthly or less [facility] How many standard dr inks containing alcohol do you have on a typical day? 3 or 4 [facility] How often do you hav e 6 or more drinks on 1 occasion? Less than monthly [facility] How hard is it for y ou to pay for the very basics like food, housing, medical care, and heating Not hard at all [facility] Do you feel stress - tense, restless, nervous, or anxious, or unable to sleep at night because your mind is troubled all the time - these days [OSQ] Only a little [facility] (I/We) worried [facility] er (my/our) food would run out before (I/we) got money to buy more. Never true [facility] Start: 09-12-2022 Alcohol Comment 1-2 drinks 2-4 x a month in the past year [facility] Clinical Notes 03-07-2023 to 03-20-2023 Telephone Encounter - Ashleigh Dillon NP - 03/20/2023 3:54 PM ESTTelephone Encounter - Ashleigh Dillon NP - 03/20/2023 3:54 PM ESTTelephone Encounter - Ashleigh Dillon NP - 03/20/2023 3:04 PM ESTAttachments Note Date & Type Note Facility 03-20-2023 Telephone encount er Note Phone call to pt no albut at home. Ribs hurt from coughing. Rev meds admin and common SE.offered appt . Will insist on appt if no better. She will keep ent appt and keep us updated. [facility] 03-20-2023 Miscellaneous Notes Formattin g of this note might be different from the original. Phone call to pt no albut at home. Ribs hurt from coughing. Rev meds admin and common SE.offered appt . Will insist on appt if no better. She will keep ent appt and keep us updated. Does she have an inhaler? Nebulizer? Ashleigh sent antibiotic last noel to cover strep. Should cover some chest bacteria, not all. She cannot have more steroid. She doesn't know what to do last Sunday she started with a cough, and it is just getting worse. documented in this encounter [facility] 03-20-2023 Telephone encount er Note Does she have an inhaler? Nebulizer? Ashleigh sent antibiotic last noel to cover strep. Should cover some chest bacteria, not all. She cannot have more steroid. [facility] 03-20-2023 Telephone encount er Note She doesn't know what to do last Sunday she started with a cough, and it is just getting worse. [facility] 03-19-2023 Telephone encount er Note Text from pt this pm. Son has strep. She now has sore throat also. Asking for antibiotic. Sent late this noel. Pt advised per text. Call if no better. [facility] 03-19-2023 Miscellaneous Notes Formattin g of this note might be different from the original. Text from pt this pm. Son has strep. She now has sore throat also. Asking for antibiotic. Sent late this noel. Pt advised per text. Call if no better. documented in this encounter [facility] 03-19-2023 Telephone encount er Note Called in here sat with cough. Son had influenza b. Started her on pred burst again and the cough is still present. Ribs hurt from coughing today. Up all night on Sunday night. Started sx on . Has not taken any tamiflu. Better each day. Might benefit from tamiflu. She saw neuro and also PT again. Plans to have MRI of the brain. Mar 30 is her MRI. She is very tired at this time. Frustrated with her lack of progress overall but also admits that the vertigo is improved a bit. Trying to work. Not going great or terribly bad. She will call [facility] at [facility] and ask if they need more specific order for IAC with the DAYANA. She voiced understanding. She will taper off of the steroid. She reports that her father had benign tumors removed from his head, X 7. She is unsure what this was. Call as needed [facility] 03-19-2023 Miscellaneous Notes Formattin g of this note might be different from the original. Called in here sat with cough. Son had influenza b. Started her on pred burst again and the cough is still present. Ribs hurt from coughing today. Up all night on Sunday night. Started sx on . Has not taken any tamiflu. Better each day. Might benefit from tamiflu. She saw neuro and also PT again. Plans to have MRI of the brain. Mar 30 is her MRI. She is very tired at this time. Frustrated with her lack of progress overall but also admits that the vertigo is improved a bit. Trying to work. Not going great or terribly bad. She will call MRI at [facility] and ask if they need more specific order for IAC with the DAYANA. She voiced understanding. She will taper off of the steroid. She reports that her father had benign tumors removed from his head, X 7. She is unsure what this was. Call as needed documented in this encounter [facility] 03-16-2023 History of Presen t illness Narrative Fabi Carlton [id number] 03/15/23 Subjective: Phone consult 03/15: 43 yof sent to PT by Dr Denis for dizziness. Onset 2 wks ago on [place] thru night, driving to work everything started to spin and lasted all day Was worse with movement No other symptoms but did have sinus infection 2 wks before incident and was taking antibiotic (augmentin) Hearing has been fine and denies tinnitus but R ear is painful with pressure. Vision comes and goes feels blurry Back of head hurts since this started No hx of migraines Denies paresthesia in hands/feet Denies neck pain *Brain scan soon awaiting appt Objective/Examination: Postional Testing: Negative BPPV testing: Negative Postural Hypotension head fixed lay down sit up testing: Negative Ocular: Negative Gaze Evoked Nystagmus, Smooth Pursuit, Saccades Strabismus observation: No obvious misalgnment noticed. Cover - Uncover tests negative. No exo/eso/hyper/hypo tropia noticed. No phoria noticed. *Head Impulse Test: Positive to R suggesting R uni vestibular weakness *Optokinetics optodrum test: diminished response stimulus toward R ear suggesting R uni vestib weakness Upper Motor Neuron: Negative finger to nose, hoffmans, hyperreflexia, rapid alt hand movt *Cervical Motion: Impaired motion and discomfort/pain Head feels wobbly *Cervical Massage vibration test with goggles: reproduced dizziness, nystagmus, loss of balance Vertebral Artery Screening test (VAST): negative *Cervical Torsion Test: Dizziness Smooth Pursuit Neck Tosrion Test (SPNT): Negative *Cervical Proprioception Testing: Poor head neck awareness *Sensory Organization Performance Test: Challenge all tests eyes closed Fail test 6 *Fukuda test: impaired balance Ocular assessment with goggles: Negative spontaneous nystagmus, gaze evoked nystagmus *High Frequency Head shake (2 Hz) with video goggles: Motion Sensitivity Test: will test next session suspect severe impairment *Computerized Dynamic Visual Acuity test: fail horizontal and vertical head movt impaired vor Therapeutic Intervention: Evaluation Gentle rom neck/arms Postural balance Vor Balance doorway Heat neck and aerobics Written HEP See flow sheet Assessment: Suspected Therapy Diagnosis: Suspect Unilateral R vestibular weakness; however, downbeat nystagmus with high frequency head shake maneuver suggesting central Brain scan results soon and will adjust accordingly Problems: Severe dizziness, Impaired vor fail cdvat test, impaired balance fail all tests eyes closed, Fail head thrust and optokinetics suggesting R unilateral vestibular weakness, downbeat nystagmus head shake suggesting central will get brain scan alejandra Tight neck and poor proprioception Dizziness with massage vibration neck, Neck pain Goals: Eliminate dizziness, restore vor and pass cdvat, restore balance and pass sop/fukuda tests, negative optokinetics and head thrust tests, negative nystagmus with head shake maneuver, Get brain scan results alejandra Plan: Vestibular habituation adaptation Cervical manual therapy, aerobics/heat Frequency/Duration: Once every other week Potential: Good I hereby deem this POC medically necessary. Please sign below. Cyril Duckworth, DScPT, OCS, COMT, AIB-VAM Director Vestibular Rehabilitation documented in this encounter [facility] 03-13-2023 Telephone encount er Note [facility] office called wanting to get this patient in [place] for an appointment. They sent this to Dr. De Paz but his office could not get her in until May. I explained that all three ENTs share the same garment form assembler, we are all booking out until then. I checked with garment form assembler there are no cancellations. Unfortunately for all three offices we are booked until May patient is required to have hearing test before appointment. I tried to call [facility] office back but their office is closed [facility] 03-13-2023 Miscellaneous Notes Formattin g of this note might be different from the original. [facility] office called wanting to get this patient in [place] for an appointment. They sent this to Dr. De Paz but his office could not get her in until May. I explained that all three ENTs share the same garment form assembler, we are all booking out until then. I checked with garment form assembler there are no cancellations. Unfortunately for all three offices we are booked until May patient is required to have hearing test before appointment. I tried to call [facility] office back but their office is closed documented in this encounter [facility] 03-07-2023 Hospital Discharg e instructions Darlene Nuñez DO - 03/07/2023 5:54 PM EST Drink plenty of fluids and get plenty of sleep. Follow-up with your doctor next week. You may also benefit from a referral to ENT given that you have had ongoing right ear pain internally. If symptoms persist you may also potentially need an MRI. Return if your symptoms get worse. The following attachments cannot be sent through Care Everywhere.Vertigo (Malay)documented in this encounter [facility] Evaluation note Diagnosis Benign paroxysmal positional vertigo, unspecified laterality- Primary Dizziness Dizziness and giddiness [facility] Diagnosis Balance disorder- Primary Cervicalgia Unilateral vestibular weakness, right [facility] Diagnosis Influenza B- Primary Influenza with other respiratory manifestations documented in this encounter [facility]* Diagnosis Pharyngitis due to other organism- Primary documented in this encounter [facility]* Diagnosis Localized edema Edema Dyslipidemia (CMS/HCC) Other and unspecified hyperlipidemia documented in this encounter [facility]* Diagnosis Acute cough- Primary documented in this encounter [facility]* Diagnosis Ataxia Lack of coordination [facility] Diagnosis Unspecified atherosclerosis Elevated blood pressure reading without diagnosis of hypertension Family history of ischemic heart disease and other diseases of the circulatory system documented in this encounter [facility] Discharge Instructions * Instructions* Matt Fletcher MD - 05/11/2019 If you have a fever unable to keep things by mouth or any other concerns please return to emergencydepartment. * Attachments The following attachments cannot be sent through Care Everywhere. 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 Advance Directives and Living Will Power of Painter Ski Edge Summary Purpose Family History No Family History Records FoundNo Family History Records FoundNo Family History Records FoundNo Family History Records FoundNo Family History Records FoundNo Family History Records Found Reason for Referral Specialty Diagnoses / Procedures Referred By Contac t Referred To Contact Radiology Diagnoses Ataxia Procedures MRI BRAIN W WO CONTRAST Enid Denis, DO [address] [place] [id number] Referral ID Status Reason Start Date Expiration Date Visits Re quested Visits Authorized [id number] Closed 03/24/2023 03/18/2024 1 1 Specialty Diagnoses / Procedures Referred By Contac t Referred To Contact Diagnoses Unspecified atherosclerosis Elevated blood pressure reading without diagnosis of hypertension Family history of ischemic heart disease and other diseases of the circulatory system Procedures Vascular AAA screening Ashleigh Dillon, SUPERVISOR [employer] OPERATOR [address] [place] [id number] Referral ID Status Reason Start Date Expiration Date Visits Re quested Visits Authorized [id number] Open 07/10/2023 07/09/2024 1 1 Additional Source Comments Reason for Visit (unrecogniz ed section and content) Reason Comments Abscess Right breast, ongoin g, but became infected 2 days ago Reason Comments Headache With INT dizziness, on prednisone and meclizine. Had CTA and labs yesterday. Specialty Diagnoses / Procedures Referred By Contac t Referred To Contact Physical Therapy Diagnoses Benign paroxysmal vertigo, bilateral Procedures [place] PHYSICAL THERAPY EVALUATION LOW COMPLEX 20 MINS Enid Denis MD [address] [place] [address] Cyril Duckworth, PT [address] [place] [address] Referral ID Status Reason Start Date Expiration Date V isits Requested Visits Authorized [id number] Closed Consult and Treat 03/16/2023 09/12/2023 1 1 Reason Comments Med Refill Reason Onset Date Comments Cough 03/20/2023 Specialty Diagnoses / Procedures Referred By Contac t Referred To Contact Radiology Diagnoses Ataxia Procedures MRI BRAIN W WO CONTRAST Enid Denis, DO [address] [place] [address] Referral ID Status Reason Start Date Expiration Date Visits Re quested Visits Authorized [id number] Closed 03/24/2023 03/18/2024 1 1 Specialty Diagnoses / Procedures Referred By Contac t Referred To Contact Diagnoses Unspecified atherosclerosis Elevated blood pressure reading without diagnosis of hypertension Family history of ischemic heart disease and other diseases of the circulatory system Procedures Vascular AAA screening Ashleigh Dillon, SUPERVISOR [employer] OPERATOR [address] [place] [address] Referral ID Status Reason Start Date Expiration Date Visits Re quested Visits Authorized [id number] Open 07/10/2023 07/09/2024 1 1 INFORMATION SOURCE (unrecogn ized section and content) DATE CREATED AUTHOR 06/16/2021 [facility] DATE CREATED AUTHOR AUTHOR'S ORGANIZ ATION 11/04/2021 [facility] DATE CREATED AUTHOR AUTHOR'S ORGANIZ ATION 04/18/2022 [facility] DATE CREATED AUTHOR AUTHOR'S ORGANIZ ATION 04/21/2023 [facility] DATE CREATED AUTHOR AUTHOR'S ORGANIZ ATION 08/30/2023 [facility] DATE CREATED AUTHOR AUTHOR'S ORGANIZ ATION 10/15/2023 [facility] dical Specialists EPIC Scheduled Active and Recently Administ ered Medications (unrecognized section and content) Medication Order 03/05/2023 03/06/2023 03/07/2023 ketorolac (TORADOL) injection 30 mg (COMPLETED) 30 mg, IntraVENous, ONCE, 1 dose, On Sun03/07/23 at 1615, Do not administer for more than 5 days. 1640 (Given - Provid er: Marry Guzmán RN) sodium chloride 0.9 % bolus 1,000 mL (COMPLETED) 1,000 mL, IntraVENous, at 983.6 mL/hr, Administer over 61 Minutes, ONCE, On Sun03/07/23 at 1615, For 1 dose, For adult patients weighing > 55 kg (120 lbs.) and less than <50 years of age initiate 0.9NS at 500 mL/ hr. All bolus orders are to be given over 10 to 15 minutes 1640 (New Bag - Prov ider: Marry Guzmán RN)1740 (Stopped - Provider: Marry Guzmán RN) Care Teams (unrecognized sec tion and content) Prior Authorization Nurse Relationship Specialty Start Date End Date Cyril Britt DO [address] [place] [address] PCP - General Family Medicine 05/11/19 Prior Authorization Nurse Relationship Specialty Start Date End Date Cyril Britt DO [address] [place] [address] PCP - General Family Medicine 06/13/22 Cyril Britt DO [address] [place] [address] PCP - [place] [employer] 12/06/22 Prior Authorization Nurse Relationship Specialty Start Date End Date Cyril Britt DO [address] [place] [address] PCP - General Family Medicine 06/13/22 Cyril Britt DO [address] [place] [address] PCP - [place] [employer] 12/06/22 Prior Authorization Nurse Relationship Specialty Start Date End Date Cyril Britt DO [address] [place] [address] PCP - General Family Medicine 06/13/22 Cyril Britt DO [address] [place], [place] [id number] PCP - [place] [employer] 12/06/22 Prior Authorization Nurse Relationship Specialty Start Date End Date Cyril Britt, DO [address] [place] [address] PCP - General Family Medicine 06/13/22 Cyril Britt DO [address] [place] [address] PCP - [place] [employer] 12/06/22 Prior Authorization Nurse Relationship Specialty Start Date End Date Cyril Britt, DO [address] [place] [address] PCP - General Family Medicine 06/13/22 Cyril Britt, DO [address] [place] [address] PCP - [place] [employer] 12/06/22 Prior Authorization Nurse Relationship Specialty Start Date End Date Cyril Britt, DO [address] [place] [address] PCP - General Family Medicine 06/13/22 Cyril Britt, [address] [place] [address] PCP - [place] [employer] 12/06/22 Prior Authorization Nurse Relationship Specialty Start Date End Date Cyril Britt DO [address] [place] [address] PCP - General Family Medicine 06/13/22 Cyril Britt DO [address] [place] [address] PCP - [place] [employer] 12/06/22 Prior Authorization Nurse Relationship Specialty Start Date End Date Cyril Britt, [address] [place] [address] PCP - General Family Medicine 05/11/19 Prior Authorization Nurse Relationship Specialty Start Date End Date Cyril Britt DO [address] [place] [address] PCP - General Family Medicine 05/11/19 FOR RECORDS PERTAINING TO PATIENTS WHO ARE [...] BE BASED ON THE PRIMARY CLINICAL RECORDS. [employer] [facility]. provides no warranty or guarantee of the accuracy or completeness of information in this document.
--- NOTE | 2023-12-21 07:05 | MM_ITS ---
Patient Name: FABI CARLTON MR#: [id number] : 1980 Exam Date: 12/21/2023 Ordering Doctor: DR Ceasar Smith . RADIOLOGY REPORT PROCEDURE: MM TOMOSYNTHESIS SCREENING BI COMPARISON: MM TOMOSYNTHESIS SCREENING BI, 11/24/2022. MG MAMM DIAGNOSTIC 3D SHERIF CAD, 10/21/2021. MG MAMM SCREEN SHERIF W CAD, 02/07/2019. INDICATIONS: Screening Calculator Name NCI Breast Cancer Risk Assessment Tool 5 Year Breast Cancer Risk 1.80% Lifetime Breast Cancer Risk 19.60% Personal Breast Cancer No Personal Ovarian Cancer No Treatments None Family Cancers Mother with breast cancer at age 60. LOCATION: [facility] BREAST COMPOSITION: The breasts are heterogeneously dense,which may obscure small masses. FINDINGS: DIAGNOSTIC CATEGORY 1--NEGATIVE. RIGHT BREAST: No significant suspicious finding. No significant change has occurred. LEFT BREAST: No significant suspicious finding. No significant change has occurred. RECOMMENDATIONS: ROUTINE MAMMOGRAM AND CLINICAL EVALUATION IN 12 MONTHS. PLEASE NOTE: A NORMAL MAMMOGRAM DOES NOT EXCLUDE THE POSSIBILITY OF BREAST CANCER. A CLINICALLY SUSPICIOUS PALPABLE LUMP SHOULD BE BIOPSIED. Dictated by: Jimbo Mclean M.D. on 12/21/2023 at 10:08 Approved by: Jimbo Mclean M.D. on 12/21/2023 at 10:22
== END 2023-12-21 07:00 | disposition home or self-care (01) ==
LOC: MAMMO 07:02
PROVIDERS: Visit Provider Obstetrics & Gynecology
DX: Z12.31 Encounter for screening mammogram for malignant neoplasm of breast (principal); Z80.3 Family history of malignant neoplasm of breast
CPT/HCPCS: 77063; 77067

== ENCOUNTER 2024-07-22 19:10 | Outpatient (REF) | payer BC, SELFPAY ==
[2024-07-25 11:09] LABS: Age Gdln ACOG Testing Note (.); HPV Aptima Negative (Negative); IGP, Aptima HPV, rfx 16/18,45 Note (.)
== END 2024-07-22 19:11 | disposition home or self-care (01) ==
LOC: LAB 19:10
PROVIDERS: Visit Provider Obstetrics & Gynecology
DX: Z01.419 Encounter for gynecological examination (general) (routine) without abnormal findings (principal)
CPT/HCPCS: 87624; 88175

== ENCOUNTER 2024-11-10 12:32 | Outpatient (OUT) | payer BC, SELFPAY ==
--- OUTSIDE RECORDS SUMMARY | 2024-10-27 07:00 | XMS_ITS | Encounter Summary ---
Author Organization [facility] Address [address] [place] [address] Care Team Providers Care Sprinkler Repair Technician Name Role Phone Dawna Jarret Guadarrama DO Primary Care Provider Ashleigh Dacosta PHYSICIST [facility] Unavailable Reason for Visit * Reason Comments Annual Exam Encounter Details Date Type Department Care Team (Late st Contact Info) Description 10/27/2024 7:00 AM EDT Office Visit [facility] [address] [place] [address] Ashleigh Dacosta, PHYSICIST [facility] [facility] [employer] [address] [place] [address] Wellness examination (Primary Dx); Gastroesophageal reflux disease without esophagitis; Vitamin D deficiency; Body mass index (BMI) 37.0-37.9, adult; Morbid (severe) obesity due to excess calories ([facility]); Unilateral vestibular weakness, right; LESLEE (generalized anxiety disorder) ; Migraine with aura and with status migrainosus, not intractable ; Dyslipidemia ; Decreased libido; Vaginal dryness; Screen for colon cancer; Immunization due; Bilateral foot pain; Macrocytic Social History Tobacco Use Types Packs/Day Years Used Date Smoking Tobacco: Never Smokeless Tobacco: Never Tobacco Cessation:Counseling Given: No Alcohol Use Standard Drinks/Week Comments Yes 0 (1 standard drink = 0.6 oz pure alcohol) 1-2 drinks 2-4x a month in the past year Humiliation, Afraid, Rape, and Kick questionnair e Answer Date Recorded Within the last year, have y ou been afraid of your partner or ex-partner? No 02/28/2023 Within the last year, have y ou been humiliated or emotionally abused in other ways by your partner or ex-partner? No Within the last year, have y ou been kicked, hit, slapped, or otherwise physically hurt by your partner or ex-partner? No 02/28/2023 Within the last year, have y ou been raped or forced to have any kind of sexual activity by your partner or ex-partner? No 02/28/2023 Social Connection and Isolat ion Panel [NHANES] Answer Date Recorded In a typical week, how many times do you talk on the phone with family, friends, or neighbors? More than three times a week 02/28/2023 How often do you get togethe r with friends or relatives? Once a week 02/28/2023 How often do you attend [facility] or taoism services? More than 4 times per year 02/28/2023 Do you belong to any clubs o r organizations such as jainism groups, unions, fraternal or athletic groups, or school groups? Yes 02/28/2023 How often do you attend meet ings of the clubs or organizations you belong to? More than 4 times per year 02/28/2023 Are you , , di vorced, , never , or living with a partner? 02/28/2023 AUDIT-C Answer Date Recorded Q1: How often do you have a drink containing alc ohol? Monthly or less 02/28/2023 Q2: How many drinks containi ng alcohol do you have on a typical day when you are drinking? 3 or 4 02/28/2023 Q3: How often do you have si x or more drinks on one occasion? Less than monthly 02/28/2023 Overall Financial Resource Strain (CARDIA) Answe r Date Recorded How hard is it for you to pa y for the very basics like food, housing, medical care, and heating? Not hard at all 02/28/2023 PHQ-2 Answer Date Recorded Patient Health Questionnaire-2 Score 1 10/27/2024 [facility] of Occupat ional Health - Occupational Stress Questionnaire Answer Date Recorded Do you feel stress - tense, restless, nervous, or anxious, or unable to sleep at night because your mind is troubled all the time - these days? Only a little 02/28/2023 Exercise Vital Sign Answer Date Recorde d On average, how many days pe r week do you engage in moderate to strenuous exercise (like a brisk walk)? 4 days 02/28/2023 On average, how many minutes do you engage in exercise at this level? 60 min 02/28/2023 Hunger Vital Sign Answer Date Recorded Within the past 12 months, y ou worried that your food would run out before you got the money to buy more. Never true 02/28/19 24 Within the past 12 months, t he food you bought just didn't last and you didn't have money to get more. Never true 02/28/2023 PRAPARE - Transportation Answer Date Re corded In the past 12 months, has l ack of transportation kept you from medical appointments or from getting medications? No 02/06 In the past 12 months, has l ack of transportation kept you from meetings, work, or from getting things needed for daily living? No 02/28/2023 Housing Stability Vital Sign Answer Garret e Recorded In the last 12 months, was t here a time when you were not able to pay the mortgage or rent on time? No 02/28/2023 In the last 12 months, how many places have you lived? 1 02/28/2023 In the last 12 months, was t here a time when you did not have a steady place to sleep or slept in a detention (including now)? No 02/28/2023 Comments No Sex and Gender Information Value Date Recorded Sex Assigned at Not on file Legal Sex Female 6:41 PM EDT Gender Identity Not on file Sexual Orientation Not on file documented as of this encounter Last Filed Vital Signs Vital Sign Reading Time Taken Comments Blood Pressure 118/80 10/27/2024 7:02 AM EDT Pulse 87 10/27/2024 7:02 AM EDT Temperature 36.4 C (97.5 F) 10/27/2024 7:02 AM EDT Respiratory Rate 18 10/27/2024 7:02 AM EDT Oxygen Saturation 97% 10/27/2024 7:02 AM EDT Inhaled Oxygen Concentration - - Weight 94.8 kg (209 lb) 10/27/2024 7:02 AM EDT Height 157.5 cm (5' 2 ) 10/27/2024 7:02 AM EDT Body Mass Index 38.23 10/27/2024 7:02 AM EDT documented in this encounter Functional Status * Over the past 2 weeks, how often have you been bothered by any of the following problems? Question Answer Date of Assessment Author Little interest or pleasure in doing things Not at all 10/27/2024 6:55 AM EDT Shruti Shah LPN Feeling down, depressed, or hopeless Several days 10/27/2024 6:55 AM EDT Shruti Shah LPN Patient Health Questionnaire-2 Score 1 10/27/2024 6:55 AM EDT Shruti Shah LPN * If you checked off any problems on this questionnaire so far, Question Answer Date of Assessment Author How difficult have these problems made it for you to do your work, take care of things at home, or get along with other people? Not difficult at all 10/27/2024 6:55 AM EDT Shruti Shah LPN documented as of this encounter Patient Instructions * Patient Instructions* Ashleigh Dacosta NP - 10/27/2024 7:00 AM EDT Keep podiatry appt tomorrow Consider moving the eating hours earlier in the day Consider resistance training 30 grams of protein with each meal documented in this encounter Progress Notes * Ashleigh Dacosta NP - 10/27/2024 7:00 AM EDT Images from the original note were not included. Karina Concepcion is a 44 y.o. female presents with chief complaint of Annual Exam HPI: HPI ..The patient was advised that Artificial Intelligence will be utilized during this visit to record, process the conversation to generate a clinical note,. The patient consented to the use of AI, including the recording. 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 Sleep Apnea She has a deviated septum and snores. She is scheduled for surgery in 12/2024 to correct this. She has enlarged tonsils and was told that the surgery may help but will not cure her condition. She wasdiagnosed with sleep apnea in her early 20s and was overweight at that time. She drinks one diet soda at lunch and avoids caffeine after 4 PM. Anxiety She is managing her anxiety well and is undergoing EMDR therapy. She has an appointment next week, which will be her third session. She continues to see her counselor once a month and feels better than she did six months ago. Dry Eyes She uses Mibo solution for dry eyes, which has been effective. She underwent LASIK surgery in 08/2024 and is satisfied with the results, now having 20/20 vision in her left eye. She has regular follow-ups with her hazardous substances engineer. Stomach Pain She has daily bowel movements but has been experiencing diarrhea recently. She maintains good hydration. She takes omeprazole daily for stomach acid control. She is scheduled for an ultrasound with her OB-DSP ENGINEER today due to abdominal pain. Foot Pain She experiences foot pain when standing but not when sitting. She has an appointment with a counter intelligence tomorrow and manages her foot pain with Tylenol and Motrin. She tries to exercise by walking 2 to 3 miles every other day but finds it difficult due to foot pain. She reports no issues with allergies, headaches, wheezing, shortness of breath, chest pain, palpitations, heartburn, or indigestion. She maintains good hydration. Her mammogram this year was normal. She has had a Pap smear and is up to date on immunizations. She requested a colonoscopy kit to be sent again as she did not complete it previously and plans to have a colonoscopy next year. She has difficulty falling asleep and staying asleep due to leg pain and frequent urination at night. She continues to experience vaginal dryness and uses vaginal estrogen intermittently. Occupation: Works at [employer] in [place] Diet: Fasting for the past 6 weeks, eating between noon and 6 PM daily, includes salad with meat, fruit, yogurt with peanut butter Coffee/Tea/Caffeine-containing Drinks: Drinks one diet soda at lunch, avoids caffeine after 4 PM Sleep: Difficulty falling asleep and staying asleep, frequent urination at night, leg pain PAST SURGICAL HISTORY: - LASIK surgery in 08/2024 - Scheduled for surgery to correct deviated septum in 12/2024 FAMILY HISTORY Her sister has uterine cancer that has metastasized to her lungs. SUBJECTIVE: MEDICATIONS: Current Outpatient Medications Medication Instructions atorvastatin (LIPITOR) 10 mg, Oral, Every morning ergocalciferol (VITAMIN D2) 1.25 mg, Oral, Every 7 days estradiol (ESTRACE) 1 mg, Oral, Daily Meloxicam 15 mg, Oral, Daily Miebo 1.338 GM/ML solution INSTILL 1 DROP INTO EACH EYE 4 TIMES DAILY (MUST SEE PACKAGE INSERT FOR ADMIN INSTRUCTIONS) Multiple Vitamins-Minerals (Eye Vitamins) capsule 1 tablet, Daily omeprazole (PRILOSEC) 20 mg, Oral, Daily before breakfast, Do not crush or chew. progesterone 100 mg, Oral, Daily, This is likely NOT dose, per dr virk, dr virk rx day 14-28 monthly, compounded triamterene-hydroCHLOROthiazide (Dyazide) 37.5-25 MG capsule 1 capsule, Every morning venlafaxine XR (EFFEXOR XR) 37.5 mg, Oral, Daily, Do not crush or chew. ALLERGIES: Allergies Allergen Reactions Codeine Nausea And Vomiting Other Reaction(s): Altered Heart Rate SURGICAL HISTORY: Past Surgical History: Procedure Laterality Date SECTION, LOW TRANSVERSE x2 CHOLECYSTECTOMY 2005 COLONOSCOPY 2007 EGD REFRACTIVE SURGERY 2024 TUBAL LIGATION FAMILY HISTORY: Family History Problem Relation Name Age of Onset Breast cancer Mother Skin cancer Mother Hypertension Mother Diabetes Father Hypertension Father Heart attack Father Endometrial cancer Sister Uterine cancer Sister cancer spread into lungs Brain Aneurysm Brother ADD / ADHD Daughter ADD / ADHD Son Lung cancer Mother's Brother SOCIAL HISTORY: Social History Tobacco Use Smoking status: Never Smokeless tobacco: Never Substance Use Topics Alcohol use: Yes Comment: 1-2 drinks 2-4x a month in the past year Drug use: Never Depression: Not at risk (10/27/2024) PHQ-2 PHQ-2 Score: 1 REVIEW OF SYMPTOMS: Review of Systems Constitutional: Negative for activity change, appetite change and fever. HENT: Negative for hearing loss, rhinorrhea and sore throat. Saw ent in [place] regarding snoring , deviated septum Eyes: Negative for visual disturbance. Did lasik surg earlier this year, has some dry eyes Respiratory: Negative for cough and wheezing. Cardiovascular: Negative for chest pain, palpitations and leg swelling. Gastrointestinal: Positive for abdominal pain. Negative for blood in stool. Nonspecific, has been seeing keeler polygraph operator, has appt for US today Genitourinary: Negative for dysuria and flank pain. Musculoskeletal: Positive for arthralgias. Bilat foot pain, appt with podiatry tomorrow Bilat leg pain Skin: Negative. Neurological: Negative for dizziness, syncope and light-headedness. Psychiatric/Behavioral: Negative. Hematological: Negative for adenopathy. Does not bruise/bleed easily. Endocrine: Negative for polydipsia. Allergic/Immunologic: Positive for environmental allergies. Negative for food allergies. OBJECTIVE: Visit Vitals BP 118/80 (BP Location: Left arm, Patient Position: Sitting, BP Cuff Size: Adult) Pulse 87 Temp 97.5 ??F (Tympanic) Resp 18 Ht 5' 2 Wt 209 lb LMP 10/05/2024 (Exact Date) SpO2 97% BMI 38.23 kg/m?? OB Status Having periods Smoking Status Never BSA 2.04 m?? Physical Exam Constitutional: Comments: nontoxic HENT: Head: Normocephalic. Right Ear: Tympanic membrane normal. Left Ear: Tympanic membrane normal. Nose: Nose normal. Mouth/Throat: Mouth: Mucous membranes are moist. Pharynx: No posterior oropharyngeal erythema. Eyes: Pupils: Pupils are equal, round, and reactive to light. Neck: Vascular: No carotid bruit. Cardiovascular: Rate and Rhythm: Normal rate and regular rhythm. Pulses: Normal pulses. Heart sounds: Normal heart sounds. No murmur heard. Pulmonary: Effort: Pulmonary effort is normal. No respiratory distress. Abdominal: General: Bowel sounds are normal. Palpations: Abdomen is soft. There is no mass. Hernia: No hernia is present. Comments: Obese nontender Musculoskeletal: General: Normal range of motion. Cervical back: Normal range of motion. Lymphadenopathy: Cervical: No cervical adenopathy. Skin: General: Skin is warm and dry. Capillary Refill: Capillary refill takes less than 2 seconds. Neurological: General: No focal deficit present. Mental Status: She is alert. Psychiatric: Mood and Affect: Mood normal. Comments: Alert and interactive Wt up 4 pounds Doing intermittent fasting , eating 6 hours per day Rev labs of 10-14-24 ASSESSMENT AND PLAN: Assessment/Plan Diagnoses and all orders for this visit: Wellness examination Comments: vaccines updated, whole foods diet, more fiber/protein in diet, intermittent fasting in the morning Gastroesophageal reflux disease without esophagitis Comments: takes the omeprazole daily, good control as long as she takes it Vitamin D deficiency Comments: taking the vit d in compliant manner weekly 50,000 Body mass index (BMI) 37.0-37.9, adult Comments: we discussed changing her intermitent fasting to earlier, more fiber in diet, more resistannce training Morbid (severe) obesity due to excess calories ([facility]) Comments: as above Unilateral vestibular weakness, right Comments: she is following with ent in [place] LESLEE (generalized anxiety disorder) Comments: edmr therapy, Migraine with aura and with status migrainosus, not intractable Comments: no recent issues Dyslipidemia Decreased libido Comments: following with custodian blood bank, not discussed today Vaginal dryness Comments: still an issue, working with custodian blood bank, not always compliant with vaginal estrogen Screen for colon cancer Comments: cologuard agreeable Orders: - Cologuard?? colon cancer screening; Future Immunization due Comments: dtap and flu updated Orders: - Flu vaccine greater than or equal to 3 years old, PF IM (IMM19) - Tdap vaccine greater than or equal to 7 years old IM Bilateral foot pain Comments: suspect fasciitis, she is following with podiatry tomorrow ..I have reviewed and reconciled the history, allergies, family history, social history, and the medication list with the patient today. Follow up for 4 mo recheck. documented in this encounter Miscellaneous Notes * Addendum Note - Ashleigh Dacosta NP - 10/27/2024 7:00 AM EDTAddended by: ASHLEIGH DACOSTA on: 10/27/2024 07:40 AM Modules accepted: Orders documented in this encounter Plan of Treatment Upcoming Encounters Date Type Department Care Team (Late st Contact Info) Description 11/25/2024 9:30 AM EDT Office Visit [facility] [address] [place] [address] Meryl Fragoso PA [address] [address] 12/02/2024 3:30 PM EDT Office Visit [facility] [facility] [address] [place] [phone] Sandra Perez DPM [address] [place] [address] 02/24/2025 7:00 AM EST Office Visit [facility] [address] [place] [address] Ashleigh Dacosta NP [address] [place] [address] Scheduled Orders Name Type Priority Associated Diagnoses Orde r Schedule Cologuard colon cancer screening Lab Routine Screen for colon cancer Expected: 10/27/2024 (Approximate), Expires: 10/27/2025 documented as of this encounter Visit Diagnoses Diagnosis Wellness examination- Primary Gastroesophageal reflux disease without esophagitis Esophageal reflux Vitamin D deficiency Body mass index (BMI) 37.0-37.9, adult Morbid (severe) obesity due to excess calories ([facility]) Unilateral vestibular weakness, right LESLEE (generalized anxiety disorder) Generalized anxiety disorder Migraine with aura and with status migrainosus, not intractable Dyslipidemia Other and unspecified hyperlipidemia Decreased libido Vaginal dryness Postmenopausal atrophic vaginitis Screen for colon cancer Special screening for malignant neoplasms, colon Immunization due Bilateral foot pain Macrocytic Other specified diseases of blood and blood-forming organs documented in this encounter Care Teams Sprinkler Repair Technician Relationship Specialty Start Date End Date Jarret Toney DO [address] [place], [place] [id number] PCP - General Family Medicine 06/13/22 Ashleihg Dacosta NP [address] [place], [place] [id number] PCP - Shyann Dahl 05/06/24 documented as of this encounter
--- OUTSIDE RECORDS SUMMARY | 2024-10-27 09:00 | XMS_ITS | Encounter Summary ---
Author Organization [facility] Address [address] [place] [address] Care Team Providers Care Refrigeration Technician Name Role Phone Dawna Jarret Guadarrama DO Primary Care Provider [phone] Ashleigh Dacosta DIRECTOR OF EXTENSION WORK Unavailable Encounter Details Date Type Department Care Team (Latest Contact Info) Description 10/27/2024 9:00 AM EDT Ancillary Procedure [facility] [address] [place] [address] [place] [address] Abnormal uterine bleeding (AUB) Social History Tobacco Use Types Packs/Day Years Used Date Smoking Tobacco: Never Smokeless Tobacco: Never Alcohol Use Standard Drinks/Week Comments Yes 0 [...] week 02/28/2023 How often do you attend chur ch or sabianism services? More than 4 times per year 02/28/2023 Do you belong to any clubs o r organizations such as presybeterian groups, unions, fraternal or athletic groups, or [...] Recorded Patient Health Questionnaire-2 Score 1 10/27/2024 [facility] of Occupat ional Health - Occupational Stress [...] place to sleep or slept in a jail (including now)? No 02/28/2023 Comments No Sex and Gender Information Value Date Recorded Sex Assigned at Not on file Legal Sex Female 6:41 PM EDT Gender Identity Not on file Sexual Orientation Not on file documented as of this encounter Functional Status * Over the [...] Shah LPN documented as of this encounter Plan of Treatment Upcoming Encounters Date Type Department Care Team (Late st Contact Info) Description 11/25/2024 9:30 AM EDT Office Visit [facility] [address] [place] [phone] Meryl Fragoso PA [address] [place] [address] 12/02/2024 3:30 PM EDT Office Visit [facility] [place] [facility] [address] [place] [phone] Sandra Perez DPEric [address] [place] [address] 02/24/2025 7:00 AM EST Office Visit [facility] [address] [place] [phone] Ashleigh Dacosta, PHYLICIA [address] [place], [place] [id number] documented as of this encounter Procedures Procedure Name Priority Date/Time Associated Diagnosis Comments US PELVIC COMPLETE W/ TV Routine 10/27/2024 9:47 AM EDT Abnormal uterine bleeding (AUB) documented in this encounter Results * US Pelvis w/ TV (10/27/2024 9:47 AM EDT) Anatomical Region Laterality Modality Pelvis Ultrasound 10/27/2024 1:23 PM EDT Impressions 10/27/2024 1:35 PM EDT Normal pelvic ultrasound appearance TRANSCRIBED BY: ELECTRONICALLY SIGNED BY: Alexx Hinojosa MD Narrative 10/27/2024 1:35 PM EDT FINDINGS: Transabdominal and transvaginal imaging was performed. Uterus 9.1 x 4.5 x 6.3 cm Endometrium 9mm Right Ovary 2.1 x 1.2 x 2.1 cm Left Ovary not seen The uterus is normal in size and orientation. No worrisome mass lesions are seen. Endometrium appears unremarkable. No fluid is seen within the cul-de-sac. Right ovary is normal. No left adnexal mass. Left ovary not seen. Procedure Note Alexx Hinojosa MD - 10/27/2024 FINDINGS: Transabdominal and transvaginal imaging was performed. Uterus 9.1 x 4.5 x 6.3 cm Endometrium 9mm Right Ovary 2.1 x 1.2 x 2.1 cm Left Ovary not seen The uterus is normal in size and orientation. No worrisome mass lesionsare seen. Endometrium appears unremarkable. No fluid is seen within [id number]. Right ovary is normal. No left adnexal mass. Left ovary notseen. IMPRESSION: Normal pelvic ultrasound appearance TRANSCRIBED BY: ELECTRONICALLY SIGNED BY: Alexx Hinojosa MD us Ceasar Smith DO IM US PROCEDURES Final Result documented in this encounter Visit Diagnoses Diagnosis Abnormal uterine bleeding (AUB) documented in this encounter Care Teams Refrigeration Technician Relationship Specialty Start Date End Date Jarret Toney DO [address] [place] [address] PCP - General Family Medicine 06/13/22 Ashleigh Dacosta NP [address] [place] [address] PCP - Shyann Dahl 05/06/24 documented as of this encounter
--- OUTSIDE RECORDS SUMMARY | 2024-10-27 10:20 | XMS_ITS | Encounter Summary ---
Author Organization [facility] Address [address] [place] [address] Care Team Providers Care Meeting Coordinator Name Role Phone Dawna Jarret Guadarrama DO Primary Care Provider [phone] Ashleigh Dacosta ELECTRIC REFRIGERATOR SERVICER Unavailable Reason for Visit * Reason Comments Pre-op Visit Encounter Details Date Type Department Care Team (Late st Contact Info) Description 10/27/2024 10:20 AM EDT Consult [facility] [address] [address] Ceasar Virk DO [address] [facility] [address] [place], [place] [id number] Pre-op examination; Abnormal uterine bleeding (AUB) Social History Tobacco [...] 02/28/2023 How often do you attend chur or scientologist services? More than 4 times per year 02/28/2023 Do you belong to any clubs o r organizations such as uatsdin groups, unions, fraternal or athletic groups, or [...] Recorded Patient Health Questionnaire-2 Score 1 10/27/2024 [facility] [place] [facility] Occupat ional [facility] - Occupational Stress [...] money to buy more. Never true 02/28/19 Within the past 12 months, t he [...] place to sleep or slept in a chcf (including now)? No 02/28/2023 Comments No Sex and Gender Information Value Date Recorded Sex Assigned at Not on file Legal Sex Female 6:41 PM EDT Gender Identity Not on file Sexual Orientation Not on file documented as of this encounter Last Filed Vital Signs Vital Sign Reading Time Taken Comments Blood Pressure 120/72 10/27/2024 9:54 AM EDT Pulse - - Temperature - - Respiratory Rate - - Oxygen Saturation - - Inhaled Oxygen Concentration - - Weight 94.8 kg (209 lb) 10/27/2024 9:54 AM EDT Height 157.5 cm (5' 2 ) 10/27/2024 9:54 AM EDT Body Mass Index 38.23 10/27/2024 9:54 AM EDT documented in this encounter Functional Status * Over the past 2 weeks, how often have you been bothered by any of the following problems? Question Answer Date of Assessment Author Little interest or pleasure in doing things Not at all 10/27/2024 6:55 AM EDShruti Burciaga LPN Feeling down, depressed, or hopeless Several days 10/27/2024 6:55 AM Shruti Dumont LPN Patient Health Questionnaire-2 Score 1 10/27/2024 6:55 AM Shruti Dumont LPN * If you checked off any problems on this questionnaire so far, Question Answer Date of Assessment Author How difficult have these problems made it for you to do your work, take care of things at home, or get along with other people? Not difficult at all 10/27/2024 6:55 AM EDShruti Burciaga LPN documented as of this encounter Progress Notes * Betty Maggi - 10/27/2024 10:20 AM EDT Reason for Appointment: Patient ID: Karina Concepcion is a 44 y.o. female who presents for Pre-op Visit Patient presents today for Pre Op appointment. Patient is scheduled to undergo D&C Hysteroscopy, possible Myosure on 11-14-[address] Virk at [facility]. MEDICATIONS Current Outpatient Medications Medication Instructions atorvastatin (LIPITOR) 10 mg, Oral, Every morning b complex vitamins capsule 2-3 days per week otc ergocalciferol (VITAMIN D2) 1.25 mg, Oral, Every [...] Oral, Daily, Do not crush or chew. ALLERGIES Allergies Allergen Reactions Codeine Nausea And Vomiting Other Reaction(s): Altered Heart Rate PROBLEMS Active Ambulatory Problems Diagnosis Date Noted Dyslipidemia 09/11/2022 Gastroesophageal reflux disease without esophagitis 09/11/2022 Migraine with aura, not intractable 08/01/2007 Vitamin D deficiency 09/11/2022 Unilateral vestibular weakness, right 03/16/2023 Decreased libido 05/31/2023 Vaginal dryness 05/31/2023 Body mass index (BMI) 37.0-37.9, adult 10/27/2024 Morbid (severe) obesity due to excess calories ([facility]) 10/27/2024 Resolved Ambulatory Problems Diagnosis Date Noted Abnormal mammogram 09/11/2022 Abnormal weight gain 09/11/2022 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/2022 Allergic rhinitis 08/01/2007 Disorder of breast 09/11/2022 Dysuria 09/11/2022 Microcytic anemia 09/11/2022 Weight loss 09/11/2022 Balance disorder 03/15/2023 Cervicalgia 03/16/2023 Hormone disorder 05/31/2023 Follow-up encounter involving medication 05/31/2023 Pelvic pain in female 05/31/2023 Past Medical History: Diagnosis Date Allergies Gastritis 2008 Irritable bowel syndrome 2008 Migraine headache HISTORY PAST MEDICAL HISTORY SOCIAL HISTORY Past Medical History: Diagnosis Date Allergic rhinitis 08/01/2007 Allergies Gastritis 2008 Irritable bowel syndrome 2008 Microcytic anemia 09/11/2022 Migraine headache Social History Tobacco Use Smoking status: Never Smokeless tobacco: Never Substance Use Topics Alcohol use: Yes Comment: 1-2 drinks 2-4x a month in the past year Drug use: Never FAMILY HISTORY Family History Problem Relation Name Age of Onset Breast cancer Mother Skin cancer Mother Hypertension Mother Diabetes Father Hypertension Father Heart attack Father Endometrial cancer Sister Uterine cancer Sister cancer spread into lungs Brain Aneurysm Brother ADD / ADHD Daughter ADD / ADHD Son Lung cancer Mother's Brother SURGICAL HISTORY Past Surgical History: Procedure Laterality Date SECTION, LOW TRANSVERSE x2 CHOLECYSTECTOMY 2006 COLONOSCOPY 2007 EGD REFRACTIVE SURGERY 2024 TUBAL LIGATION REVIEW OF SYSTEMS Review of Systems: Review of Systems Constitutional: Negative. HENT: Negative. Eyes: Negative. Respiratory: Negative. Cardiovascular: Negative. Gastrointestinal: Negative. Genitourinary: Negative. Musculoskeletal: Negative. Skin: Negative. Neurological: Negative. All other systems reviewed and are negative. Hematological: Negative. Endocrine: Negative. Allergic/Immunologic: Negative. OBJECTIVE Objective: Physical Exam Constitutional: Appearance: Normal appearance. She is normal weight. HENT: Head: Normocephalic. Cardiovascular: Rate and Rhythm: Normal rate. Pulses: Normal pulses. Pulmonary: Effort: Pulmonary effort is normal. Breath sounds: Normal breath sounds. Abdominal: Palpations: Abdomen is soft. Musculoskeletal: General: Normal range of motion. Neurological: General: No focal deficit present. Mental Status: She is alert and oriented to person, place, and time. Psychiatric: Mood and Affect: Mood normal. Behavior: Behavior normal. Thought Content: Thought content normal. Judgment: Judgment normal. Vitals and nursing note reviewed. Vitals: Estimated body mass index is 38.23 kg/m?? as calculated from the following: Height as of an earlier encounter on 10/27/24: 5' 2 . Weight as of an earlier encounter on 10/27/24: 209 lb. BP: No LMP recorded. ASSESSMENT & PLAN ICD-10-CM 1. Pre-op examination Z01.818 2. Abnormal uterine bleeding (AUB) N93.9 Pre Op: Patient is doing well but has complaints of abnormal uterine bleeding. I have discussed conservative management vs. surgical management with the patient in detail and patient desires surgical management at this time. Patient will undergo D&C Hysteroscopy, possible Myosure on 11-14-24. Surgical consents were signed, mmc was reviewed, and patient is to proceed to [facility] OR. Follow Up: Patient is to follow up between 1-2 weeks post operative to assess proper healing and recovery fromprocedure. Documented by Gem Chacon LPN on behalf of: Ceasar Virk DO documented in this encounter Plan of Treatment Upcoming Encounters Date Type Department Care Team (Late st Contact Info) Description 11/25/2024 9:30 AM EDT Office Visit [facility] [address] [place] [id number] Meryl Fragoso PA [address] [facility] [place] [address] 12/02/2024 3:30 PM EDT Office Visit [facility] [address] [place] [phone] Sandra Perez DPM [address] [place] [address] 02/24/2025 7:00 AM EST Office Visit [facility] [address] [place] [address] Ashleigh Dacosta, ELECTRIC REFRIGERATOR SERVICER [address] [place] [address] documented as of this encounter Visit Diagnoses Diagnosis Pre-op examination Abnormal uterine bleeding (AUB) documented in this encounter Care Teams Meeting Coordinator Relationship Specialty Start Date End Date Jarret Toney DO [address] [facility] [address] [place] [address] PCP - General Family Medicine 06/13/22 Ashleigh Dacosta, ELECTRIC REFRIGERATOR SERVICER [address] [place] [address] PCP - Shyann [employer] 05/06/24 documented as of this encounter
--- OUTSIDE RECORDS SUMMARY | 2024-10-28 16:00 | XMS_ITS | Encounter Summary ---
Author Organization [facility] Address [address] [place] [address] Care Team Providers Care Photovoltaic Installation Technician Name Role Phone Dawna, Jarret Guadarrama DO Primary Care Provider [phone] Ashleigh Dacosta JOSS HOUSE KEEPER Unavailable Encounter Details Date Type Department Care Team (Late st Contact Info) Description 10/28/2024 4:00 PM EDT Office Visit [facility] [address] [facility] [address] [place] [address] Sandra Perez DPM [address] [facility] [address] [address] [place] [address] Plantar fasciitis (Primary Dx); Bilateral foot pain Social History Tobacco Use Types Packs/Day Years [...] How often do you attend chur or uatsdin services? More than 4 times per year 02/28/2023 Do you belong to any clubs o r organizations such as caodaism groups, unions, fraternal or athletic groups, or [...] Recorded Patient Health Questionnaire-2 Score 1 10/27/2024 [facility] of Occupat ional Health - Occupational Stress [...] place to sleep or slept in a group home (including now)? No 02/28/2023 Comments No Sex and Gender Information Value Date Recorded Sex Assigned at Not on file Legal Sex Female 6:41 PM EDT Gender Identity Not on file Sexual Orientation Not on file documented as of this encounter Patient Instructions * Patient Instructions* Sandra Perez DPM - 10/28/2024 4:00 PM EDT Images from the original note were not included. Plantar Fasciitis Plantar fasciitis is an inflammatory condition involving the plantar fascia, a thick band of connective tissue found on the bottom of the foot. This is an overuse injury which may also be attributed to an increase in weight, , change in shoe gear, change in activity level, or change in working surfaces. One of the main causes of developing this type of heel pain is tightness in the calf muscle or Achilles tendon. This thick band of tissue extends from the heel to the ball of the foot, and aids in support and stabilization of the foot (especially the arch) during walking and running. Symptoms involve two areas: the arch and the bottom of the heel. Severe pain can be present, especially in the morning after getting out of bed and after periods of rest. This pain usually decreases somewhat with initial activity and then, as the day progresses, can become quite painful, depending on the activity level. Swelling, redness, and heat are usually not present. Many patients use the term ???stone bruise?? to describe this condition because of the intense, localized area of discomfort. Pain also occurs because of the extreme stretch in the fascia when standing after periods of rest that can cause tearing in the individual fibers of the fascia. The most common cause of plantar fasciitis is overuse, an excessive amount of activity over a givenperiod of time. This excessive activity causes a stretching or pulling force on the heel area, resulting in a fatigue failure or breakdown of the tissue. Over a period of time, this traction, or pulling force, can result in heel spur formation, which can be seen on x-rays. Certain generalized arthritic problems and a specific nerve impingement can also be responsible for plantar fasciitis/heel spur syndrome and should be considered. Evaluation by the doctor will determine if further testing is needed for these conditions. Treatment of the problem is accomplished by stretching and controlling the biomechanics. The conservative treatment for plantar fasciitis is very successful at resolving symptoms, but the treatment time usually takes over 6-8 months to completely resolve your pain if notlonger. Initial Treatment: Supportive/stable shoes, No barefoot walking Stretching exercises to stretch the Achilles tendon and plantar fascia. This should be done in the morning, before and after activity. Ice application after activity or at the end of the day. This can be combined with massage by usinga frozen water bottle and rolling the foot and heel over the water bottle. Rbln-ovb-ymkkhrl (OTC) arch supports: Spenco, Powerstep, UCOs Continued Treatment: Local anesthetic steroid injections Custom made foot orthotics Night splint - stretches plantar fascia while at rest Physical therapy: deep tissue massage, ultrasound, steroid iontophoresis, concentrated stretching and balance exercises Magnetic Resonance Imaging (MRI): to further diagnosis injury and presence of possible tearing or nerve impingement Surgery Four to twelve weeks is usually the amount of time necessary for symptoms to improve significantly.Conservative treatment is curative 95% of the time for this problem. Detailed Treatment for Plantar Fasciitis Stretching - This is the most important treatment that you can do for plantar fasciitis. Wall Stretch: Stand an arm's length away from a wall, place your hands shoulder length apart on thewall with one foot in front of the other. The painful heel should be in the back. Lean forward while keeping the back leg straight, your back straight and head up while bending the other knee. You can point your toes slightly inward. Place pressure on the back of your heel to keep it in contact with the ground. Hold this stretch for 45-60 seconds, repeat 5-10 times. You should feel this stretch in your calf and arch. Do this stretch in the morning and before activity. Towel Stretch: Place a towel, belt or exercise band across the ball of the affected foot. Pull the towel toward you while keeping your knee straight. Hold this stretch for 15-20 seconds, repeat 10 times. You will feel this stretch in the back of the calf and arch of the foot. Do this stretch in themorning before getting out of before and after periods of rest before standing or activity. Shoes- It is important that the shoes have a stiff heel counter in order to control pronation or flatting of the arch. Shoes should also have good arch supports. Try to wear your shoes at all times, do not go barefoot. Women with narrow heals often need to switch to the athletic shoe brand. When shopping for shoes, go near the end of the day when your feet may be slightly larger from swelling throughout the day. Also check to make sure that there is some built in arch support in the shoe which will help with this condition. It is also important to see that when you bend the shoe, the point ofbending is not in the arch. It should be at the ball of the foot or near the toes. This shows that t here is support in the arch. Also make sure that the back of the heel is stiff and that you cannot push it in with one finger. This will help to ensure that your heel stays in the shoe and in contactwith an arch support if you are using one. Over the counter arch supports- These supports must have a deep heel cup as well as a firm arch support. The doctor may have given you an OTC arch support called a UCO. This is a semi-rigid device that gives arch support and also cushioning to the foot. Other options including Spenco and Powerstep which are have firm support in the arch in order to relieve stress on the plantar fascia. Custom molded orthotics- This is a prescription device that is placed in your shoe made from a moldthat is taken of your foot held in its correct biomechanical position. This position allows your foot to function the way it functioned prior to injury. This device may require that you purchase shoes that are slightly larger in order to accommodate this device. Shoes worn with orthotics should have a stiff heel counter. Night Splints - These are devices that are typically worn while sleeping at night. They keep the foot at 90?? to the ankle. This is allows for a constant passive stretch to the plantar fascia all night long. If interested in obtaining these, the best place is to get them is at an online supplier. [employer] offers many options for night splints. There are two main differences in the night splintsoffered, which are ones that goes along the back of the heel and ones that go on the front of the foot and ankle. The ones that go on the back of the heel and foot provides a better stretch because the heel cannot slide out of the device like it can for the ones that are applied on the front. The de vices that are most recommended: Shannon Plantar Fasciitis Splint Plantar Fasciitis Night Splint by [employer] Night Splint Getting a brand that has various sizes based upon your specific shoe size will also provide a better overall fit than a universal one size fits all device. Also, most of these devices are able to be applied to the left or right foot. It will take some time to be able to wear this device all thru the night without waking up, but remember that any stretch will help the plantar fascia to not be as tight when you wake up in the morning and provide terminal system operator flexibility to help decrease the chance of this problem recurring. Icing - Place a block of ice on the bottom of the foot where the pain or inflammation is located. This should be done for twenty minutes at a time. This will help reduce the inflammation, which is the cause of the pain. Massage- Massage is also helpful to reduce the formation of thick calcification in the fascia from the repetitive tearing. Massage with a tennis ball or can of food will help to break up these tearing and relieve pain. You can combine the icing and massage by freezing a water bottle and rolling your foot over it. Anti-inflammatory medications- Take Motrin 800mg three times a day with food if instructed by your doctor. Non-steroidal anti-inflammatory product should be taken as directed or the maximum benefit will not be obtained. Do not take these products if you have gastric ulcers. Steroid injections- A small amount of steroid can be injected into the area of inflammation. This is usually mixed or used in combination with a local anesthetic. It may cause a hard nodule at the area of injection. This will be temporary, lasting only a few hours. Long-term benefits are inconsistent. Physical Therapy- Physical Therapy is helpful for plantar fasciitis because it is a dedicated stretching regimen for the calf muscle and fascia. It will also incorporate modalities such as ultrasoundand electrical stimulation to help reduce the pain and symptoms in the heel. Immobilization- This is one of the most effective treatments for plantar fasciitis. Immobilization is best done with a cast, but people can get relief with a walking boot if used properly for a totalperiod of immobilization of 6-8 weeks. documented in this encounter Progress Notes * Sandra Perez DPM - 10/28/2024 4:00 PM EDT Images from the original note were not included. HPI: Karina Concepcion presents today for evaluation of bilateral foot pain. Patient states that she has had pain in the foot for 6 months. She describes the pain as aching which has increased with time. Patient relates a negative history of trauma to the area. She has tried Magnesium topical ointment andMeloxicam for treatment. She has noticed that she is having more pain over time with increased activity. Pain when she first gets up and after rest. She does work and is not standing on her feet for long hours. No other complaints. Exam: General Examination: GENERAL APPEARANCE: awake, aware of surroundings, in no acute distress Vascular: DORSALIS PEDIS PULSE: 2/4, bilaterally POSTERIOR TIBIAL PULSE: 2/4, bilaterally TEMPERATURE GRADIENT: warm to cool EDEMA: none CAPILLARY FILLING TIME(sec): capillary fill inact bilateral digits less than 3 secs Neurologic: NEUROLOGIC: light touch is intact to the plantar foot Dermatologic: SKIN FINDINGS: normal HYPERKERATOSIS: none NAIL PATHOLOGY: digits 1-5 bilateral are intact SKIN PATHOLOGY: texture, turgor, hair growth, within normal limits Orthopedic: FOOT MORPHOLOGY: neutral JOINT RANGE OF MOTION: without pain or crepitus to the foot and ankle bilateral DEFORMITIES: none PAIN ELICITED WITH PALPATION OF: There is pain noted with palpation to the bilateral heel at the plantar medial tubercle of the calcaneus. There is no pain to palpation of the medial band of the plantar fascia. No pain noted with compression of the calcaneus or to palpation of the Achilles tendon bilateral. No pain with palpation along the course of the posterior tibial tendon PAIN ELICITED WITH ROM: none MUSCLE STRENGTH: 5/5 for all pedal groups tested Assessments: Plantar Fasciitis bilateral Bilateral foot/heel pain Plan: Plantar Fasciitis: I reviewed the patients condition, eitiology, options for care treatment plan and prognosis including shoe gear changes, stretching, physical therapy, immobilization, night splints and anti-inflammatories. We have three clinical objectives to reduce inflammatory process and expedite repair of the Plantar fascia, re-establish biomechanical function of the foot in relation to the Achilles tendon and re-establish appropriate strength, range of motion and tolerance to normal gait forces relative tostanding, walking, and running. Our goal is for the condition and symptoms to not advance to becoming chronic or recalcitrant. 1. Patient advised to perform stretching exercises, icing, and to make appropriate shoe gear changes to include wearing athletic-type shoes with supportive insoles. No barefoot walking. Also demonstrated to patient the instructions on how to correctly perform the stretching of the Achilles tendon/calf stretches, and the heel spur/plantar fasciitis regimen and patient instructions were given. 2. Discussed with the patient OTC insoles including Powerstep which patient can purchase today if interested. Patient advised that these modalities used in conjunction are able to alleviate most symptoms from this condition. 3. Prescription for prednisone was sent to the patient's preferred pharmacy. She was instructed on side effects and use. If she encounters any side effects or contraindications she was advised to discontinue the medication and call the office. 4. RTC: 4 weeks. Discussed next step of steroid injection, custom FO, therapy if needed. documented in this encounter Plan of Treatment Upcoming Encounters Date Type Department Care Team (Late st Contact Info) Description 11/25/2024 9:30 AM EDT Office Visit [facility] [address] [phone] Meryl Fragoso PA [address] [place] [address] 12/02/2024 3:30 PM EDT Office Visit [facility] [place] [facility] [address] [facility] [address] [place] [address] Sandra Perez DPM [address] [facility] [address] [place] [address] 02/24/2025 7:00 AM EST Office Visit [facility] [address] [place] [phone] Ashleigh Dacosta, PHYLICIA [address] [place] [address] documented as of this encounter Procedures Procedure Name Priority Date/Time Associated Diagnosis Comments XR FOOT 3+ VIEWS LEFT Routine 10/28/2024 5:19 PM EDT Bilateral foot pain XR FOOT 3+ VIEWS RIGHT Routine 10/28/2024 5:19 PM EDT Bilateral foot pain documented in this encounter Results * XR foot 3+ views left (10/28/2024 5:19 PM EDT) Anatomical Region Laterality Modality Lower Extremities, Foot Left [facility] Narrative 10/28/2024 5:19 PM EDT Imaging Result: Three views of the left foot: AP, MO, LAT were performed today in the office. Radiographs were read by myself and demonstrate: No evidence of acute fracture or dislocation. Normal joint spaces noted with no evidence of narrowing or osteophyte formation. Very small plantar calcaneal spur noted. us Sandra H Perez DPM IMG XR PROCEDURES Final Re sult * XR foot 3+ views right (10/28/2024 5:19 PM EDT) Anatomical Region Laterality Modality Lower Extremities, Foot Right Radiogra phic Imaging Narrative 10/28/2024 5:19 PM EDT Imaging Result: Three views of the right foot: AP, MO, LAT were performed today in the office. Radiographs were read by myself and demonstrate: No evidence of acute fracture or dislocation. Normal joint spaces noted with no evidence of narrowing or osteophyte formation. There are no structural deformities noted us Sadnra Perez DPM IMG XR PROCEDURES Final Re sult documented in this encounter Visit Diagnoses Diagnosis Plantar fasciitis- Primary Plantar fascial fibromatosis Bilateral foot pain documented in this encounter Care Teams Photovoltaic Installation Technician Relationship Specialty Start Date End Date Jarret Toney DO [address] [place], [place] [phone] PCP - General Family Medicine 06/13/22 Ashleigh Dacosta NP [address] [place], [place] [phone] PCP - Shyann Dahl 05/06/24 documented as of this encounter
--- OUTSIDE RECORDS SUMMARY | 2024-11-10 12:36 | XMS_ITS | Encounter Summary ---
Author Organization [facility] Address [address] [place] [address] Care Team Providers Care Manager Language Name Role Phone Jarret Toney DO Primary Care Provider Jarret Toney DO Unavailable Ashleigh Dacosta LOAN AUDITOR Unavailable Ashleigh Dacosta LOAN AUDITOR Unavailable Encounter Details Date Type Department Care Team (Late st Contact Info) Description 09/12/2022 [facility] [address] [facility] [address] [place] [phone] Renny Enamorado DO [address] [facility] [address] [place] [address] Social History Tobacco Use Types Packs/Day Years Used Date Smoking Tobacco: Never Tobacco Cessation:Counseling Given: Not Answered Alcohol Use Standard Drinks/Week Comments Yes 0 (1 standard drink = 0.6 oz pure alcohol) 1-2 drinks 2-4x a month in the past year PHQ-2 Answer Date Recorded Patient Health Questionnaire-2 Score 0 09/13/2022 Comments Unknown Sex and Gender Information Value Date Recorded [...] pleasure in doing things Not at all 09/13/2022 7:12 AM EDT Shruti Shah LPN Feeling down, depressed, or hopeless Not at all 09/13/2022 7:12 AM EDT Shruti Shah LPN Patient Health Questionnaire -2 Score 0 09/13/2022 7:12 AM EDT Shruti Shah LPN documented as of this encounter Plan of Treatment Upcoming Encounters Date Type Department Care Team (Late st Contact Info) Description 11/25/2024 9:30 AM EDT Office Visit [facility] [address] [facility] [place] [phone] Meryl Fragoso PA [address] [facility] [place] [address] 12/02/2024 3:30 PM EDT Office Visit [facility] [place] [facility] [address] [place] [address] Sandra Perez, DPM [address] [place] [address] 02/24/2025 7:00 AM EST Office Visit [facility] [address] [place] [phone] Ashleigh Dacosta, LOAN AUDITOR [address] [place], [place] [phone] documented as of this encounter Visit Diagnoses Not on filedocumented in this encounter Care Teams Manager Language Relationship Specialty Start Date End Date Jarret Toney DO [address] [place] [address] PCP - General Family Medicine 06/13/22 Jarret Toney DO [address] [place] [address] PCP - [employer] 11/05/22 Ashleigh Dacosta LOAN AUDITOR [address] [place], [place] [phone] PCP - [employer] 04/06/2312/05 Ashleigh Dacosta LOAN AUDITOR [address] [place] [address] PCP - [employer] 05/06/24 documented as of this encounter
--- OUTSIDE RECORDS SUMMARY | 2024-11-10 12:36 | XMS_ITS | Encounter Summary ---
Author Organization [facility] Address [address] [place] [address] Care Team Providers Care Auto Design Detailer Name Role Phone Jarret Toney DO Primary Care Provider Jarret Toney DO Unavailable [phone] Ashleigh Dacosta PAVING RAMMER Unavailable Ashleigh Dacosta PAVING RAMMER Unavailable Encounter Details Date Type Department Care Team (Late st Contact Info) Description 03/16/2023 [facility] [address] [place] [phone] Ashleigh Dacosta, PAVING RAMMER [address] [place] [address] Social History Tobacco Use Types Packs/Day Years [...] How often do you attend chur or buddhist services? More than 4 times per year 02/28/2023 Do you belong to any clubs o r organizations such as lutheran groups, unions, fraternal or athletic groups, or [...] Recorded Patient Health Questionnaire-2 Score 0 09/13/2022 [facility] of Occupat ional Health - Occupational Stress [...] place to sleep or slept in a correction (including now)? No 02/28/2023 Comments Unknown Sex and Gender Information Value Date Recorded Sex Assigned at Not on file Legal Sex Female 6:41 PM EDT Gender Identity Not on file Sexual Orientation Not on file documented as of this encounter Plan of Treatment Upcoming Encounters Date Type Department Care Team (Late st Contact Info) Description 11/25/2024 9:30 AM EDT Office Visit [facility] [address] [facility] [address] Meryl Fragoso PA [address] [facility] [address] 12/02/2024 3:30 PM EDT Office Visit [facility] [address] [place] [phone] Sandra Perez DPM [address] [place] [address] 02/24/2025 7:00 AM EST Office Visit [facility] [address] [place] [phone] Ashleigh Dacosta, PAVING RAMMER [address] [place], [place] [phone] documented as of this encounter Visit Diagnoses Not on filedocumented in this encounter Care Teams Auto Design Detailer Relationship Specialty Start Date End Date Jarret Toney, DO [address] [place] [address] PCP - General Family Medicine 06/13/22 Jarret Toney, DO [address] [place] [address] PCP - [employer] 11/05/22 Ashleigh Dacosta, PAVING RAMMER [address] [place] [address] PCP - [employer] 04/06/2312/05 Ashleigh Dacosta, PAVING RAMMER [address] [place] [address] PCP - [employer] 05/06/24 documented as of this encounter
--- OUTSIDE RECORDS SUMMARY | 2024-11-10 12:36 | XMS_ITS | Encounter Summary ---
Author Organization [facility] Address [address], [address] [place] [address] Care Team Providers Care Fiber Picker Name Role Phone Jarret Toney DO Primary Care Provider [phone] Reason for Referral * Other (Routine) - Closed Specialty Diagnoses / Procedures Referred By [place] t Referred To Contact Radiology Diagnoses Vertigo Cognitive changes Family history of arterial aneurysm Gait abnormality Procedures CTA HEAD NECK W WO CONTRAST Ashleigh Dacosta CREDIT OFFICER - PROGRAMMING INTERNSHIP [address] [place] [address] Phone: tel: fax: Referral ID Status Reason Start Date Expiration Date Visits Re quested Visits Authorized [id number] Closed 03/06/2023 03/05/2024 1 1 Encounter Details Date Type Department Care Team (Latest Contact Info) Description 03/06/2023 Transcribe Orders [facility] Pre [facility] [address] [id number] Ashleigh Dacosta CREDIT OFFICER - [employer]GRAMMING INTERNSHIP [address] [place], [place] [phone] Vertigo (Primary Dx); Cognitive changes; Family history of arterial aneurysm; Gait abnormality Social History Tobacco Use Types Packs/Day Years Used Date Smoking Tobacco: Never Smokeless Tobacco: Never Comments No Sex and Gender Information Value Date Recorded Sex Assigned at Not on file Legal Sex Female 5:10 PM EST Gender Identity Not on file Sexual Orientation Not on file documented as of this encounter Plan of Treatment Not on file documented as of this encounter Results * CTA HEAD NECK W WO CONTRAST (03/06/2023 4:04 PM EST) Anatomical Region Laterality Modality Head, Neck, Vascular, C-spine Co mputed Tomography 03/06/2023 5:27 PM EST Impressions 03/06/2023 5:31 PM EST Unremarkable CTA of the head and neck. Narrative 03/06/2023 5:31 PM EST EXAMINATION: CTA OF THE HEAD AND NECK [...] midline shift. No extra-axial fluid collection. The altamirano-white differentiation is maintained. Procedure Note Frederick Casas MD - 03/06/2023 EXAMINATION: CTA OF THE HEAD AND NECK WITH CONTRAST 03/06/2023 3:04 pm: TECHNIQUE: CTA of the head and neck was performed with the administration ofintravenous contrast. Multiplanar reformatted images are provided for review. MIPimages are provided for review. Stenosis of the internal carotid arteriesmeasured using NASCET criteria. Automated exposure control, iterativereconstruction, and/or weight based adjustment of the mA/kV was utilized to reduce the radiation dose to as low as reasonably achievable. COMPARISON: None. HISTORY: ORDERING SYSTEM PROVIDED HISTORY: Vertigo TECHNOLOGIST PROVIDED HISTORY: STAT Creatinine as needed:->No FINDINGS: CTA NECK: AORTIC ARCH/ARCH VESSELS: No dissection or arterial injury. Nosignificant stenosis of the brachiocephalic or subclavian arteries. CAROTID ARTERIES: No dissection, arterial injury, or hemodynamically significant stenosis by NASCET criteria. VERTEBRAL ARTERIES: No dissection, arterial injury, or significantstenosis. SOFT TISSUES: The lung apices are clear. Scattered calcified granulomaare seen. No cervical or superior mediastinal lymphadenopathy. The larynxand pharynx are unremarkable. No acute abnormality of the salivary andthyroid glands. BONES: No acute osseous abnormality. CTA HEAD: ANTERIOR CIRCULATION: No significant stenosis of the intracranialinternal carotid, anterior cerebral, or middle cerebral arteries. No aneurysm. POSTERIOR CIRCULATION: No significant stenosis of the vertebral, basilar,or posterior cerebral arteries. No aneurysm. OTHER: No dural venous sinus thrombosis on this non-dedicated study. BRAIN: No mass effect or midline shift. No extra-axial fluid collection.The altamirano-white differentiation is maintained. IMPRESSION: Unremarkable CTA of the head and neck. Ashleigh Dacosta CREDIT OFFICER - PROGRAMMING INTERNSH[employer] IMG CT ORDERABLES Final R esult documented in this encounter Visit Diagnoses Diagnosis Vertigo- Primary Dizziness and giddiness Cognitive changes Other signs and symptoms involving cognition Family history of arterial aneurysm Family history of other condition Gait abnormality Abnormality of gait Vertigo Dizziness and giddiness Cognitive changes Other signs and symptoms involving cognition Family history of arterial aneurysm Family history of other condition Gait abnormality Abnormality of gait documented in this encounter Care Teams Fiber Picker Relationship Specialty Start Date End Date Jarret Toney DO [address] [place] [phone] PCP - General Family Medicine 05/11/19 documented as of this encounter
--- OUTSIDE RECORDS SUMMARY | 2024-11-10 12:36 | XMS_ITS | Encounter Summary ---
Author Organization [facility] Address [address] [place] [address] Care Team Providers Care Platform Engineer Name Role Phone Dawna Jarret Guadarrama DO Primary Care Provider Ashleigh Dacosta PACKER OPERATOR AUTOMATIC Unavailable Encounter Details Date Type Department Care Team (Latest Contact Info) Description 10/06/2024 Results Follow-Up [facility] [address] [place] [address] Ashleigh Dacosta, PACKER OPERATOR AUTOMATIC [address] [place] [address] Vascular US ankle brachial index (DAMION) complete without exercise, CBC, Comprehensive metabolic panel, Additional followed-up results: 7 Social History Tobacco Use Types Packs/Day Years [...] How often do you attend chur or zoroastrian services? More than 4 times per year 02/28/2023 Do you belong to any clubs o r organizations such as baptism groups, unions, fraternal or athletic groups, or [...] Date Recorded Patient Health Questionnaire-2 Score 1 10/15/2023 [facility] [place] of Occupat ional Health - Occupational Stress [...] place to sleep or slept in a senior care (including now)? No 02/28/2023 Comments No Sex and Gender Information Value Date Recorded Sex Assigned at Not on file Legal Sex Female 6:41 PM EDT Gender Identity Not on file Sexual Orientation Not on file documented as of this encounter Plan of Treatment Upcoming Encounters Date Type Department Care Team (Late st Contact Info) Description 11/25/2024 9:30 AM EDT Office Visit [facility] [place] [facility] [address] [facility] [place] [address] Mreyl Fragoso PA [address] [facility] [place] [address] 12/02/2024 3:30 PM EDT Office Visit [facility] [address] [place] [phone] Sandra Perez DPM [address] [place], [place] [phone] 02/24/2025 7:00 AM EST Office Visit [facility] [address] [place] [address] Ashleigh Dacosta, PACKER OPERATOR AUTOMATIC [address] [place] [address] documented as of this encounter Visit Diagnoses Not on filedocumented in this encounter Care Teams Platform Engineer Relationship Specialty Start Date End Date Jarret Toney DO [address] [place] [address] PCP - General Family Medicine 06/13/22 Ashleigh Dacosta, PACKER OPERATOR AUTOMATIC [address] [place] [address] PCP - Shyann Dahl 05/06/24 documented as of this encounter
--- OUTSIDE RECORDS SUMMARY | 2024-11-10 12:36 | XMS_ITS | Encounter Summary ---
Author Organization [facility] Address [address] [place] [address] Care Team Providers Care Van Helper Name Role Phone Jarret Toney DO Primary Care Provider Ashleigh Dacosta WATER HYDRANT INSTALLER Unavailable Encounter Details Date Type Department Care Team (Late st Contact Info) Description 09/18/2024 Abstract [facility] [address] [facility] [place] [address] Ceasar Smith DO [address] [facility] [address] [place], [place] [phone] Social History Tobacco Use Types Packs/Day Years [...] How often do you attend chur or orthodoxy services? More than 4 times per year 02/28/2023 Do you belong to any clubs o r organizations such as zoroastrianism groups, unions, fraternal or athletic groups, or [...] Recorded Patient Health Questionnaire-2 Score 1 10/15/2023 [facility] [place] of Occupat ional Health - Occupational Stress [...] place to sleep or slept in a fdc (including now)? No 02/28/2023 Comments No Sex [...] [address] [facility] [place] [phone] Meryl Fragoso PA [address] [facility] [place] [address] 12/02/2024 3:30 PM EDT Office Visit [facility] [address] [facility] [address] [place] [phone] Sandra Perez DPM [address] [facility] [address] [place] [address] 02/24/2025 7:00 AM EST Office Visit [facility] [address] [place] [address] Ashleigh Dacosta NP [address] [place] [address] documented as of this encounter Visit Diagnoses Not on filedocumented in this encounter Care Teams Van Helper Relationship Specialty Start Date End Date Jarret oTney DO [address] [place] [address] PCP - General Family Medicine 06/13/22 Ashleigh Dacosta NP [address] [place] [address] PCP - Shyann Dahl 05/06/24 documented as of this encounter
--- OUTSIDE RECORDS SUMMARY | 2024-11-10 12:36 | XMS_ITS | Encounter Summary ---
Author Organization [facility] Address [address] [place] [address] Care Team Providers Care Staff Occupational Therapist Name Role Phone Dawna Jarret Guadarrama DO Primary Care Provider Ashleigh Dacosta ATTENDING PATHOLOGIST Unavailable Ashleigh Dacosta ATTENDING PATHOLOGIST Unavailable Encounter Details Date Type Department Care Team (Late st Contact Info) Description 07/17/2023 Abstract [facility] [address] [place] [address] [place] [address] Gem Chacon LPN Social History Tobacco Use Types Packs/Day Years [...] How often do you attend chur or scientology services? More than 4 times per year 02/28/2023 Do you belong to any clubs o r organizations such as advent groups, unions, fraternal [...] Recorded Patient Health Questionnaire-2 Score 0 09/13/2022 [facility] of Occupat ional Health - Occupational Stress [...] place to sleep or slept in a nursing home (including now)? No 02/28/2023 Comments Unknown Sex [...] AM EDT Office Visit SHEILA [facility] [address] [place] [phone] Meryl Fragoso PA [address] [place] [address] 12/02/2024 3:30 PM EDT Office Visit [facility] [place] [facility] [address] [facility] [address] [place] [phone] Sandra Perez DPM [address] [facility] [address] [place] [address] 02/24/2025 7:00 AM EST Office Visit [facility] [address] [place] [address] Ashleigh Dacosta, ATTENDING PATHOLOGIST [address] [place] [address] documented as of this encounter Visit Diagnoses Not on filedocumented in this encounter Care Teams Staff Occupational Therapist Relationship Specialty Start Date End Date Jarret Toney DO [address] [place] [address] PCP - General Family Medicine 06/13/22 Ashleigh Dacosta, ATTENDING PATHOLOGIST [address] [place] [address] PCP - [employer] 04/06/2312/05 Ashleigh Dacosta, ATTENDING PATHOLOGIST [address] [place] [address] PCP - [employer] 05/06/24 documented as of this encounter
--- OUTSIDE RECORDS SUMMARY | 2024-11-10 12:36 | XMS_ITS | Encounter Summary ---
Author Organization [facility] Address [address] [place] [address] Care Team Providers Care What Job Titles Mean Name Role Phone Dawna, Jarret Guadarrama DO Primary Care Provider [phone] Ashleigh Dacosta FISHERIES ENFORCEMENT OFFICER Unavailable Encounter Details Date Type Department Care Team (Late st Contact Info) Description 10/28/2024 Bamboo flowsheet [facility] [address] [facility] [address] [place] [address] Sandra Perez, DPEric [address] [facility] [address] [place] [address] Social History Tobacco Use Types Packs/Day Years [...] How often do you attend chur or islam services? More than 4 times per year [...] Recorded Patient Health Questionnaire-2 Score 1 10/27/2024 [facility] of Occupat ional Health - Occupational Stress [...] place to sleep or slept in a mcc (including now)? No 02/28/2023 Comments No Sex [...] AM EDT Office Visit [facility] [address] [facility] [place] [phone] Meryl Fragoso PA [address] [facility] [place] [address] 12/02/2024 3:30 PM EDT Office Visit [facility] [address] [place] [address] Sandra Perez DPM [address] [place] [address] 02/24/2025 7:00 AM EST Office Visit [facility] [address] [place] [address] Ashleigh Dacosta, PHYLICIA [address] [place] [address] documented as of this encounter Visit Diagnoses Not on filedocumented in this encounter Care Teams What Job Titles Mean Relationship Specialty Start Date End Date Jarret Toney DO [address] [place] [address] PCP - General Family Medicine 06/13/22 Ashleigh Dacosta, PHYLICIA [address] [place] [address] PCP - Shyann Dahl 05/06/24 documented as of this encounter
--- OUTSIDE RECORDS SUMMARY | 2024-11-10 12:36 | XMS_ITS | Encounter Summary ---
Author Organization [facility] Address [address] [place] [address] Care Team Providers Care Farm Equipment Mechanic Apprentice Name Role Phone Jarret Toney DO Primary Care Provider [phone] Reason for Referral * Imaging (Routine) - Closed Specialty Diagnoses / Procedures Referred By [place] t Referred To Contact Radiology Diagnoses Vertigo Procedures CT IAC POSTERIOR FOSSA W WO CONTRAST Ashleigh Dacosta, BREAKFAST SUPERVISOR - AGENCY MANAGER [address] [place] [address] Phone: tel: fax: Referral ID Status Reason Start Date Expiration Date Visits Re quested Visits Authorized [id number] Closed 03/19/2023 03/18/2024 1 1 Encounter Details Date Type Department Care Team (Latest Contact Info) Description 03/19/2023 Transcribe Orders [facility] Pre [facility] [address] [place], [place] [phone] Ashleigh Dacosta BREAKFAST SUPERVISOR - AGENCY MANAGER [address] [place], [place] [phone] Vertigo (Primary Dx) Social History Tobacco Use Types Packs/Day Years Used Date Smoking Tobacco: Never Smokeless Tobacco: Never Comments No Sex and Gender Information Value Date Recorded Sex Assigned at Not on file Legal Sex Female 5:10 PM EST Gender Identity Not on file Sexual Orientation Not on file documented as of this encounter Plan of Treatment Scheduled Orders Name Type Priority Associated Diagnoses Orde r Schedule CT IAC POSTERIOR FOSSA W WO CONTRAST Imaging Routine Vertigo Expected: 03/19/2023, Expires: 03/19/2024 documented as of this encounter Visit Diagnoses Diagnosis Vertigo- Primary Dizziness and giddiness documented in this encounter Care Teams Farm Equipment Mechanic Apprentice Relationship Specialty Start Date End Date Jarret Toney DO [address] [place] [address] PCP - General Family Medicine 05/11/19 documented as of this encounter
--- OUTSIDE RECORDS SUMMARY | 2024-11-10 12:36 | XMS_ITS | Encounter Summary ---
Author Organization [facility] Address [address] [place] [address] Care Team Providers Care Financial Systems Administrator Name Role Phone Jarret Toney DO Primary Care Provider Jarret Toney DO Unavailable [phone] Ashleigh Dacosta TUNGSTEN REFINER Unavailable Ashleigh Dacosta TUNGSTEN REFINER Unavailable Reason for Visit * Reason Comments Med Refill Encounter Details Date Type Department Care Team ([facility] Contact Info) Description 11/21/2022 Refill [facility] [place] [facility] [address] [place] [address] Ashleigh Dacosta, TUNGSTEN REFINER [address] [place] [address] Vitamin D deficiency Social History Tobacco Use Types Packs/Day Years [...] Upcoming Encounters Date Type Department Care Team ([facility] Contact Info) Description 11/25/2024 9:30 AM EDT Office Visit [facility] [address] [facility] [phone] Meryl Fragoso PA [address] [facility] [address] 12/02/2024 3:30 PM EDT Office Visit [facility] [place] [facility] [address] [place] [address] Sandra Perez DPM [address] [place] [address] 02/24/2025 7:00 AM EST Office Visit [facility] [address] [facility] [address] [place] [address] Ashleigh Dacosta, TUNGSTEN REFINER [address] [place] [address] documented as of this encounter Visit Diagnoses Diagnosis Vitamin D deficiency documented in this encounter Care Teams Financial Systems Administrator Relationship Specialty Start Date End Date Jarret Toney DO [address] [place] [address] PCP - General Family Medicine 06/13/22 Jarret Toney DO [address] [place] [address] PCP - [place] [employer] 11/05/22 Ashleigh Dacosta, TUNGSTEN REFINER [address] [place] [address] PCP - [place] [employer] 04/06/2312/05 Ashleigh Dacosta TUNGSTEN REFINER [address] [place], [place] [phone] PCP - [place] [employer] 05/06/24 documented as of this encounter
--- OUTSIDE RECORDS SUMMARY | 2024-11-10 12:36 | XMS_ITS | Encounter Summary ---
Author Organization [facility] Address [address], [address] [place] [address] Care Team Providers Care Chemistry Account Manager Name Role Phone Jarret Toney DO Primary Care Provider [phone] Reason for Referral * Imaging (Routine) - Closed Specialty Diagnoses / Procedures Referred By Virginia iniguez Referred To Contact Diagnoses Unspecified atherosclerosis Elevated blood pressure reading without diagnosis of hypertension Family history of ischemic heart disease and other diseases of the circulatory system Procedures Vascular AAA screening Ashleigh Dacosta APRN - NP [address] [place] [address] Phone: tel: fax: Referral ID Status Reason Start Date Expiration Date Visits Re quested Visits Authorized [id number] Closed 07/10/2023 07/09/2024 1 1 * Imaging (Routine) - Closed Specialty Diagnoses / Procedures Referred By Virginia iniguez Referred To Contact Diagnoses Exertional dyspnea Procedures Echo (TTE) complete (PRN contrast/bubble/strain/3D) WY ECHO TTHRC R-T 2D W/WOM-MODE COMPL SPEC&COLR D WY TTE W OR WO FOL WCON,DOPPLER Ashleigh Dacosta APRN - NP [address] [place] [address] Phone: tel: fax: Referral ID Status Reason Start Date Expiration Date Visits Re quested Visits Authorized [id number] Closed 08/17/2023 09/15/2023 1 1 Encounter Details Date Type Department Care Team (Latest Contact Info) Description 07/10/2023 Transcribe Orders [place] [facility] [address] [place] [address] Ashleigh Dacosta APRN - NP [address] [place] [address] Exertional dyspnea (Primary Dx); Unspecified atherosclerosis; Elevated blood pressure reading without diagnosis of hypertension; Family history of ischemic heart disease and other diseases of the circulatory system Social History Tobacco Use Types Packs/Day Years [...] documented as of this encounter Results * ECHO (TTE) COMPLETE (08/28/2023 9:45 AM EDT) LV EDV A2C 76 mL [facility] CV CPACS LV EDV A4C 82 mL [facility] CV CPACS LV ESV A2C 26 mL [facility] CV CPACS LV ESV A4C 31 mL [facility] CV CPACS IVSd 0.8 0.6 - 0.9 cm [facility] CV CPACS LVIDd 4.7 3.9 - 5.3 cm [facility] CV CPACS LVIDs 3.0 cm [facility] CV [facility]ACS LVOT Mean Gradient 3 mmHg [facility] CV [facility]ACS LVOT VTI 24.9 cm [facility] CV [facility]ACS LVOT Peak Velocity 1.2 m/s [facility] CV [facility]ACS LVOT Peak Gradient 5 mmHg [facility] CV CPACS LVPWd 0.7 0.6 - 0.9 cm [facility] CV [facility]ACS LV E' Lateral Velocity 12 cm/s [facility] CV CPACS LV Ejection Fraction A2C 66 % [facility] CV CPACS LV Ejection Fraction A4C 62 % [facility] CV CPACS EF BP 65 55 - 100 % [facility] CV CPACS LA Minor Amado 4.7 cm [facility] CV CPACS LA Major Amado 5.5 cm BS CV CPACS LA Area 2C 16.4 cm2 BS CV CPACS LA Area 4C 17.7 cm2 BS CV CPACS LA Volume MOD A2C 46 22 - 52 mL BS CV CPA CS LA Volume MOD A4C 44 22 - 52 mL BS CV CPA CS LA Volume BP 49 22 - 52 mL BS CV CPACS AV Cusp Mmode 1.5 cm BS CV CPACS AV Mean Gradient 4 mmHg BS CV CPACS AV VTI 29.3 cm BS CV CPACS AV Mean Velocity 0.9 m/s BS CV CPACS AV Peak Velocity 1.3 m/s BS CV CPACS AV Peak Gradient 7 mmHg BS CV CPACS Aortic Root 1.8 cm BS CV CPACS Aortic Sinus Valsalva 2.6 cm BS CV CPACS MV E Wave Deceleration Time 190.0 ms BS CV CPACS MV A Velocity 0.67 m/s BS CV CPACS MV E Velocity 0.82 m/s BS CV CPACS WY Max Velocity 1.0 m/s BS CV CPACS Pulmonary Artery EDP 4 mmHg BS CV CPACS PV Max Velocity 0.8 m/s BS CV CPACS PV Peak Gradient 2 mmHg BS CV CPACS TR Max Velocity 2.34 m/s BS CV CPACS TR Peak Gradient 22 mmHg BS CV CPACS Body Surface Area 1.9 m2 BS CV CPACS Fractional Shortening 2D 36 28 - 44 % BS CV CPACS LV ESV Index A4C 17 mL/m2 BS CV CPACS LV EDV Index A4C 45 mL/m2 BS CV CPACS LV ESV Index A2C 14 mL/m2 BS CV CPACS LV EDV Index A2C 42 mL/m2 BS CV CPACS LVIDd Index 2.60 cm/m2 BS CV CPACS LVIDs Index 1.66 cm/m2 BS CV CPACS LV RWT Ratio 0.30 BS CV CPACS LV Mass 2D 112.5 67 - 162 g BS CV CPACS LV Mass 2D Index 62.2 43 - 95 g/m2 BS CV CPACS MV E/A 1.22 BS CV CPACS E/E' Lateral 6.83 BS CV CPACS LA Volume Index BP 27 16 - 34 ml/m2 BS CV CPACS LA Volume Index MOD A2C 25 16 - 34 ml/m2 BS CV CPACS LA Volume Index MOD A4C 24 16 - 34 ml/m2 BS CV CPACS Ao Root Index 0.99 cm/m2 BS CV CPACS Aortic Sinus Valsalva Index 1.44 cm/m2 BS CV CPACS AV Velocity Ratio 0.92 BS CV CPACS LVOT:AV VTI Index 0.85 BS CV CPACS Est. RA Pressure 3 mmHg BS CV CPACS RVSP 25 mmHg BS CV CPACS Anatomical Region Laterality Modality Echocardiography Narrative 08/28/2023 2:42 PM EDT Left Ventricle: Normal left ventricular systolic function with a visually estimated EF of 60 - 65%. Left ventricle size is normal. Normal wall thickness. Normal wall motion. Normal diastolic function. Right Ventricle: Right ventricle size is normal. Normal systolic function. Mitral Valve: Trace regurgitation. Tricuspid Valve: Mild to moderate regurgitation. The estimated RVSP is 25 mmHg. Aorta: Normal sized aortic root. Pericardium: The pericardium is normal. No pericardial effusion. Image quality is adequate. Left Ventricle Normal left ventricular systolic function with a visually estimated EF of 60 - 65%. Left ventricle size is normal. Normal wall thickness. Normal wall motion. Normal diastolic function. Right Ventricle Right ventricle size is normal. Normal systolic function. Left Atrium Left atrium size is normal. Right Atrium Right atrium size is normal. IVC/SVC IVC diameter is less than or equal to 21 mm and decreases greater than 50% during inspiration; therefore the estimated right atrial pressure is normal (~3 mmHg). IVC size is normal. Mitral Valve Valve structure is normal. Trace regurgitation. No stenosis noted. Tricuspid Valve Valve structure is normal. Mild to moderate regurgitation. No stenosis noted. The estimated RVSP is 25 mmHg. Aortic Valve Valve structure is normal. No regurgitation. No stenosis. Pulmonic Valve Valve structure is normal. Trace regurgitation. No stenosis noted. Ascending Aorta Normal sized aortic root. Pericardium The pericardium is normal. No pericardial effusion. Study Details Image quality: adequate. No contrast was given. Ashleigh Huizar Praneeth FOREST TECHNICIAN - HOTEL SERVICE SUPERVISOR CV ECHO ORDERABLES Final Result * Vascular AAA screening (08/28/2023 8:25 AM EDT) Anatomical Region Laterality Modality Ultrasound 08/28/2023 12:0 0 PM EDT Impressions 08/29/2023 1:32 AM EDT No evidence of abdominal aortic aneurysm. Narrative 08/29/2023 1:32 AM EDT EXAMINATION: RETROPERITONEAL ULTRASOUND OF THE AORTA 08/28/2023 TECHNIQUE: Duplex ultrasound using B-mode/altamirano scaled imaging, Doppler spectral analysis and color flow Doppler was obtained of the aorta. COMPARISON: None. HISTORY: ORDERING SYSTEM PROVIDED HISTORY: Screening for AAA FINDINGS: Aorta: Proximal: 2.1 x 2 cm. Mid: 1.9 x 1.8 cm. Distal: 1.7 x 1.6 cm. Iliacs: Iliac arteries are patent and normal in caliber. Procedure Note Silva Kitchen MD - 08/29/2023 EXAMINATION: RETROPERITONEAL ULTRASOUND OF THE AORTA 08/28/2023 TECHNIQUE: Duplex ultrasound using B-mode/altamirano scaled imaging, Doppler spectralanalysis and color flow Doppler was obtained of the aorta. COMPARISON: None. HISTORY: ORDERING SYSTEM PROVIDED HISTORY: Screening for AAA FINDINGS: Aorta: Proximal: 2.1 x 2 cm. Mid: 1.9 x 1.8 cm. Distal: 1.7 x 1.6 cm. Iliacs: Iliac arteries are patent and normal in caliber. IMPRESSION: No evidence of abdominal aortic aneurysm. Ashleigh Dacosta FOREST TECHNICIAN - HOTEL SERVICE SUPERVISOR CV VASCULAR ORDERABLES Fi nal Result documented in this encounter Visit Diagnoses Diagnosis Exertional dyspnea- Primary Other dyspnea and respiratory abnormality Unspecified atherosclerosis Elevated blood pressure reading without diagnosis of hypertension Family history of ischemic heart disease and other diseases of the circulatory system Unspecified atherosclerosis Elevated blood pressure reading without diagnosis of hypertension Family history of ischemic heart disease and other diseases of the circulatory system Exertional dyspnea Other dyspnea and respiratory abnormality documented in this encounter Care Teams Chemistry Account Manager Relationship Specialty Start Date End Date Jarret Toney DO [address] [place] [address] PCP - General Family Medicine 05/11/19 documented as of this encounter
--- OUTSIDE RECORDS SUMMARY | 2024-11-10 12:36 | XMS_ITS | Encounter Summary ---
Author Organization [facility] Address [address] [place] [address] Care Team Providers Care Biometrics Instructor Name Role Phone Dawna Jarret Guadarrama DO Primary Care Provider [phone] Ashleigh Dacosta RETAIL SELLING SPECIALIST Unavailable Encounter Details Date Type Department Care Team (Late st Contact Info) Description 10/27/2024 Abstract [facility] [address] [place] [phone] Ashleigh Dacosta RETAIL SELLING SPECIALIST [address] [place] [address] Social History Tobacco Use Types [...] How often do you attend chur or latter day services? More than 4 times per year 02/28/2023 Do you belong to any clubs o r organizations such as sabianism groups, unions, fraternal or athletic groups, or [...] Recorded Patient Health Questionnaire-2 Score 1 10/27/2024 [facility] of Occupat ional Health - Occupational Stress [...] place to sleep or slept in a care home (including now)? No 02/28/2023 Comments No [...] things Not at all 10/27/2024 6:55 AM Shruti Dumont LPN Feeling down, depressed, or hopeless Several [...] EDT Office Visit [facility] [address] [place] [phone] Meryl Fragoso PA [address] [place] [address] 12/02/2024 3:30 PM EDT Office Visit [facility] [place] [facility] [address] [facility] [address] [place] [address] Sandra Perez DPM [address] [facility] [address] [place] [address] 02/24/2025 7:00 AM EST Office Visit [facility] [address] [place] [phone] Ashleigh Dacosta, RETAIL SELLING SPECIALIST [address] [place] [phone] documented as of this encounter Visit Diagnoses Not on filedocumented in this encounter Care Teams Biometrics Instructor Relationship Specialty Start Date End Date Jarret Toney DO [address] [place], [place] [phone] PCP - General Family Medicine 06/13/22 Ashleigh Dacosta, RETAIL SELLING SPECIALIST [address] [place] [address] PCP - [place] [employer] 05/06/24 documented as of this encounter
--- OUTSIDE RECORDS SUMMARY | 2024-11-10 12:36 | XMS_ITS | Encounter Summary ---
Author Organization [facility] Address [address] [place] [address] Care Team Providers Care Occupational Health And Safety Adviser Name Role Phone Jarret Toney DO Primary Care Provider Ashleigh Dacosta DIE MAKER APPRENTICE Unavailable Encounter Details Date Type Department Care Team (Late st Contact Info) Description 09/18/2024 Abstract [facility] OBM[facility] [address] [facility] [place] [address] Ceasar Smith DO [address] [facility] [address] [place], [place] [phone] Social History Tobacco Use Types Packs/Day Years [...] How often do you attend chur or adventist services? More than 4 times per year 02/28/2023 Do you belong to any clubs o r organizations such as mormonism groups, unions, fraternal or athletic groups, or [...] Recorded Patient Health Questionnaire-2 Score 1 10/15/2023 [facility] of Occupat ional Health - Occupational Stress [...] AM EDT Office Visit SHE[facility] RICHARDS [address] [facility] [place] [phone] Meryl Fragoso PA [address] [facility] [place] [address] 12/02/2024 3:30 PM EDT Office Visit [facility] [address] [facility] [address] [place] [phone] Sandra Perez DPM [address] [facility] [address] [place] [address] 02/24/2025 7:00 AM EST Office Visit [facility] [address] [place] [address] Ashleigh Dacosta NP [address] [place] [address] documented as of this encounter Visit Diagnoses Not on filedocumented in this encounter Care Teams Occupational Health And Safety Adviser Relationship Specialty Start Date End Date Jarret Toney DO [address] [place] [address] PCP - General Family Medicine 06/13/22 Ashleigh Dacosta NP [address] [place] [address] PCP - Shyann Dahl 05/06/24 documented as of this encounter
--- OUTSIDE RECORDS SUMMARY | 2024-11-10 12:36 | XMS_ITS | Encounter Summary ---
Author Organization [facility] Address [address] [place] [address] Care Team Providers Care Plastic Card Grader Cardroom Name Role Phone Jarret Toney DO Primary Care Provider [phone] Jarret Toney DO Unavailable [phone] Ashleigh Dacosta MOTOR POLARIZER Unavailable Ashleigh Dacosta MOTOR POLARIZER Unavailable Encounter Details Date Type Department Care Team (Late st Contact Info) Description 03/31/2023 Clinisync Result Encounter [facility] External Department Unsolicited Provider, Generic External Data Social History Tobacco Use Types Packs/Day Years [...] any clubs o r organizations such as taoism groups, unions, fraternal or athletic groups, or [...] Recorded Patient Health Questionnaire-2 Score 0 09/13/2022 [facility] of Occupat ional Health - Occupational [...] EDT Office Visit [facility] [address] [facility] [place] [phone] Meryl Fragoso PA [address] [facility] [place] [address] 12/02/2024 3:30 PM EDT Office Visit [facility] [place] [facility] [address] [place] [address] [place] [address] Sandra Perez DPM [address] [place] [address] [place] [address] 02/24/2025 7:00 AM EST Office Visit [facility] [address] [place] [phone] Ashleigh Dacosta, MOTOR POLARIZER [address] [place] [address] documented as of this encounter Procedures Procedure Name Priority Date/Time Associated Diagnosis Comments MRI BRAIN W WO CONTRAST 03/31/2023 8:10 PM EST documented in this encounter Results * MRI BRAIN W WO CONTRAST (03/31/2023 8:10 PM EST) Anatomical Region Laterality Modality Other 03/31/2023 8:10 PM EST Narrative 03/31/2023 8:15 PM EST EXAMINATION: MRI OF THE BRAIN and IAC [...] by: Sushant Conrad MD 03/31/23 Final result Procedure Note Radiology, Radiologist, - 03/31/2023 EXAMINATION: MRI OF THE BRAIN and IAC WITHOUT AND WITH CONTRAST 03/30/2023 9:44 am TECHNIQUE: Multiplanar multisequence MRI of the head/brain and IAC was performedwithout and with the administration of intravenous contrast. COMPARISON: None. HISTORY: ORDERING SYSTEM PROVIDED HISTORY: [employer]ia TECHNOLOGIST PROVIDED HISTORY: STAT Creatinine as needed:->No What is the sedation requirement?->None FINDINGS: INTRACRANIAL STRUCTURES/VENTRICLES: There is no acute infarct. No mass effect or midline shift. No evidence of an acute intracranialhemorrhage. The ventricles and sulci are normal in size and configuration. The sellar/suprasellar regions appear unremarkable. The normal signal voids within the major intracranial vessels appear maintained. No abnormalfocus of enhancement is seen within the brain. Normal appearance of the IAC. ORBITS: The visualized portion of the orbits demonstrate no acuteabnormality. SINUSES: Trace mucosal thickening in the left sphenoid sinus. Theremaining paranasal sinuses are clear. BONES/SOFT TISSUES: The bone marrow signal intensity appears normal. Thesoft tissues demonstrate no acute abnormality. IMPRESSION: No acute intracranial abnormality. No structural lesion identified to account for the patient's symptoms. Minimal left sphenoid sinusdisease. Interpreted by: Sushant Conrad MD Signed by: Sushant Conrad MD 03/31/23 Final result us Generic External Data Provider [facility] Final Result documented in this encounter Visit Diagnoses Not on filedocumented in this encounter Care Teams Plastic Card Grader Cardroom Relationship Specialty Start Date End Date Jarret Toney DO [address] [place] [address] PCP - General Family Medicine 06/13/22 Jarret Toney DO [address] [place] [address] PCP - [employer] 11/05/22 Ashleigh Dacosta NP [address] [place] [address] PCP - [employer] 04/06/2312/05 Ashleigh Dacosta NP [address] [place] [address] PCP - [employer] 05/06/24 documented as of this encounter
--- OUTSIDE RECORDS SUMMARY | 2024-11-10 12:36 | XMS_ITS | Encounter Summary ---
Author Organization [facility] Address [address] [place] [address] Care Team Providers Care Parts Remover Name Role Phone Dawna Jarret Guadarrama DO Primary Care Provider Ashleigh Dacosta TOOLS PROGRAMMER Unavailable Encounter Details Date Type Department Care Team (Late st Contact Info) Description 10/27/2024 Bamboo flowsheet [facility] [address] [place] [address] Ashleigh Dacosta TOOLS PROGRAMMER [address] [place] [address] Social History Tobacco Use Types [...] How often do you attend chur or christian services? More than 4 times per year [...] Recorded Patient Health Questionnaire-2 Score 1 10/27/2024 [facility] of Occupat ional Health - Occupational Stress [...] nursing home (including now)? No 02/28/2023 Comments No Sex and Gender Information Value Date Recorded Sex Assigned at Not on file Legal Sex Female 6:41 PM EDT Gender Identity Not on file Sexual Orientation Not on file documented as of this encounter Plan of Treatment Upcoming Encounters Date Type Department Care Team (Late st Contact Info) Description 11/25/2024 9:30 AM EDT Office Visit SHELIA RICHARDS [address] [facility] [place] [phone] Meryl Fragoso PA [address] [place] [address] 12/02/2024 3:30 PM EDT Office Visit [facility] [address] [place] [address] [place] [phone] Sandra Perez DPM [address] [place] [address] [place] [address] 02/24/2025 7:00 AM EST Office Visit [facility] [address] [place] [address] Ashleigh Dacosta NP [address] [place] [address] documented as of this encounter Visit Diagnoses Not on filedocumented in this encounter Care Teams Parts Remover Relationship Specialty Start Date End Date Jarret Toney DO [address] [place] [address] PCP - General Family Medicine 06/13/22 Ashleigh Dacosta NP [address] [place] [address] PCP - Shyann Dahl 05/06/24 documented as of this encounter
--- OUTSIDE RECORDS SUMMARY | 2024-11-10 12:36 | XMS_ITS | Encounter Summary ---
Author Organization [facility] Address [address] [place] [address] Care Team Providers Care Emr Specialist Name Role Phone Jarret Toney DO Primary Care Provider Ashleigh Dacosta CONCRETE PILE DRIVER OPERATOR Unavailable Ashleigh Dacosta CONCRETE PILE DRIVER OPERATOR Unavailable Encounter Details Date Type Department Care Team (Late st Contact Info) Description 10/15/2023 Orders Only [facility] [address] [place] [address] Shruti Shah LPN [address] [place] [address] Dyslipidemia ; BMI 36.0-36.9,adult Social History Tobacco Use Types Packs/Day Years [...] How often do you attend chur or evangelical services? More than 4 times per year 02/28/2023 Do you belong to any clubs o r organizations such as latter-day groups, unions, fraternal or athletic groups, or [...] Recorded Patient Health Questionnaire-2 Score 1 10/15/2023 [facility] of Occupat ional Health - Occupational Stress [...] a correction (including now)? No 02/28/2023 Comments No Sex [...] pleasure in doing things Not at all 10/15/2023 7:42 AM EDShruti Burciaga LPN Feeling down, depressed, or hopeless Several days 10/15/2023 7:42 AM EDShruti Burciaga LPN Patient Health Questionnaire-2 Score 1 10/15/2023 7:42 AM Shruti Dumont LPN * If you checked off any problems on this questionnaire so far, Question Answer Date of Assessment Author How difficult have these problems made it for you to do your work, take care of things at home, or get along with other people? Not difficult at all 10/15/2023 7:42 AM EDT Shruti Shah LPN documented as of this encounter Plan of Treatment Upcoming Encounters Date Type Department Care Team (Late st Contact Info) Description 11/25/2024 9:30 AM EDT Office Visit [facility] [address] [facility] [place] [phone] Meryl Fragoso PA [address] [facility] [place] [address] 12/02/2024 3:30 PM EDT Office Visit [facility] [place] [facility] [address] [facility] [address] [place] [phone] Sandra Perez DPM [address] [facility] [address] [place] [address] 02/24/2025 7:00 AM EST Office Visit [facility] [address] [place] [phone] sAhleigh Dacosta, CONCRETE PILE DRIVER OPERATOR [address] [place] [address] documented as of this encounter Visit Diagnoses Diagnosis Dyslipidemia Other and unspecified hyperlipidemia BMI 36.0-36.9,adult documented in this encounter Care Teams Emr Specialist Relationship Specialty Start Date End Date Jarret Toney DO [address] [place], [place] [phone] PCP - General Family Medicine 06/13/22 Ashleigh Dacosta, CONCRETE PILE DRIVER OPERATOR [address] [place] [address] PCP - [employer] 04/06/2312/05 Ashleigh Dacosta, CONCRETE PILE DRIVER OPERATOR [address] [place] [address] PCP - [employer] 05/06/24 documented as of this encounter
--- OUTSIDE RECORDS SUMMARY | 2024-11-10 12:36 | XMS_ITS | Encounter Summary ---
Author Organization [facility] Address [address] [place] [address] Care Team Providers Care Senior Sales Consultant Name Role Phone Jarret Toney DO Primary Care Provider [phone] Ashleigh Dacosta DYE RANGE TENDER Unavailable Encounter Details Date Type Department Care Team (Latest Contact Info) Description 10/28/2024 Travel Social History Tobacco Use Types Packs/Day Years [...] often do you attend chur ch or taoist services? More than 4 times per year 02/28/2023 Do you belong to any clubs o r organizations such as gnosticism groups, unions, fraternal or athletic groups, or [...] Recorded Patient Health Questionnaire-2 Score 1 10/27/2024 [facility]ational Stress Questionnaire Answer Date [...] place to sleep or slept in a [facility] (including now)? No 02/28/2023 Comments No Sex and Gender Information Value Date Recorded Sex Assigned at Not on file Legal Sex Female 6:41 PM EDT Gender Identity Not on file Sexual Orientation Not on file documented as of this encounter Plan of Treatment Upcoming Encounters Date Type Department Care Team (Late st Contact Info) Description 11/25/2024 9:30 AM EDT Office Visit [facility] [address] [place] [phone] Meryl Fragoso PA [address] [facility] [place] [address] 12/02/2024 3:30 PM EDT Office Visit [facility] [place] [facility] [address] [place] [phone] Sandra Perez DPM [address] [place] [address] [place] [address] 02/24/2025 7:00 AM EST Office Visit [facility] [address] [place] [address] Ashleigh Dacosta, PHYLICIA [address] [place] [address] documented as of this encounter Visit Diagnoses Not on filedocumented in this encounter Care Teams Senior Sales Consultant Relationship Specialty Start Date End Date Jarret Toney DO [address] [place] [address] PCP - General Family Medicine 06/13/22 Ashleigh Dacosta NP [address] [place] [address] PCP - Shyann Dahl 05/06/24 documented as of this encounter
--- OUTSIDE RECORDS SUMMARY | 2024-11-10 12:36 | XMS_ITS | Clinical Summary ---
Author Organization [facility] Address [address], [address] [place] [address] Care Team Providers Care Artificial Glass Eye Maker Name Role Phone DawnaJarret emmanuel Primary Care Provider [phone] Allergies Active Allergy Reactions Criticality Noted Date Comments Codeine Nausea And Vomiting Low 07/15/2012 Medications omeprazole (PRILOSEC) 20 MG capsule Take 1 capsule by mouth daily Active loratadine (CLARITIN) 10 MG capsule Take 10 mg by mouth daily Active meclizine (ANTIVERT) 25 MG tablet Take 1 tablet by mouth 3 times daily as needed for Dizziness Active estradiol (ESTRACE) 0.5 MG tablet Take 1 tablet by mouth daily Active atorvastatin (LIPITOR) 10 MG tablet Take 1 tablet by mouth daily Active chlorthalidone (HYGROTON) 25 MG tablet Take 1 tablet by mouth daily Active ergocalciferol (ERGOCALCIFEROL ) 1.25 MG (33944 UT) capsule Take 1 capsule by mouth once a week Active Ascorbic Acid (VITAMIN C) 250 MG tablet Take 1 tablet by mouth daily Active meloxicam (MOBIC) 15 MG tablet Take 1 tablet by mouth daily Active Multiple Vitamins-Minera ls (THERAPEUTIC MULTIVITAMIN-NV NERALS) tablet Take 1 tablet by mouth daily Active Active Problems No known active problems Social History Tobacco Use Types Packs/Day Years Used Date Smoking Tobacco: Never Smokeless Tobacco: Never Comments No Sex and Gender Information Value Date Recorded Sex Assigned at Not on file Legal Sex Female 5:10 PM EST Gender Identity Not on file Sexual Orientation Not on file Last Filed Vital Signs Vital Sign Reading Time Taken Comments Blood Pressure 120/80 08/28/2023 9:48 AM EDT Pulse 82 03/07/2023 5:35 PM EST Temperature 36.8 C (98.3 F) 03/07/2023 3:42 PM EST Respiratory Rate 16 03/07/2023 5:35 PM EST Oxygen Saturation 95% 03/07/2023 5:35 PM EST Inhaled Oxygen Concentration - - Weight 86.2 kg (190 lb 0.6 oz) 08/28/2023 9:48 A M EDT Height 150.2 cm (4' 11.13 ) 08/28/2023 9:48 AM E DT Body Mass Index 38.21 08/28/2023 9:48 AM EDT Plan of Treatment Health Maintenance Due Date Last Done Comments Lipids 02/08/1988 Depression Screen 1990 HIV screen 1993 Hepatitis C screen 02/08/1996 DTaP/Tdap/Td vaccine (1 - Tdap) 1997 Hepatitis B vaccine (1 of 3 - 19+ 3-dose series) 1997 Pap smear 1999 Cervical cancer screen 02/08/2008 HPV (without or with Pap) 02/08/2008 Colonoscopy 2023 Colorectal Cancer Screen 2023 FIT/FOBT: Average risk 2023 Fecal-DNA (Cologuard): Average risk 2023 Sigmoidoscopy/CT colonography 2023 Breast cancer screen 10/22/2023 10/21/2021, 04/08/2021, 03/28/2021 Flu vaccine (#1) 09/05/2024 01/22/2021, , 11/14/2018, Additional history exists COVID-19 Vaccine ( season) 2024 04/15/2020 HPV vaccine (No Doses Required) Completed Hepatitis A vaccine Aged Out No longe r eligible based on patient's age to complete this topic Hib vaccine Aged Out No longer eligi ble based on patient's age to complete this topic Meningococcal (ACWY) vaccine Aged Out No longer eligible based on patient's age to complete this topic Meningococcal B vaccine Aged Out No l onger eligible based on patient's age to complete this topic Pneumococcal 0-49 years Vaccine Aged Out No longer eligible based on patient's age to complete this topic Polio vaccine Aged Out No longer elig ible based on patient's age to complete this topic [place] Care Teams Artificial Glass Eye Maker Relationship Specialty Start Date End Date Jarret Toney DO [address] [place] [address] PCP - General Family Medicine 05/11/19
--- OUTSIDE RECORDS SUMMARY | 2024-11-10 12:36 | XMS_ITS | Encounter Summary ---
Author Organization [facility] Address [address] [place] [address] Care Team Providers Care Dairy Management Specialist Name Role Phone Jarret Toney DO Primary Care Provider Jarret Toney DO Unavailable Ashleihg Dacosta SALES AND SERVICE CHANGE LEADER Unavailable Ashleigh Dacosta SALES AND SERVICE CHANGE LEADER Unavailable Encounter Details Date Type Department Care Team (Late st Contact Info) Description 11/24/2022 Clinisync Result Encounter [facility] External Department Unsolicited Ceasar Smith DO [address] [place] [address] Dr [place], [place] [id number] Social History Tobacco Use Types Packs/Day Years [...] AM EDT Office Visit [facility] [address] [place] [address] Meryl Fragoso PA [address] [place] [address] 12/02/2024 3:30 PM EDT Office Visit [facility] [place] [facility] [address] [place] [address] Sandra Perez, DPM [address] [place] [address] 02/24/2025 7:00 AM EST Office Visit [facility] [address] [place] [phone] Ashleigh Dacosta, PHYLICIA [address] [place] [address] documented as of this encounter Procedures Procedure Name Priority Date/Time Associated Diagnosis Comments MM TOMOSYNTHESIS SCREENING BI 11/24/2022 8:21 AM EDT documented in this encounter Results * MM TOMOSYNTHESIS SCREENING BI (11/24/2022 8:21 AM EDT) Anatomical Region Laterality Modality Other 11/24/2022 8:21 AM EDT Narrative 11/24/2022 8:21 AM EDT The [address] [address] Mammography Report Signed Patient: Karina Concepcion MR#: [id number] : 1980 Acct:[id number] Age/Sex: 42 / F ADM Date: 11/24/22 Loc: MAMMO Attending Dr: Ceasar Smith D.O. Ordering Physician: Ceasar Smith D.O. Results: Date of Service: 11/24/22 Follow Up: Procedure(s): MM tomosynthesis screening BI Accession Number(s): [id number] cc: Ceasar Smith D.O.; Physician,Non-Staff M.D. Patient: KARINA CONCEPCION Exam Date: 11/24/2022 : 1980 Gender:F Ordering : DR Ceasar Smith . Admission #: [id number] Family : SAGE RESTREPO Order #: [id number] CLICK HERE TO VIEW EXAM RADIOLOGY REPORT PROCEDURE: MM TOMOSYNTHESIS SCREENING BI COMPARISON: MG MAMM RT DIAG FU, 04/08/2021. MG MAMM DIAGNOSTIC 3D SHERIF CAD, 10/21/2021. INDICATIONS: Screening Calculator Name NCI Breast Cancer Risk Assessment Tool 5 Year Breast Cancer Risk 1.70% Lifetime Breast Cancer Risk 19.70% Personal Breast Cancer No Personal Ovarian Cancer No Treatments None Family Cancers Mother with breast cancer at age 60. LOCATION: The [facility] BREAST COMPOSITION: Heterogeneously dense,which may obscure small masses. FINDINGS: DIAGNOSTIC CATEGORY 2--BENIGN FINDING. NO CHANGE FROM COMPARISON. Very dense heterogeneous parenchymal pattern grossly stable but limiting diagnostic sensitivity. Scattered benign-appearing nodules are present. Scattered benign-appearing calcifications are present. Scattered benign-appearing lymph nodes are present. RIGHT BREAST: No significant suspicious finding. LEFT BREAST: No significant suspicious finding. RECOMMENDATIONS: ROUTINE MAMMOGRAM AND CLINICAL EVALUATION IN 12 MONTHS. PLEASE NOTE: A NORMAL MAMMOGRAM DOES NOT EXCLUDE THE POSSIBILITY OF BREAST CANCER. A CLINICALLY SUSPICIOUS PALPABLE LUMP SHOULD BE BIOPSIED. Dictated by: Mike Guillen MD on 11/24/2022 at 08:20 Approved by: Mike Guillen MD on 11/24/2022 at 08:21 Dictated By: Mike Guillen M.D. Signed By: 11/24/22821 DD/ 0 TD/TT: Associate Faculty: Procedure Note Radiology, Radiologist, - 11/24/2022 [place] [address] Mammography Report Signed Patient: Karina Concepcion SMR#: [id number] : 1980Acct:[id number] Age/Sex: 42 / FADM Date: 11/24/22 Loc: MAMMO Attending Dr: Ceasar Smith D.O. Ordering Physician: Ceasar Smith D.O.Results: Date of Service: 11/24/22Follow Up: Procedure(s): MM tomosynthesis screening BI Accession Number(s): [id number] cc: Ceasar Smith D.O.; Physician,Non-Staff Janiya Patient: KARINA CONCEPCION Exam Date: 11/24/2022 : 1980 Gender:F Ordering : DR Ceasar Smith . Admission #: [id number] Family : SAGE RESTREPO Order #: [id number] CLICK HERE TO VIEW EXAM RADIOLOGY REPORT PROCEDURE: MM TOMOSYNTHESIS SCREENING BI COMPARISON: MG MAMM RT DIAG FU, 04/08/2021. MG MAMM DIAGNOSTIC 3D BILCAD, 10/21/2021. INDICATIONS: Screening Calculator Name NCI Breast Cancer Risk Assessment Tool 5 Year Breast Cancer Risk 1.70% Lifetime Breast Cancer Risk 19.70% Personal Breast Cancer No Personal Ovarian Cancer No Treatments None Family Cancers Mother with breast cancer at age 60. LOCATION: The [facility] BREAST COMPOSITION: Heterogeneously dense,which may obscure smallmasses. FINDINGS: DIAGNOSTIC CATEGORY 2--BENIGN FINDING. NO CHANGE FROM COMPARISON. Very dense heterogeneous parenchymal pattern grossly stable but limiting diagnostic sensitivity. Scattered benign-appearing nodules are present. Scattered benign-appearing calcifications are present. Scattered benign-appearing lymph nodes are present. RIGHT BREAST: No significant suspicious finding. LEFT BREAST: No significant suspicious finding. RECOMMENDATIONS: ROUTINE MAMMOGRAM AND CLINICAL EVALUATION IN 12 MONTHS. PLEASE NOTE: A NORMAL MAMMOGRAM DOES NOT EXCLUDE THE POSSIBILITY OFBREAST CANCER. A CLINICALLY SUSPICIOUS PALPABLE LUMP SHOULD BE BIOPSIED. Dictated by: Mike Guillen MD on 11/24/2022 at 08:20 Approved by: Mike Guillen MD on 11/24/2022 at 08:21 Dictated By: Mike Guillen M.D. Signed By:11/24/22821 DD/ 0 TD/TT: Associate Faculty: Ceasar Smith DO [facility] Final Result documented in this encounter Visit Diagnoses Not on filedocumented in this encounter Care Teams Dairy Management Specialist Relationship Specialty Start Date End Date Jarret Toney DO [address] [place] [address] PCP - General Family Medicine 06/13/22 Jarret Toney DO [address] [place] [address] PCP - [place] [employer] 11/05/22 Ashleigh Dacosta, SALES AND SERVICE CHANGE LEADER [address] [place] [address] PCP - [place] [employer] 04/06/2312/05 Ashleigh Dacosta, SALES AND SERVICE CHANGE LEADER [address] [place] [address] PCP - [place] [employer] 05/06/24 documented as of this encounter
--- OUTSIDE RECORDS SUMMARY | 2024-11-10 12:36 | XMS_ITS | Encounter Summary ---
Author Organization [facility] Address [address] [place] [address] Care Team Providers Care Wrecking Car Driver Name Role Phone Dawna Jarret Guadarrama DO Primary Care Provider Ashleigh Dacosta DIRECTOR MULTIM[employer] Unavailable Encounter Details Date Type Department Care Team (Late st Contact Info) Description 07/31/2024 Orders Only [facility] [address] [place] [address] Kailey Conner LPN [address] [place] [address] [place] [address] Social History Tobacco Use Types Packs/Day Years [...] How often do you attend chur or anabaptism services? More than 4 times per year 02/28/2023 Do you belong to any clubs o r organizations such as religion groups, unions, fraternal or athletic groups, or [...] Recorded Patient Health Questionnaire-2 Score 1 10/15/2023 [facility] - Occupational Stress [...] place to sleep or slept in a alf (including now)? No 02/28/2023 Comments No Sex [...] AM EDT Office Visit [facility]A RICHARDS [address] [place] [phone] Meryl Fragoso PA [address] [facility] [place] [address] 12/02/2024 3:30 PM EDT Office Visit [facility] [address] [facility] [address] [place] [phone] Sandra Perez DPM [address] [facility] [address] [place] [address] 02/24/2025 7:00 AM EST Office Visit [facility] [place] [facility] [address] [place] [address] Ashleigh Dacosta NP [address] [place] [address] documented as of this encounter Procedures Procedure Name Priority Date/Time Associated Diagnosis Comments PAP SMEAR Routine 07/22/2024 12:00 AM EDT documented in this encounter Results * Pap Smear (07/22/2024 12:00 AM EDT) Swab Cervical swab / Unknown Luis Nurse [facility] CYTOLOGY ORDERABLES Final Result Performing Organization Address City[facility] Co de Phone Number EXTERNAL LAB documented in this encounter Visit Diagnoses Not on filedocumented in this encounter Care Teams Wrecking Car Driver Relationship Specialty Start Date End Date Jarret Toney DO [address] [place], [place] [phone] PCP - General Family Medicine 06/13/22 Ashleigh Dacosta NP [address] [place] [address] PCP - [place] [employer] 05/06/24 documented as of this encounter
--- OUTSIDE RECORDS SUMMARY | 2024-11-10 12:36 | XMS_ITS | Encounter Summary ---
Author Organization [facility] Address [address] [place] [address] Care Team Providers Care Environmental Adviser Name Role Phone Jarret Toney DO Primary Care Provider [phone]- [phone] Ashleigh Dacosta MICROBIOLOGY INSTRUCTOR Unavailable Encounter Details Date Type Department Care Team (Late st Contact Info) Description 08/11/2024 External Result Encounter [facility] External Department Unsolicited Ceasar Smith DO [address] [facility] [address] Elder [place], [place] [phone] Social History Tobacco Use Types Packs/Day Years [...] How often do you attend chur or yazidi services? More than 4 times per year 02/28/2023 Do you belong to any clubs o r organizations such as taoist groups, unions, fraternal or athletic groups, or [...] Recorded Patient Health Questionnaire-2 Score 1 10/15/2023 [facility] Occupat ional Health [...] EDT Office Visit [facility] [address] [facility] [phone] Meryl Fragoso PA [address] [place] [address] 12/02/2024 3:30 PM EDT Office Visit [facility] [place] [facility] [address] [place] [address] [place] [phone] Sandra Perez DPM [address] [place] [address] [place] [address] 02/24/2025 7:00 AM EST Office Visit [facility] [place] [facility] [address] [facility] [place] [address] Ashleigh Dacosta Bhupendra, MICROBIOLOGY INSTRUCTOR [address] [place] [address] documented as of this encounter Procedures Procedure Name Priority Date/Time Associated Diagnosis Comments BI US BREAST LIMITED RIGHT 08/11/2024 8:49 AM EDT documented in this encounter Results * Right breast US limited (08/11/2024 8:49 AM EDT) Anatomical Region Laterality Modality Breast Right Ultrasound 08/11/2024 8:49 AM EDT Impressions 08/11/2024 9:24 AM EDT NO MAMMOGRAPHIC EVIDENCE OF MALIGNANCY. ROUTINE FOLLOW-UP IS RECOMMENDED IN ONE YEAR. CLOSE CLINICAL OBSERVATION TO THE AREA OF PALPABLE ABNORMALITY IS RECOMMENDED WITH REPEAT IMAGING SOONER IF SYMPTOMS WARRANT. RESULT CODE: 2 Benign Findings(s) DENSITY CODE: 3 (approximately 51-75% glandular) The breasts are heterogeneously dense, which may obscure small masses. FOLLOW UP: 1YR The false-negative rate of mammography is approximately 10-percent. Management of a palpable abnormality must be based on clinical grounds. Impression dictated by: Mateo Lockett M.D. 08/11/2024 9:11 AM Dictation Location: [facility] Dictated By: Mateo Lockett II, MD 08/11/24 0849 Signed By: <Electronically signed by Mateo Lockett II, MD in OV> 08/11/24 0911 Narrative 08/11/2024 9:24 AM EDT [facility] [address] [place] [address] Mammography Report Signed Patient: Karina Concepcion MR#: [id number] : 1980 Acct:[id number] Age/Sex: 44 / F Adm Date: 08/11/24 Loc: [place] Room: Type: [facility] Attending Dr: Ceasar Smith DO Ordering Provider: Ceasar Smith Date of Service: 08/11/24 Procedure(s): MM diagnostic mammo BI w/CAD; US breast RT limited Accession Number(s): ([id number]) MM/MM diagnostic mammo BI w/CAD: N63.15 ([id number]) US/US breast RT limited: Copies to: NON STAFF Ceasar Smith DIAGNOSTIC BILATERAL MAMMOGRAM - FULL FIELD DIGITAL WITH TOMOSYNTHESIS CLINICAL DATA: Palpable lump in right breast Tomosynthesis Craniocaudal and mediolateral oblique views of the bilateral breasts were obtained using low-dose digital technique. Comparison is made to prior studies from 11/24/2022 and 12/21/2023. This examination was reviewed with the aid of CAD. Benign-appearing calcifications present. Heterogeneously dense fibroglandular tissue is noted. A marker is present in the retroareolar region of the right breast slightly inferior to the nipple. There are no dominant masses, typically malignant calcifications or architectural distortion. There has been no significant interval change. Limited right breast ultrasound: In the region of palpable abnormalities there is dense fibroglandular tissue. There is no evidence of mass, architectural distortion, cyst, or atypical calcification. MM/MM diagnostic mammo BI w/CAD Procedure Note Mateo Lockett MD - 08/11/[address] [facility] [place] [address] Mammography Report Signed Patient: Karina Concepcion SMR#: [id number] : 1980Acct:[id number] Age/Sex: 44 / FAdm Date: 08/11/24 Loc: [place] Room:Type: [facility] Attending Dr: Ceasar Smith DO Ordering Provider: Ceasar Smith Date of Service: 08/11/24 Procedure(s): MM diagnostic mammo BI w/CAD; US breast RT limited Accession Number(s): ([id number]) MM/MM diagnostic mammo BI w/CAD: N63.15 ([id number]) US/US breast RT limited: N604.19 Copies to: NON STAFF Ceasar Smith DIAGNOSTIC BILATERAL MAMMOGRAM - FULL FIELD DIGITAL WITH TOMOSYNTHESIS CLINICAL DATA: Palpable lump in right breast Tomosynthesis Craniocaudal and mediolateral oblique views of thebilateral breasts were obtained using low-dose digital technique. Comparison is made to prior studiesfrom 11/24/2022 and 12/21/2023. This examination was reviewed with the aid of CAD. Benign-appearing calcifications present. Heterogeneously densefibroglandular tissue is noted. A marker is present in the retroareolar region of the right breast slightlyinferior to the nipple. There are no dominant masses, typically malignant calcifications orarchitectural distortion. There has been no significant interval change. Limited right breast ultrasound: In the region of palpable abnormalities there is dense fibroglandulartissue. There is no evidence of mass, architectural distortion, cyst, or atypical calcification. MM/MM diagnostic mammo BI w/CAD IMPRESSION: NO MAMMOGRAPHIC EVIDENCE OF MALIGNANCY. ROUTINE FOLLOW-UP IS RECOMMENDED IN ONE YEAR. CLOSE CLINICAL OBSERVATIONTO THE AREA OF PALPABLE ABNORMALITY IS RECOMMENDED WITH REPEAT IMAGING SOONER IF SYMPTOMS WARRANT. RESULT CODE: 2 Benign Findings(s) DENSITY CODE: 3 (approximately 51-75% glandular) The breasts areheterogeneously dense, which may obscure small masses. FOLLOW UP: 1YR The false-negative rate of mammography is approximately 10-percent. Management of a palpable abnormality must be based on clinical grounds. Impression dictated by: Mateo Lockett M.D. 08/11/2024 9:11 AM Dictation Location: [facility] Dictated By: Mateo Lockett II, MD 08/11/24 0849 Signed By: <Electronically signed by Mateo Lockett II, MD inOV> 08/11/24 0911 us Ceasar Luis DO [facility] US PROCEDURES Final Result documented in this encounter Visit Diagnoses Not on filedocumented in this encounter Care Teams Environmental Adviser Relationship Specialty Start Date End Date Jarret Toney DO [address] [place] [address] PCP - General Family Medicine 06/13/22 Ashleigh Dacosta NP [address] [place], [place] [phone] PCP - [place] [employer] 05/06/24 documented as of this encounter
--- OUTSIDE RECORDS SUMMARY | 2024-11-10 12:36 | XMS_ITS | Encounter Summary ---
Author Organization [facility] Address [address] [place] [address] Care Team Providers Care Dial Refinisher Name Role Phone Jarret Toney DO Primary Care Provider Jarret Toney DO Unavailable [phone] Ashleigh Dacosta REGISTERED NURSE MATERNITY Unavailable Ashleigh Dacosta REGISTERED NURSE MATERNITY Unavailable Encounter Details Date Type Department Care Team (Late st Contact Info) Description 03/06/2023 Clinisync Result Encounter [facility] External Department Unsolicited Ashleigh Dacosta, REGISTERED NURSE MATERNITY [address] [place] [address] Social History Tobacco Use Types [...] often do you attend chur ch or spiritism services? More than 4 times per year 02/28/2023 Do you belong to any clubs o r organizations such as rastafarian groups, unions, fraternal or athletic groups, or [...] Recorded Patient Health Questionnaire-2 Score 0 09/13/2022 [facility] Occupat ional Health - Occupational [...] a chcf (including now)? No 02/28/2023 Comments Unknown Sex [...] AM EDT Office Visit SHEILA RICHARDS [address] [place] [address] Meryl Fragoso PA [address] [place] [address] 12/02/2024 3:30 PM EDT Office Visit [facility] [address] [place] [phone] Sandra Perez DPM [address] [place] [address] 02/24/2025 7:00 AM EST Office Visit [facility] [place] [facility] [address] [place] [address] Ashleigh Dacosta, REGISTERED NURSE MATERNITY [address] [place] [address] documented as of this encounter Procedures Procedure Name Priority Date/Time Associated Diagnosis Comments CTA HEAD NECK W WO CONTRAST 03/06/2023 5:31 PM EST documented in this encounter Results * CTA HEAD NECK W WO CONTRAST (03/06/2023 5:31 PM EST) Anatomical Region Laterality Modality Other 03/06/2023 5:31 PM EST Narrative 03/06/2023 5:35 PM EST EXAMINATION: CTA OF THE HEAD [...] fluid collection. The altamirano-white differentiation is maintained. IMPRESSION: Unremarkable CTA of the head and neck. Interpreted by: Frederick Casas MD Signed by: Frederick Casas MD 03/06/23 Final result Procedure Note Radiology, Radiologist, - 03/06/2023 EXAMINATION: CTA OF THE HEAD [...] by: Frederick Casas MD 03/06/23 Final result Ashleigh Dacosta NP [facility] Final Result documented in this encounter Visit Diagnoses Not on filedocumented in this encounter Care Teams Dial Refinisher Relationship Specialty Start Date End Date Jarret Toney DO [address] [place] [address] PCP - General Family Medicine 06/13/22 Jarret Toney DO [address] [place] [address] PCP - [place] [employer] 11/05/22 Ashleigh Dacosta, REGISTERED NURSE MATERNITY [address] [place] [address] PCP - [place] [employer] 04/06/2312/05 Ashleigh Dacosta, REGISTERED NURSE MATERNITY [address] [place] [address] PCP - [place] [employer] 05/06/24 documented as of this encounter
--- OUTSIDE RECORDS SUMMARY | 2024-11-10 12:36 | XMS_ITS | Encounter Summary ---
Author Organization [facility] Address [address] [place] [address] Care Team Providers Care Rib Chopper Name Role Phone Cyril Britt DO Primary Care Provider [phone] Ashleigh Dacosta STOCK BLENDER Unavailable Encounter Details Date Type Department Care Team (Late st Contact Info) Description 12/21/2023 Clinisync Result Encounter [facility] External Department Unsolicited Ceasar Smith DO [address] [place] [place] [address] Social History Tobacco Use Types [...] How often do you attend chur or confucianist services? More than 4 times per year 02/28/2023 Do you belong to any clubs o r organizations such as tenriism groups, unions, fraternal or athletic groups, or [...] Recorded Patient Health Questionnaire-2 Score 1 10/15/2023 [employer] of Occupat ionaz Health - Occupational Stress Questionnaire Answer Date [...] place to sleep or slept in a custodial (including now)? No 02/28/2023 Comments No Sex [...] EDT Office Visit [facility] [address] [place] [phone] Meryl Fragoso PA [address] [facility] [place] [address] 12/02/2024 3:30 PM EDT Office Visit [facility] [place] [facility] [address] [place] [address] [place] [phone] Sandra Perez DPM [address] [place] [address] [place] [address] 02/24/2025 7:00 AM EST Office Visit [facility] [address] [place] [address] Ashleigh Dacosta Bhupendra, STOCK BLENDER [address] [place], [place] [phone] documented as of this encounter Procedures Procedure Name Priority Date/Time Associated Diagnosis Comments MM TOMOSYNTHESIS SCREENING BI 12/21/2023 10:22 AM EST documented in this encounter Results * MM TOMOSYNTHESIS SCREENING BI (12/21/2023 10:22 AM EST) Anatomical Region Laterality Modality Other 12/21/2023 10:2 2 AM EST Narrative 12/21/2023 10:23 AM EST The [address] [address] Mammography Report Signed Patient: KARINA CONCEPCION MR#: [id number] : 1980 Acct:[id number] Age/Sex: 43 / F ADM Date: 12/21/23 Loc: MAMMO Attending Dr: Ceasar Smith D.O. Ordering Physician: Ceasar Smith D.O. Results: Date of Service: 12/21/23 Follow Up: Procedure(s): MM tomosynthesis screening BI Accession Number(s): [id number] cc: Ceasar Smith D.O.; CYRIL BRITT Patient Name: KARINA CONCEPCION MR#: [id number] : 1980 Exam Date: 12/21/2023 Ordering Doctor: DR Ceasar Smith . RADIOLOGY REPORT PROCEDURE: MM TOMOSYNTHESIS SCREENING BI COMPARISON: MM TOMOSYNTHESIS SCREENING BI, 11/24/2022. MG MAMM DIAGNOSTIC 3D SHERIF CAD, 10/21/2021. MG MAMM SCREEN SHERIF W CAD, 2019. INDICATIONS: Screening Calculator Name NCI Breast Cancer Risk Assessment Tool 5 Year Breast Cancer Risk 1.80% Lifetime Breast Cancer Risk 19.60% Personal Breast Cancer No Personal Ovarian Cancer No Treatments None Family Cancers Mother with breast cancer at age 60. LOCATION: The [facility] BREAST COMPOSITION: The breasts are heterogeneously dense,which may obscure small masses. FINDINGS: DIAGNOSTIC CATEGORY 1--NEGATIVE. RIGHT BREAST: No significant suspicious finding. No significant change has occurred. LEFT BREAST: No significant suspicious finding. No significant change has occurred. RECOMMENDATIONS: ROUTINE MAMMOGRAM AND CLINICAL EVALUATION IN 12 MONTHS. PLEASE NOTE: A NORMAL MAMMOGRAM DOES NOT EXCLUDE THE POSSIBILITY OF BREAST CANCER. A CLINICALLY SUSPICIOUS PALPABLE LUMP SHOULD BE BIOPSIED. Dictated by: Jimbo Mclean M.D. on 12/21/2023 at 10:08 Approved by: Jimbo Mclean M.D. on 12/21/2023 at 10:22 Dictated By: Jimbo Mclean M.D. Signed By: 12/21/23 1023 DD/ 1022 TD/TT: Wire Photo Operator News: Procedure Note Radiology, Radiologist, MD - 12/21/2023 [place] [address] Mammography Report Signed Patient: KARINA CONCEPCION SMR#: [id number] : 1980Acct:[id number] Age/Sex: 43 / FADM Date: 12/21/23 Loc: MAMMO Attending Dr: Ceasar Smith D.O. Ordering Physician: Ceasar Smith D.O.Results: Date of Service: 12/21/23Follow Up: Procedure(s): MM tomosynthesis screening BI Accession Number(s): [id number] cc: Ceasar Smith D.O.; CYRIL BRITT Patient Name: KARINA CONCEPCION MR#: [id number] : 1980 Exam Date: 12/21/2023 Ordering Doctor: DR Ceasar Smith . RADIOLOGY REPORT PROCEDURE: MM TOMOSYNTHESIS SCREENING BI COMPARISON: MM TOMOSYNTHESIS SCREENING BI, 11/24/2022. MG MAMMDIAGNOSTIC 3D SHERIF CAD, 10/21/2021. MG MAMM SCREEN SHERIF W CAD, 2019. INDICATIONS: Screening Calculator Name NCI Breast Cancer Risk Assessment Tool 5 Year Breast Cancer Risk 1.80% Lifetime Breast Cancer Risk 19.60% Personal Breast Cancer No Personal Ovarian Cancer No Treatments None Family Cancers Mother with breast cancer at age 60. LOCATION: [facility] BREAST COMPOSITION: The breasts are heterogeneously dense,which may obscure small masses. FINDINGS: DIAGNOSTIC CATEGORY 1--NEGATIVE. RIGHT BREAST: No significant suspicious finding. No significant changehas occurred. LEFT BREAST: No significant suspicious finding. No significant changehas occurred. RECOMMENDATIONS: ROUTINE MAMMOGRAM AND CLINICAL EVALUATION IN 12 MONTHS. PLEASE NOTE: A NORMAL MAMMOGRAM DOES NOT EXCLUDE THE POSSIBILITY OFBREAST CANCER. A CLINICALLY SUSPICIOUS PALPABLE LUMP SHOULD BE BIOPSIED. Dictated by: Jimbo Mclean M.D. on 12/21/2023 at 10:08 Approved by: Jimbo Mclean M.D. on 12/21/2023 at 10:22 Dictated By: Jimbo Mclean M.D. Signed By:12/21/23 1023 DD/ 1022 TD/TT: Wire Photo Operator News: [facility] Luis DO [facility] Final Result documented in this encounter Visit Diagnoses Not on filedocumented in this encounter Care Teams Rib Chopper Relationship Specialty Start Date End Date Cyril Britt DO [address] [place] [address] PCP - General Family Medicine 06/13/22 Ashleigh Dacosta NP [address] [place], [place] [phone] PCP - Shyann Dahl 05/06/24 documented as of this encounter
--- OUTSIDE RECORDS SUMMARY | 2024-11-10 12:36 | XMS_ITS | Continuity of Care Document ---
Author Organization [facility] Address [address] [place] [address] Care Team Providers Care Restorer Lace And Textiles Name Role Phone Unavailable Primary Care Provider Unavailabl e Encounters Date Type Department Care Team Description 10/09/2024 Orders Only Genetics [address] [place] [address] Meryl Thompson GC 07/17/2022 Telephone Genetics [address] [place] [address] Shellie Roberts Genetic Follow Up 07/14/2022 Telephone Genetics [address] [place] [address] Shellie Roberts Genetic Follow Up 04/18/2022 Travel 04/18/2022 12:30 PM EDT Telemed Clin Support Division of Human Genetics [address] [place] [address] Amberly Cortes GC Family history of breast cancer (Primary Dx) 04/05/2022 Travel Family History Medical History Relation Name Comments Ovarian Cancer Maternal Aunt Cancer Maternal Uncle 1 unknown typ e Cancer Maternal Uncle 2 unknown typ e Breast Cancer Mother Uterine Cancer Sister Moderate risk CHEK2 variant Relation Name Status Comments Maternal Aunt Maternal Uncle 1 Maternal Uncle 2 Mother Sister Social History Smoking Status as of 11/10/2024 Tobacco Use Types Packs/Day Years Used Date Smoking Tobacco: Never Assessed Sex and Gender Information Value Date Recorded Sex Assigned at Not on file Legal Sex Female 2:17 PM EST Gender Identity Not on file Sexual Orientation Not on file Plan of Treatment Not on file Visit Diagnoses Diagnosis Start Date Family history of breast cancer Family history of malignant neoplasm of breast 04/18/2022
--- OUTSIDE RECORDS SUMMARY | 2024-11-10 12:36 | XMS_ITS | Encounter Summary ---
Author Organization [facility] Address [address] [place] [address] Care Team Providers Care Asphalt Roller Person Name Role Phone Jarret Toney DO Primary Care Provider Jarret Toney DO Unavailable [phone] Ashleigh Dacosta INTERNAL MEDICINE NURSE Unavailable Ashleigh Dacosta INTERNAL MEDICINE NURSE Unavailable Encounter Details Date Type Department Care Team (Late st Contact Info) Description 09/12/2022 Abstract [facility] [place] [facility] [address] [place] [phone] Ashleigh Dacosta, INTERNAL MEDICINE NURSE [address] [place] [address] Social History Tobacco Use Types Packs/Day Years Used Date Smoking Tobacco: Never Alcohol Use Standard Drinks/Week Comments [...] 9:30 AM EDT Office Visit [facility] [address] [place] [address] Meryl Fragoso PA [address] [place] [address] 12/02/2024 3:30 PM EDT Office Visit [facility] [place] [facility] [address] [place] [address] Sandra Perez DPM [address] [place] [address] 02/24/2025 7:00 AM EST Office Visit [facility] [address] [place] [address] Ashleigh Dacosta, INTERNAL MEDICINE NURSE [address] [place] [address] documented as of this encounter Visit Diagnoses Not on filedocumented in this encounter Care Teams Asphalt Roller Person Relationship Specialty Start Date End Date Jarret Toney DO [address] [place] [address] PCP - General Family Medicine 06/13/22 Jarret Toney DO [address] [place] [address] PCP - [employer] 11/05/22 Ashleigh Dacosta, INTERNAL MEDICINE NURSE [address] [place] [address] PCP - [employer] 04/06/2312/05 Ashleigh Dacosta INTERNAL MEDICINE NURSE [address] [place] [address] PCP - [place] [employer] 05/06/24 documented as of this encounter
--- OUTSIDE RECORDS SUMMARY | 2024-11-10 12:36 | XMS_ITS | Encounter Summary ---
Author Organization [facility] Address [address] [place] [address] Care Team Providers Care Residential Property Tax Appraiser Name Role Phone Dawna Jarret Guadarrama DO Primary Care Provider Ashleigh Dacosta CONTINUOUS IMPROVEMENT COACH Unavailable Ashleigh Dacosta CONTINUOUS IMPROVEMENT COACH Unavailable Encounter Details Date Type Department Care Team (Late st Contact Info) Description 07/17/2023 Abstract [facility] [address] [place] [address] Ceasar Smith DO [address] [facility] [place], [place] [phone] Social History Tobacco Use Types Packs/Day Years [...] How often do you attend chur or confucianism services? More than 4 times per year 02/28/2023 Do you belong to any clubs o r organizations such as anabaptism groups, unions, fraternal or athletic groups, or [...] Recorded Patient Health Questionnaire-2 Score 0 09/13/2022 [facility] of Occupat ional Health - Occupational Stress [...] place to sleep or slept in a intermediate (including now)? No 02/28/2023 Comments Unknown Sex [...] AM EDT Office Visit [facility] [address] [place] [phone] Meryl Fragoso PA [address] [facility] [address] [place], [place] [phone] 12/02/2024 3:30 PM EDT Office Visit [facility] [address] [place] [phone] Sandra Perez DPM [address] [place], [place] [phone] 02/24/2025 7:00 AM EST Office Visit [facility] [address] [place] [phone] Ashleigh Dacosta, CONTINUOUS IMPROVEMENT COACH [address] [place] [address] documented as of this encounter Visit Diagnoses Not on filedocumented in this encounter Care Teams Residential Property Tax Appraiser Relationship Specialty Start Date End Date Jarret Toney DO [address] [place] [address] PCP - General Family Medicine 06/13/22 Ashleigh Dacosta, CONTINUOUS IMPROVEMENT COACH [address] [place] [address] PCP - [place] [employer] 04/06/2312/05 Ashleigh Dacosta, CONTINUOUS IMPROVEMENT COACH [address] [place] [address] PCP - [place] [employer] 05/06/24 documented as of this encounter
--- OUTSIDE RECORDS SUMMARY | 2024-11-10 12:36 | XMS_ITS | Encounter Summary ---
Author Organization [facility] Address [address] [place] [address] Care Team Providers Care Emissions Testing And Repair Technician Name Role Phone Jarret Toney DO Primary Care Provider [phone] Reason for Referral * Imaging (Emergency) - Closed Specialty Diagnoses / Procedures Referred By Virginia iniguez Referred To Contact Radiology Diagnoses Abnormal mammogram Galactocele Procedures US BREAST COMPLETE RIGHT Ashleigh Dacosta APRN - AUTO CLAIM REPRESENTATIVE [address] [place] [address] Phone: tel: fax: Referral ID Status Reason Start Date Expiration Date Visits Re quested Visits Authorized [id number] Closed 03/31/2021 03/31/2022 1 1 * Other (Emergency) - Closed Specialty Diagnoses / Procedures Referred By Virginia iniguez Referred To Contact Radiology Diagnoses Abnormal mammogram Galactocele Procedures RUTHY RUI DIGITAL DIAGNOSTIC UNILATERAL RIGHT Ashleigh Dacosta CYANIDE POT TENDER - AUTO CLAIM REPRESENTATIVE [address] [place] [address] Phone: tel: fax: Referral ID Status Reason Start Date Expiration Date Visits Re quested Visits Authorized [id number] Closed 03/31/2021 03/31/2022 1 1 Encounter Details Date Type Department Care Team (Latest Contact Info) Description 03/31/2021 Transcribe Orders [facility] [address] [phone] Ashleigh Dacosta APRN - AUTO CLAIM REPRESENTATIVE [address] [place] [address] Abnormal mammogram (Primary Dx); Galactocele Social History Tobacco Use Types Packs/Day Years [...] Type Priority Associated Diagnoses Orde r Schedule RUTHY RUI DIGITAL DIAGNOSTIC UNILATERAL RIGHT Imaging STAT Abnormal mammogram Galactocele Expected: 03/31/2021, Expires: 03/31/2022 US BREAST COMPLETE RIGHT Imaging STAT Abnormal mammogram Galactocele Expected: 03/31/2021, Expires: 03/31/2022 documented as of this encounter Visit Diagnoses Diagnosis Abnormal mammogram- Primary Abnormal mammogram, unspecified Galactocele documented in this encounter Care Teams Emissions Testing And Repair Technician Relationship Specialty Start Date End Date Jarret Toney DO [address] [place] [address] PCP - General Family Medicine 05/11/19 documented as of this encounter
--- OUTSIDE RECORDS SUMMARY | 2024-11-10 12:36 | XMS_ITS | Encounter Summary ---
Author Organization [facility] Address [address] [place] [address] Care Team Providers Care Corporate Administrative Assistant Name Role Phone Dawna Jarret Guadarrama DO Primary Care Provider [phone] Ashleigh Dacosta SAFE EXPERT Unavailable Ashleigh Dacosta SAFE EXPERT Unavailable Encounter Details Date Type Department Care Team (Late st Contact Info) Description 08/02/2023 Abstract [facility] [address] [place] [address] Kailey Conner LPN [address] [facility] [place] [address] [place] [address] Social History Tobacco Use Types Packs/Day [...] How often do you attend chur or catholic services? More than 4 times per year 02/28/2023 Do you belong to any clubs o r organizations such as yarsani groups, unions, fraternal or athletic groups, or [...] Recorded Patient Health Questionnaire-2 Score 0 09/13/2022 [facility] of Occupat ional Health - Occupational Stress [...] a custodial (including now)? No 02/28/2023 Comments Unknown Sex [...] [address] [phone] Meryl Fragoso PA [address] [place], [place] [phone] 12/02/2024 3:30 PM EDT Office Visit [facility] [address] [place] [phone] Sandra Perez DPM [address] [place], [place] [phone] 02/24/2025 7:00 AM EST Office Visit [facility] [address] [place] [phone] Ashleigh Dacosta, SAFE EXPERT [address] [place] [address] documented as of this encounter Visit Diagnoses Not on filedocumented in this encounter Care Teams Corporate Administrative Assistant Relationship Specialty Start Date End Date Jarret Toney DO [address] [place] [address] PCP - General Family Medicine 06/13/22 Ashleigh Dacosta, SAFE EXPERT [address] [place] [address] PCP - [place] [employer] 04/06/2312/05 Ashleigh Dacosta, SAFE EXPERT [address] [place] [address] PCP - [place] [employer] 05/06/24 documented as of this encounter
--- OUTSIDE RECORDS SUMMARY | 2024-11-10 12:36 | XMS_ITS | Encounter Summary ---
Author Organization [facility] Address [address] [place] [address] Care Team Providers Care Press Puller Name Role Phone Jarret Toney DO Primary Care Provider [phone] Reason for Referral * Imaging (Routine) - Closed Specialty Diagnoses / Procedures Referred By [place] t Referred To Contact Radiology Diagnoses Ataxia Procedures MRI BRAIN W WO CONTRAST Kali Denis DO [address] [place] [address] Phone: tel: fax: Referral ID Status Reason Start Date Expiration Date Visits Re quested Visits Authorized [id number] Closed 03/24/2023 03/18/2024 1 1 Encounter Details Date Type Department Care Team (Late st Contact Info) Description 03/19/2023 Transcribe Orders [facility] [address] [place] [address] Kali Denis DO [address] [place] [address] Ataxia (Primary Dx) Social History Tobacco Use Types [...] documented as of this encounter Results * MRI BRAIN W WO CONTRAST (03/30/2023 9:55 AM EST) Anatomical Region Laterality Modality Head Magnetic Resonan ce 03/31/2023 8:08 PM EST Impressions 03/31/2023 8:10 PM EST No acute intracranial abnormality. No structural lesion identified to account for the patient's symptoms. Minimal left sphenoid sinus disease. Narrative 03/31/2023 8:10 PM EST EXAMINATION: MRI OF THE BRAIN [...] The soft tissues demonstrate no acute abnormality. Procedure Note Sushant Conrad MD - 03/31/2023 EXAMINATION: MRI [...] the patient's symptoms. Minimal left sphenoid sinusdisease. us Kali Denis DO IMG MRI ORDERABLES Veronique l Result documented in this encounter Visit Diagnoses Diagnosis Ataxia- Primary Lack of coordination Ataxia Lack of coordination documented in this encounter Care Teams Press Puller Relationship Specialty Start Date End Date Jarret Toney DO [address] [place], [place] [phone] PCP - General Family Medicine 05/11/19 documented as of this encounter
--- OUTSIDE RECORDS SUMMARY | 2024-11-10 12:37 | XMS_ITS | Clinical Summary ---
Author Organization [facility] Address [address] [place] [address] Care Team Providers Care Engine Mechanic Name Role Phone Cyril Britt DO Primary Care Provider [phone] Ashleigh Dacosta INFORMATION SYSTEMS DIRECTOR Unavailable Allergies Active Allergy Reactions Criticality Noted Date Comments Codeine Nausea And Vomiting Low 07/15/2012 Other Reaction(s): Altered Heart Rate Medications Multiple Vitamins-Pre School Manager als (Eye Vitamins) capsule Take 1 tablet by mouth in the morning. Active omeprazole (PriLOSEC) [address] capsuleIndicat ions:Gastroeso phageal reflux disease without esophagitis Take 1 capsule (20 mg) by mouth in the morning. Take before meals. Do not crush or chew.. 03/06/19 24 Active triamterene-hy droCHLOROthiaz lourdes (Dyazide) 37.5-25 MG capsule Take 1 capsule by mouth in the morning. 05/07/19 24 Active estradiol (Estrace) 0.5 MG tabletIndicati ons:Vaginal dryness TAKE 2 TABLETS BY MOUTH DAILY 180 tablet 3 07/02/19 25 Active ergocalciferol (Vitamin D2) 1.25 MG (35026 UT) capsuleIndicat ions:Vitamin D deficiency TAKE 1 CAPSULE BY MOUTH ONCE WEEKLY 12 capsule 1 09/27/19 25 Active atorvastatin (Lipitor) 10 MG tabletIndicati ons:Dyslipidem ia Take 1 tablet (10 mg) by mouth in the morning. 90 tablet 1 10/07/19 25 Active venlafaxine XR (Effexor XR) 37.5 MG 24 hr capsuleIndicat ions:Prolonged grief reaction Take 1 capsule (37.5 mg) by mouth Daily Do not crush or chew. 30 capsule 5 10/15/19 25 Active Meloxicam 15 MG tablet dispersibleInd ications:Troch anteric bursitis of both hips Take 15 mg by mouth Daily 30 tablet 1 10/16/19 25 Active progesterone 100 MG capsuleIndicat ions:Vaginal dryness Take 1 capsule (100 mg) by mouth Daily This is likely NOT dose, per dr sully henry rx day - monthly, compounded 30 capsule 11 10/24/19 026 Active Miebo 1.338 GM/ML solution INSTILL 1 DROP INTO EACH EYE 4 TIMES DAILY (MUST SEE PACKAGE INSERT FOR ADMIN INSTRUCTIONS) 08/21/19 25 Active b complex vitamins capsuleIndicat ions:Macrocyti c 2-3 days per week otc 10/28/19 25 Active predniSONE (Deltasone) 10 MG tabletIndicati ons:Plantar fasciitis Take 2 pills by mouth twice daily for 5 days, take 1 pill twice daily for 5 days then 1 pill once daily for 5 days. 35 tablet 10/29/19 25 Active Xiidra 5 % solution APPLY 1 DROP INTO BOTH EYES TWICE A DAY 01/01/20 24 025 Discontinued(Th erapy completed) progesterone 100 MG capsuleIndicat ions:Vaginal dryness Take 1 capsule (100 mg) by mouth Daily This is likely NOT dose, per dr sully henry rx day - monthly, compounded 01/07/20 24 025 Discontinued(Re order) Meloxicam 15 MG tablet dispersibleInd ications:Troch anteric bursitis of both hips Take 15 mg by mouth Daily 30 tablet 1 01/07/20 24 025 Discontinued(Re order) ondansetron (Zofran) 4 MG tabletIndicati ons:Vertigo Take 1 tablet (4 mg) by mouth every 8 (eight) hours if needed for vomiting 12 tablet 1 01/22/20 24 025 Discontinued(Th erapy completed) buPROPion XL (Wellbutrin XL) 150 MG 24 hr tabletIndicati ons:Prolonged grief reaction Take 1 tablet (150 mg) by mouth in the morning. Do not crush, chew, or split. 30 tablet 1 06/04/19 025 Discontinued(Th erapy completed) venlafaxine XR (Effexor XR) 37.5 MG 24 hr capsuleIndicat ions:Prolonged grief reaction TAKE 1 CAPSULE BY MOUTH DAILY. DO NOT CRUSH OR CHEW 30 capsule 1 08/18/19 025 Discontinued(Re order) nitrofurantoin , macrocrystal-m onohydrate, (Macrobid) 100 MG capsuleIndicat ions:Acute cystitis without hematuria Take 1 capsule (100 mg) by mouth in the morning and 1 capsule (100 mg) before bedtime. Do all this for 5 days. 10 capsule 10/17/19 025 Discontinued(Th erapy completed) progesterone 100 MG capsuleIndicat ions:Vaginal dryness Take 1 capsule (100 mg) by mouth Daily This is likely NOT dose, per dr virk, dr virk rx day 14- monthly, compounded 30 capsule 10/24/19 025 Discontinued Active Problems Problem Noted Date Diagnosed Date Body mass index (BMI) 37.0-37.9, adult 5 Morbid (severe) obesity due to excess calories 0 10/27/2024 Decreased libido 05/31/2023 Vaginal dryness 05/31/2023 Unilateral vestibular weakness, right 03/16/2023 Dyslipidemia 09/11/2022 Gastroesophageal reflux disease without esophagi tis 09/11/2022 Vitamin D deficiency 09/11/2022 Migraine with aura, not intractable 08/01/2007 Resolved Problems Problem Noted Date Diagnosed Date Resolved Date Hormone disorder 05/31/2023 10/27/2024 Follow-up encounter involving medication 05/31/2023 10/15/2023 Pelvic pain in female 05/31/20232023 Cervicalgia 03/16/2023 10/15/2023 Balance disorder 03/15/2023 10/15/2023 Abnormal mammogram 09/11/2022 Abnormal weight gain 09/11/2022 024 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/2022 09/14/19 23 Disorder of breast 09/11/2022 Dysuria 09/11/2022 09/13/2022 Microcytic anemia 09/11/2022 09/13/2022 Weight loss 09/11/2022 09/13/2022 Allergic rhinitis 08/01/2007 10/15/2023 Encounters Date Type Department Care Team Description 10/28/2024 4:00 PM EDT Office Visit [facility] [address] [place] [address] Sandra Perez, DPM Plantar fasciitis (Primary Dx); Bilateral foot pain 10/28/2024 Bamboo flowsheet [facility] [address] [place] [address] Sandra Perez, DPEric 10/28/2024 Travel 10/27/2024 10:20 AM EDT Consult [facility] [address] [place] [address] [place] [address] Ceasar Virk DO Pre-op examination; Abnormal uterine bleeding (AUB) 10/27/2024 9:00 AM EDT Ancillary Procedure [facility] [address] [place] [address] [place] [address] Abnormal uterine bleeding (AUB) 10/27/2024 7:00 AM EDT Office Visit [facility] [address] [phone] Ashleigh Dacosta, PHYLICIA Wellness examination (Primary Dx); Gastroesophageal reflux disease without esophagitis; Vitamin D deficiency; Body mass index (BMI) 37.0-37.9, adult; Morbid (severe) obesity due to excess calories ([facility]); Unilateral vestibular weakness, right; LESLEE (generalized anxiety disorder) ; Migraine with aura and with status migrainosus, not intractable ; Dyslipidemia ; Decreased libido; Vaginal dryness; Screen for colon cancer; Immunization due; Bilateral foot pain; Macrocytic 10/27/2024 Abstract [facility] [place] [address] [address] Ashleigh Dacosta L, INFORMATION SYSTEMS DIRECTOR 10/27/2024 Bamboo flowsheet [facility] [place] [address] [place] [address] Kaz Dacostari L, INFORMATION SYSTEMS DIRECTOR 10/27/2024 Travel 10/23/2024 Refill [facility] [address] [place] [address] Soo Harmon MA Vaginal dryness 10/15/2024 Refill [facility] [place] [address] [place] [address] Kaz Dacostari L, INFORMATION SYSTEMS DIRECTOR Trochanteric bursitis of both hips 10/14/2024 Refill [facility] [place] [address] [place] [address] Kaz Dacostari L, INFORMATION SYSTEMS DIRECTOR Prolonged grief reaction 10/13/2024 Orders Only [facility] [place] [address] [place] [address] Ashleigh Dacosta L, INFORMATION SYSTEMS DIRECTOR Bilateral foot pain (Primary Dx) 10/08/2024 Telephone [facility] [address] [place] [address] Sherlyn Wilson MA 10/06/2024 Results Follow-Up [facility] [place] [address] [place] [address] Kaz Dacostari L, INFORMATION SYSTEMS DIRECTOR Vascular US ankle brachial index (DAMION) complete without exercise, CBC, Comprehensive metabolic panel, Additional followed-up results: 7 10/06/2024 Refill [facility] [place] [address] [place] [address] Kaz Dacostari L, INFORMATION SYSTEMS DIRECTOR Dyslipidemia 10/02/2024 10:30 AM EDT Ancillary Procedure [facility] [address] [place] [address] Bilateral leg pain; Claudication 10/02/2024 Travel 10/01/2024 Telephone [facility] [address] [place] [address] Gem Chacon, REGISTERED DENTAL ASSISTANT 09/26/2024 Refill [facility] [place] [address] [place] [phone] Ashleigh Dacosta, INFORMATION SYSTEMS DIRECTOR Vitamin D deficiency 09/18/2024 2:10 PM EDT Clinical Support [facility] [address] [place] [address] Family history of breast cancer; Family history of prostate cancer; Family history of uterine cancer; Family history of skin cancer 09/18/2024 Abstract [facility] [address] [place] [address] Ceasar Virk, DO 09/18/2024 Abstract [facility] [address] [place] [address] Ceasar Virk, DO 09/16/20[address] [facility] [address] [place] [address] Ashleigh Dacosta, INFORMATION SYSTEMS DIRECTOR 09/04/2024 Telephone [facility] [address] [place] [address] Ceasar Virk, DO 08/22/2024 Telephone [facility] [address] [facility] [address] Constanza Nails, REGISTERED DENTAL ASSISTANT 08/17/2024 [address]ill [facility] [address] [place] [phone] Ashleigh Dacosta, INFORMATION SYSTEMS DIRECTOR Prolonged grief reaction 08/11/2024 External Result Encounter [facility] External Department Unsolicited Ceasar Virk, from Last 3 Months Immunizations Immunization Administration Dates Next Due Influenza, injectable, quadrivalent, preservativ e free 01/22/2021,02/10/2017 Influenza, recombinant, quad rivalent, injectable, preservative free 11/14/2018 Influenza, seasonal, injectable 11/18/2018 Influenza, seasonal, injectable, preservative fr ee 10/27/2024,01/07/2024 Influenza, seasonal, intradermal, preservative f ree 02/15/2017 Tdap 10/27/2024,06/19/2013 Family History Medical History Relation Name Comments Brain Aneurysm Brother ADD / ADHD Daughter Diabetes Father Heart attack Father Hypertension Father Breast cancer Mother Hypertension Mother Skin cancer Mother Lung cancer Mother's Brother Endometrial cancer Sister Uterine cancer Sister cancer spread into lungs ADD / ADHD Son Relation Name Status Comments Brother 1 Daughter Alive Father Mother Mother's Brother Sister Alive 2 Son Alive 2 Social History Tobacco Use Types Packs/Day Years [...] How often do you attend chur or voodoo services? More than 4 times per year 02/28/2023 Do you belong to any clubs o r organizations such as orthodoxy groups, unions, fraternal or athletic groups, or [...] Recorded Patient Health Questionnaire-2 Score 1 10/27/2024 [facility] Occupat ional [facility] - Occupational Stress Questionnaire Answer Date Recorded [...] Pressure 120/72 10/27/2024 9:54 AM EDT Pulse 87 10/27/2024 7:02 AM EDT Temperature 36.4 C (97.5 F) 10/27/2024 7:02 AM EDT Respiratory Rate 18 10/27/2024 7:02 AM EDT Oxygen Saturation 97% 10/27/2024 7:02 AM EDT Inhaled Oxygen Concentration - - Weight 94.8 kg (209 lb) 10/27/2024 9:54 AM EDT Height 157.5 cm (5' 2 ) 10/27/2024 9:54 AM EDT Body Mass Index 38.23 10/27/2024 9:54 AM EDT Plan of Treatment Upcoming Encounters Date Type Department Care Team (Late st Contact Info) Description 11/25/2024 9:30 AM EDT Office Visit [facility] [address] [facility] [phone] Meryl Fragoso PA [address] [facility] [address] 12/02/2024 3:30 PM EDT Office Visit [facility] [place] [facility] [address] [facility] [address] [place] [address] Sandra Perez DPM [address] [facility] [address] [place] [address] 02/24/2025 7:00 AM EST Office Visit [facility] [address] [place] [address] Ashleigh Dacosta, INFORMATION SYSTEMS DIRECTOR [address] [facility] [address] [place] [address] [phone] Health Maintenance Due Date Last Done Comments CT Colonography 1978 Colonoscopy 1978 Colorectal Cancer Screening 1978 FIT-DNA 1978 FIT 1978 FOBT 1978 Sigmoidoscopy 1978 Mammogram 07/07/2025 07/07/2024, 12/06, 11/24/2022, Additional history exists Pap Smear 07/23/2027 07/22/2024, 01/24/2023, 02/2021 Cervical Cancer Screening 01/25/2028 HPV/Cotest 01/25/2028 Influenza Vaccine Completed 10/27/2024, , 01/22/2021, Additional history exists Procedures Procedure Name Priority Date/Time Associated Diagnosis Comments XR FOOT 3+ VIEWS LEFT Routine 10/28/2024 5:19 PM EDT Bilateral foot pain XR FOOT 3+ VIEWS RIGHT Routine 5:19 PM EDT Bilateral foot pain US PELVIC COMPLETE W/ TV Routine 10/27/2024 9:47 AM EDT Abnormal uterine bleeding (AUB) HEMOGLOBIN A1C Routine 10/14/2024 8:29 AM EDT VITAMIN D 25 HYDROXY TOTAL Routine 10/14/2024 8:29 AM EDT Encounter for vitamin deficiency screening URINALYSIS, COMPLETE W/REFLEX TO CULTURE Routine 10/14/2024 8:29 AM EDT Dysuria Wellness examination TSH W/REFLEX TO FT4 Routine 10/14/2024 8 :29 AM EDT Screening for thyroid disorder LIPID PANEL Routine 10/14/2024 8:29 AM EDT Screening, lipid Wellness examination COMPREHENSIVE METABOLIC PANEL Routine 10/14/2024 8:29 AM EDT Diabetes mellitus screening Wellness examination CBC Routine 10/14/2024 8:29 AM EDT Screening for deficiency anemia Wellness examination CULTURE, URINE, ROUTINE Routine 10/14/2024 8:29 AM EDT REFLEXIVE URINE CULTURE Routine 10/14/2024 8:29 AM EDT VASC US ANKLE BRACHIAL INDEX (DAMION) COMPLETE WITHOUT EXERCISE Routine 10/02/2024 11:02 AM EDT Bilateral leg pain Claudication BI US BREAST LIMITED RIGHT 08/11/2024 8:49 AM EDT PAP SMEAR Routine 07/22/2024 12:00 AM EDT MM TOMOSYNTHESIS SCREENING BI 12/21/2023 10:22 AM EST from Last 3 Months or Most Recently Relevant to Health Maintenance Results * XR foot 3+ views left (10/28/2024 5:19 PM EDT) Anatomical Region Laterality Modality Lower Extremities, Foot Left Radiogra phic Imaging Narrative 10/28/2024 5:19 PM EDT Imaging Result: Three views of the left foot: AP, MO, LAT were performed today in the office. Radiographs were read by myself and demonstrate: No evidence of acute fracture or dislocation. Normal joint spaces noted with no evidence of narrowing or osteophyte formation. Very small plantar calcaneal spur noted. us Sandra Perez DPEric IMG XR PROCEDURES Final Re sult * [...] There are no structural deformities noted us Sandra Perez DPM IMG XR PROCEDURES Final Re sult * US Pelvis w/ TV (10/27/2024 9:47 [...] appears unremarkable. No fluid is seen within [id number]. Right ovary is normal. No left adnexal mass. Left ovary notseen. IMPRESSION: Normal pelvic ultrasound appearance TRANSCRIBED BY: ELECTRONICALLY SIGNED BY: Alexx Hinojosa MD us Ceasar Virk DO IMG US PROCEDURES Final Result * REFLEXIVE URINE CULTURE (10/14/2024 8:29 AM EDT) REFLEXIVE URINE CULTURE [facility] Comment:CULTURE INDICATED - RESULTS TO FOLLOW 10/14/2024 8:29 AM EDT 10/14/2024 8:29 AM EDT Narrative [facility] - 10/17/2024 12:34 PM EDT FASTING:YES FASTING: YES Resulting Agency Comment Performing Organization Information Site ID: QPT Name: [facility] Address: [address] [place] [address], [address] [place] [phone] Director: Scout Lin MD Ashleigh Dacosta NP LAB MICROBIOLOGY - GENERAL ORDER STEPH Final Result Performing Organization Address [facility] de Phone Number [facility] * (ABNORMAL) URINALYSIS, COMPLETE W/REFLEX TO CULTURE (10/14/2024 8:29 AM EDT) COLOR YELLOW YELLOW [facility] APPEARANCE CLEAR CLEAR [facility] SPECIFIC GRAVITY 1.021 1.001 - 1.035 [facility] PH 7.0 5.0 - 8.0 [facility] GLUCOSE NEGATIVE NEGATIVE [facility] BILIRUBIN NEGATIVE NEGATIVE [facility] KETONES NEGATIVE NEGATIVE [facility] OCCULT BLOOD NEGATIVE NEGATIVE [facility] PROTEIN TRACE(A) NEGATIVE [facility] NITRITE NEGATIVE NEGATIVE [facility] LEUKOCYTE ESTERASE TRACE(A) NEGATIVE [facility] WBC NONE SEEN < OR = 5 /HPF [facility] RBC NONE SEEN < OR = 2 /HPF [facility] SQUAMOUS EPITHELIAL CELLS 10-20(A) < OR = 5 /HPF [facility] BACTERIA FEW(A) NONE SEEN /HPF [facility] HYALINE CAST NONE SEEN NONE SEEN /LPF [facility] NOTE [facility] Comment: This urine was analyzed for the presence of WBC, RBC, bacteria, casts, and other formed elements. Only those elements seen were reported. 10/14/2024 8:29 AM EDT 10/14/2024 8:29 AM EDT Narrative [facility] - 10/17/2024 12:34 PM EDT FASTING:YES FASTING: YES Resulting Agency Comment Performing Organization Information Site ID: QPT Name: [facility] Address: [address] [place] [address], [address] [place] [phone] Director: Scout Lin MD us Ashleigh Dacosta NP LAB BODY FLUIDS AND STOOLS ORDER STEPH Final Result Performing Organization Address [facility] de Phone Number [facility] * TSH W/REFLEX TO FT4 (10/14/2024 8:29 AM EDT) TSH W/REFLEX TO FT4 2.66 mIU/L [facility] Comment: Reference Range > or = 20 Years 0.40-4.50 Ranges First trimester 0.26-2.66 Second trimester 0.55-2.73 Third trimester 0.43-2.91 10/14/2024 8:29 AM EDT 10/14/2024 8:29 AM EDT Narrative [facility] - 10/17/2024 12:34 PM EDT FASTING:YES FASTING: YES Resulting Agency Comment Performing Organization Information Site ID: QPT Name: [facility] Address: [address] [place] [address], [address] [place] [phone] Director: Scout Lin MD Ashleigh Dacosta NP LAB BLOOD ORDERABLES Final Resul t [facility] * Vitamin D 25 hydroxy Total (10/14/2024 8:29 AM EDT) VITAMIN D,25-OH,TOTAL,IA 87 30 - 100 ng/mL [facility] Comment: Vitamin D Status 25-OH Vitamin D: Deficiency: <20 ng/mL Insufficiency: 20 - 29 ng/mL Optimal: > or = 30 ng/mL For 25-OH Vitamin D testing on patients on D2-supplementation and patients for whom quantitation of D2 and D3 fractions is required, the QuestAssureD(TM) 25-OH VIT D, (D2,D3), LC/MS/MS is recommended: order code 79870 (patients >2yrs). See Note 1 Note 1 For additional information, please refer to http://education.[employer].MOLI/faq/ZWF506 (This link is being provided for informational/ educational purposes only.) Blood Venous blood specimen / Unknown 10/14/2024 8:29 AM EDT 10/14/2024 8:29 AM EDT Narrative [facility] - 10/17/2024 12:34 PM EDT FASTING:YES FASTING: YES Resulting Agency Comment Performing Organization Information Site ID: QPT Name: [facility] Address: [address] [place] [address], [address] [place] [phone] Director: Scout Lin MD Ashleigh Dacosta NP LAB BLOOD ORDERABLES Final Resul t Performing Organization Address [facility] Co de Phone Number [facility] * (ABNORMAL) CBC (10/14/2024 8:29 AM EDT) WHITE BLOOD CELL COUNT 5.8 3.8 - 10.8 Thousand/u L [facility] RED BLOOD CELL COUNT 4.41 3.80 - 5.10 Million/uL [facility] HEMOGLOBIN 14.3 11.7 - 15.5 g/dL [facility] HEMATOCRIT 44.4 35.0 - 45.0 % [facility] MCV 100.7(H) 80.0 - 100.0 fL [facility] MCH 32.4 27.0 - 33.0 pg [facility] MCHC 32.2 32.0 - 36.0 g/dL [facility] Comment: For adults, a slight decrease in the calculated MCHC value (in the range of 30 to 32 g/dL) is most likely not clinically significant; however, it should be interpreted with caution in correlation with other red cell parameters and the patient's clinical condition. RDW 12.6 11.0 - 15.0 % [facility] PLATELET COUNT 288 140 - 400 Thousand/u L [facility] MPV 9.1 7.5 - 12.5 fL [facility] Blood Venous blood specimen / Unknown 10/14/2024 8:29 AM EDT 10/14/2024 8:29 AM EDT Narrative [facility] - 10/17/2024 12:34 PM EDT FASTING:YES FASTING: YES Resulting Agency Comment Performing Organization Information Site ID: QPT Name: [facility] Address: [address] [place] [address], [address] [place] [phone] Director: Scout Lin MD Ashleigh Dacosta INFORMATION SYSTEMS DIRECTOR LAB BLOOD ORDERABLES Final Resul t Performing Organization Address [facility] Co de Phone Number [facility] * (ABNORMAL) Urine culture (10/14/2024 8:29 AM EDT) Pathologist [facility] MICRO NUMBER [id number] [facility] SPECIMEN QUALITY Adequate [facility] SOURCE: (QUEST) URINE [facility] STATUS FINAL [facility] ISOLATE 1 SEE NOTE(A) [facility] Comment: 10,000-49,000 CFU/mL of Enterococcus faecalis ISOLATE 2 SEE NOTE(A) [facility] Comment: 1,000-9,000 CFU/ML of Group B Streptococcus isolated Beta-hemolytic streptococci are predictably susceptible to Penicillin and other beta-lactams. Susceptibility testing not routinely performed. Please contact the laboratory within 3 days if susceptibility testing is desired. Erythromycin and clindamycin are not recommended for treatment of urinary tract infections, but clindamycin may be useful for treatment of rectovaginal colonization or infection. Any amount of group B Streptococcus in urine specimens obtained from females is a marker of genital tract colonization. If this patient is , please refer to ACOG guidelines for appropriate screening and management of women. E.faecalis INT CARLOS AMPICILLIN S <=2 CIPROFLOXACIN S <=0.5 LEVOFLOXACIN S 1 LINEZOLID S 2 NITROFURANTOIN S <=16 TETRACYCLINE S <=1 VANCOMYCIN S 2 Legend: S = Susceptible I = Intermediate R = Resistant NS = Not susceptible SDD = Susceptible Dose Dependent * = Not Tested NR = Not Reported NN = See Therapy Comments 10/14/2024 8:29 AM EDT 10/14/2024 8:29 AM EDT Narrative [facility] - 10/17/2024 12:34 PM EDT FASTING:YES FASTING: YES Resulting Agency Comment Performing Organization Information Site ID: QPT Name: [facility] Address: [address] [place] [phone] Director: Scout Lin MD Ashleigh Dacosta NP LAB MICROBIOLOGY - GENERAL ORDER STEPH Final Result [facility] * Hemoglobin A1c (10/14/2024 8:29 AM EDT) Hemoglobin A1C 5.4 <5.7 % [facility] Comment: For the purpose of screening for the presence of diabetes: <5.7% Consistent with the absence of diabetes 5.7-6.4% Consistent with increased risk for diabetes (prediabetes) > or =6.5% Consistent with diabetes This assay result is consistent with a decreased risk of diabetes. Currently, no consensus exists regarding use of hemoglobin A1c for diagnosis of diabetes in children. According to [place] Diabetes Association (ADA) guidelines, hemoglobin A1c <7.0% represents optimal control in non- diabetic patients. Different metrics may apply to specific patient populations. Standards of Medical Care in Diabetes(ADA). 10/14/2024 8:29 AM EDT 10/14/2024 8:29 AM EDT Narrative [facility] - 10/17/2024 12:34 PM EDT FASTING:YES FASTING: YES Resulting Agency Comment Performing Organization Information Site ID: QPT Name: [facility] Address: [address] [facility], [address] [place] [phone] Director: Scout Lin MD Ashleigh Dacosta NP LAB BLOOD ORDERABLES Final Resul t [facility] * Lipid panel (10/14/2024 8:29 AM EDT) [facility] Signature CHOLESTEROL, TOTAL 169 <200 mg/dL [facility] HDL CHOLESTEROL 71 > OR = 50 mg/dL [facility] TRIGLYCERIDES 115 <150 mg/dL [facility] LDL CHOLESTEROL 78 mg/dL (calc) [facility] Comment: Reference range: <100 Desirable range <100 mg/dL for primary prevention; <70 mg/dL for patients with CHD or diabetic patients with > or = 2 CHD risk factors. LDL-C is now calculated using the Jerry-Lenny calculation, which is a validated novel method providing better accuracy than the Friedewald equation in the estimation of LDL-C. Jerry SS et al. CHRISTI. 2013;310(19): 3940-9654 (http://education.[employer].MOLI/faq/BFU532) CHOL/HDLC RATIO 2.4 <5.0 (calc) [facility] NON HDL CHOLESTEROL 98 <130 mg/dL (calc) [facility] Comment: For patients with diabetes plus 1 major ASCVD risk factor, treating to a non-HDL-C goal of <100 mg/dL (LDL-C of <70 mg/dL) is considered a therapeutic option. Blood Venous blood specimen / Unknown 10/14/2024 8:29 AM EDT 10/14/2024 8:29 AM EDT Narrative [facility] - 10/17/2024 12:34 PM EDT FASTING:YES FASTING: YES Resulting Agency Comment Performing Organization Information Site ID: QPT Name: [facility] Address: [place] , [address] [place] [phone] Director: Scout Lin MD us Ashleigh Dacosta NP LAB BLOOD ORDERABLES Final Resul t [facility] * (ABNORMAL) Comprehensive metabolic panel (10/14/2024 8:29 AM EDT) [facility] Glucose 104(H) 65 - 99 mg/dL [facility] Comment: Fasting reference interval For someone without known diabetes, a glucose value between 100 and 125 mg/dL is consistent with prediabetes and should be confirmed with a follow-up test. BUN 14 7 - 25 mg/dL [facility] Creatinine 0.76 0.50 - 0.99 mg/dL [facility] EGFR 98 > OR = 60 mL/min/1. 73m2 [facility] BUN/CREATININE RATIO SEE NOTE: 6 - 22 (calc) [facility] Comment: Not Reported: BUN and Creatinine are within reference range. Sodium 139 135 - 146 mmol/L [facility] Potassium, Bld 4.0 3.5 - 5.3 mmol/L [facility] Chloride 102 98 - 110 mmol/L [facility] Carbon Dioxide 29 20 - 32 mmol/L [facility] Calcium 9.2 8.6 - 10.2 mg/dL [facility] PROTEIN, TOTAL 6.7 6.1 - 8.1 g/dL [facility] ALBUMIN 4.0 3.6 - 5.1 g/dL [facility] GLOBULIN 2.7 1.9 - 3.7 g/dL (calc) [facility] ALBUMIN/GLOBULIN RATIO 1.5 1.0 - 2.5 (calc) [facility] BILIRUBIN, TOTAL 0.4 0.2 - 1.2 mg/dL [facility] ALKALINE PHOSPHATASE 61 31 - 125 U/L [facility] AST 14 10 - 35 U/L [facility] ALT 22 6 - 29 U/L [facility] Blood Venous blood specimen / Unknown 10/14/2024 8:29 AM EDT 10/14/2024 8:29 AM EDT Narrative [facility] - 10/17/2024 12:34 PM EDT FASTING:YES FASTING: YES Resulting Agency Comment Performing Organization Information Site ID: QPT Name: [facility] Address: [address] [place] [address] Director: Scout Lin MD us Ashleigh Dacosta NP LAB BLOOD ORDERABLES Final Resul t [facility] * Vascular US ankle brachial index (DAMION) complete without exercise (10/02/2024 11:02 AM EDT) Anatomical Region Laterality Modality Lower Extremities Ultrasound 10/03/2024 10:3 6 AM EDT Impressions 10/03/2024 10:38 AM EDT NO EVIDENCE OF SIGNIFICANT ARTERIAL STENOTIC DISEASE INVOLVING THE RIGHT AND LEFT LEGS. ELECTRONICALLY SIGNED BY: Bari Garcia MD Narrative 10/03/2024 10:38 AM EDT [facility] ANKLE BRACHIAL INDEX (DAMION) COMPLETE WITHOUT EXERCISE CLINICAL HISTORY: Bilateral leg and foot pain. COMPARISON: None available. FINDINGS: RIGHT LEG: the brachial systolic pressure is 151, the posterior tibial ankle pressure is 151, the dorsalis pedis ankle pressure is 154, The ankle-brachial index at the posterior tibial artery is 1.0, with normal 1.0 or greater The dorsalis pedis-brachial index is 1.0, with normal 1.0 or greater. The plethysmography waveforms are essentially normal. LEFT LEG: the brachial systolic pressure is 123, the posterior tibial ankle pressure is 151, the dorsalis pedis ankle pressure is 141, The ankle-brachial index at the posterior tibial artery is 1.0, with normal 1.0 or greater. The dorsalis pedis to brachial index is 0.9, with normal 1.0 or greater. The plethysmography waveforms are essentially normal. Procedure Note Bari Garcia MD - 10/03/2024 [facility] US ANKLE BRACHIAL INDEX (DAMION) COMPLETE WITHOUT EXERCISE CLINICAL HISTORY: Bilateral leg and foot pain. COMPARISON: None available. FINDINGS: RIGHT LEG: the brachial systolic pressure is 151, the posterior tibial ankle pressure is 151, the dorsalis pedis ankle pressure is 154, The ankle-brachial index at the posterior tibial artery is 1.0, withnormal 1.0 or greater The dorsalis pedis-brachial index is 1.0, with normal 1.0 or greater. The plethysmography waveforms are essentially normal. LEFT LEG: the brachial systolic pressure is 123, the posterior tibial ankle pressure is 151, the dorsalis pedis ankle pressure is 141, The ankle-brachial index at the posterior tibial artery is 1.0, withnormal 1.0 or greater. The dorsalis pedis to brachial index is 0.9, with normal 1.0 or greater. The plethysmography waveforms are essentially normal. IMPRESSION: NO EVIDENCE OF SIGNIFICANT ARTERIAL STENOTIC DISEASE INVOLVING THE RIGHTAND LEFT LEGS. ELECTRONICALLY SIGNED BY: Bari Garcia MD us Ashleigh Dacosta NP IMG US PROCEDURES Final Result * Right breast US limited (08/11/2024 8:49 [...] Lockett M.D. 08/11/2024 9:11 AM Dictation Location: [facility] Dictated By: Mateo Lockett II, MD 08/11/24 0849 Signed By: <Electronically signed by Mateo Lockett II, MD in OV> 08/11/24 0911 Narrative 08/11/2024 9:24 AM EDT [facility] [address] [place] [address] Mammography Report Signed Patient: Karina Concepcion MR#: [id number] : 1980 Acct:[id number] Age/Sex: 44 / F Adm Date: 08/11/24 Loc: [place] Room: Type: [facility] CLI Attending Dr: Ceasar Virk DO Ordering Provider: Ceasar Virk Date of Service: 08/11/24 Procedure(s): MM diagnostic mammo BI w/CAD; US breast RT limited Accession Number(s): ([id number]) MM/MM diagnostic mammo BI w/CAD: N63.15 ([id number]) US/US breast RT limited: Copies to: NON STAFF Ceasar Virk DIAGNOSTIC BILATERAL MAMMOGRAM - FULL FIELD DIGITAL [...] Procedure Note Mateo Lockett MD - 08/11/2024 [facility] [place] [address] Mammography Report Signed Patient: Karina Concepcion [facility]#: [id number] : 1980Acct:[id number] Age/Sex: 44 / FAdm Date: 08/11/24 Loc: [place] Room:Type: [facility] Attending Dr: Ceasar Virk DO Ordering Provider: Ceasar Virk Date of Service: 08/11/24 Procedure(s): MM diagnostic mammo BI w/CAD; US breast RT limited Accession Number(s): ([id number]) MM/MM diagnostic mammo BI w/CAD: N63.15 ([id number]) US/US breast RT limited: Copies to: NON STAFF Ceasar Virk DIAGNOSTIC BILATERAL MAMMOGRAM - FULL FIELD DIGITAL [...] Lockett M.D. 08/11/2024 9:11 AM Dictation Location: [facility] Dictated By: Mateo Lockett II, MD 08/11/24 0849 Signed By: <Electronically signed by Mateo Lockett II, MD inOV> 08/11/24 0911 us Mcdonough Sully DO IMG US PROCEDURES Final Result * Pap Smear (07/22/2024 12:00 AM EDT) Swab Cervical swab / Unknown us Sully Nurse [facility] LAB CYTOLOGY ORDERABLES Final Result EXTERNAL LAB * MM TOMOSYNTHESIS SCREENING BI (12/21/2023 10:22 AM EST) Anatomical Region Laterality Modality Other 12/21/2023 10:2 2 AM EST Narrative 12/21/2023 10:23 AM EST The [address] [address] Mammography Report Signed Patient: KARINA CONCEPCION MR#: [id number] : 1980 Acct:[id number] Age/Sex: 43 / F ADM Date: 12/21/23 Loc: MAMMO Attending Dr: Ceasar Virk D.O. Ordering Physician: Ceasar Virk D.O. Results: Date of Service: 12/21/23 Follow Up: Procedure(s): MM tomosynthesis screening BI Accession Number(s): [id number] cc: Ceasar Virk D.O.; CYRIL BRITT Patient Name: KARINA CONCEPCION MR#: [id number] : 1980 Exam Date: 12/21/2023 Ordering Doctor: DR Ceasar Virk . RADIOLOGY REPORT PROCEDURE: MM TOMOSYNTHESIS SCREENING [...] breast cancer at age 58. LOCATION: The [facility] BREAST COMPOSITION: The breasts are heterogeneously dense,which [...] Signed By: 12/21/23 1023 DD/ 1022 TD/TT: Metal Fence Erector: Procedure Note Radiology, Radiologist, MD - 12/21/2023 [place] [address] Mammography Report Signed Patient: KARINA CONCEPCION SMR#: [id number] : 1980Acct:[id number] Age/Sex: 43 / FADM Date: 12/21/23 Loc: MAMMO Attending Dr: Ceasar Virk D.O. Ordering Physician: Ceasar Virk D.O.Results: Date of Service: 12/21/23Follow Up: Procedure(s): MM tomosynthesis screening BI Accession Number(s): [id number] cc: Ceasar Virk D.O.; CYRIL BRITT Patient Name: KARINA CONCEPCION MR#: [id number] : 1980 Exam Date: 12/21/2023 Ordering Doctor: DR Ceasar Virk . RADIOLOGY REPORT PROCEDURE: MM TOMOSYNTHESIS SCREENING [...] breast cancer at age 58. LOCATION: [facility] BREAST COMPOSITION: The breasts are heterogeneously dense,which [...] M.D. Signed By:12/21/23 1023 DD/ 1022 TD/TT: Metal Fence Erector: us Ceasar Sully DO [facility] Final Result from Last 3 Months or Most Recently Relevant to Health Maintenance Insurance [facility] Care Teams Engine Mechanic Relationship Specialty Start Date End Date Cyril Britt DO [address] [place] [address] PCP - General Family Medicine 06/13/22 Ashleigh Dacosta NP [address] [place] [address] PCP - [place] [employer] 05/06/24
--- OUTSIDE RECORDS SUMMARY | 2024-11-10 12:37 | XMS_ITS | Encounter Summary ---
Author Organization [facility] Address [address] [place] [address] Care Team Providers Care Gas Station Clerk Name Role Phone Jarret Toney DO Primary Care Provider [phone] Ashleigh Dacosta WET ROLLER Unavailable Encounter Details Date Type Department Care Team (Latest Contact Info) Description 10/27/2024 Travel Social History Tobacco Use Types Packs/Day [...] often do you attend chur ch or zoroastrianism services? More than 4 times per year 02/28/2023 Do you belong to any clubs o r organizations such as bahai groups, unions, fraternal or athletic groups, or [...] Recorded Patient Health Questionnaire-2 Score 1 10/27/2024 [facility]ational Stress Questionnaire Answer [...] to sleep or slept in a senior living (including now)? No 02/28/2023 Comments No Sex [...] AM EDT Office Visit [facility] [address] [place] [address] Meryl Fragoso PA [address] [place] [address] 12/02/2024 3:30 PM EDT Office Visit [facility] [address] [facility] [address] [place] [address] Sandra Perez, DPM [address] [place] [address] [place] [address] 02/24/2025 7:00 AM EST Office Visit [facility] [address] [place] [address] Ashleigh Dacosta, PHYLICIA [address] [place] [address] documented as of this encounter Visit Diagnoses Not on filedocumented in this encounter Care Teams Gas Station Clerk Relationship Specialty Start Date End Date Jarret Toney DO [address] [place] [address] PCP - General Family Medicine 06/13/22 Ashleigh Dacosta, WET ROLLER [address] [place] [address] PCP - [place] [employer] 05/06/24 documented as of this encounter
--- OUTSIDE RECORDS SUMMARY | 2024-11-10 12:37 | XMS_ITS | Encounter Summary ---
Author Organization [facility] Address [address] [facility], [address] [place] [address] Care Team Providers Care Boats Renter Name Role Phone Jarret Toney DO Primary Care Provider [phone] Reason for Referral * Imaging (Routine) - Closed Specialty Diagnoses / Procedures Referred By Contac t Referred To Contact Diagnoses Other forms of dyspnea Procedures Echo (TTE) complete (PRN contrast/bubble/strain/3D) MT ECHO TTHRC R-T 2D W/WOM-MODE COMPL SPEC&COLR D MT TTE W OR WO FOL WCON,DOPPLER Ashleigh Dacosta APRN - NP [address] [place] [address] Phone: tel: fax: Referral ID Status Reason Start Date Expiration Date Visits Re quested Visits Authorized [id number] Closed 07/12/2023 07/11/2024 1 1 Encounter Details Date Type Department Care Team (Latest Contact Info) Description 07/12/2023 Transcribe Orders [facility] [address] [place] [address] Ashleigh Dacosta APRN - NP [address] [place] [address] Other forms of dyspnea (Primary Dx) Social History Tobacco Use Types [...] Type Priority Associated Diagnoses Orde r Schedule Echo (TTE) complete (PRN contrast/bubble/st rain/3D) CV Echocardiography Routine Other forms of dyspnea Expected: 07/12/2023, Expires: 07/11/2024 documented as of this encounter Visit Diagnoses Diagnosis Other forms of dyspnea- Primary documented in this encounter Care Teams Boats Renter Relationship Specialty Start Date End Date Jarret Toney DO [address] [place] [address] PCP - General Family Medicine 05/11/19 documented as of this encounter
--- OUTSIDE RECORDS SUMMARY | 2024-11-10 12:37 | XMS_ITS | Encounter Summary ---
Author Organization [facility] Address [address] [place] [address] Care Team Providers Care Tax Compliance Manager Name Role Phone Unavailable Primary Care Provider Unavailabl e Reason for Visit * Reason Onset Date Comments Genetic Follow Up 07/14/2022 Encounter Details Date Type Department Care Team (Late st Contact Info) Description 07/14/2022 Telephone Genetics [address] [place] [address] Shellie Roberts Genetic Follow Up Social History Tobacco Use Types Packs/Day Years Used Date Smoking Tobacco: Never Assessed Comments Unknown Sex and Gender Information Value Date Recorded Sex Assigned at Not on file Legal Sex Female 2:17 PM EST Gender Identity Not on file Sexual Orientation Not on file documented as of this encounter Plan of Treatment Not on file documented as of this encounter Visit Diagnoses Not on filedocumented in this encounter
--- NOTE | 2024-11-10 12:38 | ECG_ITS ---
[facility] Test Date: 2024-11-10 Pat Name: FABI CARLTON Department: Room: - Gender: Female Body Liner: : 1980 Requested By: MARY JANE URIBE Order Number: [id number] Shaan MD: PATI PLUNKETT M.D. Measurements Intervals [place] Rate: 77 P: 49 TX: 148 QRS: 58 QRSD: 86 T: 34 QT: 346 QTc: 393 Interpretive Statements SINUS RHYTHM Normal ECG No previous ECG available for comparison Electronically Signed On 11-10-2024 18:27:54 EDT by PATI PLUNKETT M.D.
--- OUTSIDE RECORDS SUMMARY | 2024-11-10 12:38 | XMS_ITS | CCD ---
Author Organization [facility] Care Team Providers Care Teaching Pastor Name Role Phone Cyril Britt Primary Care Provider [phone] WILMA, DR ASHLEIGH Huizar Primary Care Unavailable LUIS, DR HINTON Admitting Unavailable WEST, DR EDNA Reyes Consulting Unavailable LUIS, DR HINTON Attending Unavailable LUIS, DR HINTON Consulting Unavailable LUIS, DR HINTON Admitting Unavailable RINE, DR ASHLEIGH Huizar Primary Care Unavailable LUIS, DR HINTON Attending Unavailable LUIS, DR HINTON Consulting Unavailable ZIEBER, DR ANAMIKA Dale Consulting Unavailable LUIS, DR HINTON Admitting Unavailable RINE, DR ASHLEIGH Huizar Primary Care Unavailable LIUS, DR HINTON Attending Unavailable LUIS, DR HINTON Consulting Unavailable LUIS, DR HINTON Admitting Unavailable WEST, DR EDNA Reyes Consulting Unavailable RINE, DR ASHLEIGH Huizar Primary Care Unavailable LUIS, DR HINTON Attending Unavailable LUIS, DR HINTON Consulting Unavailable SELF, SELF Referring Unavailable HOLLY WHITE Attending Unavaila ble Cyril Britt DO Primary Care Provider [phone] Cyril Britt DO Primary Care Provider [phone] Cyril Britt DO Unavailable [phone] ENID DENIS Referring Unavailab CYRIL Manzo Primary Care Unavailable ASHLEIGH DILLON Referring Unavailable CYRIL BRITT Primary Care Unavailable ASHLEIGH DILLON Referring Unavailable CYRIL BRITT Primary Care Unavailable CYRIL BRITT Primary Care Unavailable DARLENE NUÑEZ Attending Unavailable CYRIL BRITT Primary Care Unavailable WILMA ASHLEIGH L Referring Unavailable LORENZA, CYRIL G Primary Care Unavailable RINE, ASHLEIGH L Referring Unavailable Rine RENEWABLE ENERGY TRADER, Ashleigh L Unavailable Ceasar Smith DO Attending Provider NON STAFF Primary Care Provider Unavailabl e Rine RENEWABLE ENERGY TRADER, Ashleigh L Unavailable NON STAFF Primary Care Unavailable Ceasar Smith Attending Unavailable Ceasar Smith Admitting Unavailable Parmjit Jason MD Attending Unavaila ble Abraham LEAD ESTHETICIAN-ENGINEERING AIDE, Mary Pooja Primary Care Liliana vailable Abraham LEAD ESTHETICIAN-ENGINEERING AIDE, Mary Pooja Primary Care Liliana vailable Gayhart PA-C, Kimberly Loyola Attending Unavai lable Gayhart PA-C, Kimberly Loyola Attending Unavai lable Abraham LEAD ESTHETICIAN-ENGINEERING AIDE, Mary Pooja Primary Care Liliana vailable Gayhart PA-C, Kimberly Loyola Attending Unavai lable Abraham LEAD ESTHETICIAN-ENGINEERING AIDE, Mary Pooja Primary Care Liliana vailable Gayhart PA-C, Kimberly Loyola Attending Unavai lable Abraham LEAD ESTHETICIAN-ENGINEERING AIDE, Mary Pooja Primary Care Liliana vailable RINE, ASHLEIGH L Attending Unavailable CEASAR SMITH Attending Unavailable RINE, ASHLEIGH L Referring Unavailable RINE, ASHLEIGH L Attending Unavailable CEASAR SMITH Referring Unavailable CEASAR SMITH Attending Unavailable FATUMA PEREZ Attending Unavailable RINE, ASHLEIGH L Attending Unavailable RINE, ASHLEIGH L Attending Unavailable Allergies Allergy Classification Reported Allergen(s) Allergy Type Date of Onset Reaction(s) Facility (20 sources) Codeine; Translations: [codeine] Drug Allergy 3 Nausea And Vomiting [place], [place] (1 source) Codeine Drug Allergy 5 [facility] Repository Medications Current Medications Medication Drug Class(es) Dates Sig (Normalized) Sig (Original) [id number] 200 actuat albuterol 0.09 mg/actuat metered dose [...] 40 capsule 0 03/19/2023 Active ascorbic acid 60 mg / cuprous oxide 2 mg / dl-alpha tocopheryl acetate 30 mg / lutein 6 mg / zinc oxide 15 mg oral capsule (20 sources) Vitamin C take 1 tablet by mouth in the morning Multiple Vitamins-Minerals (Eye Vitamins) capsule Take 1 tablet by mouth in the morning. Active atorvastatin 10 mg oral tablet (20 sources) HMG-CoA Reductase Inhibitor Start: 06-27-2023 End: 10-06-2024 take 1 tablet by mouth in the morning atorvastatin (Lipitor) 10 MG tablet Indications: Dyslipidemia Take 1 tablet (10 mg) by mouth in the morning. 90 tablet 1 10/06/2024 Active Start: 12-13-2022 End: 03-20-2023 take 1 tablet by mouth once daily in the morning atorvastatin (Lipitor) 10 MG tablet Indications: Dyslipidemia (CMS/HCC) TAKE ONE TABLET BY MOUTH EVERY MORNING 30 tablet 2 03/20/2023 Active b complex vitamins capsule (4 sources) Start: 10-27-2024 b complex vitamins capsule Indications: Macrocytic 2-3 days per week otc 10/27/2024 Active benzonatate 200 mg oral capsule (1 [...] chew. 20 capsule 0 03/20/2023 03/27/2023 Active 24 hr buPROPion hydrochloride 150 mg extended release oral tablet (17 sources) Aminoketone Start: 06-03-2024 End: 10-27-2024 take 1 tablet by mouth every twenty-four hours in the morning buPROPion XL (Wellbutrin XL) 150 MG 24 hr tablet Indications: Prolonged grief reaction Take 1 tablet (150 mg) by mouth in the morning. Do not crush, chew, or split. 30 tablet 1 06/03/2024 10/27/2024 Discontinued (Therapy completed) chlorthalidone 25 mg oral tablet (20 sources) Thiazide-like Diuretic Start: 06-27-2023 End: 01-07-2024 take 1 tablet by mouth once daily in the morning as needed chlorthalidone (Hygroton) 25 MG tablet Indications: Localized edema TAKE 1 TABLET BY MOUTH EVERY MORNING NEEDED 30 tablet 2 06/27/2023 01/07/2024 Discontinued (Therapy completed) Start: 12-13-2022 End: 03-20-2023 take 1 tablet [...] 05/21/2019 Active ergocalciferol 1.25 mg oral capsule (20 sources) Provitamin D2 Compound Start: 04-11-2024 End: 09-26-2024 take 1 capsule by mouth every week ergocalciferol (Vitamin D2) 1.25 MG (06332 UT) capsule Indications: Vitamin D deficiency TAKE 1 CAPSULE BY MOUTH ONCE WEEKLY 12 capsule 1 09/26/2024 Active Start: 12-06-2022 End: 10-28-2023 take 1 capsule by mouth every week ergocalciferol (Vitamin D2) 1.25 MG (61570 UT) capsule Indications: Vitamin D deficiency TAKE 1 CAPSULE BY MOUTH ONCE WEEKLY 12 capsule 1 10/28/2023 Active estradiol 0.5 mg oral tablet (20 sources) Estrogen Start: 07-01-2024 take 2 tablets by mouth once daily estradiol (Estrace) 0.5 MG tablet Indications: Vaginal dryness TAKE 2 TABLETS BY MOUTH DAILY 180 tablet 3 07/01/2024 Active Start: 03-31-2024 take 2 tablets by mo uth once daily estradiol (Estrace) 0.5 MG tablet Indications: Vaginal dryness TAKE 2 TABLETS BY MOUTH DAILY 180 tablet 03/31/2024 Active Start: 12-31-2023 take 2 tablets by mo uth once daily estradiol (Estrace) 0.5 MG tablet Indications: Vaginal dryness TAKE 2 TABLETS BY MOUTH DAILY 180 tablet 12/31/2023 Active Start: 08-06-2023 take 2 tablets by mo uth once daily estradiol (Estrace) 0.5 MG tablet Indications: Vaginal dryness TAKE 2 TABLETS BY MOUTH DAILY 180 tablet 08/06/2023 Active Start: 02-27-2023 End: 05-28-2023 take 1 tablet by mouth in the morning estradiol (Estrace) 0.5 MG tablet Indications: Vaginal dryness Take 1 tablet (0.5 mg) by mouth in the morning. Take 1 tablet by mouth for 30 days. 30 tablet 2 02/27/2023 05/28/2023 Active fluconazole 150 mg oral tablet (2 sources) Azole Antifungal Start: 07-22-2024 End: 07-22-2024 fluconazole (Diflucan) 150 MG tablet Indications: Yeast infection Take 1 tablet (150 mg) by mouth 1 (one) time for 1 dose Repeat in 7 days if symptoms persist. 2 tablet 07/22/2024 07/22/2024 Active hydroCHLOROthiazide 25 mg / triamterene 37.5 mg oral capsule (20 sources) Potassium-sparing Diuretic, Thiazide Diuretic Start: 05-07-2023 take 1 capsule by mouth in the morning triamterene-hydro CHLOROthiazide (Dyazide) 37.5-25 MG capsule Take 1 capsule by mouth in the morning. 05/07/2023 Active lifitegrast 50 mg/ml ophthalmic solution (20 sources) Lymphocyte Function-Associat ed Antigen-1 Antagonist Start: 01-01-2024 End: 10-27-2024 take 1 drop(s) into the eye(s) twice daily Xiidra 5 % solution APPLY 1 DROP INTO BOTH EYES TWICE A DAY 01/01/2024 10/27/2024 Discontinued (Therapy completed) loratadine 10 mg oral capsule (5 sources) take 1 capsule by mouth once daily loratadine (CLARITIN) 10 MG capsule Take 10 mg by mouth daily 0 Active meloxicam 15 mg disintegrating oral tablet (20 sources) Nonsteroidal Anti-inflammatory Drug Start: 01-07-2024 End: 10-15-2024 take 1 tablet by mouth once daily Meloxicam 15 MG tablet dispersible Indications: Trochanteric bursitis of both hips Take 15 mg by mouth Daily 30 tablet 1 10/15/2024 Active Start: 09-13-2022 take 1 tablet by caesar th in the morning Meloxicam 15 MG tablet dispersible Indications: Trochanteric bursitis of both hips Take 15 mg by mouth in the morning. 30 tablet 2 09/13/2022 Active take 1 tablet by caesar th once daily meloxicam (MOBIC) 15 MG tablet Take 1 tablet by mouth daily 0 Active Miebo 1.338 GM/ML solution (6 sources) Start: 08-20-2024 take 1 drop(s) into the eye(s) four times daily Miebo 1.338 GM/ML solution INSTILL 1 DROP INTO EACH EYE 4 TIMES DAILY (MUST SEE PACKAGE INSERT FOR ADMIN INSTRUCTIONS) 08/20/2024 Active Multiple Vitamins-Minerals (Eye Vitamins) capsule (20 sources) take 1 tablet by mouth in the morning Multiple Vitamins-Minerals (Eye Vitamins) capsule Take 1 tablet by mouth in the morning. Active take 1 tablet by mouth in the mo rning Multiple Vitamins-Minerals (Eye Vitamins) capsule Take 1 tablet by mouth in the morning. 0 Active Multiple Vitamins-Minerals (THERAPEUTIC MULTIVITAMIN-MINERALS) tablet (3 sources) take 1 tablet by mouth once daily Multiple Vitamins-Minerals (THERAPEUTIC MULTIVITAMIN-MINERALS) tablet Take 1 tablet by mouth daily 0 Active nitrofurantoin, macrocrystals 25 mg / nitrofurantoin, monohydrate 75 mg oral capsule (2 sources) Nitrofuran Antibacterial Star t: 10-06 End: 10-07 take 1 capsule by mouth in the morning nitrofurantoin, macrocrystal-monohydrate, (Macrobid) 100 MG capsule Indications: Acute cystitis without hematuria Take 1 capsule (100 mg) by mouth in the morning and 1 capsule (100 mg) before bedtime. Do all this for 5 days. 10 capsule 10/16/2024 10/27/2024 Discontinued (Therapy completed) omeprazole 20 mg delayed release oral capsule (20 sources) Proton Pump Inhibitor Star t: 02-07 24 End: 02-06 take 1 capsule by mouth before mealtime omeprazole (PriLOSEC) [address] capsule Indications: Gastroesophageal reflux disease without esophagitis Take 1 capsule (20 mg) by mouth in the morning. Take before meals. Do not crush or chew.. 03/06/2023 Active ondansetron 4 mg oral tablet (20 sources) Serotonin-3 Receptor Antagonist Star t: 07-0 08-24 End: 10-07 take 1 tablet by mouth every eight hours for vomiting ondansetron (Zofran) 4 MG tablet Indications: Vertigo Take 1 tablet (4 mg) by mouth every 8 (eight) hours if needed for vomiting 12 tablet 1 01/22/2024 10/27/2024 Discontinued (Therapy completed) Start: 02-28-2023 take 1 tablet by caesar th every eight hours for vomiting ondansetron (Zofran) [...] bedtime. 10 capsule 0 03/19/2023 Active predniSONE 10 mg oral tablet (15 sources) Start: 10-28-2024 take 2 tablets by mouth twice daily, then take 1 tablet by mouth twice daily, then take 1 tablet by mouth once daily predniSONE (Deltasone) 10 MG tablet Indications: Plantar fasciitis Take 2 pills by mouth twice daily for 5 days, take 1 pill twice daily for 5 days then 1 pill once daily for 5 days. 35 tablet 10/28/2024 Active Start: 01-22-2024 End: 06-03-2024 predniSONE (Deltasone) 20 MG tablet Indications: Vertigo 2 daily for 3 days, then 1 daily for 3 days 9 tablet 01/22/2024 06/03/2024 Discontinued (Therapy completed) Start: 03-09-2023 predniSONE (De ltasone) 20 MG tablet Indications: Vertigo 3 daily for 3 days, 2 daily for 3 days, then 1 daily for 3 days 18 tablet 0 03/09/2023 Active progesterone 100 mg oral capsule (20 sources) Progesterone Start: 01-07-2024 End: 10-23-2025 take 14-28 capsules by mouth every month progesterone 100 MG capsule Indications: Vaginal dryness Take 1 capsule (100 mg) by mouth Daily This is likely NOT dose, per dr smith, dr smith rx day 14-28 monthly, compounded 30 capsule 11 10/23/2024 10/23/2025 Active 72 hr scopolamine 0.0139 mg/hr transdermal system (6 sources) Anticholinergic Start: 03-13-2023 scopolamine (Transderm-Scop) 1 mg/72 hr patch 72 hour patch Indications: Vertigo Place 1 patch on the skin every 3rd (third) day 2 patch 0 03/13/2023 Active 24 hr venlafaxine 37.5 mg extended release oral capsule (20 sources) Serotonin and Norepinephrine Reuptake Inhibitor Start: 10-15-2023 End: 10-14-2024 take 1 capsule by mouth once daily venlafaxine XR (Effexor XR) 75 MG 24 hr capsule Indications: LESLEE (generalized anxiety disorder) (CMS/HCC) TAKE 1 CAPSULE BY MOUTH DAILY. DO NOT CRUSH OR CHEW 30 capsule 2 01/15/2024 Active Start: 07-11-2023 End: 10-14-2024 take 1 capsule by mouth once daily venlafaxine XR (Effexor XR) 37.5 MG 24 hr capsule Indications: Prolonged grief reaction Take 1 capsule (37.5 mg) by mouth Daily Do not crush or chew. 30 capsule 5 10/14/2024 Active Completed/Discontinued Medications Medication Drug Class(es) Dates Sig (Normalized) Sig (Original) ascorbic acid 250 mg oral tablet (20 sources) Vitamin C End: 06-03-2024 take 1 tablet by mouth in the morning Ascorbic Acid (vitamin C) 250 MG tablet Take 250 mg by mouth in the morning. 06/03/2024 Discontinued (Therapy completed) azithromycin 250 mg oral tablet (3 sources) Macrolide Antimicrobial Start: 09-21-2023 End: 10-10-2023 azithromycin (Zithromax) 250 MG tablet Indications: Acute non-recurrent pansinusitis Take 2 tablets day one then 1 tablet daily 6 tablet 09/21/2023 10/10/2023 Discontinued (Therapy completed) gadoteridol (PROHANCE) injection 17 mL (1 source) Start: 03-30-2023 End: 03-30-2023 gadoteridol (PROHANCE) injection 17 mL 1 ml ketorolac tromethamine 30 mg/ml cartridge (1 source) Nonsteroidal Anti-inflammatory Drug, Cyclooxygenase Inhibitor Start: 03-07-2023 End: 03-07-2023 ketorolac (TORADOL) injection 30 mg meclizine hydrochloride 25 mg oral tablet (16 sources) Antiemetic Start: 01-22-2024 End: 06-03-2024 take 1 tablet by mouth three times daily as needed for dizziness meclizine (Antivert) 25 MG tablet Indications: Vertigo Take 1 tablet (25 mg) by mouth 3 (three) times a day as needed for dizziness 30 tablet 1 01/22/2024 06/03/2024 Discontinued (Therapy completed) Start: 02-28-2023 take 1 tablet by caesar th four times daily as needed for dizziness [...] daily as needed for Dizziness 0 Active methylPREDNISolone 4 mg oral tablet (7 sources) Corticosteroid Start: 09-21-2023 End: 10-10-2023 methylPREDNISolone (Medrol) 4 MG tablet Indications: Acute non-recurrent pansinusitis 1 MEDROL DOSE JEANNINE 1 tablet 09/21/2023 10/10/2023 Discontinued (Therapy completed) Start: 03-17-2023 End: 03-24-2023 methylPREDNISolone (MEDROL, JEANNINE,) 4 MG tablets Indications: Acute cough Follow schedule on package instructions 21 tablet 0 03/17/2023 03/24/2023 Active 50 ml sodium chloride 9 mg/m l injection (1 source) Start: 03-07-2023 End: 03-07-2023 sodium chloride 0.9 % bolus 1,000 mL Problems Active Problems Problem Classification Problem Date Documented Date Episodic/Chronic Adjustment disorders (6 sources) Grief finding; Translations: [Adjustment disorder with depressed mood] 01-07-2024 Chronic Anxiety disorders (5 sources) Generalized anxiety disorder; Translations: [Generalized anxiety disorder] 01-15-2024 Chronic Disorders of lipid metabolism (20 sources) Dyslipidemia; Translations: [Hyperlipidemia, unspecified] Onset: 09-11-2022 09-11-2022 Chronic Esophageal disorders (20 sources) Gastroesophageal reflux disease without esophagitis; Translations: [Gastro-esophageal reflux disease without esophagitis] Onset: 09-11-2022 09-11-2022 Chronic Headache; including migraine (20 sources) Migraine with aura; Translations: [Migraine with aura, not intractable, without status migrainosus] Onset: 08-01-2007 09-11-2022 Chronic Immunizations and screening for infectious disease (5 sources) Encounter for screening for human papillomavirus (HPV); Translations: [Immunization due] Onset: 03-10-2021 01-07-2024 Episodic Influenza (1 source) Influenza due to Influenza B virus; Translations: [Influenza due to other identified influenza virus with other respiratory manifestations] 03-19-2023 Episodic Menstrual disorders (4 sources) Excessive and frequent menstruation with regular cycle; Translations: [EXCESS FREQ MENSTRUATION W/REG CYCL] Onset: 10-21-2021 Chronic Mycoses (2 sources) Mycosis; Translations: [Candidiasis, unspecified] 07-22-2024 Episodic Nutritional deficiencies (20 sources) Vitamin D deficiency; Translations: [Vitamin D deficiency, unspecified] Onset: 09-11-2022 09-11-2022 Chronic Other circulatory disease (1 source) Elevated blood-pressure reading, without diagnosis of hypertension; Translations: [Elevated blood-pressure reading, without diagnosis of hypertension] Onset: 08-28-2023 Episodic Other circulatory disease (1 source) Elevated blood-pressure reading without diagnosis of hypertension; Translations: [Elevated blood-pressure reading, without diagnosis of hypertension] 08-28-2023 Episodic Other connective tissue disease (3 sources) Bilateral trochanteric bursitis; Translations: [Trochanteric bursitis, right hip] 01-07-2024 Episodic Other connective tissue disease (2 sources) Pain in bilateral legs; Translations: [Pain in right leg] 09-16-2024 Episodic Other connective tissue disease (6 sources) Pain in both feet; Translations: [Pain in right foot] 10-13-2024 Episodic Other connective tissue disease (2 sources) Plantar fasciitis; Translations: [Plantar fascial fibromatosis] 10-28-2024 Episodic Other female genital disorders (3 sources) Abnormal uterine bleeding; Translations: [Abnormal uterine and vaginal bleeding, unspecified] 07-22-2024 Chronic Other lower respiratory disease (1 source) Cough; Translations: [Acute cough] 03-20-2023 Episodic Other lower respiratory disease (1 source) Other forms of dyspnea; Translations: [Other forms of dyspnea] Onset: 08-28-2023 Episodic Other nervous system disorders (1 source) Ataxia; Translations: [Ataxia, unspecified] 03-30-2023 Episodic Other nutritional; endocrine; and metabolic disorders (12 sources) Body mass index 30+ - obesity; Translations: [Body mass index (BMI) 37.0-37.9, adult] Onset: 10-27-2024 01-07-2024 Chronic Other nutritional; endocrine; and metabolic disorders (10 sources) Obesity caused by energy imbalance; Translations: [Morbid (severe) obesity due to excess calories] Onset: 10-27-2024 10-15-2023 Chronic Other upper respiratory infections (1 source) Infective pharyngitis; Translations: [Acute pharyngitis due to other specified organisms] 03-19-2023 Episodic Peripheral and visceral atherosclerosis (4 sources) Unspecified atherosclerosis; Translations: [Arteriosclerotic vascular disease] [...] infections (1 source) Abscess; Translations: [Abscess] Episodic Unclassified (1 source) Unspecified lump in the right breast, overlapping quadrants; Translations: [Unspecified lump in the right breast, overlapping quadrants] Onset: 08-11-2024 Past or Other Problems Problem Classification Problem Date Documented Date Episodic/Chronic Abdominal pain (20 sources) Pain in female pelvis; Translations: [Pelvic and perineal pain] Onset: 05-31-2023 Resolved: 10-15-2023 10-15-2023 Episodic Conditions associated with dizziness or vertigo (20 sources) Benign paroxysmal positional vertigo; Translations: [Benign paroxysmal vertigo, unspecified ear] Onset: 03-07-2023 03-07-2023 Episodic Deficiency and other anemia (20 sources) Microcytic anemia; Translations: [Iron deficiency anemia, unspecified] Onset: 09-11-2022 Resolved: 09-13-2022 09-13-2022 Episodic Genitourinary symptoms and ill-defined conditions (20 sources) Dysuria; Translations: [Dysuria] Onset: 09-11-2022 Resolved: 09-13-2022 09-13-2022 Episodic Mood disorders (20 sources) Affective psychosis; Translations: [Unspecified mood [affective] disorder] Onset: 09-11-2022 Resolved: 09-13-2022 09-13-2022 Chronic Nonmalignant breast conditions (20 sources) Mastodynia; Translations: [Solitary cyst of right breast] Onset: 03-30-2021 Resolved: 10-15-2023 09-11-2022 Episodic Other aftercare (20 sources) Patient encounter status; Translations: [Other [place] [facility]current[facility] drug therapy] Onset: 05-31-2023 Resolved: 10-15-2023 10-15-2023 Episodic Other endocrine disorders (20 sources) Disorder of endocrine system; Translations: [Endocrine disorder, unspecified] Onset: 05-31-2023 Resolved: 10-27-2024 05-31-2023 Episodic Other female genital disorders (20 sources) Vaginal dryness; Translations: [Other specified noninflammatory disorders of vagina] Onset: 05-31-2023 05-31-2023 Episodic Other nervous system disorders (20 sources) Impairment of balance; Translations: [Other abnormalities of gait and mobility] Onset: 03-15-2023 Resolved: 10-15-2023 03-15-2023 Episodic Other nervous system disorders (1 [...] Episodic Other nutritional; endocrine; and metabolic disorders (20 sources) Abnormal weight gain; Translations: [Abnormal weight gain] Onset: 09-11-2022 Resolved: 10-15-2023 09-11-2022 Episodic Other nutritional; endocrine; and metabolic disorders (20 sources) Weight loss; Translations: [Abnormal weight loss] Onset: 09-11-2022 Resolved: 09-13-2022 09-13-2022 Episodic Other nutritional; endocrine; and metabolic disorders (20 sources) Weight decreased; Translations: [Abnormal weight loss] Onset: 09-11-2022 Resolved: 09-13-2022 09-13-2022 Episodic Other screening for suspected conditions (not mental disorders or infectious disease) (20 sources) Other abnormal and inconclusive findings on diagnostic imaging of breast; Translations: [Encounter for screening mammogram for malignant neoplasm of breast] Onset: 03-08-2021 Resolved: 09-13-2022 Episodic Other upper respiratory disease (20 sources) Allergic rhinitis; Translations: [Allergic rhinitis, unspecified] Onset: 08-01-2007 Resolved: 10-15-2023 09-11-2022 Chronic Residual codes; unclassified (20 sources) Reduced libido; Translations: [Decreased libido] Onset: 05-31-2023 05-31-2023 Episodic Residual codes; unclassified (2 sources) Family history of aneurysm of abdominal aorta; Translations: [Family history of ischemic heart disease and other diseases of the circulatory system] 10-15-2023 Episodic Spondylosis; intervertebral disc disorders; other back problems (20 sources) Neck pain; Translations: [Cervicalgia] Onset: 03-16-2023 Resolved: 10-15-2023 03-16-2023 Episodic Results Test Name Value Interpretation Reference Range Facility XR Foot - left 3 [facility] Result: Three views of the left foot: AP, MO, LAT were performed today in the office. Radiographs were read by myself and demonstrate: No evidence of acute fracture or dislocation. Normal joint spaces noted with no evidence of narrowing or osteophyte formation. Very small plantar calcaneal spur noted. [facility] [email or web address] Rad[facility] Study observation (narrative) [email or web address] XR Foot - right 3 [facility] Result: Three views of the right foot: AP, MO, LAT were performed today in the office. Radiographs were read by myself and demonstrate: No evidence of acute fracture or dislocation. Normal joint spaces noted with no evidence of narrowing or osteophyte formation. There are no structural deformities noted [facility] Study observation (narrative) [email or web address] US PELVIC COMPLETE W/ TVon 0 10-27-2024 US PELVIC COMPLETE W/ TV FINDINGS: Transabdominal and transvaginal imaging was performed. [...] left adnexal mass. Left ovary not seen. IMPRESSION: Normal pelvic ultrasound appearance TRANSCRIBED BY: ELECTRONICALLY SIGNED BY: Alexx Hinojosa MD Normal Not Available Comment on above: Order Comment: US PE LVIS-TRANSVAG IF INDICATED No LMP recorded. VASC US ANKLE BRACHIAL INDEX (DAMION) COMPLETE WITHOUT EXERCISEon 10-02-2024 VASC US ANKLE BRACHIAL INDEX (DAMION) COMPLETE WITHOUT EXERCISE VASC US ANKLE BRACHIAL INDEX (DAMION) COMPLETE [...] LEGS. ELECTRONICALLY SIGNED BY: Bari Garcia MD Normal Not Available Otolaryngology Office/Clinic Noteon 08-22-2024 Otolaryngology Office/Clinic Note The content of this note was generated by an artificial intelligence (AI) language dictation. The patient or guardian has given their consent for the use of AI technology during the visit to capture and process the conversation. The AI will assist in providing information and support throughout the discussion. The AI will not store personal or sensitive information beyond the scope of this session, and the purpose is solely to facilitate the conversation. Chief Complaint Pt states here for 1 mo f/u on sleep apnea . History of Present Illness The patient is a 44-year-old female with a history of nasal septal deviation and turbinate hypertrophy, presenting for follow up regarding persistent snoring, sleep disturbance, and nasal obstruction. Snoring, Sleep Disturbance, and Nasal Obstruction The patient reports ongoing snoring, poor sleep quality, and chronic difficulty breathing through her nose. She describes waking up feeling tired and not refreshed, which is a change from her previous sleep experience. She has become more aware of her nasal obstruction, noting that her nose feels 'messed up' and that she cannot breathe well through it. She has tried nasal sprays without improvement. She previously used a CPAP machine but was unaware of her nasal issues at that time. The patient acknowledges being overweight and expresses concern about her age as contributing factors. She has no personal history of tonsil or adenoid problems, but her father required emergency tonsillectomy as an adult. 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 Review of Systems Constitutional: Positive for fatigue/tiredness. ENT: Positive for snoring, sleep issues, breathing issues, nasal congestion. Negative for enlarged turbinates and tonsil size. Physical Exam Vitals & Measurements BP: 123/81 HT: 154.5 cm WT: 94.3 kg WT: 94.3 kg (Dosing) BMI: 39.51 HEENT: Deviated septum with hypertrophic turbinates. Tonsils not enlarged. Persistent turbinate hypertrophy despite nasal spray use. Overall:[Communicati on mode is clear, normal] [Appearance- no acute distress, appears stated age and is well nourished] Assistive device:[ none] Head:[normocephalic, no trauma, lesions or asymmetry] Ocular appearance:[ Conjuctiva- clear and bright, no drainage or infection. EOM intact] Ears:[ external ear- normal shape, no signs of infection, mass, lesion or asymmetry bilaterally. Ear canal is healthy, free from wax and infection, bilaterally] [Eardrum-healthy, no sign of infection, trauma, perforation or infection] [Middle ear- healthy, no obvious fluid present or infection] Oral cavity:[ Normal, tongue healthy no mass, lesion or infection. Soft and hard palate normal. Bimanual palpation is normal. Mucosa moist, free from infection][ Benign gingiva, good dental hygiene][Tonsil size is normal, no asymmetry, mass or lesionn][oropharynx- clear, no evidence of post nasal drip, cobblestoning or other abnormalities] Neck:[ Salivary gland exam is normal, no enlargement or tenderness. No lymph node enlargement. TMJ exam is normal, no tenderness noted][ Thyroid exam is normal, no masses or tenderness] Mental Status:[Alert and oriented x3][Mood and affect normal][Gait is normal]. Additional Vitals BP Position/Location: Sitting, Right arm Assessment and Plan: Patient is a 44-year-old female with allergic rhinitis and abnormal weight gain presenting for evaluation of nasal obstruction, snoring, and sleep disturbance. 1. Nasal septal deviation - Anatomical septal deviation with persistent nasal obstruction and snoring despite nasal sprays; no evidence of infection or chronic sinus disease. - Scheduled septoplasty with turbinate reduction (outpatient procedure, approximately 90 minutes, all intranasal, with splints placed and removed in office the following day). - Continue nasal spray up to surgery to minimize inflammation. - Advised to allow at least one week off work postoperatively; most restrictions lifted within a week, but return to work may vary based on individual recovery. - Postoperative follow-up scheduled for splint removal on day 1, additional follow-up at one week and one month to assess healing. - Plan to defer sleep study until after surgical recovery to reassess sleep apnea status with improved nasal airflow. -plan for septoplasty and bilat smr turbs. Risk benefit alternative reviewed and informed consent obtained 2. Nasal turbinate hypertrophy See plan under Nasal septal deviation 3. Snoring See plan under Nasal septal deviation 4. Sleep disturbance See plan under Nasal septal deviation Medical Decision Making Chronic conditions NOT treated during this visit that affected my overall medical decision making: [] Treatment plans discussed but not opted for at this time: [] Prescribed medication that requires intensive monitoring for toxicity: [] I have reviewe (more content not included)... Normal [facility] Mammography reportOrdered By : Mateo Lockett on 08-11-2024 Diagnostic imaging study [facility] [address] [place] [address] Mammography Report Signed Patient: Fabi Concepcion MR#: [id number] : 1980 Acct:[id number] Age/Sex: 44 / F Adm Date: 5 Loc: [place] Room: Type: [facility] Attending Dr: Ceasar Smith DO Ordering Provider: Ceasar Smith Date of Service: 08/11/24 Procedure(s): MM diagnostic mammo BI w/CAD; US breast RT limited Accession Number(s): ([id number]) MM/MM diagnostic mammo BI w/CAD: N63.15 ([id number]) US/US breast RT limited: N63.15 Copies to: NON STAFF Ceasar Smith~ DIAGNOSTIC BILATERAL MAMMOGRAM - FULL FIELD DIGITAL [...] 3 (approximately 51-75% glandular) The breasts are heterogeneouslydense , which may obscure small masses. FOLLOW UP: 1YR The false-negative rate of mammography is approximately 10-percent. Management of a palpable abnormality must be based on clinical grounds. Impression dictated by: Mateo Lockett M.D. 08/11/2024 9:11 AM Dictation Location: [facility] Dictated By: Mateo Lockett II, MD 08/11/24 0849 Signed By: 08/11/24 0911 [facility] Work Phone: US breast RT limitedon 08-11 US breast RT limited [facility] [address] [place] [address] Mammography Report Signed Patient: Fabi Concepcion MR#: [id number] : 1980 Acct:[id number] Age/Sex: 44 / F Adm Date: 08/11/24 Loc: [place] Room: Type: [facility] Attending Dr: Ceasar Smith DO Ordering Provider: Ceasar Smith Date of Service: 08/11/24 Procedure(s): MM diagnostic mammo BI w/CAD; US breast RT limited Accession Number(s): ([id number]) MM/MM diagnostic mammo BI w/CAD: N63.15 ([id number]) US/US breast RT limited: N63.15 Copies to: NON STAFF Ceasar Smith DIAGNOSTIC [...] Lockett M.D. 08/11/2024 9:11 AM Dictation Location: [facility] Dictated By: Mateo Lockett II, MD 08/11/24 0849 Signed By: 08/11/24 0911 Normal [facility] IGP,APTIMA HPV,AGE GDLNon AGE GDLN ACOG TESTING Note . [facility] Comment on above: TESTS RESULT FLAG UN ITS REF RANGE LAB Clinician Provided Cytology Information Source.............Cervix;Endocervix No. of containers..01 ThinPrep Vial Age Algo ACOG Oralia... 30-65 01 FLAG LEGEND: L-Low Normal,H-High Normal,LL-Alert Low,HH-Alert High <-Panic Low,>-Panic High,A-Abnormal,AA-Critical Abnormal Performed at: 01 =[address] [address] Diamond Zapata MD, HPV APTIMA Negative Negative [facility] Comment on above: This nucleic acid am plification test detects fourteen high- risk HPV types (16,18,31,33,35,39,45,51,52,56,58,59,66,68) without differentiation. Performed at: =[address] [id number] Shellfish Grower: Diamond Zapata MD, Phone: [phone] Performed at: [address] [id number] Shellfish Grower: Diamond Zapata MD, Phone: [phone] IGP, APTIMA HPV, RFX 16/18,45 Note . [facility] Comment on above: TESTS RESULT FLAG UN ITS REF RANGE LAB DIAGNOSIS: 02 NEGATIVE FOR INTRAEPITHELIAL LESION OR MALIGNANCY. FUNGAL ORGANISMS MORPHOLOGICALLY CONSISTENT WITH CAMILLE SPECIES ARE PRESENT. Specimen adequacy: 02 Satisfactory for evaluation. Endocervical and/or squamous metaplastic cells (endocervical component) are present. Performed by: 02 Sandra Raza War[facility] Splitter ([facility] . 02 Note: Note 02 The Pap smear is a screening test designed to aid in the detection of premalignant and malignant conditions of the uterine cervix. It is not a diagnostic procedure and should not be used as the sole means of detecting cervical cancer. Both false-positive and false-negative reports do occur. Test Methodology: Note 02 This liquid based ThinPrep(R) pap test was screened with the use of an image guided system. HPV Genotype Reflex Note 02 Criteria not met, HPV Genotype not performed. FLAG LEGEND: L-Low Normal,H-High Normal,LL-Alert Low,HH-Alert High <-Panic Low,>-Panic High,A-Abnormal,AA-Critical Abnormal Performed at: [address] [address] Diamond Zapata MD, BRUSH-SPATULA CERVIX ENDOCERVIX [facility] Office/Clinic Noteon 07-18-2024 Otolaryngology Office/Clinic Note Chief Complaint Pt states here for snoring concerns and med refill . History of Present Illness History of Present Illness HPI: Pt states she snores while sleeping and then will stop breathing then start snoring again. Wakes up tired. Has used CPAP in past.This is frustrating to her and her partner. Her snoring is very loud. She has hx of menieres but denies any dizziness. she is doing well on water pills Review of Systems General Cardiovascular EENMT Gastrointestinal Genitourinary Hematologic/Lymphati c Musculoskeletal Neurological Psychiatric Respiratory Apnea: No Snoring: No Skin Physical Exam Vitals & Measurements BP: 150/ 93 HT: 154 cm WT: 94.2 kg (Dosing) WT: 94.2 kg BMI: 39.72 Overall:[Communicati on mode is clear, normal] [Appearance- no acute distress, appears stated age and is well nourished] Assistive device:[ none] Head:[normocephalic, no trauma, lesions or asymmetry] Ocular appearance:[ Conjuctiva- clear and bright, no drainage or infection. EOM intact] Ears:[ external ear- normal shape, no signs of infection, mass, lesion or asymmetry bilaterally. Ear canal is healthy, free from wax and infection, bilaterally] [Eardrum-healthy, no sign of infection, trauma, perforation or infection] [Middle ear- healthy, no obvious fluid present or infection] Nose:[ External- healthy, no sign of asymmetry, lesion or infection] Septum:[ deviated] Turbinates:[ enlarged] Nasal passages:[ clear, no infection, drainage or [...] oriented x3][Mood and affect normal][Gait is normal]. Additional Vitals BP Position/Location: Sitting, Left arm Assessment/Plan 1. Meniere disease Pt has known menieres disease and is doing well on water pills, plan to continue as directed. Pt to monitor for symptoms. GP will monitor for potassium and calcium levels per patient 2. Sleep disturbance Pt has had worsening snoring with sleep disturbance. hx of apnea and cpap but pt has not used for some time. Pt has septal deviation and nasal congestion but plan to initiate nasal spray usage to see if helps with breathing first, recheck in 30 d to discuss if has improved symptoms. Plan to repeat sleep study as well. May need to consider surgical intervention if treatment fails Orders: triamcinolone nasal, 1 sprays, Nasal, BID, # 1 EA, 1 Refill(s), Pharmacy: [id number] [id number] triamterene-hydrochl orothiazide, See Instructions, TAKE 1 CAPSULE BY MOUTH DAILY, # 90 caps, 3 Refill(s), Pharmacy: [id number] [id number] 3. Nasal congestion 4. Nasal septal deviation Medical Decision Making Chronic conditions NOT treated during this visit that affected my overall medical decision making: [] Treatment plans discussed but not opted for at this time: [] Prescribed medication that requires intensive monitoring for toxicity: [] I have reviewed the patient?s medication list for medication interactions/contrai ndications and/or for upcoming procedures: [yes or no] Time Spent with the Patient I have personally spent [28] minutes on this date, directly related to today's patient visit, including pre and post visit work, for this date of service. Time listed does not include time spent on separately billable services. Problem List/Past Medical History Ongoing Abnormal weight gain Allergic rhinitis Disorder of breast Dyslipidemia Gastroesophageal reflux disease without esophagitis Migraine with aura Vitamin D deficiency Historical No qualifying data Medications atorvastatin 10 mg oral tablet, 30 tabs, 0 Refill(s) ergocalciferol 50,000 intl units (1.25 mg) oral capsule, 12 caps, 0 Refill(s) estradiol 0.5 mg oral tablet, 30 tabs, 0 Refill(s) Eye Multivitamin, Oral, Daily hydrochlorothiazide- triamterene 25 mg-37.5 mg oral capsule, See Instructions, 3 refills, TAKE 1 CAPSULE BY MOUTH DAILY Nasacort Allergy 24HR 55 mcg/inh nasal spray, 1 sprays, Nasal, BID, 1 refills omeprazole 20 mg oral delayed release capsule, 20 mg= 1 caps, Oral, Daily, before a meal Progesterone (micronized), 200 mg, Oral, Daily Allergies codeine (Heart rate altered, Vomiting, Nausea) Social History Tobacco Never (less than 100 in lifetime) Use:. Electronically signed by Kimberly Garcia PA-C (more content not included)... Normal [facility] Vascular AAA screeningon No evidence of abdominal aortic aneurysm. [facility] CONSOLIDATED EXAMINATION: RETROPERITONEAL ULTRASOUND OF THE AORTA 08/28/2023 TECHNIQUE: Duplex ultrasound using B-mode/zamora scaled imaging, Doppler spectral analysis and color flow Doppler was obtained of the aorta. COMPARISON: None. HISTORY: ORDERING SYSTEM PROVIDED HISTORY: Screening for AAA FINDINGS: Aorta: Proximal: 2.1 x 2 cm. Mid: 1.9 x 1.8 cm. Distal: 1.7 x 1.6 cm. Iliacs: Iliac arteries are patent and normal in caliber. [facility] CONSOLIDATED Silva Kitchen MD - 08/29/2023 EXAMINATION: [...] IMPRESSION: No evidence of abdominal aortic aneurysm. [facility] Vascular AAA screeningOrdere d By: Silva Kitchen on 08-29-2023 [facility] Work Phone: Vascular AAA screeningon Radiology Study observation (narrative) [facility] MR Brain WO and W contrast I Von 03-31-2023 No acute intracranial abnormality. No structural lesion identified to account for the patient's symptoms. Minimal left sphenoid sinus disease. [facility] CONSOLIDATED EXAMINATION: MRI OF THE BRAIN and IAC WITHOUT AND WITH CONTRAST 03/30/2023 9:44 am TECHNIQUE: Multiplanar multisequence MRI of the head/brain and IAC was performed without and with the administration of intravenous contrast. COMPARISON: None. HISTORY: ORDERING SYSTEM PROVIDED HISTORY: Ataxia TECHNOLOGIST PROVIDED HISTORY: STAT Creatinine as needed:->No What is the sedation requirement?->None FINDINGS: INTRACRANIAL STRUCTURES/VENTRICLE S: There is no acute infarct. No mass [...] The soft tissues demonstrate no acute abnormality. [facility] Sushant Coles MD - 03/31/2023 EXAMINATION: MRI OF THE BRAIN and IAC WITHOUT AND WITH CONTRAST 03/30/2023 9:44 am TECHNIQUE: Multiplanar multisequence MRI of the head/brain and IAC was performed without and with the administration of intravenous contrast. COMPARISON: None. HISTORY: ORDERING SYSTEM PROVIDED HISTORY: Ataxia TECHNOLOGIST PROVIDED HISTORY: STAT Creatinine as needed:->No What is the sedation requirement?->None FINDINGS: INTRACRANIAL STRUCTURES/VENTRICLE S: There is no acute infarct. No mass [...] patient's symptoms. Minimal left sphenoid sinus disease. [facility] MR Brain WO and W contrast I VOrdered By: Sushant Conrad on 03-31-2023 [facility] MRI BRAIN W WO CONTRASTon MRI BRAIN [...] What is the sedation requirement?->None FINDINGS: INTRACRANIAL STRUCTURES/VENTRICLE S: There is no acute infarct. No mass [...] Sushant Conrad MD 03/31/23 Final result Normal [facility] MR Brain WO and W contrast I Von 03-30-2023 Radiology Study observation (narrative) [facility] BMPon 03-07-2023 Anion gap [Moles/Vol] 12 mmol/L 9 - 17 mmol/L [facility] Calcium [Mass/Vol] 9.8 mg/dL 8.6 - 10. 4 mg/dL [facility] Chloride [Moles/Vol] 97 mmol/L Low 98 - 10 7 mmol/L [facility] CO2 [Moles/Vol] 26 mmol/L 20 - 31 mmol/L [facility] Creatinine [Mass/Vol] 0.7 mg/dL 0.5 - 0.9 mg/dL [facility] GFR/1.73 sq M.predicted MDRD (S/P/Bld) [Vol rate/Area] - PINF [facility] Comment on above: These results are not [...] 121 mg/dL High 70 - 99 mg/dL [facility] Interpretation and review of laboratory results Abnormal [facility] Potassium [Moles/Vol] 3.4 mmol/L Low 3.7 - 5.3 mmol/L [facility] Rebtel Sodium [Moles/Vol] 135 mmol/L 135 - 144 mmol/L [facility] Urea nitrogen [Mass/Vol] 15 mg/dL 6 - 20 mg/dL [facility] Urea nitrogen/Creatinine [Mass ratio] 21 mg/mg High 9 - 20 [facility] Basic Metabolic Profon 03-07 Anion gap [Moles/Vol] 12 mmol/L Normal 9-[address] [facility] Comment on above: Performed By: #### C RP, BMP, SED, CDP #### [facility] [address] [place], [place] [id number] Shellfish Grower: Edna Sanchez MD BUN/CRE Ratio 21 High 9-20 [facility] Comment on above: Performed By: #### C RP, BMP, SED, CDP #### [facility] [address] [place], [place] [id number] Shellfish Grower: Edna Sanchez MD Calcium [Mass/Vol] 9.8 mg/dL Normal 8.6-10.4 [facility] Comment on above: Performed By: #### C RP, BMP, SED, CDP #### [facility] [address] [place], [place] [id number] Shellfish Grower: Edna Sanchez MD Chloride [Moles/Vol] 97 mmol/L Low 98-107 [facility] Comment on above: Performed By: #### C RP, BMP, SED, CDP #### [address] [place], [place] [id number] Shellfish Grower: Edna Sanchez MD CO2 [Moles/Vol] 26 mmol/L Normal - [facility] Comment on above: Performed By: #### C RP, BMP, SED, CDP #### [facility] [address] [place] [address] Shellfish Grower: Edna Sanchez MD Creatinine [Mass/Vol] 0.7 mg/dL Normal 0.5-0.[address] [facility] Comment on above: Performed By: #### C RP, BMP, SED, CDP #### [facility] [address] [place] [address] Shellfish Grower: Edna Sanchez MD GFR/1.73 sq M.predicted among non-blacks MDRD (S/P/Bld) [Vol rate/Area] mL/min/{1.73_m2} Normal >60 [facility] Comment on above: Result Comment: These results [...] #### C RP, BMP, SED, CDP #### [address] [place] [address] Shellfish Grower: Edna Sanchez MD Glucose [Mass/Vol] 121 mg/dL High 70-99 [facility] Comment on above: Performed By: #### C RP, BMP, SED, CDP #### [address] [place] [address] Shellfish Grower: Edna Sanchez MD Potassium [Moles/Vol] 3.4 mmol/L Low 3.7-5.[address] [facility] Comment on above: Performed By: #### C RP, BMP, SED, CDP #### [address] [place] [address] Shellfish Grower: Edna Sanchez MD Sodium [Moles/Vol] 135 mmol/L Normal 135-144 [facility] Comment on above: Performed By: #### C RP, BMP, SED, CDP #### [facility] [address] [place] [address] Shellfish Grower: Edna Sanchez MD Urea nitrogen [Mass/Vol] 15 mg/dL Normal 6-20 [facility] Comment on above: Performed By: #### C RP, BMP, SED, CDP #### [facility] [address] [place] [address] Shellfish Grower: Edna Sanchez MD C-Reactive Proteinon 024 CRP High sensitivity method [Mass/Vol] mg/L 0.0 - 5.0 mg/L [facility] CRP [Mass/Vol] mg/L Normal 0.0-5.0 [facility] Comment on above: Performed By: #### C RP, BMP, SED, CDP #### [facility] [address] [place] [address] Shellfish Grower: Edna Sanchez MD CBC with Auto Differentialon 03-07-2023 Basophils (Bld) [#/Vol] 0.04 10*3/uL [facility] Basophils/100 WBC (Bld) 0 % 0 - 2 % [facility] Eosinophils (Bld) [#/Vol] [facility] Eosinophils/100 WBC (Bld) 0 % Low 1 - 4 % [facility] Erythrocyte distribution width (RBC) [Ratio] 11.2 % Low 11.8 - 14.4 % [facility] Hematocrit (Bld) [Volume fraction] 46.3 % 36.3 - 47.1 % [facility] Hemoglobin (Bld) [Mass/Vol] 16.7 g/dL High 11.9 - 15.1 g/dL [facility] Immature granulocytes (Bld) [#/Vol] 0.20 10*3/uL [facility] Immature granulocytes/100 WBC (Bld) 1 % High 0 [facility] Interpretation and review of laboratory results Abnormal [facility] Lymphocytes/100 WBC (Bld) 10 % Low 24 - 43 % [facility] Lymphocytes/100 WBC (Bld) 1.66 % [facility] MCH (RBC) [Entitic mass] 31.9 pg 25.2 - 33.5 pg [facility] MCHC (RBC) [Mass/Vol] 36.1 g/dL High 28.4 - 34.8 g/dL [facility] MCV (RBC) [Entitic vol] 88.4 fL 82.6 - 102.9 fL [facility] Monocytes/100 WBC (Bld) 3 % 3 - 12 % [facility] Monocytes/100 WBC (Bld) 0.44 % [facility] Neutrophils/100 WBC (Bld) 86 % High 36 - 65 % [facility] Nucleated RBC/100 WBC (Bld) [Ratio] 0.0 % 0.0 per 100 WBC [facility] Platelet mean volume (Bld) [Entitic vol] 9.4 fL 8.1 - 13.5 fL [facility] Platelets (Bld) [#/Vol] 364 10*3/uL [facility] RBC (Bld) [#/Vol] 5.24 10*6/uL High 3.95 - 5.1 1 m/uL [facility] Segmented neutrophils/100 WBC (Bld) 13.62 % High [facility] WBC other (Bld) [#/Vol] 16.0 High [facility] CBC with Diffon 03-07-2023 Abs. Basophil 0.04 k/uL Normal 0.00-0.20 [facility] Comment on above: Performed By: #### C RP, BMP, SED, CDP #### [facility] [address] [place] [address] [place], [place] [id number] Shellfish Grower: Edna Sanchez MD Abs. Eosinophil <0.03 Normal 0.00-0.44 [facility] Comment on above: Performed By: #### C RP, BMP, SED, CDP #### [facility] [address] [place], [place] [address] Shellfish Grower: Edna Sanchez MD Abs.Imm.Granulocyte 0.20 k/uL Normal 0.00-0.30 [facility] Comment on above: Performed By: #### C RP, BMP, SED, CDP #### [facility] [address] [place], [place] [id number] Shellfish Grower: Edna Sanchez MD Abs.Neutrophil (Seg) 13.62 k/uL High 1.50-8.10 [facility] Comment on above: Performed By: #### C RP, BMP, SED, CDP #### [facility] [address] [place], [facility] Shellfish Grower: Edna Sanchez MD Basophils/100 WBC (Bld) 0 % Normal 0-2 [facility] Comment on above: Performed By: #### C RP, BMP, SED, CDP #### [facility] [address] [place], [place] [address] Shellfish Grower: Edna Sanchez MD Eosinophils/100 WBC (Bld) 0 % Low 1-4 [facility] Comment on above: Performed By: #### C RP, BMP, SED, CDP #### [address] [place], [facility] Shellfish Grower: Edna Sanchez MD Erythrocyte distribution width (RBC) [Ratio] 11.2 % Low 11.8-14.4 [facility] Comment on above: Performed By: #### C RP, BMP, SED, CDP #### [address] [place], [facility] Shellfish Grower: Edna Sanchez MD Hematocrit (Bld) [Volume fraction] 46.3 % Normal 36.3-47.1 [facility] Comment on above: Performed By: #### C RP, BMP, SED, CDP #### [facility] [address] [place] [address] [place], [facility] Shellfish Grower: Edna Sanchez MD Hemoglobin (Bld) [Mass/Vol] 16.7 g/dL High 11.9-15.1 [facility] [facility] Comment on above: Performed By: #### C RP, BMP, SED, CDP #### [address] [place] [address] [employer]fish Grower: Edna Sanchez MD Immature granulocytes/100 WBC (Bld) 1 % High 0 [facility] Comment on above: Performed By: #### C RP, BMP, SED, CDP #### [address] [place], [facility] [employer] Grower: Edna Sanchez MD Lymphocytes (Bld) [#/Vol] 1.66 10*3/uL Normal 1.10-3.70 [facility] Comment on above: Performed By: #### C RP, BMP, SED, CDP #### [address] [place], [place] [address] [employer]fish Grower: Edna Sanchez MD Lymphocytes/100 WBC (Bld) 10 % Low 24-43 [facility] Comment on above: Performed By: #### C RP, BMP, SED, CDP #### [address] [place], [place] [address] [employer]fish Grower: Edna Sanchez MD MCH (RBC) [Entitic mass] 31.9 pg Normal 25.2-33.5 [facility] Comment on above: Performed By: #### C RP, BMP, SED, CDP #### [address] [place], [place] [address] Shellfish Grower: Edna Sanchez MD MCHC (RBC) [Mass/Vol] 36.1 g/dL High 28.4-34.[address] [facility] Comment on above: Performed By: #### C RP, BMP, SED, CDP #### [address] [place], [facility] Shell[employer] Grower: Edna Sanchez MD MCV (RBC) [Entitic vol] 88.4 fL Normal 82.6-102.9 [facility] Comment on above: Performed By: #### C RP, BMP, SED, CDP #### [address] [place], [facility] Shell[employer] Grower: Edna Sanchez MD Monocytes (Bld) [#/Vol] 0.44 10*3/uL Normal 0.10-1.20 [facility] Comment on above: Performed By: #### C RP, BMP, SED, CDP #### [facility] [address] [place], [place] [id number] Shell[employer] Grower: Edna Sanchez MD Monocytes/100 WBC (Bld) 3 % Normal 3-12 [facility] Comment on above: Performed By: #### C RP, BMP, SED, CDP #### [facility] [address] [place] [address] Shellfish Grower: Edna Sanchez MD Neutrophil (Seg) 86 % High 36-65 [facility] Comment on above: Performed By: #### C RP, BMP, SED, CDP #### [facility] [address] [place], [place] [address] Shellfish Grower: Edna Sanchez MD NRBC Automated 0.0 per 100 WBC Normal 0.0 [facility] Comment on above: Performed By: #### C RP, BMP, SED, CDP #### [address] [place] [address] Shellfish Grower: Edna Sanchez MD Platelet mean volume (Bld) [Entitic vol] 9.4 fL Normal 8.1-13.5 [facility] Comment on above: Performed By: #### C RP, BMP, SED, CDP #### [facility] [address] [place] [address] Shellfish Grower: Edna Sanchez MD Platelets (Bld) [#/Vol] 364 10*3/uL Normal 138-453 [facility] Comment on above: Performed By: #### C RP, BMP, SED, CDP #### [facility] [address] [place], [place] [id number] Shellfish Grower: Edna Sanchez MD RBC (Bld) [#/Vol] 5.24 10*6/uL High 3.95-5.11 [facility] Comment on above: Performed By: #### C RP, BMP, SED, CDP #### [facility] [address] [place], [place] [id number] Shell[employer] Grower: Edna Sanchez MD WBC (Bld) [#/Vol] 16.0 10*3/uL High 3.5-11.3 [facility] Comment on above: Performed By: #### C RP, BMP, SED, CDP #### [facility] [address] [place], [place] [address]83 Shellfish Grower: Edna Sanchez MD Sedimentation Rateon 024 ESR Photometric method (Bld) [Velocity] 19 [facility] Sedimentation Rate 19 mm/Hr Normal 0-20 [facility] Comment on above: Performed By: #### C RP, BMP, SED, CDP #### [address] [place], [place] [id number] [employer] Grower: Edna Sanchez MD BUN + Creatinineon 4 Creatinine [Mass/Vol] 0.8 mg/dL Normal 0.5-0.[address] [facility] Comment on above: Performed By: #### B UNCRT #### [address] [place], [place] [id number] Shellfish Grower: Edna Sanchez MD GFR/1.73 sq M.predicted among non-blacks MDRD (S/P/Bld) [Vol rate/Area] mL/min/{1.73_m2} Normal >60 [facility] Comment on above: Result Comment: These results [...] secretion. Performed By: #### B UNCRT #### [facility] [address] [place] [address] Shellfish Grower: Edna Sanchez MD Urea nitrogen [Mass/Vol] 16 mg/dL Normal 6-20 [facility] Comment on above: Performed By: #### B UNCRT #### [facility] [address] [place] [address] Shellfish Grower: Edna Sanchez MD CTA HEAD NECK W [...] Casas MD Signed by: Frederick Casas MD 1/30/24 Final result Normal [facility] Cytology Cervical or vaginal smear or scraping studyon 01-24-2023 [facility] CBC AUTO DIFFon 10-21-2021 BASO # 0.1 103/ul Normal 0.0-0.1 [facility] Comment on above: Performed By: #### C BC #### [facility] [address] [place] [address] Dr. Ilsa Soto Basophils/100 WBC (Bld) 1.1 % Normal 0.2-2.0 [facility] Comment on above: Performed By: #### C BC #### [facility] [address] [place] [address] Dr. Ilsa Soto EO # 0.1 103/ul Normal 0.0-0.7 [facility] Comment on above: Performed By: #### C BC #### [facility] [address] [place] [address] Dr. Ilsa Soto Eosinophils/100 WBC (Bld) 2.0 % Normal 0.9-7.0 [facility] Comment on above: Performed By: #### C BC #### [facility] [address] [place] [address] Dr. Ilsa Soto Erythrocyte distribution width (RBC) [Ratio] 11.7 % Normal 11.0-15.0 [facility] Comment on above: Performed By: #### C BC #### [facility] [address] [place] [address] Dr. Ilsa Soto Hematocrit (Bld) [Volume fraction] 41.0 % Normal 36.0-48.0 [facility] Comment on above: Performed By: #### C BC #### [facility] [address] [place] [address] Dr. Ilsa Soto Hemoglobin (Bld) [Mass/Vol] 14.1 g/dL Normal 12.0-16.0 [facility] Comment on above: Performed By: #### C BC #### [facility] [address] [place] [address] Dr. Ilsa Soto IG # 0.02 10e3/ul Normal 0.00-0.03 [facility] Comment on above: Performed By: #### C BC #### [facility] [address] [place] [address] Dr. Ilsa Soto IG % 0.3 % Normal 0.0-0.5 [facility] Comment on above: Performed By: #### C BC #### [facility] [address] [place] [address] Dr. Ilsa Soto LYMPH # 2.3 103/ul Normal 1.2-3.8 [facility] Comment on above: Performed By: #### C BC #### [facility] [address] [place] [address] Dr. Ilsa Soto Lymphocytes/100 WBC (Bld) 32.4 % Normal 20.5-60.0 [facility] Comment on above: Performed By: #### C BC #### [facility] [address] [place] [address] Dr. Ilsa Soto MANUAL DIFF REQ NO Normal [facility] Comment on above: Performed By: #### C BC #### [facility] [address] [place] [address] Dr. Ilsa Soto MCH (RBC) [Entitic mass] 32.5 pg Normal 26.7-34.0 [facility] Comment on above: Performed By: #### C BC #### [facility] [address] [place] [address] Dr. Ilsa Soto MCHC (RBC) [Mass/Vol] 34.4 g/dL Normal 29.9-35.2 [facility] Comment on above: Performed By: #### C BC #### [facility] [address] [place] [address] Dr. Ilsa Soto MCV (RBC) [Entitic vol] 94.5 fL Normal 81.0-99.0 [facility] Comment on above: Performed By: #### C BC #### [facility] [address] [place] [address] Dr. Ilsa Soto MONO # 0.5 103/ul Normal 0.3-0.8 [facility] Comment on above: Performed By: #### C BC #### [facility] [address] [place] [address] Dr. Ilsa Soto Monocytes/100 WBC (Bld) 6.9 % Normal 1.7-12.0 [facility] Comment on above: Performed By: #### C BC #### [facility] [address] [place] [address] Dr. Ilsa Soto NEUT # 4.1 103/ul Normal 1.4-6.5 [facility] Comment on above: Performed By: #### C BC #### [facility] [address] [place] [address] Dr. Ilsa Soto Neutrophils/100 WBC (Bld) 57.3 % Normal 43.0-75.0 [facility] Comment on above: Performed By: #### C BC #### [facility] [address] [place] [address] Dr. Ilsa Soto Platelet mean volume (Bld) [Entitic vol] 9.3 fL Critically low 9.5-13.5 [facility] Comment on above: Performed By: #### C BC #### [facility] [address] [place] [address] Dr. Ilsa Soto PLT 272 103/ul Normal 150-450 [facility] Comment on above: Performed By: #### C BC #### [facility] [address] [place] [address] Dr. Ilsa Soto RBC 4.34 106/ul Normal 4.20-5.40 [facility] Comment on above: Performed By: #### C BC #### [facility] [address] [place] [address] Dr. Ilsa Soto WBC 7.1 103/ul Normal 4.0-11.0 [facility] Comment on above: Performed By: #### C BC #### [facility] [address] [place] [address] Dr. Ilsa Soto FREE T4on 10-21-2021 Free T4 [Mass/Vol] 1.14 ng/dL Normal 0.76-1.46 [facility] Comment on above: Performed By: #### P TT, PT #### [facility] [address] [place] [address] [address] Ilsa Soto GLYCOHEMOGLOBIN A1Con 2021 ADA RECOMMENDATION SEE BELOW Normal [facility] Comment on above: Result Comment: ADA RECOMMENDED LIMIT 4.0 - 6.0 ADA THERAPEUTIC TARGET < 7.0 ACTION SUGGESTED > 7.0 Performed By: #### P TT, PT #### [facility] [address] [address] [address] Ilsa Soto Glucose [Mass/Vol] 103 mg/dL Normal [facility] Comment on above: Performed By: #### P TT, PT #### [facility] [address] [place], [place] [address] Dr. Ilsa Soto HbA1c (Bld) [Mass fraction] 5.2 % Normal 4.5-6.2 [facility] Comment on above: Performed By: #### P TT, PT #### [facility] [address] [place] [address] [address] Ilsa Soto MG MAMM DIAGNOSTIC 3D SHERIF CA Don 10-21-2021 MG MAMM DIAGNOSTIC 3D SHERIF CAD Patient: FABI CONCEPCION Exam Date: 10/21/2021 : 1980 Gender:F Ordering : DR CEASAR SMITH . Admission #: [id number] Family : Order #: [id number] CLICK HERE TO VIEW EXAM RADIOLOGY REPORT [...] [facility] BREAST COMPOSITION: Heterogeneously dense,which may obscure small [...] LUMP SHOULD BE BIOPSIED. Dictated by: Edna Guillen MD on 10/21/2021 at 15:20 Approved by: Edna Guillen MD on 10/21/2021 at 15:25 Normal [facility] PREG QUANT HCGon 10-21-2021 HCG QUANT 1 mIU/mL Normal [facility] Comment on above: Performed By: #### P TT, PT #### [facility] [address] [place] [address] Dr. Ilsa Soto HCG RANGE SEE BELOW Normal [facility] Comment on above: Result Comment: 5-50 0.2-1 WEEK 50-500 1-2 WEEKS 100-5,000 2-3 WEEKS 500-10,000 3-4 WEEKS 1,000-50,000 4-5 WEEKS 10,000-100,000 5-6 WEEKS 15,000-200,000 6-8 WEEKS 10,000-100,000 2-3 MONTHS Performed By: #### P TT, PT #### [facility] [address] [place] [address] Dr. Ilsa Soto PROTIMEon 10-21-2021 INR Coag (PPP) [Relative time] 1.01 {INR} Normal [facility] Comment on above: Performed By: #### P TT, PT #### [facility] [address] [place] [address] Dr. Ilsa Soto INR GUIDELINES SEE BELOW Normal [facility] Comment on above: Result Comment: RODY RED INR: 2.0 - 3.0 CONDITIONS NOT LISTED BELOW 2.5 - 3.5 FOR PROSTHETIC HEART VALVE REPLACEMENT 2.5 - 3.5 RECURRENT THROMBOSIS Performed By: #### P TT, PT #### [facility] [address] [place] [address] Dr. Ilsa Soto PT Coag (PPP) [Time] 10.9 s Normal 9.0-11.6 [facility] Comment on above: Performed By: #### P TT, PT #### [facility] [address] [place], [place] [address] Dr. Ilsa Soto PTTon 10-21-2021 aPTT Coag (Bld) [Time] 27.5 s Normal 22.3-36.2 [facility] Comment on above: Performed By: #### P TT, PT #### [facility] [address] [place], [place] [address] Dr. Ilsa Soto TSHon 10-21-2021 TSH 1.571 uIU/mL Normal 0.358-3.740 [facility] Comment on above: Performed By: #### P TT, PT #### [facility] [address] [place], [place] [address] Dr. Ilsa Soto US BREAST SHERIF COMPLETEon US BREAST SHERIF COMPLETE Patient: FABI CONCEPCION Exam Date: 10/21/2021 : 1980 Gender:F Ordering : DR CEASAR SMITH . Admission #: [id number] Family : Order #: [id number] CLICK HERE TO VIEW EXAM RADIOLOGY REPORT [...] [facility] BREAST COMPOSITION: Heterogeneously dense,which may obscure small [...] LUMP SHOULD BE BIOPSIED. Dictated by: Edna Guillen MD on 10/21/2021 at 15:20 Approved by: Edna Guillen MD on 10/21/2021 at 15:25 Normal [facility] US PELVIS AND TRANSVAGon US PELVIS [...] no focal mass Electronically authenticated by: EDNA GUILLEN Date: 2021-10-21 16:18 Normal [facility] Complete Blood Count with Au to Diffon 06-14-2021 Basophils (Bld) [#/Vol] 0.07 10*3/uL Normal 0.00-0.20 [facility] Comment on above: Performed By: #### GADIEL WARNER Prof #### [facility] [address] [place] [address] Basophils/100 WBC (Bld) 1.2 % Normal [facility] Comment on above: Performed By: #### GADIEL WARNER Prof #### [facility] [address] [place] [address] Eosinophils (Bld) [#/Vol] 0.12 10*3/uL Normal 0.02-0.50 [facility] Comment on above: Performed By: #### GADIEL WARNER Prof #### [facility] [address] [place] [address] Eosinophils/100 WBC (Bld) 2.0 % Normal [facility] Comment on above: Performed By: #### GADIEL WARNER Prof #### [facility] [address] [place] [address] Erythrocyte distribution width (RBC) [Ratio] 12.7 % Normal 11.0-15.[address] [facility] Comment on above: Performed By: #### C REZA, FE Prof #### [facility] [address] [place] [address] Hematocrit (Bld) [Volume fraction] 44.4 % Normal 35.0-47.0 [facility] Comment on above: Performed By: #### C REZA, FE Prof #### [facility] [address] [place] [address] Hemoglobin (Bld) [Mass/Vol] 14.7 g/dL Normal 11.6-15.5 [facility] Comment on above: Performed By: #### C REZA, FE Prof #### [facility] [address] [place] [address] Lymphocytes (Bld) [#/Vol] 2.1 10*3/uL Normal 0.9-3.[address] [facility] Comment on above: Performed By: #### C REZA, FE Prof #### [facility] [address] [place] [address] Lymphocytes/100 WBC (Bld) 34.9 % Normal [facility] Comment on above: Performed By: #### C REZA, FE Prof #### [facility] [address] [place] [address] MCH (RBC) [Entitic mass] 30.8 pg Normal 27.0-33.0 [facility] Comment on above: Performed By: #### C REZA, FE Prof #### [facility] [address] [place] [address] MCHC (RBC) [Mass/Vol] 33.1 g/dL Normal 32.0-36.[address] [facility] Comment on above: Performed By: #### C REZA, FE Prof #### [facility] [address] [place] [address] MCV (RBC) [Entitic vol] 93 fL Normal 80-[address] [facility] Comment on above: Performed By: #### C REZA, FE Prof #### [facility] [address] [place] [address] Monocytes (Bld) [#/Vol] 0.5 10*3/uL Normal 0.2-0.9 [facility] Comment on above: Performed By: #### C REZA, FE Prof #### [facility] [address] [place] [address] Monocytes/100 WBC (Bld) 7.6 % Normal [facility] Comment on above: Performed By: #### C REZA, FE Prof #### [facility] [address] [place] [address] Neutrophils (Bld) [#/Vol] 3.3 10*3/uL Normal 1.5-7.[address] [facility] Comment on above: Performed By: #### C REZA, FE Prof #### [facility] [address] [place] [address] Neutrophils/100 WBC (Bld) 54.0 % Normal [facility] Comment on above: Performed By: #### Iseha COBB, FE Prof #### [facility] [address] [place] [address] Platelet mean volume (Bld) [Entitic vol] 10.10 fL Normal 7.50-12.50 [facility] Comment on above: Performed By: #### Iesha COBB, FE Prof #### [facility] [address] [place] [address] Platelets (Bld) [#/Vol] 255 10*3/uL Normal 140-[address] [facility] Comment on above: Performed By: #### Iesha COBB, FE Prof #### [facility] [address] [place] [address] RBC (Bld) [#/Vol] 4.77 10*6/uL Normal 3.90-5.20 [facility] Comment on above: Performed By: #### Iesha COBB, FE Prof #### [facility] [address] [place] [address] RDW-SD 43.6 fL Normal 37.0-50.[address] [facility] Comment on above: Performed By: #### Iesha COBB, FE Prof #### [facility] [address] [place] [address] WBC (Bld) [#/Vol] 6.1 10*3/uL Normal 3.8-11.0 [facility] [place] [facility] Comment on above: Performed By: #### Iesha COBB, FE Prof #### [facility] [address] [place] [address] Vitamin D 25-OHon 06-14-2021 VIT D 25 OH 60 ng/mL Normal 30-100 [facility] [employer] Comment on above: Order Comment: [facility] performed at: [employer], [employer] [facility], [address], [address] [facility], [place], [address], Sausage Smoker: Scout Lin MD [facility] Collection Date/Time: [id number] [facility] Results Received Date/Time: [facility] Reported Date/Time: Result Comment: Niru min D Status 25-OH Vitamin D: Deficiency: <20 ng/mL Insufficiency: 20 - 29 ng/mL Optimal: > or = 30 ng/mL For 25-OH Vitamin D testing on patients on D2-supplementation and patients for whom quantitation of D2 and D3 fractions is required, the QuestAssureD(TM) 25-OH VIT D, (D2,D3), LC/MS/MS is recommended: order code 58072 (patients >2yrs). See Note 1 Note 1 For additional information, please refer to http://education.Optony.myJambi/faq/XCS662 (This link is being provided for informational/ educational purposes only.) Performed By: #### V ITD #### [facility] [address] [place] [address] MG MAMM RT DIAG FUon 022 MG MAMM RT DIAG FU Patient: FABI CONCEPCION Exam Date: 04/08/2021 : 1980 Gender:F Ordering : DR CEASAR SMITH . Admission #: [id number] Family : Order #: [id number] CLICK HERE TO VIEW EXAM RADIOLOGY REPORT [...] [facility] BREAST COMPOSITION: Heterogeneously dense,which may obscure small [...] LUMP SHOULD BE BIOPSIED. Dictated by: Edna Guillen MD on 04/08/2021 at 11:44 Approved by: Edna Guillen MD on 04/08/2021 at 11:50 Normal [facility] US BREAST RIGHT LIMITEDon US BREAST RIGHT LIMITED Patient: FABI CONCEPCION Exam Date: 04/08/2021 : 1980 Gender:F Ordering : DR CEASAR SMITH . Admission #: [id number] Family : Order #: [id number] CLICK HERE TO VIEW EXAM RADIOLOGY REPORT [...] [facility] BREAST COMPOSITION: Heterogeneously dense,which may obscure small [...] LUMP SHOULD BE BIOPSIED. Dictated by: Edna Guillen MD on 04/08/2021 at 11:44 Approved by: Edna Guillen MD on 04/08/2021 at 11:50 Normal [facility] MAMM SCREEN 3D SHERIF CADon 03-28-2021 MG MAMM SCREEN 3D SHERIF CAD Patient: FABI CONCEPCION Exam Date: 03/28/2021 : 1980 Gender:F Ordering : DR CEASAR SMITH . Admission #: [id number] Family : Order #: [id number] CLICK HERE TO VIEW EXAM RADIOLOGY REPORT PROCEDURE: MAMMOGRAM SCREENING 3D BILATERAL CAD COMPARISON: MAMM SCREEN SHERIF W CAD, 2019. INDICATIONS: Screening mammography Calculator Name NCI Breast Cancer Risk Assessment Tool 5 Year Breast Cancer Risk 1.50% Lifetime Breast Cancer Risk 19.90% Personal Breast Cancer No Personal Ovarian Cancer No Treatments None Family Cancers Mother with breast cancer at age 60. LOCATION: [facility] BREAST COMPOSITION: Heterogeneously dense,which may obscure small masses. FINDINGS: DIAGNOSTIC CATEGORY 0--INCOMPLETE: NEED ADDITIONAL IMAGING EVALUATION. RIGHT BREAST: 9 mm spiculated asymmetry within the medial mid breast on the CC view, suspected to be within the lower breast on the MLO view. Tomographic views suggests this represents summation of overlapping fibroglandular tissue. Spot magnification views and ultrasound evaluation are recommended for further evaluation/confirmat ion. LEFT BREAST: No significant suspicious finding. No [...] Mclean M.D. on 03/29/2021 at 11:46 Normal [facility] Complete Blood Count with Au to Diffon 03-21-2021 BASOABS 52 cells/uL Normal 0-200 [facility] Comment on above: Order Comment: [facility] performed at: [email or web address], [email or web address] [facility], [address] [place] [address], [address] [place] [address], Sausage Smoker: Scout Lin MD [facility] Collection Date/Time: [facility] Results Received Date/Time: [facility] Reported Date/Time: Performed By: #### Iesha COBB FE Prof #### [facility] [address] [place] [address] Basophils/100 WBC (Bld) 1.2 % Normal [facility] Comment on above: Order Comment: [facility] performed at: [email or web address], [email or web address] [facility], [address] [facility], [address] [place] [address], [address] [place] [address], Sausage Smoker: Scout Lin MD [facility] Date/Time: [facility] Results Received Date/Time: [facility] Reported Date/Time: Performed By: #### C REZA FE Prof #### [facility] [address] [place] [address] EOSABS 103 cells/uL Normal 15-500 [facility] Comment on above: Order Comment: [facility] performed at: [employer] [facility], [address] , [address] [place] [address], [address] [place] [address], Sausage Smoker: Scout Lin MD [facility] Date/Time: [facility] Results Received Date/Time: [facility] Reported Date/Time: Performed By: #### Iesha COBB, FE Prof #### [facility] [address] [place] [address] Eosinophils/100 WBC (Bld) 2.4 % Normal [facility] [employer] Comment on above: Order Comment: [facility] performed at: [email or web address], [email or web address] [facility], [address] [place] [address], [address] [place] [address], [address] [place] [address], Sausage Smoker: Scout Lin MD [facility] Date/Time: [facility] Results Received Date/Time: [facility] Reported Date/Time: Performed By: #### Iesha COBB, FE Prof #### [facility] [address] [place] [address] Erythrocyte distribution width (RBC) [Ratio] 18.5 % High 11.0-15.0 [facility] [employer] Comment on above: Order Comment: [facility] performed at: [employer], [email or web address] [facility], [address] [place] [address], [address] [place] [address], [address] [place] [address], Sausage Smoker: Scout Lin MD [facility] Collection Date/Time: [facility] Results Received Date/Time: [facility] Reported Date/Time: Performed By: #### Iesha COBB, FE Prof #### [facility] Default [address] [place] [address] Hematocrit (Bld) [Volume fraction] 41.6 % Normal 35.0-45.0 [facility] Comment on above: Order Comment: [facility] Testing performed at: [email or web address], [email or web address], [address] [place] [address], [address] [place] [address], [address] [place] [address], Sausage Smoker: Scout Lin MD [facility] Collection Date/Time: [facility] Results Received Date/Time: [facility] Reported Date/Time: Performed By: #### Iesha COBB, FE Prof #### [facility] Default [address] [place] [address] Hemoglobin (Bld) [Mass/Vol] 13.6 g/dL Normal 11.7-15.5 [facility] Comment on above: Order Comment: [facility] Testing performed at: [email or web address], [email or web address], [address] , [address] [place] [address], [address] [place] [address], Sausage Smoker: Scout Lin MD [facility] Collection Date/Time: [facility] Results Received Date/Time: [facility] Reported Date/Time: Performed By: #### Iesha COBB, FE Prof #### [facility] Default [address] [place] [address] Lymphocytes (Bld) [#/Vol] 1.961 10*3/uL Normal 850-3900 [facility] Comment on above: Order Comment: [facility] Testing performed at: [email or web address], [email or web address], [address] , [address] [place] [address], [address] [place] [address], Sausage Smoker: Scout iLn MD [facility] Collection Date/Time: [facility] Results Received Date/Time: [facility] Reported Date/Time: Performed By: #### Iesha COBB, FE Prof #### [facility] Default [address] [place] [address] Lymphocytes/100 WBC (Bld) 45.6 % Normal [facility] Comment on above: Order Comment: [facility] Testing performed at: [email or web address], [email or web address], [address] , [address] [place] [address], [address] [place] [address], Sausage Smoker: Scout Lin MD [facility] Collection Date/Time: [facility] Results Received Date/Time: [facility] Reported Date/Time: Performed By: #### Iesha COBB, FE Prof #### [facility] Default [address] [place] [address] MCH (RBC) [Entitic mass] 28.5 pg Normal 27.0-33.0 [facility] Comment on above: Order Comment: [facility] Testing performed at: [email or web address], [email or web address], [address] , [address] [place] [address], [address] [place] [address], Sausage Smoker: Scout Lin MD [facility] Collection Date/Time: [facility] Results Received Date/Time: [facility] Reported Date/Time: Performed By: #### Iesha COBB, FE Prof #### [facility] Default [address] [place] [address] MCHC (RBC) [Mass/Vol] 32.7 g/dL Normal 32.0-36.[address] [facility] Comment on above: Order Comment: [facility] Testing performed at: [email or web address], [email or web address], [address] [place] [address], [address] [place] [address], [address] [place] [address], Sausage Smoker: Scout Lin MD [facility] Collection Date/Time: [facility] Results Received Date/Time: [facility] Reported Date/Time: Performed By: #### Iesha COBB, FE Prof #### [facility] Default [address] [place] [address] MCV (RBC) [Entitic vol] 87.0 fL Normal 80.0-100.0 [facility] Specialist Comment on above: Order Comment: [facility] Testing performed at: [email or web address], [email or web address], [address] [place] [address], [address] [place] [address], [address] [place] [address], Sausage Smoker: Scout Lin MD [facility] Collection Date/Time: [facility] Results Received Date/Time: [facility] Reported Date/Time: Performed By: #### Iesha COBB, FE Prof #### [facility] Default [address] [place] [address] MONOABS 353 cells/uL Normal 200-950 [facility] Comment on above: Order Comment: [facility] Testing performed at: [email or web address], [email or web address], [address] [place] [address], [address] [place] [address], [address] [place] [address], Sausage Smoker: Scout Lin MD [facility] Collection Date/Time: [facility] Results Received Date/Time: [facility] Reported Date/Time: Performed By: #### Iesha COBB, FE Prof #### [facility] Default [address] [place] [address] Monocytes/100 WBC (Bld) 8.2 % Normal [facility] Specialist Comment on above: Order Comment: [facility] Testing performed at: [email or web address], [email or web address], [address] [facility], [address] [place] [address], [address] [place] [address], Sausage Smoker: Scout Lin MD [facility] Collection Date/Time: [facility] Results Received Date/Time: [facility] Reported Date/Time: Performed By: #### Iesha COBB, FE Prof #### [facility] Default [address] [place] [address] Neutrophils (Bld) [#/Vol] 1.832 10*3/uL Normal 5114-5697 [facility] Specialist Comment on above: Order Comment: [facility] Testing performed at: [email or web address], [email or web address], [address] [place] [address], [address] [place] [address], [address] [place] [address], Sausage Smoker: Scout Lin MD [facility] Collection Date/Time: [facility] Results Received Date/Time: [facility] Reported Date/Time: Performed By: #### Iesha COBB, FE Prof #### [facility] Default [address] [place] [address] Neutrophils/100 WBC (Bld) 42.6 % Normal [facility] Specialist Comment on above: Order Comment: [facility] Testing performed at: [email or web address], [email or web address], [address] [place] [address], [address] [place] [address], [address] [place] [address], Sausage Smoker: Scout Lin MD [facility] Collection Date/Time: [facility] Results Received Date/Time: [facility] Reported Date/Time: Performed By: #### Iesha COBB, FE Prof #### [facility] Default [address] [place] [address] Platelet mean volume (Bld) [Entitic vol] 10.7 fL Normal 7.5-12.5 [facility] Comment on above: Order Comment: [facility] Testing performed at: [employer] [employer] [facility], [address] , [address] [place] [address], [address] [place] [address], Sausage Smoker: Scout Lin MD [facility] Collection Date/Time: [facility] Results Received Date/Time: [facility] Reported Date/Time: Performed By: #### Iesha COBB, FE Prof #### [facility] Default [address] [place] [address] Platelets (Bld) [#/Vol] 265 10*3/uL Normal 140-[address] [facility] Comment on above: Order Comment: [facility] Testing performed at: [employer], [employer] [facility] [facility], [address] , [address] [place] [address], [address] [place] [address], Sausage Smoker: Scout Lin MD [facility] Collection Date/Time: [facility] Results Received Date/Time: [facility] Reported Date/Time: Performed By: #### Iesha COBB, FE Prof #### [facility] Default [address] [place] [address] RBC (Bld) [#/Vol] 4.78 10*6/uL Normal 3.80-5.10 [facility] Comment on above: Order Comment: [facility] Testing performed at: [email or web address], [email or web address], [address] , [address] [place] [address], [address] [place] [address], Sausage Smoker: Scout Lin MD [facility] Collection Date/Time: [facility] Results Received Date/Time: [facility] Reported Date/Time: Performed By: #### Iesha COBB, FE Prof #### [facility] Default [address] [place] [address] WBC (Bld) [#/Vol] 4.3 10*3/uL Normal 3.8-10.8 [facility] Comment on above: Order Comment: [facility] Testing performed at: [employer], [employer] [facility] [facility], [address] , [address] [place] [address], [address] [place] [address], Sausage Smoker: Scout Lin MD [facility] Collection Date/Time: [facility] Results Received Date/Time: [facility] Reported Date/Time: Performed By: #### Iesha BCAD, FE Prof #### [facility] Default [address] [place] [address] Iron Profileon 03-21-2021 % SATURATION 26 % (calc) Normal 16-45 [facility] Comment on above: Order Comment: [facility] Testing performed at: [email or web address], [email or web address], [address] [place] [address], [address] [place] [address], [address] [place] [address], Sausage Smoker: Scout Lin MD [facility] Collection Date/Time: [facility] Results Received Date/Time: [facility] Reported Date/Time: Performed By: #### C URBAND, FE Prof #### [facility] Default [address] [id number] FE 85 mcg/dL Normal 40-190 [facility] Comment on above: Order Comment: [facility] Testing performed at: [email or web address], [email or web address], [address] [place] [address], [address] [place] [address], [address] [place] [address], Sausage Smoker: Scout Lin MD [facility] Collection Date/Time: [facility] Results Received Date/Time: [facility] Reported Date/Time: Performed By: #### C BCAD, FE Prof #### [facility] Default [address] [id number] IRON BINDING CAPACITY 325 mcg/dL (calc) Normal 250-450 [facility] Comment on above: Order Comment: [facility] Testing performed at: [email or web address], [email or web address], [address] [place] [address], [address] [place] [address], [address] [place] [address], Sausage Smoker: Scout Lin MD [facility] Collection Date/Time: [facility] Results Received Date/Time: [facility] Reported Date/Time: Performed By: #### C BCAD, FE Prof #### [facility] Default [address] [place] [address] Q - UR CULT REFLEXon 022 REFLEXIVE URINE CULTURE SEE NOTE Normal [facility] Comment on above: Order Comment: [facility] Testing performed at: [email or web address], [email or web address], [address] , [address] [place] [address], [address] [place] [address], Sausage Smoker: Scout Lin MD [facility] Collection Date/Time: [facility] Results Received Date/Time: [facility] Reported Date/Time: Result Comment: NO C ULTURE INDICATED Performed By: #### C REZA, FE Prof #### [facility] Default [address] [place] [address] Q - URINALYSIS,COMPLETE,WITH REFLEX TO CULTUREon 03-21-2021 Appearance (U) CLOUDY Abnormal CLEAR [facility] Specialist Comment on above: Order Comment: [facility] Testing performed at: [email or web address], [email or web address], [address] , [address] [place] [address], [address] [place] [address], Sausage Smoker: Scout Lin MD [facility] Collection Date/Time: [facility] Results Received Date/Time: [facility] Reported Date/Time: Performed By: #### C REZA, FE Prof #### [facility] Default [address] [place] [address] BACTERIA MANY Abnormal NONE SEEN [facility] Comment on above: Order Comment: [facility] Testing performed at: [email or web address], [email or web address], [address] , [address] [place] [address], [address] [place] [address], Sausage Smoker: Scout Lin MD [facility] Collection Date/Time: [facility] Results Received Date/Time: [facility] Reported Date/Time: Performed By: #### C URBAND, FE Prof #### [facility] Default [address] [place] [address] Bilirubin Ql (U) Negative Normal NEGATIVE [facility] Comment on above: Order Comment: [facility] Testing performed at: [email or web address], [email or web address], [address] [place] [address], [address] [place] [address], [address] [place] [address], Sausage Smoker: Scout Lin MD [facility] Collection Date/Time: [facility] Results Received Date/Time: [facility] Reported Date/Time: Performed By: #### Iesha COBB, FE Prof #### [facility] Default [address] [place] [address] CALCIUM OXALATE CRYSTALS FEW Normal NONE OR FEW [facility] Comment on above: Order Comment: [facility] Testing performed at: [email or web address], [email or web address], [address] [place] [address], [address] [place] [address], [address] [place] [address], Sausage Smoker: Scout Lin MD [facility] Collection Date/Time: [facility] Results Received Date/Time: [facility] Reported Date/Time: Performed By: #### Iesha COBB, FE Prof #### [facility] Default [address] [place] [address] Color (U) YELLOW Normal YELLOW [facility] Comment on above: Order Comment: [facility] Testing performed at: [email or web address], [email or web address], [address] [place] [address], [address] [place] [address], [address] [place] [address], Sausage Smoker: Scout Lin MD [facility] Collection Date/Time: [facility] Results Received Date/Time: [facility] Reported Date/Time: Performed By: #### Iesha COBB, FE Prof #### [facility] Default [address] [place] [address] Glucose Ql (U) Negative Normal NEGATIVE [facility] Manager Studio Comment on above: Order Comment: [facility] Testing performed at: [email or web address], [email or web address], [address] [place] [address], [address] [place] [address], [address] [place] [address], Sausage Smoker: Scout Lin MD [facility] Collection Date/Time: [facility] Results Received Date/Time: [facility] Reported Date/Time: Performed By: #### Iesha COBB, FE Prof #### [facility] Default [address] [place] [address] HYALINE CAST NONE SEEN Normal NONE SEEN [facility] Manager [facility] Comment on above: Order Comment: Quest Testing performed at: [employer], [email or web address], [address] [place] [address], [address] [place] [address], [address] [place] [address], Sausage Smoker: Scout Lin MD [facility] Collection Date/Time: [facility] Results Received Date/Time: [facility] Reported Date/Time: Performed By: #### Iesha COBB, FE Prof #### [facility] Default [address] [place] [address] Ketones Ql (U) Negative Normal NEGATIVE [facility] Manager [facility] Comment on above: Order Comment: Quest Testing performed at: [facility], [email or web address], [address] [place] [address], [address] [place] [address], [address] [place] [address], Sausage Smoker: Scout Lin MD [facility] Collection Date/Time: [facility] Results Received Date/Time: [facility] Reported Date/Time: Performed By: #### Iesha COBB, FE Prof #### [facility] Default [address] [place] [address] Leukocyte esterase Test strip Ql (U) Negative Normal NEGATIVE [facility] Comment on above: Order Comment: [facility] Testing performed at: [email or web address], [email or web address], [address] [place] [address], [address] [place] [address], [address] [place] [address], Sausage Smoker: Scout Lin MD [facility] Collection Date/Time: Quest Results Received Date/Time: [facility] Reported Date/Time: Performed By: #### Iesha COBB, FE Prof #### [facility] Default [address] [place] [address] Nitrite Ql (U) Positive Abnormal NEGATIVE [facility] Manager [facility] Comment on above: Order Comment: [facility] Testing performed at: [email or web address], [email or web address], [address] [facility], [address] [place] [address], [address] [place] [address], Sausage Smoker: Scout Lin MD [facility] Collection Date/Time: [facility] Results Received Date/Time: [facility] Reported Date/Time: Performed By: #### C REZA, FE Prof #### [facility] Default [address] [place] [address] OCCULT BLOOD Negative Normal NEGATIVE [facility] Comment on above: Order Comment: [facility] Testing performed at: [facility], [email or web address], [address] [place] [address], [address] [place] [address], [address] [place] [address], Sausage Smoker: Scout Lin MD [facility] Collection Date/Time: [facility] Results Received Date/Time: [facility] Reported Date/Time: Performed By: #### C REZA, FE Prof #### [facility] Default [address] [place] [address] pH (U) 5.5 [pH] Normal 5.0-8.0 [facility] Comment on above: Order Comment: [facility] Testing performed at: [facility], [email or web address], [address] [place] [address], [address] [place] [address], [address] [place] [address], Sausage Smoker: Scout Lin MD [facility] Collection Date/Time: [facility] Results Received Date/Time: [facility] Reported Date/Time: Performed By: #### C REZA, FE Prof #### [facility] Default [address] [place] [address] Protein Ql (U) Negative Normal NEGATIVE [facility] Manager Studio Comment on above: Order Comment: [facility] Testing performed at: [facility], [email or web address], [address] [place] [address], [address] [place] [address], [address] [place] [address], Sausage Smoker: Scout Lin MD [facility] Collection Date/Time: [facility] Results Received Date/Time: [facility] Reported Date/Time: [id number] Performed By: #### C BCAD, FE Prof #### [facility] Default [address] [place] [address] RBC NONE SEEN Normal < OR = 2 [facility] Manager [facility] Comment on above: Order Comment: [facility] Testing performed at: [email or web address], [email or web address], [address] [place] [address], [address] [place] [address], [address] [place] [address], Sausage Smoker: Scout Lin MD [facility] Collection Date/Time: [facility] Results Received Date/Time: [facility] Reported Date/Time: Performed By: #### Iesha COBB, FE Prof #### [facility] Default [address] [place] [address] Specific gravity (U) [Rel density] 1.019 Normal 1.001-1.035 [facility] Manager [facility] Comment on above: Order Comment: Quest Testing performed at: [employer], [email or web address], [address] [place] [address], [address] [place] [address], [address] [place] [address], Sausage Smoker: Scout Lin MD [facility] Collection Date/Time: [facility] Results Received Date/Time: [facility] Reported Date/Time: Performed By: #### Iesha COBB, FE Prof #### [facility] Default [address] [place] [address] SQUAMOUS EPITHELIAL CELLS 0-5 Normal < OR = 5 [facility] Comment on above: Order Comment: [facility] Testing performed at: [email or web address], [email or web address], [address] [place] [address], [address] [place] [address], [address] [place] [address], Sausage Smoker: Scout Lin MD [facility] Collection Date/Time: [facility] Results Received Date/Time: [facility] Reported Date/Time: Performed By: #### Iesha COBB, FE Prof #### [facility] Default [address] [place] [address] WBC 0-5 Normal < OR = 5 [facility] Manager [facility] Comment on above: Order Comment: [facility] Testing performed at: [email or web address], [facility], [facility] [address], [address] [facility], [place], [address], Sausage Smoker: Scout Lin MD [facility] Collection Date/Time: [facility] Results Received Date/Time: [facility] Reported Date/Time: Performed By: #### C URBAND, FE Prof #### [facility] Default [address] [place] [address] PAP ACOG PANEL 2: 30 to 65on 03-11-2021 . . Normal [facility] Comment on above: Result Comment: Perf ormed at: WB Performed By: #### [id number] #### [facility] [address] [address] [address] Ilsa Soto Age Gdln ACOG Testing - [facility] Comment on above: Performed By: #### [id number] #### [facility] [address] [address] [address] Ilsa Soto DIAGNOSIS: Comment Normal [facility] Comment on above: Result Comment: NEGA TIVE FOR INTRAEPITHELIAL LESION OR MALIGNANCY. Performed at: WB Performed By: #### [id number] #### [facility] [address] [address] [address] Ilsa Soto HPV Aptima Negative Normal [facility] Comment on above: Result Comment: This nucleic acid amplification test detects fourteen high-risk HPV types (16,18,31,33,35,39,45,51,52,56,58,59,66,68) without differentiation. Performed at: =G Performed By: #### [id number] #### [facility] [address] [address] [address] Ilsa Soot Methodology: Comment [facility] Comment on above: Result Comment: This liquid based ThinPrep(R) pap test was screened with the use of an image guided system. Performed at: WB Performed By: #### [id number] #### [facility] [address] [address] [address] Ilsa Soto Note: Comment Normal [facility] Comment on above: Result Comment: The Pap smear is a screening test designed to aid in the detection of premalignant and malignant conditions of the uterine cervix. It is not a diagnostic procedure and should not be used as the sole means of detecting cervical cancer. Both false-positive and false-negative reports do occur. . Performed at: WB Performed By: #### [id number] #### [facility] [address] [place] [address] Dr. Ilsa Soto Performed by: Comment Normal [facility] Comment on above: Result Comment: Shai Rodriguez, Medical Physics Professor (ASCP) Performed at: WB Performed By: #### [id number] #### [facility] [address] [place] [address] Dr. Ilsa Soto Specimen adequacy: Comment Normal [facility] Comment on above: Result Comment: Sati sfactory for evaluation. Endocervical and/or squamous metaplastic cells (endocervical component) are present. Performed at: WB Performed By: #### [id number] #### [facility] [address] [place] [address] Dr. Ilsa Soto Complete Blood Counton 01-24 Erythrocyte distribution width (RBC) [Ratio] 13.8 % Normal 11.0-15.0 [facility] Comment on above: Performed By: #### C GADIEL COBB Prof #### [facility] Default [address] [place] [address] Hematocrit (Bld) [Volume fraction] 33.9 % Low 35.0-47.0 [facility] Comment on above: Performed By: #### C GADIEL COBB Prof #### [facility] Default [address] [place] [address] Hemoglobin (Bld) [Mass/Vol] 10.7 g/dL Low 11.6-15.5 [facility] Specialist Comment on above: Performed By: #### C GADIEL COBB Prof #### [facility] Default [address] [place] [address] MCH (RBC) [Entitic mass] 27.1 pg Normal 27.0-33.0 [facility] Comment on above: Performed By: #### C GADIEL COBB Prof #### [facility] Default [address] [place] [address] MCHC (RBC) [Mass/Vol] 31.6 g/dL Low 32.0-36.[address] [facility] Comment on above: Performed By: #### C REZA, FE Prof #### [facility] Default [address] [place] [address] MCV (RBC) [Entitic vol] 86 fL Normal 80-100 [facility] Specialist Comment on above: Performed By: #### C REZA, FE Prof #### [facility] Default [address] [place] [address] Platelet mean volume (Bld) [Entitic vol] 10.10 fL Normal 7.50-12.50 [facility] Comment on above: Performed By: #### C REZA, FE Prof #### [facility] Default [address] [place] [address] Platelets (Bld) [#/Vol] 335 10*3/uL Normal 140-400 [facility] Specialist Comment on above: Performed By: #### C REZA, FE Prof #### [facility] [address] [place] [address] RBC (Bld) [#/Vol] 3.95 10*6/uL Normal 3.90-5.20 [facility] Specialist Comment on above: Performed By: #### C REZA, FE Prof #### [facility] [address] [place] [address] RDW-SD 43.7 fL Normal 37.0-50.0 [facility] Specialist Comment on above: Performed By: #### C REZA, FE Prof #### [facility] [address] [place] [address] WBC (Bld) [#/Vol] 3.6 10*3/uL Low 3.8-11.0 [facility] Comment on above: Performed By: #### C REZA, FE Prof #### [facility] [address] [place] [address] Comprehensive Metabolic Pane catrachita 01-24-2021 Albumin [Mass/Vol] 4.4 g/dL Normal 3.6-5.1 [facility] Comment on above: Performed By: #### C MP, TSH, FT4, VITD, LIPD, CBC #### [facility] [address] [place], [place] [id number] Albumin/Globulin [Mass ratio] 1.8 {ratio} Normal 1.0-2.[address] [facility] Comment on above: Performed By: #### C MP, TSH, FT4, VITD, LIPD, CBC #### [facility] [address] [place], [place] [id number] ALP [Catalytic activity/Vol] 84 U/L Normal 35-[address] [facility] Comment on above: Performed By: #### C MP, TSH, FT4, VITD, LIPD, CBC #### [facility] [address] [place], [place] [id number] ALT [Catalytic activity/Vol] 17 U/L Normal 6-[address] [facility] Comment on above: Result Comment: 01/05 Female reference range changed. Performed By: #### C MP, TSH, FT4, VITD, LIPD, CBC #### [facility] [address] [place], [place] [id number] Anion gap [Moles/Vol] 16 mmol/L Normal 12-[address] [facility] Comment on above: Result Comment: Effe ctive 02/10/2019 reference range changed. Performed By: #### C MP, TSH, FT4, VITD, LIPD, CBC #### [facility] [address] [place], [place] [id number] AST [Catalytic activity/Vol] 16 U/L Normal 9-[address] [facility] Comment on above: Performed By: #### C MP, TSH, FT4, VITD, LIPD, CBC #### [facility] [address] [place], [place] [id number] BUN/CREA 14 Ratio Normal 6-[address] [facility] Comment on above: Performed By: #### C MP, TSH, FT4, VITD, LIPD, CBC #### [facility] [address] [place], [place] [id number] Calcium [Mass/Vol] 9.4 mg/dL Normal 8.6-10.2 [facility] Comment on above: Performed By: #### C MP, TSH, FT4, VITD, LIPD, CBC #### [facility] [address] [place], [place] [id number] Chloride [Moles/Vol] 105 mmol/L Normal 98-107 [facility] Comment on above: Performed By: #### C MP, TSH, FT4, VITD, LIPD, CBC #### [facility] [address] [place], [place] [id number] CO2 [Moles/Vol] 21 mmol/L Normal 20-[address] [facility] Comment on above: Performed By: #### C MP, TSH, FT4, VITD, LIPD, CBC #### [facility] [address] [place], [place] [id number] Creatinine [Mass/Vol] 0.8 mg/dL Normal 0.6-1.[address] [facility] Comment on above: Performed By: #### C MP, TSH, FT4, VITD, LIPD, CBC #### [facility] [address] [place], [place] [id number] eGFRAA 94 mL/min/1.73m2 Normal >[address] [facility] Comment on above: Performed By: #### C MP, TSH, FT4, VITD, LIPD, CBC #### [facility] [address] [place], [place] [id number] eGFRNAA 78 mL/min/1.73m2 Normal >[address] [facility] Comment on above: Performed By: #### C MP, TSH, FT4, VITD, LIPD, CBC #### [facility] [address] [place], [place] [id number] Globulin (S) [Mass/Vol] 2.5 g/dL Normal 1.9-3.[address] [facility] Comment on above: Performed By: #### C MP, TSH, FT4, VITD, LIPD, CBC #### [facility] [address] [place], [place] [id number] Glucose [Mass/Vol] 101 mg/dL High 65-99 [facility] Comment on above: Result Comment: For FASTING Glucose --- ADA reference ranges: Normal 65-99 mg/dl Prediabetes 100-125 Diabetes >/= 126 Performed By: #### C MP, TSH, FT4, VITD, LIPD, CBC #### [facility] [address] [place], [place] [id number] Potassium [Moles/Vol] 3.9 mmol/L Normal 3.5-5.5 [facility] Comment on above: Performed By: #### C MP, TSH, FT4, VITD, LIPD, CBC #### [facility] [address] [place], [place] [id number] Protein [Mass/Vol] 6.9 g/dL Normal 6.1-8.1 [facility] Comment on above: Performed By: #### C MP, TSH, FT4, VITD, LIPD, CBC #### [facility] [address] [place], [place] [id number] Sodium [Moles/Vol] 139 mmol/L Normal 135-146 [employer] [place] [facility] Comment on above: Performed By: #### C MP, TSH, FT4, VITD, LIPD, CBC #### [facility] [address] [place], [place] [id number] TBIL <0.3 Normal [facility] Specialist Comment on above: Performed By: #### C MP, TSH, FT4, VITD, LIPD, CBC #### [facility] [address] [place], [place] [id number] Urea nitrogen [Mass/Vol] 11 mg/dL Normal 7-25 [facility] Manager Studio Comment on above: Performed By: #### C MP, TSH, FT4, VITD, LIPD, CBC #### [facility] [address] [place], [place] [id number] Free T4on 01-24-2021 Free T4 [Mass/Vol] 1.10 ng/dL Normal 0.80-1.80 [facility] Comment on above: Performed By: #### C MP, TSH, FT4, VITD, LIPD, CBC #### [facility] [address] [place], [place] [id number] Lipid Panelon 01-24-2021 Cholesterol [Mass/Vol] 215 mg/dL High 125-200 [facility] Manager [facility] Comment on above: Result Comment: Low risk < 200mg/dL Borderline risk 201-239 mg/dl High risk > or equal to 240 Performed By: #### C REZA, FE Prof #### [facility] [address] [place] [address] Cholesterol in HDL [Mass/Vol] 65 mg/dL Normal >40 [facility] Specialist Comment on above: Result Comment: High Cardiovascular Risk HDL <40 mg/dL Low Cardiovascular Risk HDL > or equal to 60 mg/dl Performed By: #### C REZA, FE Prof #### [facility] [address] [place] [address] Cholesterol in LDL [Mass/Vol] 132 mg/dL Normal [facility] Specialist Comment on above: Result Comment: LDL ATP III CLASSIFICATION LDL less than 100 mg/dl Optimal LDL 100-129 mg/dl Near or above optimal LDL 130-159 Borderline high LDL 160-189 High LDL greater than 189 mg/dl Very High Performed By: #### C REZA, FE Prof #### [facility] [address] [place] [address] Cholesterol in VLDL [Mass/Vol] 18 mg/dL Normal [facility] Specialist Comment on above: Performed By: #### Iesha COBB, FE Prof #### [facility] [address] [place] [address] Cholesterol.total/Cho lesterol in HDL [Mass ratio] 3 {ratio} Normal [facility] Specialist Comment on above: Performed By: #### Iesha COBB, FE Prof #### [facility] [address] [place] [address] Triglyceride [Mass/Vol] 91 mg/dL Normal 30-150 [facility] Specialist Comment on above: Result Comment: TRIG ATPIII CLASSIFICATIONS TRIG less than 150 mg/dl Normal TRIG 150-199 mg/dl Borderline High TRIG 200-500 mg/dl High TRIG greather than 500 mg/dl Very High Performed By: #### Iesha COBB, FE Prof #### [facility] [address] [place] [address] Q - CULTURE,URINE,ROUTINEon 01-24-2021 CULTURE, URINE, ROUTINE SEE NOTE Abnormal [facility] Specialist Comment on above: Order Comment: [facility] performed at: QPT, [facility] [facility], [address] [facility], [address] [facility], [place], [address], [place]age Smoker: Scout Merati MD [facility] Date/Time: [id number] [facility] Results Received Date/Time: [facility] Reported Date/Time: Result Comment: CULT URE, URINE, ROUTINE Micro Number: [id number] Test Status: Final Specimen Source: Urine Specimen [...] 3020X, %SBCULI #### [facility] [address] [place] [address] Q - UR CULT [id number] REFLEXIVE URINE CULTURE SEE NOTE Normal [facility] Specialist Comment on above: Order Comment: [facility] performed at: [facility]PT, [facility], [address] [place] [address], [address] [place] [address], [place], [address], [place] Smoker: Scout Lin MD [facility] Date/Time: [facility] Results Received Date/Time: [facility] Reported Date/Time: Result Comment: CULT URE INDICATED - RESULTS TO FOLLOW Performed By: #### 6 304R, 3020X, %SBCULI #### [facility] [address] [place] [address] Q - URINALYSIS,COMPLETE,WITH REFLEX TO CULTUREon 01-24-2021 Appearance (U) CLOUDY Abnormal CLEAR [facility] Manager Studio Comment on above: Order Comment: [facility] performed at: [email or web address], [email or web address] [facility], [address] , [address] [place] [address], [address] [place] [address], [place] Smoker: Scout Lin MD [facility] Date/Time: [facility] Results Received Date/Time: [facility] Reported Date/Time: Performed By: #### 6 304R, 3020X, %SBCULI #### [facility] [address] [place] [address] BACTERIA MANY Abnormal NONE SEEN [facility] Manager Studio Comment on above: Order Comment: [facility] performed at: [email or web address], [email or web address] [facility], [address] , [address] [place] [address], [address] [place] [address], [place] Smoker: Scout Lin MD [facility] Date/Time: [facility] Results Received Date/Time: [facility] Reported Date/Time: Performed By: #### 6 304R, 3020X, %SBCULI #### [facility] [address] [place] [address] Bilirubin Ql (U) Negative Normal NEGATIVE [facility] Manager Studio Comment on above: Order Comment: [facility] performed at: [email or web address], [email or web address], [address] , [address] [place] [address], [address] [place] [address], [place] Smoker: Scout Lin MD [facility] Date/Time: [facility] Received Date/Time: [facility] Reported Date/Time: Performed By: #### 6 304R, 3020X, %SBCULI #### [facility] [address] [place] [address] Color (U) YELLOW Normal YELLOW [facility] Manager Studio Comment on above: Order Comment: [facility] performed at: [email or web address], [email or web address] [facility], [address] , [address] [place] [address], [address] [place] [address], [place] Smoker: Scout Lin MD [facility] Date/Time: [facility] Results Received Date/Time: [facility] Reported Date/Time: Performed By: #### 6 304R, 3020X, %SBCULI #### [facility] [address] [place] [address] Glucose Ql (U) Negative Normal NEGATIVE [facility] Manager Studio Comment on above: Order Comment: [facility] performed at: [email or web address], [email or web address] [facility], [address] [place] [address], [address] [place] [address], [address] [place] [address], [place] Smoker: Scout Lin MD [facility] Date/Time: [facility] Results Received Date/Time: [facility] Reported Date/Time: Performed By: #### 6 304R, 3020X, %SBCULI #### [facility] [address] [place] [address] HYALINE CAST 1-3 Abnormal NONE SEEN [facility] Manager Studio Comment on above: Order Comment: [facility] performed at: [email or web address], [email or web address], [address] [facility], [address] [place] [address], [address] [place] [address], [place] Smoker: Scout Lin MD [facility] Date/Time: [facility] Results Received Date/Time: [facility] Reported Date/Time: Performed By: #### 6 304R, 3020X, %SBCULI #### [facility] [address] [place] [address] Ketones Ql (U) TRACE Abnormal NEGATIVE [facility] Manager Studio Comment on above: Order Comment: [facility] performed at: [employer], [email or web address], [address], [address] [place] [address], [address] [place] [address], [place] Smoker: Scout Lin MD [facility] Date/Time: [facility] Results Received Date/Time: [facility] Reported Date/Time: Performed By: #### 6 304R, 3020X, %SBCULI #### [facility] Default [address] [place] [address] Leukocyte esterase Test strip Ql (U) TRACE Abnormal NEGATIVE [facility] Manager Studio Comment on above: Order Comment: [facility] performed at: [email or web address], [email or web address], [address] , [address] [place] [address], [address] [place] [address], [place] Smoker: Scout Lin MD [facility] Date/Time: [facility] Results Received Date/Time: [facility] Reported Date/Time: Performed By: #### 6 304R, 3020X, %SBCULI #### [facility] Default [address] [place] [address] Nitrite Ql (U) Positive Abnormal NEGATIVE [facility] Manager Studio Comment on above: Order Comment: [facility] performed at: [email or web address], [email or web address], [address], [address] [place] [address], [address] [place] [address], [place] Smoker: Scout Lin MD [facility] Date/Time: [facility] Results Received Date/Time: [facility] Reported Date/Time: Performed By: #### 6 304R, 3020X, %SBCULI #### [facility] [address] [place] [address] OCCULT BLOOD 2+ Abnormal NEGATIVE [facility] Manager Studio Comment on above: Order Comment: [facility] performed at: [employer], [email or web address], [address], [address] [place] [address], [address], [place] Smoker: Scout Lin MD [facility] Date/Time: [facility] Results Received Date/Time: [facility] Reported Date/Time: Performed By: #### 6 304R, 3020X, %SBCULI #### [facility] Default [address] [place] [address] pH (U) [pH] Normal 5.0-8.0 [facility] Manager Studio Comment on above: Order Comment: [facility] performed at: [email or web address], [email or web address], [address] , [address] [place] [address], [address] [place] [address], [place] Smoker: Scout Lin MD [facility] Date/Time: [facility] Results Received Date/Time: [facility] Reported Date/Time: Performed By: #### 6 304R, 3020X, %SBCULI #### [facility] Default [address] [place] [address] Protein Ql (U) Negative Normal NEGATIVE [facility] Specialist Comment on above: Order Comment: [facility] performed at: [email or web address], [email or web address], [address] , [address] [place] [address], [address] [place] [address], [place] Smoker: Scout Lin MD [facility] Date/Time: [facility] Results Received Date/Time: [facility] Reported Date/Time: Performed By: #### 6 304R, 3020X, %SBCULI #### [facility] Default [address] [place] [address] RBC 0-2 Normal < OR = 2 [facility] Manager Studio Comment on above: Order Comment: [facility] performed at: [email or web address], [email or web address], [address] , [address] [place] [address], [address] [place] [address], [place] Smoker: Scout Lin MD [facility] Date/Time: [facility] Results Received Date/Time: [facility] Reported Date/Time: Performed By: #### 6 304R, 3020X, %SBCULI #### [facility] Default [address] [place] [address] Specific gravity (U) [Rel density] 1.021 Normal 1.001-1.035 [facility] Specialist Comment on above: Order Comment: [facility] performed at: [email or web address], [email or web address], [address] [place] [address], [address] [place] [address], [address] [place] [address], [place] Smoker: Scout Lin MD [facility] Date/Time: [facility] Results Received Date/Time: [facility] Reported Date/Time: Performed By: #### 6 304R, 3020X, %SBCULI #### [facility] Default [address] [place] [address] SQUAMOUS EPITHELIAL CELLS 40-60 Abnormal < OR = 5 [facility] Specialist Comment on above: Order Comment: [facility] performed at: [email or web address], [email or web address], [address] [place] [address], [address] [place] [address], [address] [place] [address], [place] Smoker: Scout Lin MD [facility] Date/Time: [facility] Results Received Date/Time: [facility] Reported Date/Time: Performed By: #### 6 304R, 3020X, %SBCULI #### [facility] Default [address] [place] [address] WBC 0-5 Normal < OR = 5 [facility] Specialist Comment on above: Order Comment: [facility] performed at: [email or web address], [email or web address], [address] [place] [address], [address] [place] [address], [address] [place] [address], [place] Smoker: Scout Lin MD [facility] Date/Time: [facility] Results Received Date/Time: [facility] Reported Date/Time: Performed By: #### 6 304R, 3020X, %SBCULI #### [facility] Default [address] [place] [address] TSHon 01-24-2021 TSH 2.230 uIU/mL Normal 0.400-4.500 [facility] Manager Studio Comment on above: Performed By: #### C MP, TSH, FT4, VITD, LIPD, CBC #### [facility] [address] [facility] [place] [id number] Vitamin D 25-OHon 01-24-2021 VIT D 25 OH 25 ng/ml Low >29 [facility] Manager Studio Comment on above: Result Comment: Niru min D Status Deficiency <20 ng/mL Insufficiency 20-29 ng/mL Optimal 30-100 ng/mL Possible Toxicity >=150 ng/mL Performed By: #### C MP, TSH, FT4, VITD, LIPD, CBC #### [facility] [address] [facility] [place] [id number] HCG, Quantitative, on 07-11-2019 hCG Quant <1 <5 IU/L [place], [place] Comment on above: Non-preg premeno <=5 [...] Date Time Vital Sign Value Performing Clinician Facility 10-27-2024 09:54-0400 Body height 157.5 cm [employer] Work Phone: [facility] 10-27-2024 09:54-0400 Body mass index (BMI) [Ratio] 38.23 kg/m2 [employer] Work Phone: [facility] 10-27-2024 09:54-0400 Body weight 94.8 kg [employer] Work Phone: [facility] 10-27-2024 09:54-0400 Diastolic blood pressure 72 mm[Hg] [employer] Work Phone: [facility] 10-27-2024 09:54-0400 Systolic blood pressure 120 mm[Hg] [employer] Work Phone: [facility] 10-27-2024 07:02-0400 Body height 157.5 cm Ashleigh Rine [employer] Work Phone: [facility] 10-27-2024 07:02-0400 Body mass index (BMI) [Ratio] 38.23 kg/m2 Ashleigh Rine [employer] TRADER Work Phone: [facility] 10-27-2024 07:02-0400 Body temperature 97.5 [degF] Ashleigh Rine [employer]ADER Work Phone: [facility] 10-27-2024 07:02-0400 Body weight 94.8 kg Ashleigh Rine [employer] TRADER Work Phone: [facility] 10-27-2024 07:02-0400 Diastolic blood pressure 80 mm[Hg] Ashleigh Rine [employer]ADER Work Phone: [facility] 10-27-2024 07:02-0400 Heart rate 87 /min Ashleigh Rine [employer] TRADER Work Phone: [facility] 10-27-2024 07:02-0400 Respiratory rate 18 /min Ashleigh Rine [employer] TRADER Work Phone: [facility] 10-27-2024 07:02-0400 SaO2% (BldA) [Mass fraction] 97 % Ashleigh Rine [employer] TRADER Work Phone: [facility] 10-27-2024 07:02-0400 Systolic blood pressure 118 mm[Hg] Ashleigh Rine [employer] TRADER Work Phone: [facility] 07-22-2024 14:17-0400 Body mass index (BMI) [Ratio] 38.04 kg/m2 Ceasar Luis DO Work Phone: [facility] 07-22-2024 14:17-0400 Body weight 94.35 kg Ceasar Luis DO Work Phone: [facility] 07-22-2024 14:17-0400 Diastolic blood pressure 78 mm[Hg] Ceasar Luis DO Work Phone: [facility] 07-22-2024 14:17-0400 Systolic blood pressure 128 mm[Hg] Ceasar Luis DO Work Phone: [facility] 06-03-2024 07:44-0400 Body height 157.5 cm Ashleigh Rine [employer]ADER Work Phone: [facility] 06-03-2024 07:44-0400 Body mass index (BMI) [Ratio] 37.53 kg/m2 Ashleigh Rine [employer] TRADER Work Phone: [facility] 06-03-2024 07:44-0400 Body temperature 98.1 [degF] Ashleigh Rine [employer] TRADER Work Phone: [facility] 06-03-2024 07:44-0400 Body weight 93.08 kg Ashleigh Rine [employer] TRADER Work Phone: [facility] 06-03-2024 07:44-0400 Diastolic blood pressure 70 mm[Hg] Ashleigh Rine [employer] TRADER Work Phone: [facility] 06-03-2024 07:44-0400 Heart rate 85 /min Ashleigh Rine [employer] TRADER Work Phone: [facility] 06-03-2024 07:44-0400 Respiratory rate 18 /min Ashleigh Rine [employer] TRADER Work Phone: [facility] 06-03-2024 07:44-0400 SaO2% (BldA) [Mass fraction] 98 % Ashleigh Rine [employer] TRADER Work Phone: [facility] 06-03-2024 07:44-0400 Systolic blood pressure 120 mm[Hg] Ashleigh Rine [employer] TRADER Work Phone: [facility] 01-22-2024 09:04-0500 Body height 157.5 cm Ashleigh Rine [employer]ADER Work Phone: [facility] 01-22-2024 09:04-0500 Body mass index (BMI) [Ratio] 37.35 kg/m2 Ashleigh Rine [employer]ADER Work Phone: [facility] 01-22-2024 09:04-0500 Body temperature 98.01 [degF] Ashleigh Rine [employer]ADER Work Phone: [facility] 01-22-2024 09:04-0500 Body weight 92.63 kg Ashleigh Rine [employer]ADER Work Phone: [facility] 01-22-2024 09:04-0500 Diastolic blood pressure 78 mm[Hg] Ashleigh Rine [employer] TRADER Work Phone: [facility] 01-22-2024 09:04-0500 Heart rate 105 /min Ashleigh Rine [employer] TRADER Work Phone: [facility] 01-22-2024 09:04-0500 Respiratory rate 18 /min Ashleigh Rine [employer] TRADER Work Phone: [facility] 01-22-2024 09:04-0500 SaO2% (BldA) [Mass fraction] 99 % Ashleigh Rine [employer] TRADER Work Phone: [facility] 01-22-2024 09:04-0500 Systolic blood pressure 114 mm[Hg] Ashleigh Rine [employer]ADER Work Phone: [facility] 01-07-2024 07:18-0500 Body height 157.5 cm Ashleigh Rine [employer]ADER Work Phone: [facility] 01-07-2024 07:18-0500 Body mass index (BMI) [Ratio] 37.39 kg/m2 Ashleigh Rine [employer] TRADER Work Phone: [facility] 01-07-2024 07:18-0500 Body temperature 98.4 [degF] Ashleigh Rine [employer] TRADER Work Phone: [facility] 01-07-2024 07:18-0500 Body weight 92.72 kg Ashleigh Rine [employer] TRADER Work Phone: [facility] 01-07-2024 07:18-0500 Diastolic blood pressure 76 mm[Hg] Ashleigh Rine [employer] TRADER Work Phone: [facility] 01-07-2024 07:18-0500 Heart rate 85 /min Ashleigh Rine [employer] TRADER Work Phone: [facility] 01-07-2024 07:18-0500 Respiratory rate 18 /min Ashleigh Rine [employer]ADER Work Phone: [facility] 01-07-2024 07:18-0500 SaO2% (BldA) [Mass fraction] 98 % Ashleigh Rine [employer]ADER Work Phone: [facility] 01-07-2024 07:18-0500 Systolic blood pressure 122 mm[Hg] Ashleigh Rine [employer] TRADER Work Phone: [facility] 10-15-2023 07:35-0400 Body height 157.5 cm Ashleigh Rine [employer]ER Work Phone: [facility] 10-15-2023 07:35-0400 Body mass index (BMI) [Ratio] 36.95 kg/m2 Ashleigh Rine [employer] TRADER Work Phone: [facility] 10-15-2023 07:35-0400 Body temperature 98.29 [degF] Ashleigh Rine [employer]ER Work Phone: [facility] 10-15-2023 07:35-0400 Body weight 91.63 kg Ashleigh Rine [employer]ADER Work Phone: [facility] 10-15-2023 07:35-0400 Diastolic blood pressure 78 mm[Hg] Ashleigh Rine [employer] TRADER Work Phone: [facility] 10-15-2023 07:35-0400 Heart rate 85 /min Ashleigh Rine [employer] TRADER Work Phone: [facility] 10-15-2023 07:35-0400 Respiratory rate 18 /min Ashleigh Rine RENEWABLE ENERGY TRADER Work Phone: [facility] 10-15-2023 07:35-0400 SaO2% (BldA) [Mass fraction] 96 % Ashleigh Rine RENEWABLE ENERGY TRADER Work Phone: [facility] 10-15-2023 07:35-0400 Systolic blood pressure 115 mm[Hg] Ashleigh Rine RENEWABLE ENERGY TRADER Work Phone: [facility] 03-07-2023 17:35-0500 Diastolic blood pressure 80 mm[Hg] Darlene Nuñez DO Work Phone: [employer] [facility] 03-07-2023 17:35-0500 Heart rate 82 /min Darlene Nuñez DO Work Phone: [employer] [facility]ONA[facility]rift[facility] 03-07-2023 17:35-0500 Respiratory rate 16 /min Darlene Nuñez DO Work Phone: [employer] 03-07-2023 17:35-0500 SaO2% (BldA) [Mass fraction] 95 % Darlene Nuñez DO Work Phone: [employer] 03-07-2023 17:35-0500 Systolic blood pressure 120 mm[Hg] Darlene Nuñez DO Work Phone: [facility] 03-07-2023 15:42-0500 Body temperature 98.29 [degF] Darlene Nuñez DO Work Phone: [facility] 05-11-2019 10:32-0400 BMI (Body Mass Index) 37.11 kg/m2 [facility] [place] 05-11-2019 10:32-0400 Body Temperature 98.1 [degF] [facility] HospitalEdge[facility] NetworksSTE[place], [place] 05-11-2019 10:32-0400 Body weight 86.18 kg [facility] [place] 05-11-2019 10:32-0400 BP Diastolic 95 mm[Hg] [facility] , [place] 05-11-2019 10:32-0400 BP Systolic 126 mm[Hg] [facility] Networks[facility], [place] 05-11-2019 10:32-[address] [facility] [place] 05-11-2019 10:32-0400 Pulse (Heart Rate) 80 /min [facility] [place] 05-11-2019 10:32-0400 Pulse Oximetry 98 % [facility] [place] 05-11-2019 10:32-0400 Respiratory Rate 16 /min [facility] [place] Encounters Encounter Date Encounter Type Care Provider Facility Start: 01-15-2025 ambulatory Mary Patton Jose erer LEAD ESTHETICIAN-ENGINEERING AIDE Facility[facility] Start: 10-28-2024 End: 10-28-2024 Office outpatient new 30 minutes Fatuma Perez DPM Work Phone: [facility] Comment on above: Plantar fasciitis (P rimary Dx); Bilateral foot pain Start: 10-28-2024 End: 10-28-2024 ambulatory FATUMA PEREZ Not Available Start: 10-28-2024 End: 10-28-2024 Bamboo flowsheet [facility] Perez [facility] Start: 10-28-2024 End: 10-28-2024 Bamboo flowsheet Fatuma Perez DPM Work Phone: [facility] Start: 10-27-2024 End: 10-27-2024 Bamboo flowsheet Ashleigh L Isae RENEWABLE ENERGY TRADER Work Phone: [facility] Start: 10-27-2024 End: 10-27-2024 Bamboo flowsheet Ashleigh L Isae RENEWABLE ENERGY TRADER Work Phone: [facility] Start: 10-27-2024 End: 10-27-2024 Office outpatient visit 15 minutes Ceasar Luis DO Work Phone: [facility] Meche RICHARDS Comment on above: Pre-op examination; Abnormal uterine bleeding (AUB) Start: 10-27-2024 End: 10-27-2024 Preprocedural examination done Ceasar Luis DO Work Phone: [facility] Start: 10-27-2024 End: 10-27-2024 ambulatory CEASAR LUIS Not Available Start: 10-27-2024 End: 10-27-2024 Patient encounter status Ashleigh L Isae RENEWABLE ENERGY TRADER Work Phone: [facility] Healthcare Work Phone: Start: 10-27-2024 End: 10-27-2024 Periodic preventive med est patient 40-64yrs Ashleigh L Isae RENEWABLE ENERGY TRADER Work Phone: [facility] Comment on above: Wellness examination (Primary Dx); Gastroesophageal reflux disease without esophagitis; Vitamin D deficiency; Body mass index (BMI) 37.0-37.9, adult; Morbid (severe) obesity due to excess calories ([facility]-HCC); Unilateral vestibular weakness, right; LESLEE (generalized anxiety disorder) ; Migraine with aura and with status migrainosus, not intractable ; Dyslipidemia ; Decreased libido; Vaginal dryness; Screen for colon cancer; Immunization due; Bilateral foot pain Start: 10-27-2024 End: 10-27-2024 ambulatory ASHLEIGH L RINE Not Available Start: 10-15-2024 End: 10-15-2024 Refill Ashleigh L Rine RENEWABLE ENERGY TRADER Work Phone: [facility] Comment on above: Trochanteric bursiti s of both hips Start: 10-14-2024 End: 10-14-2024 Refill Ashleigh L Rine RENEWABLE ENERGY TRADER Work Phone: [facility] Comment on above: Prolonged grief reac tion Start: 10-13-2024 End: 10-13-2024 Orders Only Ashleigh L Rine RENEWABLE ENERGY TRADER Work Phone: [facility] Comment on above: Bilateral foot pain (Primary Dx) Start: 10-06-2024 End: 10-06-2024 Refill Ashleigh L Rine RENEWABLE ENERGY TRADER Work Phone: [facility] Comment on above: Dyslipidemia Start: 10-02-2024 End: 10-02-2024 ambulatory ASHLEIGH L RINE Not Available Start: 09-26-2024 End: 09-26-2024 Refill Ashleigh L Rine RENEWABLE ENERGY TRADER Work Phone: [facility] Comment on above: Vitamin D deficiency Start: 09-18-2024 End: 09-18-2024 ambulatory ASHLEIGH RINE Not Available Start: 09-16-2024 End: 09-16-2024 Patient encounter status Ashleigh L Rine RENEWABLE ENERGY TRADER Work Phone: [facility] Start: 09-16-2024 End: 09-16-2024 Telephone encounter Ashleigh L Rine RENEWABLE ENERGY TRADER Work Phone: [facility] Start: 08-22-2024 ambulatory Parmjit Jason MD Facility:[facility] Start: 08-22-2024 End: 08-22-2024 ambulatory Kimberly Garcia PA-C Facility:[facility] Start: 08-17-2024 End: 08-17-2024 Refill Ashleightejinder Dillon RENEWABLE ENERGY TRADER Work Phone: [facility] Comment on above: Prolonged grief reac tion Start: 08-11-2024 End: 08-11-2024 Patient encounter procedure Ceasar Luis [facility] Work Phone: Start: 08-11-2024 End: 08-11-2024 ambulatory NON STAFF [facility] Work Phone: Start: 07-22-2024 End: 07-22-2024 ambulatory CEASAR LUIS Not Available Start: 07-22-2024 End: 07-22-2024 Bamboo flowsheet Ceasar Luis DO Work Phone: [facility] Start: 07-22-2024 End: 07-25-2024 Bamboo flowsheet Ceasar Luis DO Work Phone: [facility] Start: 07-22-2024 End: 07-25-2024 Clinisync Result Encounter Ceasar Luis DO Work Phone: [facility] Unsolicited Start: 07-22-2024 End: 07-22-2024 Patient encounter procedure Ceasar Luis DO Work Phone: [facility] Start: 07-22-2024 End: 07-22-2024 Periodic preventive med est patient 40-64yrs Ceasar Luis DO Work Phone: [facility] Comment on above: Well woman exam with routine gynecological exam; Breast cancer screening by mammogram; Breast lump on right side at 6 o'clock position; Abnormal uterine bleeding (AUB); Yeast infection Start: 07-18-2024 End: 07-18-2024 ambulatory Kimberly Garcia PA-C Facility[facility] Start: 06-29-2024 End: 06-29-2024 Refill Ashleigh L Isae RENEWABLE ENERGY TRADER Work Phone: [facility] Comment on above: Dyslipidemia (CMS/HC C) Start: 06-03-2024 End: 06-03-2024 Bamboo flowsheet Ashleigh L Rine RENEWABLE ENERGY TRADER Work Phone: [facility] Start: 06-03-2024 End: 06-03-2024 Bamboo flowsheet Ashleigh L Rine RENEWABLE ENERGY TRADER Work Phone: [facility] Start: 06-03-2024 End: 06-03-2024 ambulatory ASHLEIGH L RINE Not Available Start: 06-03-2024 End: 06-03-2024 Office outpatient visit 25 minutes Ashleigh L Rine RENEWABLE ENERGY TRADER Work Phone: [facility] Comment on above: Prolonged grief reac tion (CMS/[facility]) (Primary Dx); Decreased libido Start: 03-28-2024 End: 03-28-2024 Refill Ashleigh L Rine RENEWABLE ENERGY TRADER Work Phone: [facility] Comment on above: Dyslipidemia (CMS/HC C) Start: 01-22-2024 End: 01-22-2024 Bamboo flowsheet Ashleigh L Rine RENEWABLE ENERGY TRADER Work Phone: [facility] Start: 01-22-2024 End: 01-22-2024 Bamboo flowsheet Ashleigh L Rine RENEWABLE ENERGY TRADER Work Phone: [facility] Start: 01-22-2024 End: 01-22-2024 ambulatory ASHLEIGH L RINE Not Available Start: 01-22-2024 End: 01-22-2024 Office outpatient visit 15 minutes Ashleigh L Rine RENEWABLE ENERGY TRADER Work Phone: [facility] Comment on above: Vertigo Start: 01-15-2024 End: 01-15-2024 Refill Ashleigh L Rine RENEWABLE ENERGY TRADER Work Phone: [facility] Comment on above: LESLEE (generalized anx iety disorder) (CMS/HCC) Start: 01-07-2024 End: 01-07-2024 Bamboo flowsheet Ashleigh L Rine RENEWABLE ENERGY TRADER Work Phone: [facility] Start: 01-07-2024 End: 01-07-2024 Bamboo flowsheet Ashleigh L Rine RENEWABLE ENERGY TRADER Work Phone: [facility] Start: 01-07-2024 End: 01-07-2024 ambulatory ASHLEIGH L RINE Not Available Start: 01-07-2024 End: 01-07-2024 Office outpatient visit 25 minutes Ashleigh L Isae RENEWABLE ENERGY TRADER Work Phone: [facility] Comment on above: Trochanteric bursiti s of both hips (Primary Dx); Vaginal dryness; BMI 37.0-37.9, adult; Grief (CMS/HCC); Immunization due Start: 12-27-2023 End: 12-27-2023 Refill Ashleigh L Rine RENEWABLE ENERGY TRADER Work Phone: [facility] Comment on above: Dyslipidemia (CMS/HC C) Start: 10-28-2023 End: 10-28-2023 Refill Ashleigh L Rine RENEWABLE ENERGY TRADER Work Phone: [facility] Comment on above: Vitamin D deficiency Start: 10-15-2023 End: 10-15-2023 Bamboo flowsheet Ashleigh L Rine RENEWABLE ENERGY TRADER Work Phone: [facility] Start: 10-15-2023 End: 10-15-2023 Bamboo flowsheet Ashleigh L Rine RENEWABLE ENERGY TRADER Work Phone: [facility] Start: 10-15-2023 End: 10-15-2023 Patient encounter status Ashleigh L Isae RENEWABLE ENERGY TRADER Work Phone: [facility] Work Phone: Start: 10-15-2023 End: 10-15-2023 Periodic preventive med est patient 40-64yrs Ashleigh L Rine RENEWABLE ENERGY TRADER Work Phone: [facility] Comment on above: Wellness examination (Primary Dx); LESLEE (generalized anxiety disorder) (CMS/HCC); Dyslipidemia (CMS/HCC); Migraine with aura and without status migrainosus, not intractable (CMS/HCC); Morbid (severe) obesity due to excess calories (CMS/HCC); BMI 36.0-36.9,adult; Gastroesophageal reflux disease without esophagitis; Family history of abdominal aortic aneurysm (AAA); Vitamin D deficiency; Screen for colon cancer; Unilateral vestibular weakness, right; Hormone disorder; Vaginal dryness; Decreased libido; Family history of abdominal aortic aneurysm (AAA) Start: 09-26-2023 End: 09-26-2023 Refill Ashleigh L Rine RENEWABLE ENERGY TRADER Work Phone: [facility] Comment on above: Dyslipidemia (CMS/HC C) Start: 08-28-2023 ambulatory ASHLEIGH L ISAE [facility] Start: 08-28-2023 End: 08-30-2023 Subsequent hospital visit by physician [facility] Ultrasound Room [facility] Ultrasound Comment on above: Unspecified atherosc lerosis; Elevated blood pressure reading without diagnosis of hypertension; Family history of ischemic heart disease and other diseases of the circulatory system Start: 03-30-2023 End: 04-01-2023 amb[facility] Start: 03-30-2023 End: 04-01-2023 Subsequent hospital visit by physician [facility] Mri Scanner [facility] MRI Comment on above: Ataxia Start: 03-26-2023 Chart abstracting Cyril weston PT Work Phone: [facility] Start: 03-20-2023 Refill Ashleigh L Rine N P Work Phone: [facility] Comment on above: Localized edema; Dyslipidemia (CMS/HCC) Start: 03-20-2023 Telephone encounter Ashleigh L Ri ne RENEWABLE ENERGY TRADER Work Phone: [facility] Comment on above: Cough Start: 03-19-2023 Telephone encounter Ashleigh L Ri ne RENEWABLE ENERGY TRADER Work Phone: [facility] Start: 03-16-2023 End: 03-16-2023 Evaluation Cyril Arnold PT Work Phone: [facility] Comment on above: Balance disorder (Pr imary Dx); Cervicalgia; Unilateral vestibular weakness, right Start: 03-13-2023 Telephone encounter Jeff almaraz DO Work Phone: [facility] [place] Start: 03-07-2023 End: 03-07-2023 Emergency department patient visit Darlene Nuñez DO Work Phone: [facility] ED Comment on above: Benign paroxysmal po sitional vertigo, unspecified laterality (Primary Dx); Dizziness Start: 03-06-2023 End: 03-06-2023 Encounter for preprocedural laboratory examination [facility] Start: 03-06-2023 End: 03-08-2023 ambulatory [facility] Start: 04-18-2022 ambulatory SELF SELF Facility:[facility] NOVAK Start: 10-21-2021 End: 10-22-[address] ASHLEIGH DILLON Facility:[facility] Start: 04-08-2021 End: 04-09-[address] CEASAR SMITH Facility:[facility] Start: 03-28-2021 End: 03-29-[address] CEASAR SMITH Facility:[facility] Start: 03-08-2021 End: 03-08-[address] CEASAR SMITH Facility:[facility] Start: 07-11-2019 End: 07-11-2019 Subsequent hospital visit by physician Cyril ELIZABETH [facility] Start: 05-11-2019 End: 05-11-2019 Emergency department patient visit Matt Fletcher Work Phone: [facility] ED Comment on above: Abscess (Primary Dx) Procedures Date Procedure Procedure Detail Performing Clinician Start: 10-28-2024 End: 10-28-2024 Radex foot complete minimum 3 views Fatuma Perez DPM Work Phone: Start: 08-11-2024 Bilateral mammography C orey Luis DO Work Phone: Start: 08-11-2024 Ultrasonography of r ight breast Ceasar Luis DO Work Phone: Start: 07-22-2024 IGP,APTIMA HPV,AGE GDLN Ceasar Luis DO Work Phone: Start: 07-22-2024 Microscopic observat ion [Identifier] in Cervix by Cyto stain Ashleigh Dillon RENEWABLE ENERGY TRADER Work Phone: Start: 07-07-2024 Mammography Ashleigh Dillon RENEWABLE ENERGY TRADER Work Phone: Start: 12-21-2023 Mammography Ashleigh Dillon RENEWABLE ENERGY TRADER Work Phone: Start: 08-28-2023 Us abdominal aorta r eal time screen study aaa Ashleigh Dillon LEAD ESTHETICIAN - RENEWABLE ENERGY TRADER Work Phone: Start: 03-30-2023 Mri brain brain stem w/o w/contrast material Enid Denis DO Work Phone: Start: 03-07-2023 Basic metabolic pane l calcium total Darlene J Nuñez DO Work Phone: Start: 03-07-2023 C-reactive protein Jave pavel J Nuñez DO Work Phone: Start: 01-24-2023 Microscopic observat ion [Identifier] in Cervix by Cyto stain Ceasar Smith DO Work Phone: Start: 01-24-2023 Cytp cerv/vag auto t hin layer prep mnl screen Ceasar Smith DO Work Phone: Start: 11-24-2022 Mammography Jeff hobson DO Work Phone: Start: 03-08-2021 Microscopic observat ion [Identifier] in Cervix by Cyto stain Jeff Cannon DO Work Phone: Start: 07-11-2019 Gonadotropin chorion ic quantitative Ceasar Smith Work Phone: Plan of Treatment Date Care Activity Detail Author Start: 01-25-2028 Screening for malign ant neoplasm of cervix [facility] Healthcare Start: 07-23-2027 Screening for malign ant neoplasm of cervix Pap Smear [facility] Start: 03-08-2026 Screening for malign ant neoplasm of cervix [facility] Start: 07-07-2025 Screening for malign ant neoplasm of breast Mammogram [facility] Start: 02-24-2025 End: 02-24-2025 Patient encounter procedure 02/24/2025 7:00 AM EST Office Visit [facility] [address] [place] [address] Ashleigh Dillon, RENEWABLE ENERGY TRADER [address] [place] [address] [facility] Start: 12-20-2024 Screening for malign ant neoplasm of breast Mammogram [facility] Start: 12-02-2024 End: 12-02-2024 Patient encounter procedure 12/02/2024 3:30 PM EDT Office Visit [facility] [address] [place] [address] [place] [address] Fatuma Perez DPM [address] [place] [address] [place] [address] [facility] Start: 11-25-2024 End: 11-25-2024 Patient encounter procedure 11/25/2024 9:30 AM EDT Office Visit [facility] RICHARDS [address] [facility] [place] [phone] Meryl Fragoso PA [address] [place] [address] [facility] RICHARDS Start: 10-28-2024 End: 10-28-2024 Patient encounter procedure [facility] Comment on above: Arrived Start: 10-27-2024 End: 10-27-2025 Noninvasive colorectal cancer DNA and occult blood screening [Presence] in Stool Cologuard colon cancer screening Lab Routine Screen for colon cancer Expected: 10/27/2024 (Approximate), Expires: 10/27/2025 [facility] Healthcare Work Phone: Comment on above: Expected: 10/27/2024 (Approximate), Expires: 10/27/2025 Start: 10-27-2024 End: 10-27-2024 Professional / ancillary services management 10/27/2024 9:00 AM EDT Ancillary Procedure SHEILA RICHARDS [address] [place] [address] SHEILA RICHARDS Start: 10-27-2024 End: 10-27-2024 Patient encounter procedure [facility] RICHARDS Comment on above: Wellness examination (Primary Dx); Gastroesophageal reflux disease without esophagitis; Vitamin D deficiency; Unilateral vestibular weakness, right; Migraine with aura and with status migrainosus, not intractable ; Dyslipidemia ; Decreased libido; Vaginal dryness; Hormone disorder Start: 10-06-2024 Influenza vaccination Influenza Vacc ine (#1) [facility] Start: 10-02-2024 End: 10-02-2024 Professional / ancillary services management 10/02/2024 10:30 AM EDT Ancillary Procedure [facility] [address] [place] [address] [facility] Start: 09-18-2024 End: 09-18-2024 Clinical Support 09/18/2024 2:10 PM EDT Clinical [facility] [address] [facility] [place] [address] [facility] Meche OBMAGALYS Start: 09-16-2024 End: 09-16-2025 25-hydroxyvitamin D3 [Mass/volume] in Serum or Plasma Vitamin D 25 hydroxy Total Lab Routine Encounter for vitamin deficiency screening Expected: 09/16/2024 (Approximate), Expires: 09/16/2025 [facility] Comment on above: Expected: 09/16/2024 (Approximate), Expires: 09/16/2025 Start: 09-16-2024 End: 09-16-2025 CBC panel - Blood by Automated count CBC Lab Routine Screening for deficiency anemia Wellness examination Expected: 09/16/2024 (Approximate), Expires: 09/16/2025 [facility] Comment on above: Expected: 09/16/2024 (Approximate), Expires: 09/16/2025 Start: 09-16-2024 End: 09-16-2025 Comprehensive metabolic 2000 panel - Serum or Plasma Comprehensive metabolic panel Lab Routine Diabetes mellitus screening Wellness examination Expected: 09/16/2024 (Approximate), Expires: 09/16/2025 [facility] Comment on above: Expected: 09/16/2024 (Approximate), Expires: 09/16/2025 Start: 09-16-2024 End: 09-16-2025 Hemoglobin a1c with eag Hemoglobin a1c with eag Lab Routine Diabetes mellitus screening Expected: 09/16/2024 (Approximate), Expires: 09/16/2025 [facility] Comment on above: Expected: 09/16/2024 (Approximate), Expires: 09/16/2025 Start: 09-16-2024 End: 09-16-2025 Lipid 1996 panel - Serum or Plasma Lipid panel Lab Routine Screening, lipid Wellness examination Expected: 09/16/2024 (Approximate), Expires: 09/16/2025 [facility] Comment on above: Expected: 09/16/2024 (Approximate), Expires: 09/16/2025 Start: 09-16-2024 End: 09-16-2025 TSH W/REFLEX TO FT4 TSH W/REFLEX TO FT4 Lab Routine Screening for thyroid disorder Expected: 09/16/2024 (Approximate), Expires: 09/16/2025 [facility] Comment on above: Expected: 09/16/2024 (Approximate), Expires: 09/16/2025 Start: 09-16-2024 End: 09-16-2025 URINALYSIS, COMPLETE W/REFLEX TO CULTURE URINALYSIS, COMPLETE W/REFLEX TO CULTURE Lab Routine Dysuria Wellness examination Expected: 09/16/2024, Expires: 09/16/2025 [facility] Comment on above: Expected: 09/16/2024 , Expires: 09/16/2025 Start: 09-16-2024 End: 09-16-2025 Vascular US ankle brachial index (DAMION) complete without exercise Vascular US ankle brachial index (DAMION) complete without exercise Imaging Routine Bilateral leg pain Claudication Expected: 09/16/2024, Expires: 09/16/2025 [facility] Work Phone: Comment on above: Expected: 09/16/2024 , Expires: 09/16/2025 Start: 09-01-2024 End: 09-01-2024 Patient encounter procedure 09/01/2024 9:10 AM EDT Consult [facility] [address] [place] [address] [place] [address] Ceasar Smith, DO [address] [place] [address] [facility] Start: 09-01-2024 End: 09-01-2024 Professional / ancillary services management 09/01/2024 8:00 AM EDT Ancillary Procedure [facility] [address] [place] [phone] [facility] Start: 07-22-2024 End: 09-21-2025 MG Breast - bilateral Diagnostic Bilateral diagnostic mammogram Imaging Routine Breast lump on right side at 6 o'clock position Expected: 07/22/2024 (Approximate), Expires: 09/21/2025 [facility] Comment on above: Expected: 07/22/2024 (Approximate), Expires: 09/21/2025 Start: 07-22-2024 End: 07-22-2024 Patient encounter procedure 07/22/2024 2:00 PM EDT Office Visit [facility] [address] [facility] [place] [phone] Ceasar Smith, DO [address] [facility] [address] [place] [address] [facility] Start: 07-22-2024 End: 01-21-2025 US Pelvis US Pelvis w/ TV Imaging Routine Abnormal uterine bleeding (AUB) Expected: 07/22/2024, Expires: 01/21/2025 [facility] Comment on above: Expected: 07/22/2024 , Expires: 01/21/2025 Start: 05-07-2024 End: 05-07-2024 Patient encounter procedure 05/07/2024 7:00 AM EDT Office Visit [facility] [address] [place] [id number] Ashleigh Dillon NP [address] [place] [address] [facility] Start: 01-07-2024 End: 01-07-2024 Patient encounter procedure 01/07/2024 7:00 AM EST Office Visit [facility] [address] [place] [address] Ashleigh Dillon, RENEWABLE ENERGY TRADER [address] [place] [address] [facility] Start: 12-13-2023 End: 12-13-2023 Clinical Support 12/13/2023 1:00 PM EST Clinical Support [facility] [address] [place] [address] Lidia Parker, MS, RDN, LD, CHES [address] [facility] Start: 12-06-2023 Screening for malign ant neoplasm of breast Mammogram [facility] Comment on above: Postponed from 11/24 (Other Patient Reasons) Start: 11-25-2023 Screening for malign ant neoplasm of breast Mammogram [facility] Start: 10-22-2023 Screening for malign ant neoplasm of breast Breast cancer screen [facility] Start: 10-15-2023 End: 10-15-2023 Patient encounter procedure [facility] Comment on above: Wellness examination (Primary Dx); Atherosclerosis; Elevated blood pressure reading; Family history of abdominal aortic aneurysm (AAA); Family history of abdominal aortic aneurysm (AAA); Gastroesophageal reflux disease without esophagitis; Dyslipidemia (CMS/HCC); Vitamin D deficiency Start: 10-07-2023 Influenza vaccination Influenza Vacc ine (#1) [facility] Start: 09-06-2023 Influenza vaccination Flu vaccine (# 1) [facility] Start: 08-05-2023 Influenza vaccination Influenza Vacc ine (#1) [facility] Comment on above: Postponed from 10/06 (Patient Refused) Start: 03-26-2023 Chart abstracting 03/26/2023 A bstract [facility] [address] [place] [phone] Cyril Arnold, PT [address] [place] [address] [facility] Start: 03-26-2023 End: 03-26-2023 ambulatory 03/26/2023 9:00 AM EST Treatment [facility] [address] [place] [id number] [facility], [facility] [address] [place] [address] [facility] Start: 2023 Screening for malign ant neoplasm of colon [facility] Start: 10-06-2022 COVID-19 Vaccine ( season) COVID-19 Vaccine ( season) [facility] Start: 09-05-2022 Influenza vaccination Flu vaccine (# 1) [facility] Start: 10-07-2019 Influenza vaccination Flu vacc ine (Season Ended) [place], [place] Start: 2018 Diabetes screen Diabetes screen [place], [place] Start: 2018 Lipid panel Lipid screen [place], [place] Start: 2018 Lipid screen Lipid screen [place] Start: 2013 Diabetes screen Diabetes screen [facility] Start: 02-08-2008 Screening for malign ant neoplasm of cervix [facility] Start: 1999 Cervical cancer screen Cervical canc er screen [place], [place] Start: 1999 Screening for malign ant neoplasm of cervix [facility] Start: 1997 DTaP/Tdap/Td vaccine (1 - Tdap) DTaP/Tdap/Td vaccine (1 - Tdap) [facility] Start: 02-08-1996 Hepatitis C screening Hepatitis C sc reen [facility] Start: 1993 HIV screen HIV screen [place], [place] Start: 1993 HIV screening HIV screen [facility] Start: 1990 Depression Screen Depression Screen [facility] Start: 02-08-1988 Lipid panel Lipids [facility] Start: 1978 Hepatitis B vaccine (1 of 3 - 3-dose series) Hepatitis B vaccine (1 of 3 - 3-dose series) [facility] Start: 1978 Screening for malign ant neoplasm of colon [facility] Noninvasive colorect al cancer DNA and occult blood screening [Presence] in Stool Cologuard colon cancer screening Lab Routine Screen for colon cancer Ordered: 10/15/2023 [facility] Work Phone: Comment on above: Ordered: 10/15/2023 THIN PREP TIS PAP AN D HR HPV DNA THIN PREP TIS PAP AND HR HPV DNA Pathology and Cytology Routine Well woman exam with routine gynecological exam Ordered: 07/22/2024 [facility] [employer] Work Phone: Comment on above: Ordered: 07/22/2024 Immunizations Immunization Date Immunization Notes Care Provider Radha holden 10-27-2024 influenza, seasonal, injectable, preservative free Ashleigh Rine RENEWABLE ENERGY TRADER Work Phone: [facility] 10-27-2024 tetanus toxoid, redu bridger diphtheria toxoid, and acellular pertussis vaccine, adsorbed Ashleigh Rine RENEWABLE ENERGY TRADER Work Phone: [facility] 01-07-2024 influenza, seasonal, injectable, preservative free Ashleigh Rine RENEWABLE ENERGY TRADER Work Phone: [facility] 01-07-2024 influenza virus vacc ine, unspecified formulation Ashleigh Rine RENEWABLE ENERGY TRADER Work Phone: [facility] 01-22-2021 influenza, injectabl e, quadrivalent, preservative free Jeff Biedenbach DO Work Phone: [facility] 01-22-2021 influenza virus vacc ine, unspecified formulation Jeff Biedenbach DO Work Phone: [facility] 11-18-2018 influenza, seasonal, injectable Jeff Biedenbach DO Work Phone: [facility] 11-14-2018 Seasonal, quadrivale nt, recombinant, injectable influenza vaccine, preservative free Jeff Souzaeddaisy DO Work Phone: [facility] 02-15-2017 seasonal influenza, intradermal, preservative free Jeff Bieddaisy DO Work Phone: [facility] 02-10-2017 influenza, injectabl e, quadrivalent, preservative free Jeff Souzacliffjose DO Work Phone: [facility] 06-19-2013 tetanus toxoid, redu bridger diphtheria toxoid, and acellular pertussis vaccine, adsorbed Ashleigh Dillon RENEWABLE ENERGY TRADER Work Phone: [facility] Healthcare Payers Date Payer Category Payer Self-pay 2024 Unknown [id number] 2024 Private Health Insurance [employer] [id number] 2024 Unknown [id number] 2022 Blue Cross Blue Shield 1.2.8 [id number] 2022 Unknown [id number] [id number] .[id number] 2022 Unknown [id number] 2019 Unknown [employer] [address] xxxxxxxxxxxx 2019-Present [phone] [address] [place] [address] xxxxxxxxxxxx [id number] .[id number] 1978 Unknown [id number] 2.16.840.1.899278.3.579.2 .593 1978 Unknown [id number] 2.16.840.1.537532.3.579.2 .593 1978 Unknown [id number] 2.16.840.1.833945.3.579.2 .593 1978 Unknown [id number] 2.16.840.1.462714.3.579.2 .593 1978 Unknown [id number] 2.16.840.1.961378.3.579.2 .594 1978 Unknown [id number] 2.16.840.1.424488.3.579.2 .173 1978 Unknown [id number] 2.16.840.1.004289.3.579.2 .173 1978 Unknown [id number] 2.16.840.1.215740.3.579.2 .173 1978 Unknown [id number] 2.16.840.1.841614.3.579.2 .173 1978 Unknown [id number] 2.16.840.1.230754.3.579.2 .173 1978 Unknown [id number] 2.16.840.1.494410.3.579.2 .173 1978 Unknown [id number] 2.16.840.1.752069.3.579.2 .196 1978 Unknown [id number] 2.16.840.1.806071.3.579.2 .196 1978 Unknown [id number] 2.16.840.1.940847.3.579.2 .196 1978 Unknown [id number] 2.16.840.1.264076.3.579.2 .196 1978 Unknown [id number] 2.16.840.1.239830.3.579.2 .196 1978 Unknown [id number] 2.16.840.1.448806.3.579.2 .1259 1978 Unknown [id number] 2.16.840.1.710799.3.579.2 .9 1978 Unknown [id number] 2.16.840.1.028186.3.579.2 .9 1978 Unknown [id number] 2.16.840.1.829031.3.579.2 .9 1978 Unknown [id number] 2.16.840.1.122093.3.579.2 .9 1978 Unknown [id number] 2.16.840.1.392660.3.579.2 .9 1978 Unknown [id number] 2.16.840.1.158669.3.579.2 .9 1978 Unknown [id number] 2.16.840.1.289784.3.579.2 .9 1978 Unknown [id number] 2.16.840.1.665058.3.579.2 .9 1978 Unknown [id number] 2.16.840.1.431122.3.579.2 .9 1959 Private Health Insurance [id number] Unknown [id number] 2.16.840.1.586878.3.579.2 .531 Social History Date Type Detail Facility Start: 05-11-2019 End: 09-13-2022 Tobacco smoking status [facility] Never smoker [facility] Start: 1980 Sex Assigned At Not on file [place] Exposure to SARS-CoV -2 (event) Unable to assess [place], [place] Start: 05-11-2019 End: 09-13-2022 Tobacco use and exposure Smokeless tobacco non-user [facility] Start: 05-11-2020 End: 02-28-2023 History of Social function [facility] Start: 05-11-2020 End: 02-28-2023 Tobacco use panel [facility] Start: 03-06-2023 End: 10-28-2024 Alcohol intake Current drinker of alcohol (finding) [facility] Within the last year , have you been afraid of your partner or ex-partner? No [facility] Do you belong to any clubs or organizations such as jehovah's witness groups, unions, fraternal or athletic groups, or [...] Only a little [facility] (I/We) worried whetunde er (my/our) food would run out before (I/we) got money to buy more. Never true [facility] Start: 09-12-2022 Alcohol Comment 1-2 drinks 2-4 x a month in the past year [facility] Tobacco smoking stat us NMIS Unknown if ever smoked [facility] Work Phone: Sex Female (finding) [facility] Start: 1980 Sex Assigned At Female F [facility] Functional Status Date Assessment Result Facility 10-27-2024 Patient Health [facility] ionnaire 2 item (PHQ-2) [Reported] [facility] Healthcare 10-27-2024 PHQ-9 quick depressi on assessment panel [Reported.PHQ] [facility] Clinical Notes 03-07-2023 to 10-28-2024 Fatuma Perez DPM - 10/28/2024 4:00 PM EDTPatient Prashant Dillon NP - 10/27/2024 7:00 AM EDTPatient Prashant Dillon NP - 10/13/2024 6:45 AM EDTPatient InstructionsAttachments Note Date & Type Note Facility 10-28-2024 History of Present illness Narrative Images from the original note were not included. HPI: Fabi Concepcion presents today for evaluation of bilateral foot pain. Patient states that she has had pain in the foot for 6 months. She describes the pain as aching which has increased with time. Patient relates a negative history of trauma to the area. She has tried Magnesium topical ointment and Meloxicam for treatment. She has noticed that she [...] and tolerance to normal gait forces relative to standing, walking, and running. Our goal is for [...] therapy if needed. documented in this encounter [facility] 10-28-2024 Instructions Fatuma Perez DPM - 10/28/2024 4:00 PM EDT [...] not present. Many patients use the term stone bruise to describe this condition because of the intense, localized area of discomfort. Pain also occurs because of the extreme stretch in the fascia when standing after periods of rest that can cause tearing in the individual fibers of the fascia. The most common cause of plantar fasciitis is overuse, an excessive amount of activity over a given period of time. This excessive activity causes a [...] months to completely resolve your pain if not longer. Initial Treatment: Supportive/stable shoes, No barefoot walking Stretching exercises to stretch the Achilles tendon and plantar fascia. This should be done in the morning, before and after activity. Ice application after activity or at the end of the day. This can be combined with massage by using a frozen water bottle and rolling the foot and heel over the water bottle. Ltwc-wlg-cmxjuqi (OTC) arch supports: Colleeno, Powerstep, UCOs Continued Treatment: Local anesthetic steroid [...] of time necessary for symptoms to improve significantly. Conservative treatment is curative 95% of the time for this problem. Detailed Treatment for Plantar Fasciitis Stretching - This is the most important treatment that you can do for plantar fasciitis. Wall Stretch: Stand an arm's length away from a wall, place your hands shoulder length apart on the wall with one foot in front of the [...] of the foot. Do this stretch in the morning before getting out of before and after [...] when you bend the shoe, the point of bending is not in the arch. It should be at the ball of the foot or near the toes. This shows that there is support in the arch. Also make sure that the back of the heel is stiff and that you cannot push it in with one finger. This will help to ensure that your heel stays in the shoe and in contact with an arch support if you are using one. Over the counter arch supports- These supports must have a deep heel cup as well as a firm arch support. The doctor may have given you an OT arch support called a UCO. This is a semi-rigid device that gives arch support and also cushioning to the foot. Other options including Spenco and Powerstep which are have firm support in the arch in order to relieve stress on the plantar fascia. Custom molded orthotics- This is a prescription device that is placed in your shoe made from a mold that is taken of your foot held in [...] at night. They keep the foot at 90 to the ankle. This is allows for a constant passive stretch to the plantar fascia all night long. If interested in obtaining these, the best place is to get them is at an online supplier. [employer] offers many options for night splints. There are two main differences in the night splints offered, which are ones that goes along the back of the heel and ones that go on the front of the foot and ankle. The ones that go on the back of the heel and foot provides a better stretch because the heel cannot slide out of the device like it can for the ones that are applied on the front. The devices that are most recommended: Shannon Plantar Fasciitis [...] wake up in the morning and provide [facility] flexibility to help decrease the chance of [...] It will also incorporate modalities such as ultrasound and electrical stimulation to help reduce the pain and symptoms in the heel. Immobilization- This is one of the most effective treatments for plantar fasciitis. Immobilization is best done with a cast, but people can get relief with a walking boot if used properly for a total period of immobilization of 6-8 weeks. documented in this encounter [facility] 10-27-2024 History of Present illness Narrative Images from the original note were not included. Fabi Concepcion is a 44 y.o. female presents with chief complaint of Annual Exam HPI: HPI ..The patient was advised that Artificial Intelligence will be utilized during this visit to record, process the conversation to generate a clinical note,. The patient consented to the use of AI, including the recording. 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 She was diagnosed with sleep apnea in her early 20s [...] eye. She has regular follow-ups with her envelope patternmaker. Stomach Pain She has daily bowel movements but has been experiencing diarrhea recently. She maintains good hydration. She takes omeprazole daily for stomach acid control. She is scheduled for an ultrasound with her OB-ROOFING SUBCONTRACTOR today due to abdominal pain. Foot Pain She experiences foot pain when standing but not when sitting. She has an appointment with a journalist tomorrow and manages her foot pain with [...] uses vaginal estrogen intermittently. Occupation: Works at [employer] in [place] Diet: Fasting for the past 6 weeks, [...] This is likely NOT dose, per dr smith, dr smith rx day 14-28 monthly, compounded triamterene-hydroCHLOROthiazide (Dyazide) [...] rhinorrhea and sore throat. Saw ent in [place] regarding snoring , deviated septum Eyes: Negative for visual disturbance. Did lasik surg earlier this year, has some dry eyes Respiratory: Negative for cough and wheezing. Cardiovascular: Negative for chest pain, palpitations and leg swelling. Gastrointestinal: Positive for abdominal pain. Negative for blood in stool. Nonspecific, has been seeing document control supervisor, has appt for US today Genitourinary: Negative [...] Cuff Size: Adult) Pulse 87 Temp 97.5 F (Tympanic) Resp 18 Ht 5' 2 Wt 209 lb LMP 10/05/2024 (Exact Date) SpO2 97% BMI 38.23 kg/m OB Status Having periods Smoking Status Never BSA 2.04 m Physical Exam Constitutional: Comments: nontoxic HENT: Head: [...] fasting , eating 6 hours per day ASSESSMENT AND PLAN: Assessment/Plan Diagnoses and all [...] Morbid (severe) obesity due to excess calories ([facility]) Comments: as above Unilateral vestibular weakness, right Comments: she is following with ent in [place] (generalized anxiety disorder) Comments: edmr therapy, Migraine with aura and with status migrainosus, not intractable Comments: no recent issues Dyslipidemia Decreased libido Comments: following with payroll administrator, not discussed today Vaginal dryness Comments: still an issue, working with payroll administrator, not always compliant with vaginal estrogen Screen for colon cancer Comments: cologuard agreeable Orders: - Cologuard colon cancer screening; Future Immunization due Comments: [...] 4 mo recheck. documented in this encounter [facility] 10-27-2024 Instructions Ashleigh Dillon NP - 10/27/2024 7:00 AM EDT Keep podiatry appt tomorrow Consider moving the eating hours earlier in the day Consider resistance training 30 grams of protein with each meal documented in this encounter [facility] 10-13-2024 History of Present illness Narrative Podiatry referral created per conversation documented in this encounter [facility] 10-06-2024 Telephone encounter Note Atorvastatin 10 sent per kroger request [facility] 10-06-2024 Miscellaneous Notes Atorvastatin 10 sent per kroger request documented in this encounter [facility] 09-16-2024 Telephone encounter Note See emessage from pt, orders created. [facility] 09-16-2024 Miscellaneous Notes See emessage from pt, orders created. documented in this encounter [facility] 07-22-2024 History of Present illness Narrative Reason for Appointment: Patient ID: Fabi Concepcion is a 44 y.o. female who presents for Gynecologic Exam Patient presents today for Annual Exam. MEDICATIONS Current Outpatient Medications Medication Instructions atorvastatin (LIPITOR) 10 mg, Oral, Every morning buPROPion XL (WELLBUTRIN XL) 150 mg, Oral, Every morning, Do not crush, chew, or split. ergocalciferol (VITAMIN D2) 1.25 mg, Oral, Weekly estradiol (ESTRACE) 1 mg, Oral, Daily Meloxicam 15 mg, Oral, Daily Multiple Vitamins-Minerals (Eye Vitamins) capsule 1 tablet, Daily omeprazole (PRILOSEC) 20 mg, Oral, Daily before breakfast, Do not crush or chew. ondansetron (ZOFRAN) 4 mg, Oral, Every 8 hours PRN progesterone 100 mg, Oral, Daily, This is likely NOT dose, per dr smith, dr smith rx day 14-28 monthly, compounded triamterene-hydroCHLOROthiazide (Dyazide) 37.5-25 MG capsule 1 capsule, Every morning venlafaxine XR (EFFEXOR XR) 37.5 mg, Oral, Daily, Do not crush or chew. Xiidra 5 % solution APPLY 1 DROP INTO BOTH EYES TWICE A DAY ALLERGIES Allergies Allergen Reactions Codeine Nausea And Vomiting Other Reaction(s): Altered Heart Rate PROBLEMS Active Ambulatory Problems Diagnosis Date Noted Dyslipidemia 09/11/2022 Gastroesophageal reflux disease without esophagitis 09/11/2022 Migraine with aura, not intractable 08/01/2007 Vitamin D deficiency 09/11/2022 Unilateral vestibular weakness, right 03/16/2023 Decreased libido 05/31/2023 Hormone disorder 05/31/2023 Vaginal dryness 05/31/2023 Resolved Ambulatory Problems Diagnosis Date Noted Abnormal mammogram 09/11/2022 Abnormal weight gain 09/11/2022 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/2022 Allergic rhinitis 08/01/2007 Disorder of breast 09/11/2022 Dysuria 09/11/2022 Microcytic anemia 09/11/2022 Weight loss 09/11/2022 Balance disorder 03/15/2023 Cervicalgia 03/16/2023 Follow-up encounter involving medication 05/31/2023 Pelvic pain [...] SECTION, LOW TRANSVERSE x2 CHOLECYSTECTOMY 2006 COLONOSCOPY 2008 EGD TUBAL LIGATION REVIEW OF SYSTEMS Review of Systems: Review of Systems Constitutional: Negative. HENT: Negative. Eyes: Negative. Respiratory: Negative. Cardiovascular: Negative. Gastrointestinal: Negative. Genitourinary: Negative. Musculoskeletal: Negative. Skin: Negative. Neurological: Negative. All other systems reviewed and are negative. Hematological: Negative. Endocrine: Negative. Allergic/Immunologic: Negative. OBJECTIVE Objective: Physical Exam Constitutional: Appearance: Normal appearance. She is well-developed. Genitourinary: Vulva normal. Cardiovascular: Rate and Rhythm: Normal rate and regular rhythm. Pulmonary: Effort: Pulmonary effort is normal. Breath sounds: Normal breath sounds. Abdominal: General: Bowel sounds are normal. There is no distension. Palpations: Abdomen is soft. Tenderness: There is no abdominal tenderness. There is no guarding or rebound. Musculoskeletal: General: No swelling. Normal range of motion. Right lower leg: No edema. Left lower leg: No edema. Neurological: Mental Status: She is alert and oriented to person, place, and time. Skin: General: Skin is warm and dry. Psychiatric: Mood and Affect: Mood normal. Behavior: Behavior normal. Vitals and nursing note reviewed. Exam conducted with a manager night present. Vitals: Estimated body mass index is 38.04 kg/m as calculated from the following: Height as of 06/03/24: 5' 2 . Weight as of this encounter: 208 lb. BP: 128/78 No LMP recorded. ASSESSMENT & PLAN ICD-10-CM 1. Well woman exam with routine gynecological exam Z01.419 THIN PREP TIS PAP AND HR HPV DNA 2. Breast cancer screening by mammogram Z12.31 Bilateral screening mammogram Bilateral screening mammogram Orders Placed This Encounter Procedures Bilateral screening mammogram Annual Wellness Exam: Patient presents today for routine annual exam. Patient states she has complaints of irregular periods and family history of cancer- breast, uterine, and prostate. Discussed with pt regarding otogenics. Pt to return for testing. Patients vitals were reviewed and within normal limits. Growth and development is noted to be appropriate for age. Menstrual history is noted to be irregular with concerns reported. Pt given ultrasound to have obtained, pt to be scheduled for D&C hysteroscopy with poss myosure. Pap Smear: Speculum was inserted into the vagina and pap was obtained without difficulty. HPV testing was performed per age guideline. Patient was advised that pap results could take anywhere from 7 to 10 days to receive and our office will reach out to the patient with those once we have them. Patient can also view results via [employer]. I reinforced importance of condom use for STI prevention. Patient declined cultures to be performed with today's visit. Breast Exam: Upon examination, clinical breast exam was noted to be lump noted at 6 oclock position 5 cm from nipple on right breast and screening mammogram was ordered and given to patient to have obtained. Patient was counseled on breast self-awareness, including the importance of knowing what is normal for her own breasts and promptly reporting any changes such as new lumps, skin dimpling, nipple discharge, or pain. Screening mammogram was recommended annually. Discussed signs and symptoms of breast cancer and when to seek medical attention. Answered all patient questions. Contraceptive Counseling (if applicable): Patient is currently using tubal as a form of contraceptive. Follow Up: Patient is to return to our office in one year for annual exam unless needed otherwise. Documented by Stacie Santos LPN on behalf of: Ceasar Smith DO documented in this encounter [facility] 06-03-2024 History of Present illness Narrative Images from the original note were not included. Fabi Concepcion is a 44 y.o. female presents with chief complaint of Medication review and Foot Pain HPI: Here for routine follow up. Last seen by this provider 01-22-24 for vertigo. This has resolved Her father on mar 18,, brother in 2023 History of Present Illness The patient presents for evaluation of emotional flatness. She reports experiencing a sense of emotional flatness, which she attributes to her current stressors. Her sister was diagnosed with cancer in 01/2024 or beginning of 02/2024. Her father on 03/18/2024 due to cardiac arrest. 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 Additionally, she has been assisting her sister with chemotherapy sessions. Her sister's uterine cancer, initially diagnosed two years ago, has metastasized to her lungs. She also mentions that her niece, who is nonverbal autistic, has been experiencing seizures, and another niece, who is also autistic, was recently admitted to a mental hospital due to suicidal ideation. She has been attending grief counseling sessions through her jehovah's witness since 04/2024. She has been experiencing issues with her libido and sleep quality, often tossing and turning at night. She does not experience any specific time-related difficulties but notes that she does not feel extremely happy or sad. She maintains good hydration habits. She is currently on a regimen of venlafaxine 75 mg, taken once daily in the morning, which was prescribed by her OB-ROOFING SUBCONTRACTOR to manage her emotional distress. SOCIAL HISTORY She has 4 children. SUBJECTIVE: MEDICATIONS: Current Outpatient Medications Medication Instructions atorvastatin (LIPITOR) 10 mg, Oral, Every morning buPROPion XL (WELLBUTRIN XL) 150 mg, Oral, Every morning, Do not crush, chew, or split. ergocalciferol (VITAMIN D2) 1.25 mg, Oral, Weekly estradiol (ESTRACE) 1 mg, Oral, Daily Meloxicam 15 mg, Oral, Daily Multiple Vitamins-Minerals (Eye Vitamins) capsule 1 tablet, Daily omeprazole (PRILOSEC) 20 mg, Oral, Daily before breakfast, Do not crush or chew. ondansetron (ZOFRAN) 4 mg, Oral, Every 8 hours PRN progesterone 100 mg, Oral, Daily, This is likely NOT dose, per dr smith, dr smith rx day 14-28 monthly, compounded triamterene-hydroCHLOROthiazide (Dyazide) 37.5-25 MG capsule 1 capsule, Every morning venlafaxine XR (EFFEXOR XR) 37.5 mg, Oral, Daily, Do not crush or chew. Xiidra 5 % solution APPLY 1 DROP INTO BOTH EYES TWICE A DAY ALLERGIES: Allergies Allergen Reactions Codeine Nausea And Vomiting Other Reaction(s): Altered Heart Rate SURGICAL HISTORY: Past Surgical History: Procedure Laterality Date SECTION, LOW TRANSVERSE x2 CHOLECYSTECTOMY 2006 COLONOSCOPY 2008 EGD TUBAL LIGATION FAMILY HISTORY: Family History Problem Relation Name Age of Onset Breast cancer Mother Skin cancer Mother Hypertension Mother Diabetes Father Hypertension Father Heart attack Father Endometrial cancer Sister Uterine cancer Sister Brain Aneurysm Brother ADD / ADHD Daughter ADD / ADHD Son Lung cancer Mother's Brother SOCIAL HISTORY: Social History Tobacco Use Smoking status: Never Smokeless tobacco: Never Substance Use Topics Alcohol use: Yes Comment: 1-2 drinks 2-4x a month in the past year Drug use: Never Depression: Not at risk (10/15/2023) PHQ-2 PHQ-2 Score: 1 REVIEW OF SYMPTOMS: Review of Systems Constitutional: Negative for activity change. Eyes: Negative for visual disturbance. Respiratory: Negative for cough and wheezing. Cardiovascular: Negative for chest pain and leg swelling. Gastrointestinal: Negative for abdominal pain. Genitourinary: Negative for difficulty urinating. Musculoskeletal: Negative for arthralgias. Neurological: Negative for weakness. Psychiatric/Behavioral: Negative. See hpi Allergic/Immunologic: Negative for environmental allergies. ..I have reviewed and reconciled the history, allergies, family history, social history, and the medication list with the patient today. OBJECTIVE: Visit Vitals BP 120/70 (BP Location: Right arm, Patient Position: Sitting, BP Cuff Size: Adult) Pulse 85 Temp 98.1 F (Tympanic) Resp 18 Ht 5' 2 Wt 205 lb 3.2 oz SpO2 98% BMI 37.53 kg/m OB Status Having periods Smoking Status Never BSA 2.02 m Physical Exam Constitutional: Appearance: Normal appearance. Eyes: Pupils: Pupils are equal, round, and reactive to light. Cardiovascular: Rate and Rhythm: Normal rate and regular rhythm. Pulses: Normal pulses. Heart sounds: Normal heart sounds. Pulmonary: Effort: Pulmonary effort is normal. Breath sounds: Normal breath sounds. Musculoskeletal: Cervical back: Normal range of motion and neck supple. Skin: General: Skin is warm and dry. Neurological: General: No focal deficit present. Mental Status: She is alert. Psychiatric: Mood and Affect: Mood normal. Comments: Alert and interactive, good eye contact Allowed her time to ventilate her story of family health crises Rev labs of 10-02-23 Rev mammo of 12-21-23, wnl Wt up 1 pound ASSESSMENT AND PLAN: Assessment/Plan Diagnoses and all orders for this visit: Prolonged grief reaction (CMS/HCC) Comments: we will add in some bupropion, cut the venlafaxine at length, eap counselor. do grief program. Orders: - buPROPion XL (Wellbutrin XL) 150 MG 24 hr tablet; Take 1 tablet (150 mg) by mouth in the morning. Do not crush, chew, or split. - venlafaxine XR (Effexor XR) 37.5 MG 24 hr capsule; Take 1 capsule (37.5 mg) by mouth Daily Do not crush or chew. Decreased libido Comments: set aside time for date night, we will change meds as above, sexually explicit literature Follow up in about 2 months (around 08/03/2024) for recheck on chronic. documented in this encounter [facility] 06-03-2024 Instructions Ashleigh Dillon NP - 06/03/2024 7:30 AM EDT Walk for exercise, ideal is 30 min, 5 min is acceptable Utilize the AEP program for counseling Continue the grief group cut the venlafaxine in half, 37.5mg daily, add in wellbutrin 150mg in the am Good water intake, 80 oz of water per day Message in 2 weeks documented in this encounter [facility] 01-22-2024 History of Present illness Narrative Fabi Concepcion is a 43 y.o. female presents with chief complaint of Dizziness HPI: Here with vertigo type sx that she has had in the past since yesterday am Room spinning, nauseted She has no URI sx today and has none for the last few months, no recent flying, roller coasters, excessive computer work etc Anxious as she has plans to go to [facility] for the weekend Dizziness Pertinent negatives include no abdominal pain, chest pain, congestion, coughing or sore throat. SUBJECTIVE: MEDICATIONS: Current Outpatient Medications Medication Instructions atorvastatin (LIPITOR) 10 mg, Oral, Every morning ergocalciferol (VITAMIN D2) 1.25 mg, Oral, Weekly estradiol (ESTRACE) 1 mg, Oral, Daily meclizine (ANTIVERT) 25 mg, Oral, 3 times daily PRN Meloxicam 15 mg, Oral, Daily Multiple Vitamins-Minerals (Eye Vitamins) capsule 1 tablet, Daily omeprazole (PRILOSEC) 20 mg, Oral, Daily before breakfast, Do not crush or chew. ondansetron (ZOFRAN) 4 mg, Oral, Every 8 hours PRN predniSONE (Deltasone) 20 MG tablet 2 daily for 3 days, then 1 daily for 3 days progesterone 100 mg, Oral, Daily, This is likely NOT dose, per dr smith, dr smith rx day 14-28 monthly, compounded triamterene-hydroCHLOROthiazide (Dyazide) 37.5-25 MG capsule 1 capsule, Every morning venlafaxine XR (Effexor XR) 75 MG 24 hr capsule TAKE 1 CAPSULE BY MOUTH DAILY. DO NOT CRUSH OR CHEW vitamin C 250 mg, Daily Xiidra 5 % solution APPLY 1 DROP INTO BOTH EYES TWICE A DAY ALLERGIES: Allergies Allergen Reactions Codeine Nausea And Vomiting Other Reaction(s): Altered Heart Rate SURGICAL HISTORY: Past Surgical History: Procedure Laterality Date SECTION, LOW TRANSVERSE x2 CHOLECYSTECTOMY 2006 COLONOSCOPY 2008 EGD TUBAL LIGATION FAMILY HISTORY: Family History Problem Relation Name Age of Onset Breast cancer Mother Skin cancer Mother Hypertension Mother Diabetes Father Hypertension Father Heart attack Father Endometrial cancer Sister Uterine cancer Sister Brain Aneurysm Brother ADD / ADHD Daughter ADD / ADHD Son Lung cancer Mother's Brother SOCIAL HISTORY: Social History Tobacco Use Smoking status: Never Smokeless tobacco: Never Substance Use Topics Alcohol use: Yes Comment: 1-2 drinks 2-4x a month in the past year Drug use: Never Depression: Not at risk (10/15/2023) PHQ-2 PHQ-2 Score: 1 REVIEW OF SYMPTOMS: Review of Systems Constitutional: Negative for activity change. HENT: Negative for congestion, ear pain, sinus pressure and sore throat. Eyes: Negative for visual disturbance. Respiratory: Negative for cough. Cardiovascular: Negative for chest pain. Gastrointestinal: Negative for abdominal pain. Neurological: Positive for dizziness. Psychiatric/Behavioral: Negative. Allergic/Immunologic: Positive for environmental allergies. OBJECTIVE: Visit Vitals BP 114/78 (BP Location: Right arm, Patient Position: Sitting, BP Cuff Size: Adult) Pulse 105 Temp 98 F (Tympanic) Resp 18 Ht 5' 2 Wt 204 lb 3.2 oz LMP 01/05/2024 (Exact Date) SpO2 99% BMI 37.35 kg/m OB Status Having periods Smoking Status Never BSA 2.01 m Physical Exam Constitutional: Appearance: Normal appearance. HENT: Head: Normocephalic and atraumatic. Right Ear: Ear canal and external ear normal. Left Ear: Ear canal and external ear normal. Ears: Comments: TM's with clear fluid bilat Nose: Nose normal. Mouth/Throat: Mouth: Mucous membranes are moist. Eyes: Pupils: Pupils are equal, round, and reactive to light. Cardiovascular: Rate and Rhythm: Normal rate and regular rhythm. Heart sounds: No murmur heard. Pulmonary: Effort: Pulmonary effort is normal. Breath sounds: Normal breath sounds. Musculoskeletal: Cervical back: Normal range of motion. Skin: General: Skin is warm and dry. Findings: No rash. Neurological: General: No focal deficit present. Mental Status: She is alert. Comments: Cardinal solorio of gaze elicit subjective vertigo, no nystagmus Psychiatric: Mood and Affect: Mood normal. Comments: Alert and animated Moves her head a bit cautiously when moving about in the room. ASSESSMENT AND PLAN: Assessment/Plan Diagnoses and all orders for this visit: Vertigo Comments: discussed appropriate use of meclizine, pred and zofran as well as SE. taper off meclizine as better. call if no relief. use flonase also Orders: - ondansetron (Zofran) 4 MG tablet; Take 1 tablet (4 mg) by mouth every 8 (eight) hours if needed for vomiting - meclizine (Antivert) 25 MG tablet; Take 1 tablet (25 mg) by mouth 3 (three) times a day as needed for dizziness - predniSONE (Deltasone) 20 MG tablet; 2 daily for 3 days, then 1 daily for 3 days Follow up for as needed follow up, [place] is utd. documented in this encounter [facility] 01-22-2024 Instructions Ashleigh Dillon NP - 01/22/2024 9:00 AM EST Up to 4 times of day take meclizine, prednisone burst with food and zofran as well as SE. taper off meclizine as better. call if no relief documented in this encounter [facility] 01-07-2024 History of Present illness Narrative Fabi Concepcion is a 43 y.o. female presents with chief complaint of Follow-up (Pain that will shoot down her legs, has this pain every night and she is not getting any rest) HPI: Last seen by this provider on 10-15-23, was to return for recheck on venlafaxine, to see dining chair seat cushion trimmer ANXIETY/DEPRESSION Unsure about the venlafaxine Feels a little flat Emotions are better controlled Grief issues, mother a year ago this week, brother passed in mar and his bday was this week Father has stage 2 prostate cancer just diagnosed, brother in law has throat cancer possibly RIGHT HIP PAIN Has had this pain for a long time Awakens her at night, both sides, points to the greater trochantor, worse on the right Tyenol helps She is going to [employer] 3 times per week, resistance training and walking GENERAL Eye issues, on gtts, seeing specialist, very dry, sees dr pickard, dr jocelyn wylie regularly SUBJECTIVE: MEDICATIONS: Current Outpatient Medications Medication Instructions atorvastatin (LIPITOR) 10 mg, Oral, Every morning ergocalciferol (VITAMIN D2) 1.25 mg, Oral, Weekly estradiol (ESTRACE) 1 mg, Oral, Daily Meloxicam 15 mg, Oral, Daily Multiple Vitamins-Minerals (Eye Vitamins) capsule 1 tablet, Daily omeprazole (PRILOSEC) 20 mg, Oral, Daily before breakfast, Do not crush or chew. ondansetron (Zofran) 4 MG tablet TAKE ONE TABLET BY MOUTH EVERY 8 HOURS NEEDED FOR VOMITING progesterone 100 mg, Oral, Daily, This is likely NOT dose, per dr smith, dr smith rx day 14- monthly, compounded triamterene-hydroCHLOROthiazide (Dyazide) 37.5-25 MG capsule 1 capsule, Every morning venlafaxine XR (EFFEXOR XR) 75 mg, Oral, Daily, Do not crush or chew. vitamin C 250 mg, Daily Xiidra 5 % solution APPLY 1 DROP INTO BOTH EYES TWICE A DAY ALLERGIES: Allergies Allergen Reactions Codeine Nausea And Vomiting Other Reaction(s): Altered Heart Rate SURGICAL HISTORY: Past Surgical History: Procedure Laterality Date SECTION, LOW TRANSVERSE x2 CHOLECYSTECTOMY 2006 COLONOSCOPY 2008 EGD TUBAL LIGATION FAMILY HISTORY: Family History Problem Relation Name Age of Onset Breast cancer Mother Skin cancer Mother Hypertension Mother Diabetes Father Hypertension Father Heart attack Father Endometrial cancer Sister Uterine cancer Sister Brain Aneurysm Brother ADD / ADHD Daughter ADD / ADHD Son Lung cancer Mother's Brother SOCIAL HISTORY: Social History Tobacco Use Smoking status: Never Smokeless tobacco: Never Substance Use Topics Alcohol use: Yes Comment: 1-2 drinks 2-4x a month in the past year Drug use: Never Depression: Not at risk (10/15/2023) PHQ-2 PHQ-2 Score: 1 REVIEW OF SYMPTOMS: Review of Systems Constitutional: Negative for activity change. Eyes: Negative for visual disturbance. Respiratory: Negative for cough and wheezing. Cardiovascular: Negative for chest pain and leg swelling. Gastrointestinal: Negative for abdominal pain. Genitourinary: Negative for difficulty urinating. Musculoskeletal: Positive for arthralgias. See hpi Neurological: Negative for weakness. Psychiatric/Behavioral: Negative. See hpi Allergic/Immunologic: Negative for environmental allergies. OBJECTIVE: Visit Vitals BP 122/76 (BP Location: Left arm, Patient Position: Sitting, BP Cuff Size: Adult) Pulse 85 Temp 98.4 F (Tympanic) Resp 18 Ht 5' 2 Wt 204 lb 6.4 oz SpO2 98% BMI 37.39 kg/m OB Status Having periods Smoking Status Never BSA 2.01 m Physical Exam Constitutional: Appearance: Normal appearance. Eyes: Pupils: Pupils are equal, round, and reactive to light. Cardiovascular: Rate and Rhythm: Normal rate and regular rhythm. Pulses: Normal pulses. Heart sounds: Normal heart sounds. Pulmonary: Effort: Pulmonary effort is normal. Breath sounds: Normal breath sounds. Musculoskeletal: Cervical back: Normal range of motion and neck supple. Skin: General: Skin is warm and dry. Neurological: General: No focal deficit present. Mental Status: She is alert. Psychiatric: Mood and Affect: Mood normal. Comments: Alert and interactive, talkative Rev the mammo of 12-31-23 Wt up 2 pounds Rev 08-28-23 AAA US wnl Rev the echo of 08-28-23 ASSESSMENT AND PLAN: Assessment/Plan Diagnoses and all orders for this visit: Trochanteric bursitis of both hips Comments: add in meloxicam, stretch Orders: - Meloxicam 15 MG tablet dispersible; Take 15 mg by mouth Daily Vaginal dryness Comments: confirmed she is using progest/with her estrogen Orders: - progesterone 100 MG capsule; Take 1 capsule (100 mg) by mouth Daily This is likely NOT dose, per dr smith, dr smith rx day 14-28 monthly, compounded BMI 37.0-37.9, adult Comments: keep up the exercise, see dining chair seat cushion trimmer Grief ([facility]) Comments: venlafaxine, discussed service project/hobby, gratitude journal Immunization due Comments: flu vaccine today, update covid in near future Orders: - Flu vaccine greater than or equal to 3 years old, PF IM (IMM19) Follow up for 4 mo recheck on meds . documented in this encounter [facility] 01-07-2024 Instructions Ashleigh Dillon NP - 01/07/2024 7:00 AM EST Update flu and covid vaccine Call lidia parker to see about getting appt on the books moving forward Stretch sheet given for hips Meloxicam 15mg daily for 1-2 weeks and as needed, do not take with other anti inflammatory meds like motrin/aleve documented in this encounter [facility] 10-15-2023 History of Present illness Narrative Fabi Concepcion is a 43 y.o. female presents with chief complaint of Annual Exam (Is working with OB as is having hormone issues) HPI: Working for [employer], she is busy, believes that her employer is being sold, not terribly stressed about this No formal exercise No ORTEGA or syncope or falls No CP or SOB with exertion Walking for exercise 2-3 times per week No GI/ issues No skin changes No MS c/o today Fair water intake SUBJECTIVE: MEDICATIONS: Current Outpatient Medications Medication Instructions atorvastatin (LIPITOR) 10 mg, Oral, Every morning chlorthalidone (Hygroton) 25 MG tablet TAKE 1 TABLET BY MOUTH EVERY MORNING NEEDED ergocalciferol (VITAMIN D2) 1.25 mg, Oral, Weekly estradiol (ESTRACE) 1 mg, Oral, Daily Multiple Vitamins-Minerals (Eye Vitamins) capsule 1 tablet, Oral, Daily omeprazole (PRILOSEC) 20 mg, Oral, Daily before breakfast, Do not crush or chew. ondansetron (Zofran) 4 MG tablet TAKE ONE TABLET BY MOUTH EVERY 8 HOURS NEEDED FOR VOMITING triamterene-hydroCHLOROthiazide (Dyazide) 37.5-25 MG capsule 1 capsule, Oral, Every morning venlafaxine XR (EFFEXOR XR) 37.5 mg, Oral, Daily, Do not crush or chew. venlafaxine XR (EFFEXOR XR) 75 mg, Oral, Daily, Do not crush or chew. vitamin C 250 mg, Oral, Daily ALLERGIES: Allergies Allergen Reactions Codeine Nausea And Vomiting Other Reaction(s): Altered Heart Rate SURGICAL HISTORY: Past Surgical History: Procedure Laterality Date SECTION, LOW TRANSVERSE x2 CHOLECYSTECTOMY 2006 COLONOSCOPY 2007 EGD TUBAL LIGATION FAMILY HISTORY: Family History Problem Relation Name Age of Onset Breast cancer Mother Skin cancer Mother Hypertension Mother Diabetes Father Hypertension Father Heart attack Father Endometrial cancer Sister Uterine cancer Sister Brain Aneurysm Brother ADD / ADHD Daughter ADD / ADHD Son Lung cancer Mother's Brother SOCIAL HISTORY: Social History Tobacco Use Smoking status: Never Smokeless tobacco: Never Substance Use Topics Alcohol use: Yes Comment: 1-2 drinks 2-4x a month in the past year Drug use: Never Depression: Not at risk (10/15/2023) PHQ-2 PHQ-2 Score: 1 REVIEW OF SYMPTOMS: Review of Systems Constitutional: Negative for activity change, appetite change and fever. HENT: Negative for hearing loss, rhinorrhea and sore throat. Eyes: Negative for visual disturbance. Respiratory: Negative for cough and wheezing. Cardiovascular: Negative for chest pain, palpitations and leg swelling. Gastrointestinal: Negative for abdominal pain and blood in stool. Genitourinary: Negative for dysuria and flank pain. Musculoskeletal: Negative for arthralgias. Skin: Negative. Neurological: Negative for dizziness, syncope and light-headedness. Psychiatric/Behavioral: Negative. Hematological: Negative for adenopathy. Does not bruise/bleed easily. Endocrine: Negative for polydipsia. Allergic/Immunologic: Positive for environmental allergies. Negative for food allergies. OBJECTIVE: Visit Vitals BP 115/78 (BP Location: Right arm, Patient Position: Sitting, BP Cuff Size: Adult) Pulse 85 Temp 98.3 F (Tympanic) Resp 18 Ht 5' 2 Wt 202 lb LMP 09/24/2023 SpO2 96% BMI 36.95 kg/m OB Status Having periods Smoking Status Never BSA 2 m Physical Exam HENT: Head: Normocephalic. Right Ear: Tympanic membrane [...] no mass. Hernia: No hernia is present. Musculoskeletal: General: Normal range of motion. Cervical back: Normal range of motion. Lymphadenopathy: Cervical: No cervical adenopathy. Skin: General: Skin is warm and dry. Capillary Refill: Capillary refill takes less than 2 seconds. Neurological: General: No focal deficit present. Mental Status: She is alert. Psychiatric: Mood and Affect: Mood normal. Comments: Alert and interactive Multiple concerns Rev labs of 10-02-23 ASSESSMENT AND PLAN: Assessment/Plan Diagnoses and all orders for this visit: Wellness examination Comments: encouraged to continue the daily walking, discussed update on vaccines LESLEE (generalized anxiety disorder) ([facility]) Comments: increase the venlafaxine to 75mg per day, call in a few weeks if desires increase in dose. aware to be compliant with dosage Orders: - venlafaxine XR (Effexor XR) 75 MG 24 hr capsule; Take 1 capsule (75 mg) by mouth Daily Do not crush or chew. Dyslipidemia ([facility]/HCC) Comments: to goal per labs oct 02, 2023 Orders: - Ambulatory referral to Nutrition Services; Future Migraine with aura and without status migrainosus, not intractable (CMS/HCC) Comments: well controlled at this point in time Morbid (severe) obesity due to excess calories (CMS/HCC) Comments: as above BMI 36.0-36.9,adult Comments: referral to dining chair seat cushion trimmer , we discussed whole foods , intermittent fasting, more water, more protein Orders: - Ambulatory referral to Nutrition Services; Future Gastroesophageal reflux disease without esophagitis Comments: good control of recent, on ppi Family history of abdominal aortic aneurysm (AAA) Comments: cleared per imaging earlier in 2023 Orders: - Vascular US aorta iliac duplex complete Vitamin D deficiency Comments: to goal with level of 49 Screen for colon cancer Comments: referral sent Orders: - Cologuard colon cancer screening Unilateral vestibular weakness, right Comments: use the flonase and antihistamine daily this fall Hormone disorder Comments: follow up with dr smith, ask about the unapposed estrogen Vaginal dryness Comments: as above for hormone disorder Decreased libido Comments: as above for hormone disorder Family history of abdominal aortic aneurysm (AAA) - Vascular US aorta iliac duplex complete Follow up in about 3 months (around 01/14/2024) for recheck on venlafaxine. documented in this encounter [facility] 10-15-2023 Instructions Ashleigh Dillon NP - 10/15/2023 7:30 AM EDT Update the payroll administrator appt, get mammo Encouraged to increase water intake Consider 25 gram protein with each meal Increase the venlafaxine to 75mg per day, call with update as needed Intermittant fasting even 12 and 12 step in the right direction See the dining chair seat cushion trimmer, lidia parker Covid vaccine alejandra, flu halloween time documented in this encounter [facility] 03-20-2023 Telephone encounter Note Phone call to pt no albut at home. Ribs hurt from coughing. Rev meds admin and common SE.offered appt . Will insist on appt if no better. She will keep ent appt and keep us updated. [facility] 03-20-2023 Miscellaneous Notes Phone call to pt no albut at [...] just getting worse. documented in this encounter [facility] 03-20-2023 Telephone encounter Note Does she have an inhaler? Nebulizer? Ashleigh sent antibiotic last noel to cover strep. Should cover some chest bacteria, not all. She cannot have more steroid. [facility] 03-20-2023 Telephone encounter Note She doesn't know what to do last Sunday she started with a cough, and it is just getting worse. [facility] 03-19-2023 Telephone encounter Note Text from pt this pm. Son has strep. She now has sore throat also. Asking for antibiotic. Sent late this noel. Pt advised per text. Call if no better. [facility] 03-19-2023 Miscellaneous Notes Text from pt this pm. Son has strep. She now has sore throat also. Asking for antibiotic. Sent late this noel. Pt advised per text. Call if no better. documented in this encounter [facility] 03-19-2023 Telephone encounter Note Called in here sat with cough. Son had influenza b. Started her on pred burst again and the cough is still present. Ribs hurt from coughing today. Up all night on Sunday night. Started sx on night. Has not taken any tamiflu. Better each [...] terribly bad. She will call MRI at [facility] and ask if they need more specific order for IAC with the DAYANA. She voiced understanding. She will taper off of the steroid. She reports that her father had benign tumors removed from his head, X 7. She is unsure what this was. Call as needed [facility] 03-19-2023 Miscellaneous Notes Called in here sat with cough. Son had influenza b. Started her on pred burst again and the cough is still present. Ribs hurt from coughing today. Up all night on Sunday night. Started sx on night. Has not taken any tamiflu. Better each [...] terribly bad. She will call MRI at [facility] and ask if they need more specific order for IAC with the DAYANA. She voiced understanding. She will taper off of the steroid. She reports that her father had benign tumors removed from his head, X 7. She is unsure what this was. Call as needed documented in this encounter [facility] 03-16-2023 History of Present illness Narrative Fabi Concepcion [id number] 03/15/23 Subjective: Phone consult 8: 43 yof sent to PT by Dr Denis for dizziness. Onset 2 wks ago on [place] thru night, driving to work everything started [...] POC medically necessary. Please sign below. Cyril Arnold, DScPT, OCS, COMT, AIB-VAM Director Vestibular Rehabilitation documented in this encounter [facility] 03-13-2023 Telephone encounter Note [facility] Dillon office called wanting to get this patient in [facility] for an appointment. They sent this to Dr. De Paz but his office could not get her in until May. I explained that all three ENTs share the same receptionist clerk, we are all booking out until then. I checked with receptionist clerk there are no cancellations. Unfortunately for all three offices we are booked until May patient is required to have hearing test before appointment. I tried to call [facility] office back but their office is closed [facility] 03-13-2023 Miscellaneous Notes Ashleigh Dillon office called wanting to get this patient in [facility] for an appointment. They sent this to Dr. De Paz but his office could not get her in until May. I explained that all three ENTs share the same receptionist clerk, we are all booking out until then. I checked with receptionist clerk there are no cancellations. Unfortunately for all three offices we are booked until May patient is required to have hearing test before appointment. I tried to call [facility] office back but their office is closed documented in this encounter [facility] 03-07-2023 Hospital Discharge instructions Darlene Nuñez DO - 03/07/2023 5:54 [...] attachments cannot be sent through Care Everywhere.Vertigo (Arabic)documented in this encounter [facility] Evaluation note Diagnosis Benign paroxysmal positional vertigo, unspecified laterality- Primary Dizziness Dizziness and giddiness documented in this encounter [facility] Diagnosis Balance disorder- Primary Cervicalgia Unilateral vestibular weakness, right [facility] Diagnosis Influenza B- Primary Influenza with other respiratory manifestations [facility]* Diagnosis Pharyngitis due to other organism- Primary [facility]* Diagnosis Localized edema Edema Dyslipidemia ([facility]) Other and unspecified hyperlipidemia [facility]* Diagnosis Acute cough- Primary [facility]* Diagnosis Ataxia Lack of coordination documented in this encounter [facility]* Diagnosis Unspecified atherosclerosis Elevated blood pressure reading without diagnosis of hypertension Family history of ischemic heart disease and other diseases of the circulatory system documented [facility] this encounter [facility]* Diagnosis Dyslipidemia ([facility]/HCC) Other and unspecified hyperlipidemia [facility] Diagnosis Trochanteric bursitis of both hips- Primary Vaginal dryness Postmenopausal atrophic vaginitis BMI 37.0-37.9, adult Grief ([facility]) Adjustment disorder with depressed mood Immunization due [facility] Diagnosis LESLEE (generalized anxiety disorder) ([facility]) Generalized anxiety disorder [facility]* Diagnosis Vertigo Dizziness and giddiness documented [facility]* Diagnosis Dyslipidemia ([facility]/HCC) Other and unspecified hyperlipidemia [facility]* Diagnosis Wellness examination- Primary LESLEE (generalized anxiety disorder) ([facility]) Generalized anxiety disorder Dyslipidemia ([facility]/HCC) Other and unspecified hyperlipidemia Migraine with aura and without status migrainosus, not intractable (CMS/HCC) Morbid (severe) obesity due to excess calories (CMS/HCC) BMI 36.0-36.9,adult Gastroesophageal reflux disease without esophagitis Esophageal reflux Family history of abdominal aortic aneurysm (AAA) Vitamin D deficiency Screen for colon cancer Special screening for malignant neoplasms, colon Unilateral vestibular weakness, right Hormone disorder Unspecified endocrine disorder Vaginal dryness Postmenopausal atrophic vaginitis Decreased libido [facility] Diagnosis Vitamin D deficiency documented [facility]* Diagnosis Dyslipidemia (CMS/HCC) Other and unspecified hyperlipidemia [facility]* Diagnosis Prolonged grief reaction (CMS/HCC)- Primary Decreased libido [facility]* Diagnosis Dyslipidemia (CMS/HCC) Other and unspecified hyperlipidemia [facility]* Diagnosis Well woman exam with routine gynecological exam Routine gynecological examination Breast cancer screening by mammogram Breast lump on right side at 6 o'clock position Lump or mass in breast Abnormal uterine bleeding (AUB) Yeast infection documented [facility] this [facility] noteNo assessment information availableRiverside [facility] Work Phone: Evaluation note* Diagnosis Prolonged grief reaction [facility] this [facility]* Diagnosis Screening for deficiency anemia- Primary Screening for other and unspecified deficiency anemia Diabetes mellitus screening Screening for diabetes mellitus Screening, lipid Screening for thyroid disorder Dysuria Encounter for vitamin deficiency screening Wellness examination Bilateral leg pain Pain in soft tissues of limb Claudication Unspecified peripheral vascular disease documented [facility]* Diagnosis Vitamin D deficiency documented in [facility]* Diagnosis Dyslipidemia Other and unspecified hyperlipidemia [facility]* Diagnosis Bilateral foot pain- Primary documented [facility]* Diagnosis Prolonged grief reaction documented [facility]* Diagnosis Trochanteric bursitis of both hips documented [facility] this [facility]* Diagnosis Wellness examination- Primary Gastroesophageal reflux disease without esophagitis Esophageal reflux Vitamin D deficiency Body mass index (BMI) 37.0-37.9, adult Morbid (severe) obesity due to excess calories (CMS-[facility]) Unilateral vestibular weakness, right LESLEE (generalized anxiety disorder) Generalized anxiety disorder Migraine with aura and with status migrainosus, not intractable Dyslipidemia Other and unspecified hyperlipidemia Decreased libido Vaginal dryness Postmenopausal atrophic vaginitis Screen for colon cancer Special screening for malignant neoplasms, colon Immunization due Bilateral foot pain [facility]* Diagnosis Pre-op examination Abnormal uterine bleeding (AUB) [facility]* Diagnosis Plantar fasciitis- Primary Plantar fascial fibromatosis Bilateral foot pain documented in this encounter [facility] Narrative* Betty Maggi - 10/27/2024 10:20 AM EDT Reason for Appointment: Patient ID: Fabi Concepcion is a 44 y.o. female who presents for Pre-op Visit Patient presents today for Pre Op appointment. Patient is scheduled to undergo D&C Hysteroscopy, possible Myosure on 11-14-[address] Smith at [facility]. MEDICATIONS Current Outpatient Medications Medication [...] This is likely NOT dose, per dr smith, dr smith rx day 14-28 monthly, compounded triamterene-hydroCHLOROthiazide (Dyazide) [...] Morbid (severe) obesity due to excess calories ([facility]) 10/27/2024 Resolved Ambulatory Problems Diagnosis Date Noted [...] 08/01/2007 Allergies Gastritis 2008 Irritable bowel syndrome 2007 Microcytic anemia 09/11/2022 Migraine headache Social History [...] Vitals: Estimated body mass index is 38.23 kg/m as calculated from the following: Height as [...] reviewed, and patient is to proceed to [facility] OR. Follow Up: Patient is to follow up between 1-2 weeks post operative to assess proper healing and recovery fromprocedure. Documented by Gem Chacon LPN on behalf of: Ceasar Smith DO documented in this encounterNOMS HealthcareReason for referral (narrative)* Consultation (Routine) - Pending Review Specialty Diagnoses / Procedures Referred By Contac t Referred To Contact Diagnoses Dyslipidemia ([facility]) BMI 36.0-36.9,adult Procedures CO OFFICE/OUTPATIENT NEW HIGH MDM 60 MINUTES Ashleigh Dillon, PHYLICIA [address] [place] [address] Lidia Parker, MS, RDN, LD, CHES [address] [place], [place] Referral ID Status Reason Start Date Expiration Date Visits Requested Visits Authorized [id number] Pending Review Specialty Services Required 10/15/2023 04/12/2024 1 1 [facility]Reason for referral (narrative)No reason for referral information availableSelect Medical [facility] Work Phone: Discharge Instructions * Instructions* Matt Fletcher MD - 05/11/2019 If you have a fever unable to keep things by mouth or any other concerns please return to emergencydepartment. * Attachments The following attachments cannot be sent through Care Everywhere. 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 Advance Directives and Living Will Power of Clinical Assessment Manager Advance Directive Response Recorded Date/ Time Advance Directives No July 31 10:56am Summary Purpose Family History No Family History Records FoundNo Family History Records FoundNo Family History Records FoundNo Family History Records FoundNo Family History Records FoundNo Family History Records FoundNo Family History Records Found Reason for Referral Specialty Diagnoses / Procedures Referred By Virginia iniguez Referred To Contact Radiology Diagnoses Ataxia Procedures MRI BRAIN W WO CONTRAST Enid Denis M, DO [address] [place] [id number] Referral ID Status Reason Start Date Expiration Date Visits Re quested Visits Authorized [id number] Closed 03/24/2023 03/18/2024 1 1 Specialty Diagnoses / Procedures Referred By Virginia iniguez Referred To Contact Diagnoses Unspecified atherosclerosis Elevated blood pressure reading without diagnosis of hypertension Family history of ischemic heart disease and other diseases of the circulatory system Procedures Vascular AAA screening Ashleigh Dillon, LEAD ESTHETICIAN - RENEWABLE ENERGY TRADER [address] [place] [address] Referral ID Status Reason Start Date Expiration Date Visits Re quested Visits Authorized [id number] Open 07/10/2023 07/09/2024 1 1 Chief Complaint and Reason for Visit Chief Complaint Admit Date N63.15 August 11, 2024 8:12a m Additional Source Comments Reason for Visit (unrecogniz ed section and content) Reason Comments Abscess Right breast, ongoin g, but became infected 2 days ago Reason Comments Headache With INT dizziness, on prednisone and meclizine. Had CTA and labs yesterday. Specialty Diagnoses / Procedures Referred By Virginia iniguez Referred To Contact Physical Therapy Diagnoses Benign paroxysmal vertigo, bilateral Procedures CO PHYSICAL THERAPY EVALUATION LOW COMPLEX 20 MINS Enid Denis MD [address] [place] [address] Cyril Arnold, PT [address] [place] [address] Referral ID Status Reason Start Date Expiration Date V isits Requested Visits Authorized [id number] Closed Consult and Treat 03/16/2023 09/12/2023 1 1 Reason Comments Med Refill Reason Onset Date Comments Cough 03/20/2023 Specialty Diagnoses / Procedures Referred By Contac t Referred To Contact Radiology Diagnoses Ataxia Procedures MRI BRAIN W WO CONTRAST Enid Denis, [address] [place] [address] Referral ID Status Reason Start Date Expiration Date Visits Re quested Visits Authorized [id number] Closed 03/24/2023 03/18/2024 1 1 Specialty Diagnoses / Procedures Referred By Contac t Referred To Contact Diagnoses Unspecified atherosclerosis Elevated blood pressure reading without diagnosis of hypertension Family history of ischemic heart disease and other diseases of the circulatory system Procedures Vascular AAA screening Ashleigh Dillon, LEAD ESTHETICIAN - RENEWABLE ENERGY TRADER [address] [place] [address] Referral ID Status Reason Start Date Expiration Date Visits Re quested Visits Authorized [id number] Open 07/10/2023 07/09/2024 1 1 Reason Comments Follow-up Pain that will shoot down her legs, has this pain every night and she is not getting any rest Reason Comments Dizziness Reason Comments Annual Exam Is working with OB a s is having hormone issues Reason Comments Medication review Foot Pain Reason Comments Gynecologic Exam Reason Onset Date Comments Med Refill 10/14/2024 Reason Onset Date Comments Med Refill 10/15/2024 Reason Comments Annual Exam Reason Comments Pre-op Visit INFORMATION SOURCE (unrecogn ized section and content) DATE CREATED AUTHOR 06/16/2021 [facility] dical Specialist DATE CREATED AUTHOR AUTHOR'S ORGANIZ ATION 11/04/2021 [facility] DATE CREATED AUTHOR AUTHOR'S ORGANIZ ATION 04/18/2022 [facility] DATE CREATED AUTHOR AUTHOR'S ORGANIZ ATION 08/30/2023 [facility] DATE CREATED AUTHOR AUTHOR'S ORGANIZ ATION 08/20/2024 [facility] DATE CREATED AUTHOR AUTHOR'S ORGANIZ ATION 10/17/2024 [facility] DATE CREATED AUTHOR AUTHOR'S ORGANIZ ATION 10/29/2024 [facility] dical Specialists EPIC Scheduled Active and Recently [...] Care Teams (unrecognized sec tion and content) Teaching Pastor Relationship Specialty Start Date End Date Cyril Britt DO [address] [place] [address] PCP - General Family Medicine 05/11/19 Teaching Pastor Relationship Specialty Start Date End Date Cyril Britt DO [address] [place] [address] PCP - General Family Medicine 06/13/22 Cyril Britt DO [address] [place], [place] [id number] PCP - [employer] 12/06/22 Teaching Pastor Relationship Specialty Start Date End Date Cyril Britt, DO [address] [place] [address] PCP - General Family Medicine 06/13/22 Cyril Britt DO [address] [place] [address] PCP - [employer] 12/06/22 Teaching Pastor Relationship Specialty Start Date End Date Cyril Britt, DO [address] [place] [address] PCP - General Family Medicine 06/13/22 Cyril Britt, DO [address] [place] [address] PCP - [employer] 12/06/22 Teaching Pastor Relationship Specialty Start Date End Date Cyril Britt, DO [address] [place] [address] PCP - General Family Medicine 06/13/22 Cyril Britt DO [address] [place] [address] PCP - [employer] 12/06/22 Teaching Pastor Relationship Specialty Start Date End Date Cyril Britt DO [address] [place] [address] PCP - General Family Medicine 06/13/22 Cyril Britt DO [address] [place] [address] PCP - [employer] 12/06/22 Teaching Pastor Relationship Specialty Start Date End Date Cyril Britt DO [address] [place] [address] PCP - General Family Medicine 06/13/22 Cyril Britt DO [address] [place] [address] PCP - [employer] 12/06/22 Teaching Pastor Relationship Specialty Start Date End Date Cyril Britt DO [address] [place] [address] PCP - General Family Medicine 06/13/22 Cyril Britt DO [address] [place] [address] PCP - [employer] 12/06/22 Teaching Pastor Relationship Specialty Start Date End Date Cyril Britt DO [address] [place] [address] PCP - General Family Medicine 05/11/19 Teaching Pastor Relationship Specialty Start Date End Date Cyril Britt DO [address] [place] [address] PCP - General Family Medicine 05/11/19 Teaching Pastor Relationship Specialty Start Date End Date Cyril Britt DO [address] [place] [address] PCP - General Family Medicine 06/13/22 Ashleigh Dillon, RENEWABLE ENERGY TRADER [address] [place] [address] PCP - [employer] 04/06/23 Teaching Pastor Relationship Specialty Start Date End Date Cyril Britt DO [address] [place] [address] PCP - General Family Medicine 06/13/22 Ashleigh Dillon, RENEWABLE ENERGY TRADER [address] [place] [address] PCP - [employer] 04/06/23 Teaching Pastor Relationship Specialty Start Date End Date Cyril Britt DO [address] [place] [address] PCP - General Family Medicine 06/13/22 Ashleigh Dillon, RENEWABLE ENERGY TRADER [address] [place] [address] PCP - [employer] 04/06/23 Teaching Pastor Relationship Specialty Start Date End Date Cyril Britt DO [address] [place] [address] PCP - General Family Medicine 06/13/22 Teaching Pastor Relationship Specialty Start Date End Date Cyril Britt DO [address] [place] [address] PCP - General Family Medicine 06/13/22 Teaching Pastor Relationship Specialty Start Date End Date Cyril Britt DO [address] [place], [place] [id number] PCP - General Family Medicine 06/13/22 Teaching Pastor Relationship Specialty Start Date End Date Cyril Britt DO [address] [place] [address] PCP - General Family Medicine 06/13/22 Ashleigh Dillon, RENEWABLE ENERGY TRADER [address] [place] [address] PCP - [employer] 04/06/23 Teaching Pastor Relationship Specialty Start Date End Date Cyril Britt DO [address] [place] [address] PCP - General Family Medicine 06/13/22 Ashleigh Dillon, RENEWABLE ENERGY TRADER [address] [place], [place] [phone] PCP - [employer] 04/06/23 Teaching Pastor Relationship Specialty Start Date End Date Cyril Britt DO [address] [place] [address] PCP - General Family Medicine 06/13/22 Ashleigh Dillon, RENEWABLE ENERGY TRADER [address] [place] [address] PCP - [employer] 04/06/23 Teaching Pastor Relationship Specialty Start Date End Date Cyril Britt DO [address] [place] [address] PCP - General Family Medicine 06/13/22 Teaching Pastor Relationship Specialty Start Date End Date Cyril Britt DO [address] [place] [address] PCP - General Family Medicine 06/13/22 Teaching Pastor Relationship Specialty Start Date End Date Cyril Britt DO [address] [place] [address] PCP - General Family Medicine 06/13/22 Teaching Pastor Relationship Specialty Start Date End Date Cyril Britt DO [address] [place] [address] PCP - General Family Medicine 06/13/22 Team Status: Active Member Role Status Dates NON STAFF Primary Care Provider Active Team Status: Inactive Member Role Status Dates Ceasar Smith DO Attending Provider Active Start : August 11, 2024 End: August 11, 2024 NON STAFF Primary Care Provider Active Start: August 11, 2024 End: August 11, 2024 Teaching Pastor Relationship Specialty Start Date End Date Cyril Britt DO [address] [place], [place] [id number] PCP - General Family Medicine 06/13/22 Ashleigh Dillon, RENEWABLE ENERGY TRADER [address] [place], [place] [phone] PCP - [employer] 05/06/24 Teaching Pastor Relationship Specialty Start Date End Date Cyril Britt DO [address] [place], [place] [id number] PCP - General Family Medicine 06/13/22 Ashleigh Dillon, RENEWABLE ENERGY TRADER [address] [place], [place] [phone] PCP - [employer] 05/06/24 Teaching Pastor Relationship Specialty Start Date End Date Cyril Britt DO [address] [place], [place] [phone] PCP - General Family Medicine 06/13/22 Ashleigh Dillon, RENEWABLE ENERGY TRADER [address] [place], [place] [phone] PCP - [employer] 05/06/24 Teaching Pastor Relationship Specialty Start Date End Date Cyril Britt DO [address] [place] [address] PCP - General Family Medicine 06/13/22 Ashleigh Dillon, RENEWABLE ENERGY TRADER [address] [place] [address] PCP - [employer] 05/06/24 Teaching Pastor Relationship Specialty Start Date End Date Cyril Britt DO [address] [place] [address] PCP - General Family Medicine 06/13/22 Ashleigh Dillon, RENEWABLE ENERGY TRADER [address] [place] [address] PCP - [employer] 05/06/24 Teaching Pastor Relationship Specialty Start Date End Date Cyril Britt DO [address] [place] [address] PCP - General Family Medicine 06/13/22 Ashleigh Dillon, RENEWABLE ENERGY TRADER [address] [place] [address] PCP - [employer] 05/06/24 Teaching Pastor Relationship Specialty Start Date End Date Cyril Britt DO [address] [place] [address] PCP - General Family Medicine 06/13/22 Ashleigh Dillon, RENEWABLE ENERGY TRADER [address] [place] [address] PCP - [employer] 05/06/24 Teaching Pastor Relationship Specialty Start Date End Date Cyril Britt DO [address] [place] [phone] PCP - General Family Medicine 06/13/22 Ashleigh Dillon, RENEWABLE ENERGY TRADER [address] [place] [address] [facility] Teaching Pastor Relationship Specialty Start Date End Date Cyril Britt, DO [address] [place] [address] PCP [facility] 06/13/22 Ashleigh Dillon, RENEWABLE ENERGY TRADER [address] [place] [address] PCP [facility] 05/06/24 Teaching Pastor Relationship Specialty Start Date End Date Cyril Britt, DO [address] [place] [address] PCP - [facility] 06/13/22 Ashleigh Dillon, RENEWABLE ENERGY TRADER [address] [place] [address] PCP [facility] 05/06/24 Goals (unrecognized section and content) Goals may be documented in a n alternate section FOR RECORDS PERTAINING TO PATIENTS WHO ARE [...] BE BASED ON THE PRIMARY CLINICAL RECORDS. [employer] provides no warranty or guarantee of the accuracy or completeness of information in this document.
== END 2024-11-10 12:33 | disposition home or self-care (01) ==
PROVIDERS: PCP Nurse Practitioner; Visit Provider Obstetrics & Gynecology
DX: Z01.810 Encounter for preprocedural cardiovascular examination (principal); N93.9 Abnormal uterine and vaginal bleeding, unspecified
CPT/HCPCS: 93005

== ENCOUNTER 2024-11-14 06:16 | Day surgery (SDC) | payer BC, SELFPAY ==
[2024-11-10 13:10] VITALS: BP 148/97; PULSE 89; TEMP 36.4; O2SAT 97; BMI 40.6
--- OUTSIDE RECORDS SUMMARY | 2024-11-14 06:20 | XMS_ITS | CCD ---
Author Organization [facility] Care Team Providers Care Roll Icer Name Role Phone Cyril Britt Primary Care Provider WILMA, DR ASHLEIGH Huizar Primary Care Unavailable [...] Provider Cyril Britt DO Primary Care Provider [phone] Cyril Britt DO Unavailable ENID DENIS Referring Unavailab CYRIL Manzo Primary Care Unavailable ASHLEIGH DILLON Referring Unavailable CYRIL BIRTT Primary Care Unavailable ASHLEIGH DILLON Referring Unavailable CYRIL BRITT Primary Care Unavailable CYRIL BRITT Primary Care Unavailable ADRLENE NUÑEZ Attending Unavailable CYRIL BRITT Primary Care Unavailable WILMA ASHLEIGH L Referring Unavailable LORENZA, CYRIL G Primary Care Unavailable RINE, ASHLEIGH L Referring Unavailable Rine RUBY ENGINEER, Ashleigh L Unavailable Ceasar Smith DO Attending Provider NON STAFF Primary Care Provider Unavailabl e Rine RUBY ENGINEER, Ashleigh L Unavailable NON STAFF Primary Care Unavailable Ceasar Smith Attending Unavailable Ceasar Smith Admitting Unavailable Parmjit Jason MD Attending Unavaila ble Abraham INVENTORY ASSOCIATE-PIE FILLER, Mary Pooja Primary Care Liliana vailable Abraham INVENTORY ASSOCIATE-PIE FILLER, Mary Pooja Primary Care Liliana vailable Gayhart PA-C, Kimberly Loyola Attending Unavai lable Gayhart PA-C, Kimberly Loyola Attending Unavai lable Abraham INVENTORY ASSOCIATE-PIE FILLER, Mary Pooja Primary Care Liliana vailable Gayhart PA-C, Kimberly Loyola Attending Unavai lable Abraham INVENTORY ASSOCIATE-PIE FILLER, Mary Pooja Primary Care Liliana vailable Gayhart PA-C, Kimberly Loyola Attending Unavai lable Abraham INVENTORY ASSOCIATE-PIE FILLER, Mary Pooja Primary Care Liliana vailable RINE, [...] [codeine] Drug Allergy 3 Nausea And Vomiting [place], [place] (1 source) Codeine Drug Allergy 5 [facility] Repository Medications Current Medications Medication Drug Class(es) Dates Sig (Normalized) Sig (Original) [id number] 200 actuat albuterol 0.09 mg/actuat metered dose [...] 2 03/20/2023 Active b complex vitamins capsule (5 sources) Start: 10-27-2024 b complex vitamins capsule [...] every week ergocalciferol (Vitamin D2) 1.25 MG (16629 UT) capsule Indications: Vitamin D deficiency TAKE 1 CAPSULE BY MOUTH ONCE WEEKLY 12 capsule 1 09/26/2024 Active Start: 12-06-2022 End: 10-28-2023 take 1 capsule by mouth every week ergocalciferol (Vitamin D2) 1.25 MG (89341 UT) capsule Indications: Vitamin D deficiency TAKE [...] daily 0 Active Miebo 1.338 GM/ML solution (7 sources) Start: 08-20-2024 take 1 drop(s) into [...] 03/19/2023 Active predniSONE 10 mg oral tablet (16 sources) Start: 10-28-2024 take 2 tablets by [...] Episodic Other nutritional; endocrine; and metabolic disorders (13 sources) Body mass index 30+ - obesity; Translations: [Body mass index (BMI) 37.0-37.9, adult] Onset: 10-27-2024 01-07-2024 Chronic Other nutritional; endocrine; and metabolic disorders (11 sources) Obesity caused by energy imbalance; Translations: [...] (20 sources) Patient encounter status; Translations: [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 Ordering Physician: Ceasar Smith D.O. 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 Measurements Intervals [place] Rate: 77 P: 49 IL: 148 QRS: 58 QRSD: 86 T: 34 QT: 346 QTc: 393 Interpretive Statements SINUS RHYTHM Normal ECG No previous ECG available for comparison Electronically Signed On 11-10-2024 18:27:54 EDT by PATI PLUNKETT M.D. Dictated By: PATI PLUNKETT Signed By: 11/10/24 1828 DD/ 1109 TD/TT: Parts Interpreter: [facility] Radiology, Radiologist, MD - 11/10/2024 [place] [address] Electrocardiograph Report Signed Patient: FABI CONCEPCION MR#: [id number] : 1980 Acct:[id number] Age/Sex: 44 / F ADM Date: 11/10/24 Loc: PST Attending Dr: Ceasar Smith D.O. Ordering Physician: Ceasar Smith D.O. Date of Service: 11/10/24 Procedure(s): ECG 12 lead Accession Number(s): [id number] cc: [facility] Test Date: 2024-11-10 Pat Name: FABI CONCEPCION Department: Room: - Gender: Female Needle Grinder: : 1980 Requested By: CEASAR SMITH Order Number: [id number] Reading MD: PATI PLUNKETT M.D. Measurements Intervals [place] Rate: 77 P: 49 IL: 148 QRS: 58 QRSD: 86 T: 34 QT: 346 QTc: 393 Interpretive Statements SINUS RHYTHM Normal ECG No previous ECG available for comparison Electronically Signed On 11-10-2024 18:27:54 EDT by PATI PLUNKETT M.D. Dictated By: PATI PLUNKETT Signed By: 11/10/24 1828 DD/ 1109 TD/TT: Parts Interpreter: [employer] Radiology Study observation (narrative) [facility] 12-LEADOrdered By: [employer] Mobilet Radiology on 11-10-2024 [employer] Work Phone: XR Foot - left 3 [facility] Result: Three views of the left foot: AP, MO, LAT were performed today in the office. Radiographs were read by myself and demonstrate: No evidence of acute fracture or dislocation. Normal joint spaces noted with no evidence of narrowing or osteophyte formation. Very small plantar calcaneal spur noted. [facility] [employer] Radiology Study observation (narrative) [employer] XR Foot - right 3 [facility] Result: Three views of the right foot: AP, MO, LAT were performed today in the office. Radiographs were read by myself and demonstrate: No evidence of acute fracture or dislocation. Normal joint spaces noted with no evidence of narrowing or osteophyte formation. There are no structural deformities noted [facility] Rad[facility] Study observation (narrative) [facility] [employer] US PELVIC COMPLETE W/ TVon 0 10-27-2024 [...] PE LVIS-TRANSVAG IF INDICATED No LMP recorded. [facility] US ANKLE BRACHIAL INDEX (DAMION) COMPLETE WITHOUT EXERCISEon 10-02-2024 VAS US ANKLE BRACHIAL INDEX (DAMION) COMPLETE WITHOUT EXERCISE VAS US ANKLE BRACHIAL INDEX (DAMION) COMPLETE WITHOUT [...] have reviewe (more content not included)... Normal [facility] Mammography reportOrdered By : Mateo Lockett on 08-11-2024 Diagnostic imaging study [facility] [address] [place] [address] Mammography Report Signed Patient: Fabi Concepcion MR#: [id number] : 1980 Acct:[id number] Age/Sex: 44 / F Adm Date: 5 Loc: NM Room: Type: [facility] Attending Dr: Ceasar Smith DO Ordering Provider: Ceasar Smith Date of Service: 08/11/24 Procedure(s): MM diagnostic mammo BI w/CAD; US breast RT limited Accession Number(s): ([id number]) MM/MM diagnostic mammo BI w/CAD: N63.15 ([id number]) US/US breast RT limited: N63.15 Copies to: [...] Lockett M.D. 08/11/2024 9:11 AM Dictation Location: [facility] Dictated By: Mateo Lockett II, MD 08/11/24 0849 Signed By: 08/11/24 0911 [facility] Work Phone: US breast RT limited 08-11 US breast RT limited [facility] [address] [place] [address] Mammography Report Signed Patient: Fabi Concepcion MR#: [id number] : 1980 Acct:[id number] Age/Sex: 44 / F Adm Date: 08/11/24 Loc: NM Room: Type: [facility] Attending Dr: Ceasar Smith DO Ordering Provider: Ceasar Smith Date of Service: 08/11/24 Procedure(s): MM diagnostic mammo BI w/CAD; US breast RT limited Accession Number(s): ([id number]) MM/MM diagnostic mammo BI w/CAD: N63.15 ([id number]) US/US breast RT limited: N63.15 Copies to: [...] Lockett M.D. 08/11/2024 9:11 AM Dictation Location: [facility] Dictated By: Mateo Lockett II, MD 08/11/24 0849 Signed By: 08/11/24 0911 Normal [facility] IGP,APTIMA HPV,AGE GDLNon AGE GDLN ACOG TESTING Note . [facility] Comment on above: TESTS RESULT FLAG UN ITS REF RANGE LAB Clinician Provided Cytology Information Source.............Cervix;Endocervix No. of containers..01 ThinPrep Vial Age Algo ACOG Oralia... 30 01 FLAG LEGEND: L-Low Normal,H-High Normal,LL-Alert Low,HH-Alert High <-Panic Low,>-Panic High,A-Abnormal,AA-Critical Abnormal Performed at: 01 =G [address] [address] Diamond Zapata MD, HPV APTIMA Negative Negative [facility] Comment on above: This nucleic acid am plification test detects fourteen high- risk HPV types (16,18,31,33,35,39,45,51,52,56,58,59,66,68) without differentiation. Performed at: = - [address] [id number] Nuclear Plant Operator: Diamond Zapata MD, Phone: [phone] Performed at: - [address] [id number] Nuclear Plant Operator: Diamond Zapata MD, Phone: [phone] IGP, APTIMA HPV, RFX 16/18,45 Note . [facility] Comment on above: TESTS RESULT FLAG UN ITS REF RANGE LAB DIAGNOSIS: 02 NEGATIVE FOR INTRAEPITHELIAL LESION OR MALIGNANCY. FUNGAL ORGANISMS MORPHOLOGICALLY CONSISTENT WITH CAMILLE SPECIES ARE PRESENT. Specimen adequacy: 02 Satisfactory for evaluation. Endocervical and/or squamous metaplastic cells (endocervical component) are present. Performed by: 02 Sandra Raza Pattern Chain Maker Supervisor ([facility]) . 02 Note: Note 02 The Pap [...] <-Panic Low,>-Panic High,A-Abnormal,AA-Critical Abnormal Performed at: [address] [address] Diamond Zapata MD, BRUSH-SPATULA CERVIX ENDOCERVIX CLINISYNC [...] BID, # 1 EA, 1 Refill(s), Pharmacy: [facility] [id number] triamterene-hydrochl orothiazide, See Instructions, TAKE 1 CAPSULE BY MOUTH DAILY, # 90 caps, 3 Refill(s), Pharmacy: [facility] [id number] 3. Nasal congestion 4. Nasal septal deviation [...] Garcia PA-C (more content not included)... Normal [facility] Vascular AAA screeningon No evidence of abdominal aortic aneurysm. [facility] EXAMINATION: RETROPERITONEAL ULTRASOUND OF THE AORTA 08/28/2023 TECHNIQUE: Duplex ultrasound using B-mode/zamora scaled imaging, Doppler spectral analysis and color flow Doppler was obtained of the aorta. COMPARISON: None. HISTORY: ORDERING SYSTEM PROVIDED HISTORY: Screening for AAA FINDINGS: Aorta: Proximal: 2.1 x 2 cm. Mid: 1.9 x 1.8 cm. Distal: 1.7 x 1.6 cm. Iliacs: Iliac arteries are patent and normal in caliber. [facility] Silva Kitchen MD - [...] No evidence of abdominal aortic aneurysm. [facility] Vascular AAA screeningOrdere d By: Silva Kitchen on 08-29-2023 [facility] Work Phone: Vascular AAA screeningon Radiology Study observation (narrative) [facility] MR Brain WO and W contrast I Von 03-31-2023 No acute intracranial abnormality. No structural lesion identified to account for the patient's symptoms. Minimal left sphenoid sinus disease. [facility] EXAMINATION: MRI OF THE [...] The soft tissues demonstrate no acute abnormality. [facility] Sushant Coles MD - 03/31/2023 [...] symptoms. Minimal left sphenoid sinus disease. [facility] MR Brain WO and W contrast I VOrdered By: Sushant Conrad on 03-31-2023 [facility] MRI BRAIN W WO CONTRASTon MRI [...] Sushant Conrad MD 03/31/23 Final result Normal [facility] MR Brain WO and W contrast I Von 03-30-2023 Radiology Study observation (narrative) [facility] BMPon 03-07-2023 Anion gap [Moles/Vol] 12 mmol/L 9 - 17 mmol/L [facility] Calcium [Mass/Vol] 9.8 mg/dL 8.6 - 10. 4 mg/dL [facility] Chloride [Moles/Vol] 97 mmol/L Low 98 - 10 7 mmol/L [facility] CO2 [Moles/Vol] 26 mmol/L 20 - 31 mmol/L [facility] Creatinine [Mass/Vol] 0.7 mg/dL 0.5 - 0.9 mg/dL [facility] GFR/1.73 sq M.predicted MDRD (S/P/Bld) [Vol rate/Area] - PINF [facility] Comment on above: These results are not [...] 121 mg/dL High 70 - 99 mg/dL [facility] Interpretation and review of laboratory results Abnormal [facility] Potassium [Moles/Vol] 3.4 mmol/L Low 3.7 - 5.3 mmol/L [facility] Sodium [Moles/Vol] 135 mmol/L 135 - 144 mmol/L [facility] Urea nitrogen [Mass/Vol] 15 mg/dL 6 - 20 mg/dL [facility] Urea nitrogen/Creatinine [Mass ratio] 21 mg/mg High 9 - 20 [facility] Basic Metabolic Profon 03-07 Anion gap [Moles/Vol] 12 mmol/L Normal 9-17 [facility] Comment on above: Performed By: #### C RP, BMP, SED, CDP #### [facility] [address] [place] [address] [place] [address] Nuclear Plant Operator: Edna Sanchez MD BUN/CRE Ratio 21 High 9-20 [facility] Comment on above: Performed By: #### C RP, BMP, SED, CDP #### [facility] [address] [place] [address] [place] [address] Nuclear Plant Operator: Edna Sanchez MD Calcium [Mass/Vol] 9.8 mg/dL Normal 8.6-10.4 [facility] Comment on above: Performed By: #### C RP, BMP, SED, CDP #### [facility] [address] [place] [address] [place] [address] Nuclear Plant Operator: Edna Sanchez MD Chloride [Moles/Vol] 97 mmol/L Low 98-107 [facility] Comment on above: Performed By: #### C RP, BMP, SED, CDP #### [facility] [address] [place] [address] Nuclear Plant Operator: Edna Sanchez MD CO2 [Moles/Vol] 26 mmol/L Normal 20-31 [facility] Comment on above: Performed By: #### C RP, BMP, SED, CDP #### [facility] [address] [place], [place] [id number] Nuclear Plant Operator: Edna Sanchez MD Creatinine [Mass/Vol] 0.7 mg/dL Normal 0.5-0.9 [facility] Comment on above: Performed By: #### C RP, BMP, SED, CDP #### [facility] [address] [place] [address] Nuclear Plant Operator: Edna Sanchez MD GFR/1.73 sq M.predicted among non-blacks MDRD (S/P/Bld) [Vol rate/Area] mL/min/{1.73_m2} Normal >60 [facility] Comment on above: Result Comment: These results [...] #### C RP, BMP, SED, CDP #### [facility] [address] [place] [address] Nuclear Plant Operator: Edna Sanchez MD Glucose [Mass/Vol] 121 mg/dL High 70-99 [facility] Comment on above: Performed By: #### C RP, BMP, SED, CDP #### [facility] [address] [place] [address] Nuclear Plant Operator: Edna Sanchez MD Potassium [Moles/Vol] 3.4 mmol/L Low 3.7-5.3 [facility] Comment on above: Performed By: #### C RP, BMP, SED, CDP #### [facility] [address] [place] [address] Nuclear Plant Operator: Edna Sanchez MD Sodium [Moles/Vol] 135 mmol/L Normal 135-144 [facility] Comment on above: Performed By: #### C RP, BMP, SED, CDP #### [facility] [address] [place] [address] Nuclear Plant Operator: Edna Sanchez MD Urea nitrogen [Mass/Vol] 15 mg/dL Normal 6-20 [facility] Comment on above: Performed By: #### C RP, BMP, SED, CDP #### [address] [place], [place] [address] Nuclear Plant Operator: Edna Sanchez MD C-Reactive Proteinon 024 CRP High sensitivity method [Mass/Vol] mg/L 0.0 - 5.0 mg/L [facility] CRP [Mass/Vol] mg/L Normal 0.0-5.0 [facility] Comment on above: Performed By: #### C RP, BMP, SED, CDP #### [address] [place] [address] Nuclear Plant Operator: Edna Sanchez MD CBC with Auto Differentialon 03-07-2023 Basophils (Bld) [#/Vol] 0.04 10*3/uL [facility] Basophils/100 WBC (Bld) 0 % 0 - 2 % [facility] Eosinophils (Bld) [#/Vol] [facility] Eosinophils/100 WBC (Bld) 0 % Low 1 - 4 % [facility] Erythrocyte distribution width (RBC) [Ratio] 11.2 % Low 11.8 - 14.4 % [facility] Hematocrit (Bld) [Volume fraction] 46.3 % 36.3 - 47.1 % [facility] Hemoglobin (Bld) [Mass/Vol] 16.7 g/dL High 11.9 - 15.1 g/dL [facility] Immature granulocytes (Bld) [#/Vol] 0.20 10*3/uL [facility] Immature granulocytes/100 WBC (Bld) 1 % High 0 [facility] Interpretation and review of laboratory results Abnormal [facility] Lymphocytes/100 WBC (Bld) 10 % Low 24 - 43 % [facility] Lymphocytes/100 WBC (Bld) 1.66 % [facility] MCH (RBC) [Entitic mass] 31.9 pg 25.2 - 33.5 pg [facility] MCHC (RBC) [Mass/Vol] 36.1 g/dL High 28.4 - 34.8 g/dL [facility] MCV (RBC) [Entitic vol] 88.4 fL 82.6 - 102.9 fL [facility] Monocytes/100 WBC (Bld) 3 % 3 - 12 % [facility] Monocytes/100 WBC (Bld) 0.44 % [facility] Neutrophils/100 WBC (Bld) 86 % High 36 - 65 % [facility] Nucleated RBC/100 WBC (Bld) [Ratio] 0.0 % 0.0 per 100 WBC [facility] Platelet mean volume (Bld) [Entitic vol] 9.4 fL 8.1 - 13.5 fL [facility] Platelets (Bld) [#/Vol] 364 10*3/uL [facility] RBC (Bld) [#/Vol] 5.24 10*6/uL High 3.95 - 5.1 1 m/uL [facility] Segmented neutrophils/100 WBC (Bld) 13.62 % High [facility] WBC other (Bld) [#/Vol] 16.0 High [facility] CBC with Diffon 03-07-2023 Abs. Basophil 0.04 k/uL Normal 0.00-0.20 [facility] Comment on above: Performed By: #### C RP, BMP, SED, CDP #### [facility] [address] [place], [place] [id number] Nuclear Plant Operator: Edna Sanchez MD Abs. Eosinophil <0.03 Normal 0.00-0.44 [facility] Comment on above: Performed By: #### C RP, BMP, SED, CDP #### [facility] [address] [place], [place] [address] Nuclear Plant Operator: Edna Sanchez MD Abs.Imm.Granulocyte 0.20 k/uL Normal 0.00-0.30 [facility] Comment on above: Performed By: #### C RP, BMP, SED, CDP #### [address] [place], [facility] Nuclear Plant Operator: Edna Sanchez MD Abs.Neutrophil (Seg) 13.62 k/uL High 1.50-8.10 [facility] Comment on above: Performed By: #### C RP, BMP, SED, CDP #### [address] [place], [facility] Nuclear Plant Operator: Edna Sanchez MD Basophils/100 WBC (Bld) 0 % Normal 0-2 [facility] Comment on above: Performed By: #### C RP, BMP, SED, CDP #### [address] [place], [facility] Nuclear Plant Operator: Edna Sanchez MD Eosinophils/100 WBC (Bld) 0 % Low 1-4 [facility] Comment on above: Performed By: #### C RP, BMP, SED, CDP #### [address] [place] [address] Nuclear Plant Operator: Edna Sanchez MD Erythrocyte distribution width (RBC) [Ratio] 11.2 % Low 11.8-14.4 [facility] Comment on above: Performed By: #### C RP, BMP, SED, CDP #### [address] [place], [place] [address] Nuclear Plant Operator: Edna Sanchez MD Hematocrit (Bld) [Volume fraction] 46.3 % Normal 36.3-47.1 [facility] Comment on above: Performed By: #### C RP, BMP, SED, CDP #### [facility] [address] [place] [address] Nuclear Plant Operator: Edna Sanchez MD Hemoglobin (Bld) [Mass/Vol] 16.7 g/dL High 11.9-15.1 [facility] Comment on above: Performed By: #### C RP, BMP, SED, CDP #### [address] [place] [address] Nuclear Plant Operator: Edna Sanchez MD Immature granulocytes/100 WBC (Bld) 1 % High 0 [facility] Comment on above: Performed By: #### C RP, BMP, SED, CDP #### [address] [place] [address] Nuclear Plant Operator: Edna Sanchez MD Lymphocytes (Bld) [#/Vol] 1.66 10*3/uL Normal 1.10-3.70 [facility] Comment on above: Performed By: #### C RP, BMP, SED, CDP #### [address] [place] [address] Nuclear Plant Operator: Edna Sanchez MD Lymphocytes/100 WBC (Bld) 10 % Low 24-43 [facility] Comment on above: Performed By: #### C RP, BMP, SED, CDP #### [address] [place] [address] Nuclear Plant Operator: Edna Sanchez MD MCH (RBC) [Entitic mass] 31.9 pg Normal 25.2-33.5 [facility] Comment on above: Performed By: #### C RP, BMP, SED, CDP #### [address] [place] [facility] Nuclear Plant Operator: Edna Sanchez MD MCHC (RBC) [Mass/Vol] 36.1 g/dL High 28.4-34.8 [facility] Comment on above: Performed By: #### C RP, BMP, SED, CDP #### [facility] [address] [place] [address] Nuclear Plant Operator: Edna Sanchez MD MCV (RBC) [Entitic vol] 88.4 fL Normal 82.6-102.9 [facility] Comment on above: Performed By: #### C RP, BMP, SED, CDP #### [address] [place] [address] Nuclear Plant Operator: Edna Sanchez MD Monocytes (Bld) [#/Vol] 0.44 10*3/uL Normal 0.10-1.20 [facility] Comment on above: Performed By: #### C RP, BMP, SED, CDP #### [address] [place], [place] [address]83 Nuclear Plant Operator: Edna Sanchez MD Monocytes/100 WBC (Bld) 3 % Normal 3-12 [facility] Comment on above: Performed By: #### C RP, BMP, SED, CDP #### [address] [place], [facility]83 Nuclear Plant Operator: Edna Sanchez MD Neutrophil (Seg) 86 % High 36-65 [facility] Comment on above: Performed By: #### C RP, BMP, SED, CDP #### [address] [place], [place] [address] Nuclear Plant Operator: Edna Sanchez MD NRBC Automated 0.0 per 100 WBC Normal 0.0 [facility] Comment on above: Performed By: #### C RP, BMP, SED, CDP #### [address] [place], [place] [address]83 Nuclear Plant Operator: Edna Sanchez MD Platelet mean volume (Bld) [Entitic vol] 9.4 fL Normal 8.1-13.5 [facility] Comment on above: Performed By: #### C RP, BMP, SED, CDP #### [facility] [address] [place], [place] [address] Nuclear Plant Operator: Edna Sanchez MD Platelets (Bld) [#/Vol] 364 10*3/uL Normal 138-453 [facility] Comment on above: Performed By: #### C RP, BMP, SED, CDP #### [facility] [address] [place], [place] [address] Nuclear Plant Operator: Edna Sanchez MD RBC (Bld) [#/Vol] 5.24 10*6/uL High 3.95-5.11 [facility] Comment on above: Performed By: #### C RP, BMP, SED, CDP #### [address] [place] [address] Nuclear Plant Operator: Edna Sanchez MD WBC (Bld) [#/Vol] 16.0 10*3/uL High 3.5-11.3 [facility] Comment on above: Performed By: #### C RP, BMP, SED, CDP #### [address] [place], [place] [address]183 Nuclear Plant Operator: Edna Sanchez MD Sedimentation Rateon 024 ESR Photometric method (Bld) [Velocity] 19 [facility] Sedimentation Rate 19 mm/Hr Normal 0-20 [facility] Comment on above: Performed By: #### C RP, BMP, SED, CDP #### [facility] [address] [place], [place] [address] Nuclear Plant Operator: Edna Sanchez MD BUN + Creatinineon 4 Creatinine [Mass/Vol] 0.8 mg/dL Normal 0.5-0.9 [facility] Comment on above: Performed By: #### B UNCRT #### [facility] [address] [place], [place] [address] Nuclear Plant Operator: Edna Sanchez MD GFR/1.73 sq M.predicted among non-blacks MDRD (S/P/Bld) [Vol rate/Area] mL/min/{1.73_m2} Normal >60 [facility] Comment on above: Result Comment: These results [...] secretion. Performed By: #### B UNCRT #### [facility] [address] [place] [address] Nuclear Plant Operator: Edna Sanchez MD Urea nitrogen [Mass/Vol] 16 mg/dL Normal 6-20 [facility] Comment on above: Performed By: #### B UNCRT #### [facility] [facility] [address] [place] [address] Nuclear Plant Operator: Edna Sanchez MD CTA HEAD NECK W [...] Frederick Casas MD 03/06/23 Final result Normal [facility] Cytology Cervical or vaginal smear or scraping studyon 01-24-2023 [facility] CBC AUTO DIFFon 10-21-2021 BASO # 0.1 103/ul Normal 0.0-0.1 [facility] Comment on above: Performed By: #### C BC #### [facility] [address] [address] [address] Ilsa Soto Basophils/100 WBC (Bld) 1.1 % Normal 0.2-2.0 [facility] Comment on above: Performed By: #### C BC #### [facility] [address] [address] [address] Ilsa Soto EO # 0.1 103/ul Normal 0.0-0.7 [facility] Comment on above: Performed By: #### C BC #### [facility] [address] [address] [address] Ilsa Soto Eosinophils/100 WBC (Bld) 2.0 % Normal 0.9-7.0 [facility] Comment on above: Performed By: #### C BC #### [facility] [address] [address] [address] Ilsa Soto Erythrocyte distribution width (RBC) [Ratio] 11.7 % Normal 11.0-15.0 [facility] Comment on above: Performed By: #### C BC #### [facility] [address] [place] [address] Dr. Ilsa Soto Hematocrit (Bld) [Volume fraction] 41.0 % Normal 36.0-48.0 [facility] Comment on above: Performed By: #### C BC #### [facility] [address] [place] [address] Dr. Ilsa Soto Hemoglobin (Bld) [Mass/Vol] 14.1 g/dL Normal 12.0-16.0 [facility] Comment on above: Performed By: #### C BC #### [facility] [address] [place] [address] Dr. Ilsa Soto IG # 0.02 10e3/ul Normal 0.00-0.03 [facility] Comment on above: Performed By: #### C BC #### [facility] [address] [place] [address] Dr. Ilsa Soto IG % 0.3 % Normal 0.0-0.5 [facility] Comment on above: Performed By: #### C BC #### [facility] [address] [place] [address] Dr. Ilsa Soto LYMPH # 2.3 103/ul Normal 1.2-3.8 [facility] Comment on above: Performed By: #### C BC #### [facility] [address] [place] [address] Dr. Ilsa Soto Lymphocytes/100 WBC (Bld) 32.4 % Normal 20.5-60.0 [facility] Comment on above: Performed By: #### C BC #### [facility] [address] [place] [address] Dr. Ilsa Soto MANUAL DIFF REQ NO Normal [facility] Comment on above: Performed By: #### C BC #### [facility] [address] [place] [address] Dr. Ilsa Soto MCH (RBC) [Entitic mass] 32.5 pg Normal 26.7-34.0 [facility] Comment on above: Performed By: #### C BC #### [facility] [address] [address] [address] Ilsa Soto MCHC (RBC) [Mass/Vol] 34.4 g/dL Normal 29.9-35.2 [facility] Comment on above: Performed By: #### C BC #### [facility] [address] [address] [address] Ilsa Soto MCV (RBC) [Entitic vol] 94.5 fL Normal 81.0-99.0 [facility] Comment on above: Performed By: #### C BC #### [facility] [address] [address] [address] Ilsa Soto MONO # 0.5 103/ul Normal 0.3-0.8 [facility] Comment on above: Performed By: #### C BC #### [facility] [address] [place] [address] Dr. Ilsa Soto Monocytes/100 WBC (Bld) 6.9 % Normal 1.7-12.0 [facility] Comment on above: Performed By: #### C BC #### [facility] [address] [place] [address] Dr. Ilsa Soto NEUT # 4.1 103/ul Normal 1.4-6.5 [facility] Comment on above: Performed By: #### C BC #### [facility] [address] [place] [address] Dr. Ilsa Soto Neutrophils/100 WBC (Bld) 57.3 % Normal 43.0-75.0 [facility] Comment on above: Performed By: #### C BC #### [facility] [address] [address] [address] Ilsa Soto Platelet mean volume (Bld) [Entitic vol] 9.3 fL Critically low 9.5-13.5 [facility] Comment on above: Performed By: #### C BC #### [facility] [address] [address] [address] Ilsa Soto PLT 272 103/ul Normal 150-450 [facility] Comment on above: Performed By: #### C BC #### [facility] [address] [place] [address] Dr. Ilsa Soto RBC 4.34 106/ul Normal 4.20-5.40 [facility] Comment on above: Performed By: #### C BC #### [facility] [address] [place] [address] Dr. Ilsa Soto WBC 7.1 103/ul Normal 4.0-11.0 [facility] Comment on above: Performed By: #### C BC #### [facility] [address] [place] [address] Dr. Ilsa Soto FREE T4on 10-21-2021 Free T4 [Mass/Vol] 1.14 ng/dL Normal 0.76-1.46 [facility] Comment on above: Performed By: #### P TT, PT #### [facility] [address] [place] [address] Dr. Ilsa Soto GLYCOHEMOGLOBIN A1Con 2021 ADA RECOMMENDATION SEE BELOW Normal [facility] Comment on above: Result Comment: ADA RECOMMENDED LIMIT 4.0 - 6.0 ADA THERAPEUTIC TARGET < 7.0 ACTION SUGGESTED > 7.0 Performed By: #### P TT, PT #### [facility] [address] [place] [address] Dr. Ilsa Soto Glucose [Mass/Vol] 103 mg/dL Normal [facility] Comment on above: Performed By: #### P TT, PT #### [facility] [address] [place] [address] Dr. Ilsa Soto HbA1c (Bld) [Mass fraction] 5.2 % Normal 4.5-6.2 [facility] Comment on above: Performed By: #### P TT, PT #### [facility] [address] [place] [address] Dr. Ilsa Soto MG MAMM DIAGNOSTIC 3D SHERIF CA Don 10-21-2021 MG MAMM DIAGNOSTIC 3D SHERIF CAD Patient: FABI CONCEPCION Exam Date: 10/21/2021 : 1980 Gender:F Ordering : DR CEASAR SMITH . Admission #: [id number] Family : Order #: [id number] CLICK HERE TO VIEW EXAM RADIOLOGY REPORT [...] breast cancer at age 58. LOCATION: [facility] BREAST COMPOSITION: Heterogeneously dense,which may [...] Guillen MD on 10/21/2021 at 15:25 Normal [facility] PREG QUANT HCGon 10-21-2021 HCG QUANT 1 mIU/mL Normal [facility] Comment on above: Performed By: #### P TT, PT #### [facility] [address] [place] [address] Dr. Ilsa Soto HCG RANGE SEE BELOW Normal [facility] Comment on above: Result Comment: 5-50 0.2-1 WEEK 50-500 1-2 WEEKS 100-5,000 2-3 WEEKS 500-10,000 3-4 WEEKS 1,000-50,000 4-5 WEEKS 10,000-100,000 5-6 WEEKS 15,000-200,000 6-8 WEEKS 10,000-100,000 2-3 MONTHS Performed By: #### P TT, PT #### [facility] [address] [place] [address] Dr. Ilsa Soto PROTIMEon 10-21-2021 INR Coag (PPP) [Relative time] 1.01 {INR} Normal [facility] Comment on above: Performed By: #### P TT, PT #### [facility] [address] [place] [address] Dr. Ilsa Soto INR GUIDELINES SEE BELOW Normal [facility] Comment on above: Result Comment: RODY RED INR: 2.0 - 3.0 CONDITIONS NOT LISTED BELOW 2.5 - 3.5 FOR PROSTHETIC HEART VALVE REPLACEMENT 2.5 - 3.5 RECURRENT THROMBOSIS Performed By: #### P TT, PT #### [facility] [address] [place] [address] Dr. Ilsa Soto PT Coag (PPP) [Time] 10.9 s Normal 9.0-11.6 [facility] Comment on above: Performed By: #### P TT, PT #### [facility] [address] [place] [address] Dr. Ilsa Soto PTTon 10-21-2021 aPTT Coag (Bld) [Time] 27.5 s Normal 22.3-36.2 [facility] Comment on above: Performed By: #### P TT, PT #### [facility] [address] [place] [address] Dr. Ilsa Soto TSHon 10-21-2021 TSH 1.571 uIU/mL Normal 0.358-3.740 [facility] Comment on above: Performed By: #### P TT, PT #### [facility] [address] [place] [address] Dr. Ilsa Soto US BREAST SHERIF COMPLETEon US BREAST SHERIF COMPLETE Patient: FABI CONCEPCION Exam Date: 10/21/2021 : 1980 Gender:F Ordering : DR CEASAR SMITH . Admission #: [id number] Family : Order #: [id number] CLICK HERE TO VIEW EXAM RADIOLOGY REPORT [...] breast cancer at age 58. LOCATION: [facility] BREAST COMPOSITION: Heterogeneously dense,which may [...] Guillen MD on 10/21/2021 at 15:25 Normal [facility] US PELVIS AND TRANSVAGon US PELVIS AND [...] by: EDNA GUILLEN Date: 2021-10-21 16:18 Normal [facility] Complete Blood Count with Au to Diffon 06-14-2021 Basophils (Bld) [#/Vol] 0.07 10*3/uL Normal 0.00-0.20 [facility] Comment on above: Performed By: #### C GADIEL COBB Prof #### [facility] [address] [place] [address] Basophils/100 WBC (Bld) 1.2 % Normal [facility] Comment on above: Performed By: #### Iesha COBB, FE Prof #### [facility] [address] [place] [address] Eosinophils (Bld) [#/Vol] 0.12 10*3/uL Normal 0.02-0.50 [facility] Comment on above: Performed By: #### Iesha COBB, FE Prof #### [facility] [address] [place] [address] Eosinophils/100 WBC (Bld) 2.0 % Normal [facility] Comment on above: Performed By: #### Iesha COBB FE Prof #### [facility] [address] [place] [address] Erythrocyte distribution width (RBC) [Ratio] 12.7 % Normal 11.0-15.0 [facility] Comment on above: Performed By: #### Iesha COBB FE Prof #### [facility] [address] [place] [address] Hematocrit (Bld) [Volume fraction] 44.4 % Normal 35.0-47.0 [facility] Comment on above: Performed By: #### Iesha COBB, FE Prof #### [facility] [address] [place] [address] Hemoglobin (Bld) [Mass/Vol] 14.7 g/dL Normal 11.6-15.5 [facility] Comment on above: Performed By: #### Iesha COBB FE Prof #### [facility] [address] [place] [address] Lymphocytes (Bld) [#/Vol] 2.1 10*3/uL Normal 0.9-3.9 [facility] Comment on above: Performed By: #### Iesha COBB, FE Prof #### [facility] [address] [place] [address] Lymphocytes/100 WBC (Bld) 34.9 % Normal [facility] Comment on above: Performed By: #### Iesha COBB FE Prof #### [facility] [address] [place] [address] MCH (RBC) [Entitic mass] 30.8 pg Normal 27.0-33.0 [facility] Comment on above: Performed By: #### C REZA, FE Prof #### [facility] [address] [place] [address] MCHC (RBC) [Mass/Vol] 33.1 g/dL Normal 32.0-36.0 [facility] Comment on above: Performed By: #### C REZA, FE Prof #### [facility] [address] [place] [address] MCV (RBC) [Entitic vol] 93 fL Normal 80-100 [facility] Comment on above: Performed By: #### C REZA, FE Prof #### [facility] [address] [place] [address] Monocytes (Bld) [#/Vol] 0.5 10*3/uL Normal 0.2-0.9 [facility] Comment on above: Performed By: #### C REZA, FE Prof #### [facility] [address] [place] [address] Monocytes/100 WBC (Bld) 7.6 % Normal [facility] Comment on above: Performed By: #### Iesha COBB, FE Prof #### [facility] [address] [place] [address] Neutrophils (Bld) [#/Vol] 3.3 10*3/uL Normal 1.5-7.8 [facility] Comment on above: Performed By: #### Iesha COBB, FE Prof #### [facility] [address] [place] [address] Neutrophils/100 WBC (Bld) 54.0 % Normal [facility] Comment on above: Performed By: #### Iesha COBB, FE Prof #### [facility] [address] [place] [address] Platelet mean volume (Bld) [Entitic vol] 10.10 fL Normal 7.50-12.50 [facility] Comment on above: Performed By: #### Iesha COBB, FE Prof #### [facility] [address] [place] [address] Platelets (Bld) [#/Vol] 255 10*3/uL Normal 140-400 [facility] Comment on above: Performed By: #### Iesha COBB, FE Prof #### [facility] [address] [place] [address] RBC (Bld) [#/Vol] 4.77 10*6/uL Normal 3.90-5.20 [facility] Comment on above: Performed By: #### C REZA, FE Prof #### [facility] [address] [place] [address] RDW-SD 43.6 fL Normal 37.0-50.0 [facility] Comment on above: Performed By: #### C REZA, FE Prof #### [facility] [address] [place] [address] WBC (Bld) [#/Vol] 6.1 10*3/uL Normal 3.8-11.0 [facility] Comment on above: Performed By: #### C REZA, FE Prof #### [facility] [address] [place] [address] Vitamin D 25-OHon 06-14-2021 VIT D 25 OH 60 ng/mL Normal 30-100 [facility] Comment on above: Order Comment: [facility] performed at: Q, [facility], [address] [facility], [address] [place] [address], [place], [address], Harnessmaker Apprentice: Scout Lin MD [facility] Date/Time: [id number] [facility] Results Received Date/Time: [id number] [facility] Reported Date/Time: Result Comment: Niru min D Status 25-OH Vitamin D: Deficiency: <20 ng/mL Insufficiency: 20 - 29 ng/mL Optimal: > or = 30 ng/mL For 25-OH Vitamin D testing on patients on D2-supplementation and patients for whom quantitation of D2 and D3 fractions is required, the QuestAssureD(TM) 25-OH VIT D, (D2,D3), LC/MS/MS is recommended: order code 81507 (patients >2yrs). See Note 1 Note 1 For additional information, please refer to http://education.[employer].Interwise/faq/JQW869 (This link is being provided for informational/ educational purposes only.) Performed By: #### Amy ITD #### [facility] [address] [place] [address] MG MAMM RT DIAG FUon 022 MG MAMM RT DIAG FU Patient: FABI COCNEPCION Exam Date: 04/08/2021 : 1980 Gender:F Ordering : DR CEASAR SMITH . Admission #: [id number] Family : Order #: [id number] CLICK HERE TO VIEW EXAM RADIOLOGY REPORT [...] breast cancer at age 58. LOCATION: [facility] BREAST COMPOSITION: Heterogeneously dense,which may [...] MD on 04/08/2021 at 11:50 Normal [facility] US BREAST RIGHT LIMITEDon US BREAST RIGHT LIMITED Patient: FABI CONCEPCION Exam Date: 04/08/2021 : 1980 Gender:F Ordering : DR CEASAR SMITH . Admission #: [id number] Family : Order #: [id number] CLICK HERE TO VIEW EXAM RADIOLOGY REPORT [...] breast cancer at age 58. LOCATION: [facility] BREAST COMPOSITION: Heterogeneously dense,which may [...] MD on 04/08/2021 at 11:50 Normal [facility] MG MAMM SCREEN 3D SHERIF CADon 03-28-2021 MG MAMM SCREEN 3D SHERIF CAD Patient: FABI CONCEPCION Exam Date: 03/28/2021 : 1980 Gender:F Ordering : DR CEASAR SMITH . Admission #: [id number] Family : Order #: [id number] CLICK HERE TO VIEW EXAM RADIOLOGY REPORT [...] breast cancer at age 58. LOCATION: [facility] BREAST COMPOSITION: Heterogeneously dense,which may [...] M.D. on 03/29/2021 at 11:46 Normal [facility] Complete Blood Count with Au to Diffon 03-21-2021 BASOABS 52 cells/uL Normal 0-200 [facility] Comment on above: Order Comment: [facility] performed at: [employer] [facility], [address] [facility], [address] [place] [address], [phone], Harnessmaker Apprentice: Scout Lin MD [facility] Date/Time: [id number] [facility] Results Received Date/Time: [id number] [facility] Reported Date/Time: [id number] Performed By: #### C GADIEL COBB Prof #### [facility] [address] [place] [address] Basophils/100 WBC (Bld) 1.2 % Normal [facility] Comment on above: Order Comment: [facility] performed at: [employer] [facility], [address] , [address] [place] [address], [phone], Harnessmaker Apprentice: Scout Lin MD [facility] Date/Time: [facility] Results Received Date/Time: [facility] Reported Date/Time: Performed By: #### Iesha COBB FE Prof #### [facility] [address] [place] [address] EOSABS 103 cells/uL Normal 15-500 [facility] Comment on above: Order Comment: [facility] performed at: [email or web address] [facility], [address] [facility], [address] [place] [address], [address] [place] [address], Harnessmaker Apprentice: Scout Lin MD [facility] Date/Time: [facility] Results Received Date/Time: [facility] Reported Date/Time: Performed By: #### Iesha COBB FE Prof #### [facility] [address] [place] [address] Eosinophils/100 WBC (Bld) 2.4 % Normal [facility] Comment on above: Order Comment: [facility] performed at: [email or web address] [facility], [address] [facility], [address] [place] [address], [address] [place] [address], Harnessmaker Apprentice: Scout Lin MD [facility] Date/Time: [facility] Results Received Date/Time: [facility] Reported Date/Time: Performed By: #### Iesha COBB FE Prof #### [facility] [address] [place] [address] Erythrocyte distribution width (RBC) [Ratio] 18.5 % High 11.0-15.0 [facility] Comment on above: Order Comment: [facility] performed at: [email or web address] [facility], [address] [facility], [address] [place] [address], [address] [place] [address], Harnessmaker Apprentice: Scout Lin MD [facility] Date/Time: [facility] Results Received Date/Time: [facility] Reported Date/Time: Performed By: #### Iesha COBB, FE Prof #### [facility] [address] [place] [address] Hematocrit (Bld) [Volume fraction] 41.6 % Normal 35.0-45.0 [facility] Comment on above: Order Comment: [facility] performed at: [employer] [facility], [address] [facility], [address] [place] [address], [address] [place] [address], Harnessmaker Apprentice: Scout Lin MD [facility] Date/Time: [facility] Results Received Date/Time: [facility] Reported Date/Time: Performed By: #### Iesha COBB, FE Prof #### [facility] [address] [place] [address] Hemoglobin (Bld) [Mass/Vol] 13.6 g/dL Normal 11.7-15.5 [facility] Comment on above: Order Comment: [facility] performed at: [employer] [facility], [address] [place] [address], [address] [place] [address], [address] [place] [address], Harnessmaker Apprentice: Scout Lin MD [facility] Date/Time: [facility] Results Received Date/Time: [facility] Reported Date/Time: Performed By: #### Iesha COBB, FE Prof #### [facility] [address] [place] [address] Lymphocytes (Bld) [#/Vol] 1.961 10*3/uL Normal 850-3900 [facility] [facility] Comment on above: Order Comment: [facility] performed at: [employer] [facility], [address] [facility], [address] [place] [address], [address] [place] [address], Harnessmaker Apprentice: Scout Lin MD [facility] Date/Time: [facility] Results Received Date/Time: [facility] Reported Date/Time: Performed By: #### Iesha COBB, FE Prof #### [facility] [address] [place] [address] Lymphocytes/100 WBC (Bld) 45.6 % Normal [facility] [facility] Comment on above: Order Comment: [facility] performed at: [email or web address] [facility], [address] [facility], [address] [place] [address], [phone], Harnessmaker Apprentice: Scout Lin MD [facility] Date/Time: [facility] Results Received Date/Time: [facility] Reported Date/Time: Performed By: #### Iesha COBB, FE Prof #### [facility] [address] [place] [address] MCH (RBC) [Entitic mass] 28.5 pg Normal 27.0-33.0 [facility] Comment on above: Order Comment: [facility] performed at: [email or web address] [facility], [address] [place] [address], [address] [place] [address], [phone], Harnessmaker Apprentice: Scout Lin MD [facility] Date/Time: [facility] Results Received Date/Time: [facility] Reported Date/Time: Performed By: #### Iesha COBB, FE Prof #### [facility] Default [address] [place] [address] MCHC (RBC) [Mass/Vol] 32.7 g/dL Normal 32.0-36.0 [facility] Comment on above: Order Comment: [facility] performed at: [email or web address] [facility], [address] [place] [address], [address] [place] [address], [address] [place] [address], Harnessmaker Apprentice: Scout Lni MD [facility] Date/Time: [facility] Results Received Date/Time: [facility] Reported Date/Time: Performed By: #### Iesha COBB, FE Prof #### [facility] Default [address] [place] [address] MCV (RBC) [Entitic vol] 87.0 fL Normal 80.0-100.0 [facility] [employer] Comment on above: Order Comment: [facility] performed at: [employer] [email or web address] [facility], [address] [place] [address], [address] [place] [address], [address] [place] [address], Harnessmaker Apprentice: Scout Lin MD [facility] Date/Time: [facility] Results Received Date/Time: [facility] Reported Date/Time: Performed By: #### Iesha COBB, FE Prof #### [facility] [address] [place] [address] MONOABS 353 cells/uL Normal 200-950 [facility] Comment on above: Order Comment: [facility] performed at: [email or web address] [facility], [address] [facility], [address] [place] [address], [address] [place] [address], Harnessmaker Apprentice: Scout Lin MD [facility] Date/Time: [facility] Results Received Date/Time: [facility] Reported Date/Time: Performed By: #### Iesha COBB, FE Prof #### [facility] Default [address] [place] [address] Monocytes/100 WBC (Bld) 8.2 % Normal [facility] Comment on above: Order Comment: [facility] performed at: [email or web address] [facility], [address] [facility], [address] [place] [address], [address] [place] [address], Harnessmaker Apprentice: Scout Lin MD [facility] Date/Time: [facility] Results Received Date/Time: [facility] Reported Date/Time: Performed By: #### Iesha COBB, FE Prof #### [facility] [address] [place] [address] Neutrophils (Bld) [#/Vol] 1.832 10*3/uL Normal 4351-8079 [facility] Comment on above: Order Comment: [facility] performed at: [email or web address] [facility], [address] [facility], [address] [place] [address], [address] [place] [address], Harnessmaker Apprentice: Scout Lin MD [facility] Date/Time: [facility] Results Received Date/Time: [facility] Reported Date/Time: Performed By: #### Iesha COBB, FE Prof #### [facility] Default [address] [place] [address] Neutrophils/100 WBC (Bld) 42.6 % Normal [facility] Specialist Comment on above: Order Comment: [facility] performed at: [employer], [email or web address] [facility], [address] [place] [address], [address] [place] [address], [address] [place] [address], Harnessmaker Apprentice: Scout Lin MD [facility] Collection Date/Time: [facility] Results Received Date/Time: [facility] Reported Date/Time: Performed By: #### Iesha COBB, FE Prof #### [facility] Default [address] [place] [address] Platelet mean volume (Bld) [Entitic vol] 10.7 fL Normal 7.5-12.5 [facility] Comment on above: Order Comment: Quest Testing performed at: [employer], [email or web address] [facility], [address] [place] [address], [address] [place] [address], [address] [place] [address], Harnessmaker Apprentice: Scout Lin MD [facility] Collection Date/Time: [facility] Results Received Date/Time: [facility] Reported Date/Time: Performed By: #### Iesha COBB, FE Prof #### [facility] [address] [place] [address] Platelets (Bld) [#/Vol] 265 10*3/uL Normal 140-400 [facility] Specialist Comment on above: Order Comment: Quest Testing performed at: [employer] [facility], [address] [place] [address], [address] [place] [address], [address] [place] [address], Harnessmaker Apprentice: Scout Lin MD [facility] Collection Date/Time: [facility] Results Received Date/Time: [facility] Reported Date/Time: Performed By: #### Iesha COBB, FE Prof #### [facility] Default [address] [place] [address] RBC (Bld) [#/Vol] 4.78 10*6/uL Normal 3.80-5.10 [facility] Comment on above: Order Comment: Quest Testing performed at: [employer], [email or web address] [facility], [address] , [address] [place] [address], [address] [place] [address], Harnessmaker Apprentice: Scout Lin MD [facility] Collection Date/Time: [facility] Results Received Date/Time: [facility] Reported Date/Time: Performed By: #### Iesha DUGGAND, FE Prof #### [facility] [address] [place] [address] WBC (Bld) [#/Vol] 4.3 10*3/uL Normal 3.8-10.8 [facility] Comment on above: Order Comment: Quest Testing performed at: [employer], [email or web address] [facility], [address] , [address] [place] [address], [address] [place] [address], Harnessmaker Apprentice: Scout Lin MD [facility] Collection Date/Time: [facility] Results Received Date/Time: [facility] Reported Date/Time: Performed By: #### Iesha DUGGAND, FE Prof #### [facility] [address] [place] [address] Iron Profileon 03-21-2021 % SATURATION 26 % (calc) Normal 16-45 [facility] [employer] Comment on above: Order Comment: Quest Testing performed at: [employer], [email or web address] [facility], [address] , [address] [place] [address], [address] [place] [address], Harnessmaker Apprentice: Scout Lin MD [facility] Collection Date/Time: [facility] Results Received Date/Time: [facility] Reported Date/Time: Performed By: #### Iesha DUGGAND, FE Prof #### [facility] [address] [place] [address] FE 85 mcg/dL Normal 40-190 [facility] [employer] Comment on above: Order Comment: [facility] Testing performed at: [employer], [email or web address] [facility], [address] , [address] [place] [address], [address] [place] [address], Harnessmaker Apprentice: Scout Lin MD [facility] Collection Date/Time: [facility] Results Received Date/Time: [facility] Reported Date/Time: Performed By: #### Iesha COBB, FE Prof #### [facility] [address] [place] [address] IRON BINDING CAPACITY 325 mcg/dL (calc) Normal 250-450 [facility] [employer] Comment on above: Order Comment: [facility] Testing performed at: [employer] [facility], [address] , [address] [place] [address], [phone], Harnessmaker Apprentice: Scout Lin MD [facility] Collection Date/Time: [facility] Results Received Date/Time: [facility] Reported Date/Time: Performed By: #### Iesha COBB, FE Prof #### [facility] [address] [place] [address] Q - UR CULT REFLEXon 022 REFLEXIVE URINE CULTURE SEE NOTE Normal [facility] [employer] Comment on above: Order Comment: [facility] Testing performed at: [employer] [facility], [address] , [address] [place] [address], [phone], Harnessmaker Apprentice: Scout Lin MD [facility] Collection Date/Time: [facility] Results Received Date/Time: [facility] Reported Date/Time: Result Comment: NO C ULTURE INDICATED Performed By: #### C REZA, FE Prof #### [facility] [address] [place] [address] Q - URINALYSIS,COMPLETE,WITH REFLEX TO CULTUREon 03-21-2021 Appearance (U) CLOUDY Abnormal CLEAR [facility] [employer] Comment on above: Order Comment: [facility] Testing performed at: [employer] [facility], [address], [address] [place] [address], [phone], Harnessmaker Apprentice: Scout Lin MD [facility] Collection Date/Time: [facility] Results Received Date/Time: [facility] Reported Date/Time: Performed By: #### C REZA, FE Prof #### [facility] Default [address] [place] [address] BACTERIA MANY Abnormal NONE SEEN [facility] [employer] Comment on above: Order Comment: Quest Testing performed at: [employer], [email or web address] [facility], [address] , [address] [place] [address], [address] [place] [address], Harnessmaker Apprentice: Scout Lin MD [facility] Collection Date/Time: [facility] Results Received Date/Time: [facility] Reported Date/Time: Performed By: #### C REZA, FE Prof #### [facility] Default [address] [place] [address] Bilirubin Ql (U) Negative Normal NEGATIVE [facility] [employer] Comment on above: Order Comment: Quest Testing performed at: [employer], [email or web address] [facility], [address] [facility], [address] [place] [address], [address] [place] [address], Harnessmaker Apprentice: Scout Lin MD [facility] Collection Date/Time: Quest Results Received Date/Time: [facility] Reported Date/Time: Performed By: #### Iesha COBB, FE Prof #### [facility] Default [address] [place] [address] CALCIUM OXALATE CRYSTALS FEW Normal NONE OR FEW [facility] [employer] Comment on above: Order Comment: Quest Testing performed at: [employer], [email or web address] [facility], [address] , [address] [place] [address], [address] [place] [address], Harnessmaker Apprentice: Scout Lin MD [facility] Collection Date/Time: Quest Results Received Date/Time: [facility] Reported Date/Time: Performed By: #### Iesha COBB, FE Prof #### [facility] [address] [place] [address] Color (U) YELLOW Normal YELLOW [facility] [employer] Comment on above: Order Comment: Quest Testing performed at: [employer], [email or web address] [facility], [address] , [address] [place] [address], [address] [place] [address], Harnessmaker Apprentice: Scout Lin MD [facility] Collection Date/Time: [facility] Results Received Date/Time: [facility] Reported Date/Time: Performed By: #### Iesha COBB, FE Prof #### [facility] [address] [place] [address] Glucose Ql (U) Negative Normal NEGATIVE [facility] [employer] Comment on above: Order Comment: Quest Testing performed at: [employer], [email or web address] [facility], [address] , [address] [place] [address], [address] [place] [address], Harnessmaker Apprentice: Scout Lin MD [facility] Collection Date/Time: Quest Results Received Date/Time: [facility] Reported Date/Time: Performed By: #### C REZA, FE Prof #### [facility] Default [address] [place] [address] HYALINE CAST NONE SEEN Normal NONE SEEN [facility] [employer] Comment on above: Order Comment: Quest Testing performed at: [employer], [email or web address] [facility], [address] , [address] [place] [address], [address] [place] [address], Harnessmaker Apprentice: Scout Lin MD [facility] Collection Date/Time: Quest Results Received Date/Time: [facility] Reported Date/Time: Performed By: #### C REZA, FE Prof #### [facility] Default [address] [place] [address] Ketones Ql (U) Negative Normal NEGATIVE [facility] [employer] Comment on above: Order Comment: Quest Testing performed at: [email or web address] [facility], [address] , [address] [place] [address], [address] [place] [address], Harnessmaker Apprentice: Scout Lin MD [facility] Collection Date/Time: Quest Results Received Date/Time: [facility] Reported Date/Time: Performed By: #### C REZA, FE Prof #### [facility] Default [address] [place] [address] Leukocyte esterase Test strip Ql (U) Negative Normal NEGATIVE [facility] [employer] Comment on above: Order Comment: Quest Testing performed at: [employer], [email or web address] [facility], [address] [facility], [address] [place] [address], [address] [place] [address], Harnessmaker Apprentice: Scout Lin MD [facility] Collection Date/Time: Quest Results Received Date/Time: [facility] Reported Date/Time: Performed By: #### Iesha COBB, FE Prof #### [facility] [address] [place] [address] Nitrite Ql (U) Positive Abnormal NEGATIVE [facility] Specialist Comment on above: Order Comment: Quest Testing performed at: [employer], [email or web address] [facility], [address] [place] [address], [address] [place] [address], [address] [place] [address], Harnessmaker Apprentice: Scout Lin MD [facility] Collection Date/Time: [facility] Results Received Date/Time: [facility] Reported Date/Time: Performed By: #### Iesha COBB, FE Prof #### [facility] Default [address] [place] [address] OCCULT BLOOD Negative Normal NEGATIVE [facility] [employer] Comment on above: Order Comment: Quest Testing performed at: [facility], [email or web address] [facility], [address] [place] [address], [address] [place] [address], [address] [place] [address], Harnessmaker Apprentice: Scout Lin MD [facility] Collection Date/Time: Quest Results Received Date/Time: [facility] Reported Date/Time: Performed By: #### Iesha COBB, FE Prof #### [facility] Default [address] [place] [address] pH (U) 5.5 [pH] Normal 5.0-8.0 [facility] [employer] Comment on above: Order Comment: Quest Testing performed at: [email or web address] [facility], [address] [place] [address], [address] [place] [address], [address] [place] [address], Harnessmaker Apprentice: Scout Lin MD [facility] Collection Date/Time: [facility] Results Received Date/Time: [facility] Reported Date/Time: Performed By: #### Iesha COBB, FE Prof #### [facility] Default [address] [place] [address] Protein Ql (U) Negative Normal NEGATIVE [facility] Specialist Comment on above: Order Comment: Quest Testing performed at: [email or web address] [facility], [address] [place] [address], [address] [place] [address], [address] [place] [address], Harnessmaker Apprentice: Scout Lin MD [facility] Collection Date/Time: Quest Results Received Date/Time: [facility] Reported Date/Time: Performed By: #### C REZA, FE Prof #### [facility] Default [address] [place] [address] RBC NONE SEEN Normal < OR = 2 [facility] [employer] Comment on above: Order Comment: Quest Testing performed at: [employer], [email or web address] [facility], [address] [place] [address], [address] [place] [address], [address] [place] [address], Harnessmaker Apprentice: Scout Lin MD [facility] Collection Date/Time: Quest Results Received Date/Time: [facility] Reported Date/Time: Performed By: #### C REZA, FE Prof #### [facility] Default [address] [place] [address] Specific gravity (U) [Rel density] 1.019 Normal 1.001-1.035 [facility] [employer] Comment on above: Order Comment: Quest Testing performed at: [email or web address] [facility], [address] [place] [address], [address] [place] [address], [address] [place] [address], Harnessmaker Apprentice: Scout Lin MD [facility] Collection Date/Time: Quest Results Received Date/Time: [facility] Reported Date/Time: Performed By: #### C REZA, FE Prof #### [facility] Default [address] [place] [address] SQUAMOUS EPITHELIAL CELLS 0-5 Normal < OR = 5 [facility] [employer] Comment on above: Order Comment: Quest Testing performed at: [facility], [email or web address] [facility], [address] [facility], [address] [place] [address], [phone], Harnessmaker Apprentice: Scout Lin MD [facility] Collection Date/Time: Quest Results Received Date/Time: [facility] Reported Date/Time: Performed By: #### C REZA, FE Prof #### [facility] Default [address] [place] [address] WBC 0-5 Normal < OR = 5 [facility] [employer] Comment on above: Order Comment: Quest Testing performed at: [employer], [email or web address] [facility], [address] , [address] [place] [address], [phone], Harnessmaker Apprentice: Scout Lin MD [facility] Collection Date/Time: Quest Results Received Date/Time: [facility] Reported Date/Time: Performed By: #### C REZA, FE Prof #### [facility] Default [address] [place] [address] PAP ACOG PANEL 2: 30 to 65on 03-11-2021 . . Normal [facility] Comment on above: Result Comment: Perf ormed at: WB Performed By: #### [id number] #### [facility] [address] [place] [address] Dr. Ilsa Soto Age Gdln ACOG Testing -63 Normal [facility] Comment on above: Performed By: #### [id number] #### [facility] [address] [address] [address] Ilsa Soto DIAGNOSIS: Comment Normal [facility] Comment on above: Result Comment: NEGA TIVE FOR INTRAEPITHELIAL LESION OR MALIGNANCY. Performed at: WB Performed By: #### [id number] #### [facility] [address] [address] [address] Ilsa Soto HPV Aptima Negative Normal Negative [facility] Comment on above: Result Comment: This nucleic acid amplification test detects fourteen high-risk HPV types (16,18,31,33,35,39,45,51,52,56,58,59,66,68) without differentiation. Performed at: =G Performed By: #### [id number] #### [facility] [address] [place] [address] Dr. Ilsa Soto Methodology: Comment Normal [facility] Comment on above: Result Comment: This liquid based ThinPrep(R) pap test was screened with the use of an image guided system. Performed at: WB Performed By: #### [id number] #### [facility] [address] [place] [address] Dr. Ilsa Soto Note: Comment Normal [facility] Comment on above: Result Comment: The Pap smear is a screening test designed to aid in the detection of premalignant and malignant conditions of the uterine cervix. It is not a diagnostic procedure and should not be used as the sole means of detecting cervical cancer. Both false-positive and false-negative reports do occur. . Performed at: WB Performed By: #### [id number] #### [facility] [address] [place] [address] Dr. Ilsa Soto Performed by: Comment Normal [facility] Comment on above: Result Comment: Shai Rodriguez, Potato Chip Frier (ASCP) Performed at: WB Performed By: #### [id number] #### [facility] [address] [place] [address] Dr. Ilsa Soto Specimen adequacy: Comment Normal [facility] Comment on above: Result Comment: Sati sfactory for evaluation. Endocervical and/or squamous metaplastic cells (endocervical component) are present. Performed at: WB Performed By: #### [id number] #### [facility] [address] [place] [address] Dr. Ilsa Soto Complete Blood Counton 01-24 Erythrocyte distribution width (RBC) [Ratio] 13.8 % Normal 11.0-15.0 [facility] [employer] Comment on above: Performed By: #### C BCAD, FE Prof #### [facility] Default [address] [place] [address] Hematocrit (Bld) [Volume fraction] 33.9 % Low 35.0-47.0 [facility] Specialist Comment on above: Performed By: #### C REZA, FE Prof #### [facility] Default [address] [place] [address] Hemoglobin (Bld) [Mass/Vol] 10.7 g/dL Low 11.6-15.5 [facility] Specialist Comment on above: Performed By: #### C REZA, FE Prof #### [facility] Default [address] [place] [address] MCH (RBC) [Entitic mass] 27.1 pg Normal 27.0-33.0 [facility] Specialist Comment on above: Performed By: #### C REZA, FE Prof #### [facility] Default [address] [place] [address] MCHC (RBC) [Mass/Vol] 31.6 g/dL Low 32.0-36.0 [facility] Comment on above: Performed By: #### C REZA, FE Prof #### [facility] Default [address] [place] [address] MCV (RBC) [Entitic vol] 86 fL Normal 80-100 [facility] Specialist Comment on above: Performed By: #### C REZA, FE Prof #### [facility] Default [address] [place] [address] Platelet mean volume (Bld) [Entitic vol] 10.10 fL Normal 7.50-12.50 [facility] Comment on above: Performed By: #### C REZA, FE Prof #### [facility] Default [address] [place] [address] Platelets (Bld) [#/Vol] 335 10*3/uL Normal 140-400 [facility] Specialist Comment on above: Performed By: #### C REZA, FE Prof #### [facility] Default [address] [place] [address] RBC (Bld) [#/Vol] 3.95 10*6/uL Normal 3.90-5.20 [facility] Specialist Comment on above: Performed By: #### C REZA, FE Prof #### [facility] Default [address] [place] [address] RDW-SD 43.7 fL Normal 37.0-50.0 [facility] [employer] Comment on above: Performed By: #### C REZA, FE Prof #### [facility] Default [address] [place] [address] WBC (Bld) [#/Vol] 3.6 10*3/uL Low 3.8-11.0 [facility] [employer] Comment on above: Performed By: #### C REZA, FE Prof #### [facility] Default [address] [place] [address] Comprehensive Metabolic [facility] 01-24-2021 Albumin [Mass/Vol] 4.4 g/dL Normal 3.6-5.1 [facility] [employer] Comment on above: Performed By: #### C MP, TSH, FT4, VITD, LIPD, CBC #### [facility] [address] [place], [place] [id number] Albumin/Globulin [Mass ratio] 1.8 {ratio} Normal 1.0-2.5 [facility] [employer] Comment on above: Performed By: #### C MP, TSH, FT4, VITD, LIPD, CBC #### [facility] [address] [place], [place] [id number] ALP [Catalytic activity/Vol] 84 U/L Normal 35-119 [facility] Specialist Comment on above: Performed By: #### C MP, TSH, FT4, VITD, LIPD, CBC #### [facility] [address] [place], [place] [id number] ALT [Catalytic activity/Vol] 17 U/L Normal 6-33 [facility] [employer] Comment on above: Result Comment: 01/05 Female reference range changed. Performed By: #### C MP, TSH, FT4, VITD, LIPD, CBC #### [facility] [address] [facility] [place] [id number] Anion gap [Moles/Vol] 16 mmol/L Normal 12-20 [facility] Specialist Comment on above: Result Comment: Effe ctive 02/10/2019 reference range changed. Performed By: #### C MP, TSH, FT4, VITD, LIPD, CBC #### [facility] [address] [place], [place] [id number] AST [Catalytic activity/Vol] 16 U/L Normal 9-34 [facility] Comment on above: Performed By: #### C MP, TSH, FT4, VITD, LIPD, CBC #### [facility] [address] [place], [place] [id number] BUN/CREA 14 Ratio Normal 6-22 [facility] Comment on above: Performed By: #### C MP, TSH, FT4, VITD, LIPD, CBC #### [facility] [address] [place], [place] [id number] Calcium [Mass/Vol] 9.4 mg/dL Normal 8.6-10.2 [facility] Comment on above: Performed By: #### C MP, TSH, FT4, VITD, LIPD, CBC #### [facility] [address] [place], [place] [id number] Chloride [Moles/Vol] 105 mmol/L Normal 98-107 [facility] Comment on above: Performed By: #### C MP, TSH, FT4, VITD, LIPD, CBC #### [facility] [address] [place], [place] [id number] CO2 [Moles/Vol] 21 mmol/L Normal 20-31 [facility] Comment on above: Performed By: #### C MP, TSH, FT4, VITD, LIPD, CBC #### [facility] [address] [place], [place] [id number] Creatinine [Mass/Vol] 0.8 mg/dL Normal 0.6-1.4 [facility] Comment on above: Performed By: #### C MP, TSH, FT4, VITD, LIPD, CBC #### [facility] [address] [place], [place] [id number] eGFRAA 94 mL/min/1.73m2 Normal >60 [facility] Comment on above: Performed By: #### C MP, TSH, FT4, VITD, LIPD, CBC #### [facility] [address] [place], [place] [id number] eGFRNAA 78 mL/min/1.73m2 Normal >60 [facility] [employer] Comment on above: Performed By: #### C MP, TSH, FT4, VITD, LIPD, CBC #### [facility] [address] [place], [place] [id number] Globulin (S) [Mass/Vol] 2.5 g/dL Normal 1.9-3.7 [facility] [employer] Comment on above: Performed By: #### C MP, TSH, FT4, VITD, LIPD, CBC #### [facility] [address] [place], [place] [id number] Glucose [Mass/Vol] 101 mg/dL High 65-99 [facility] [employer] Comment on above: Result Comment: For FASTING Glucose --- ADA reference ranges: Normal 65-99 mg/dl Prediabetes 100-125 Diabetes >/= 126 Performed By: #### C MP, TSH, FT4, VITD, LIPD, CBC #### [facility] [address] [place], [place] [id number] Potassium [Moles/Vol] 3.9 mmol/L Normal 3.5-5.5 [facility] Comment on above: Performed By: #### C MP, TSH, FT4, VITD, LIPD, CBC #### [facility] [address] [place], [place] [id number] Protein [Mass/Vol] 6.9 g/dL Normal 6.1-8.1 [facility] [employer] Comment on above: Performed By: #### C MP, TSH, FT4, VITD, LIPD, CBC #### [facility] [address] [place], [place] [id number] Sodium [Moles/Vol] 139 mmol/L Normal 135-146 [facility] [employer] Comment on above: Performed By: #### C MP, TSH, FT4, VITD, LIPD, CBC #### [facility] [address] [place], [place] [id number] TBIL <0.3 Normal [facility] [employer] Comment on above: Performed By: #### C MP, TSH, FT4, VITD, LIPD, CBC #### [facility] [address] [place], [place] [id number] Urea nitrogen [Mass/Vol] 11 mg/dL Normal 7-25 [facility] Specialist Comment on above: Performed By: #### C MP, TSH, FT4, VITD, LIPD, CBC #### [facility] [address] [place], [place] [id number] Free T4on 01-24-2021 Free T4 [Mass/Vol] 1.10 ng/dL Normal 0.80-1.80 [facility] Comment on above: Performed By: #### C MP, TSH, FT4, VITD, LIPD, CBC #### [facility] [address] [place], [place] [id number] Lipid Panelon 01-24-2021 Cholesterol [Mass/Vol] 215 mg/dL High 125-200 [facility] Specialist Comment on above: Result Comment: Low risk < 200mg/dL Borderline risk 201-239 mg/dl High risk > or equal to 240 Performed By: #### C REZA, FE Prof #### [facility] Default [address] [place] [address] Cholesterol in HDL [Mass/Vol] 65 mg/dL Normal >40 [facility] Comment on above: Result Comment: High Cardiovascular Risk HDL <40 mg/dL Low Cardiovascular Risk HDL > or equal to 60 mg/dl Performed By: #### C REZA, FE Prof #### [facility] Default [address] [place] [address] Cholesterol in LDL [Mass/Vol] 132 mg/dL Normal [facility] Comment on above: Result Comment: LDL ATP III CLASSIFICATION LDL less than 100 mg/dl Optimal LDL 100-129 mg/dl Near or above optimal LDL 130-159 Borderline high LDL 160-189 High LDL greater than 189 mg/dl Very High Performed By: #### C REZA, FE Prof #### [facility] Laboratory Default [address] [place] [address] Cholesterol in VLDL [Mass/Vol] 18 mg/dL Normal [facility] Comment on above: Performed By: #### C REZA, FE Prof #### [facility] Default [address] [place] [address] Cholesterol.total/Cho lesterol in HDL [Mass ratio] 3 {ratio} Normal [facility] Comment on above: Performed By: #### C REZA, FE Prof #### [facility] Default [address] [place] [address] Triglyceride [Mass/Vol] 91 mg/dL Normal 30-150 [facility] [employer] Comment on above: Result Comment: TRIG ATPIII CLASSIFICATIONS TRIG less than 150 mg/dl Normal TRIG 150-199 mg/dl Borderline High TRIG 200-500 mg/dl High TRIG greather than 500 mg/dl Very High Performed By: #### C GADIEL COBB Prof #### [facility] Default [address] [place] [address] Q - CULTURE,URINE,ROUTINEon 01-24-2021 CULTURE, URINE, ROUTINE SEE NOTE Abnormal [facility] [employer] Comment on above: Order Comment: [facility] performed at: [employer], [employer] [facility], [address] [place] [address], [address] [place] [address], [phone], Harnessmaker Apprentice: Scout Lin MD [facility] Collection Date/Time: [facility] Results Received Date/Time: [facility] Reported Date/Time: Result Comment: CULT URE, URINE, ROUTINE Micro Number: [id number] Test Status: Final Specimen Source: Urine Specimen [...] 3020X, %SBCULI #### [facility] Default [address] [place] [address] Q - UR CULT REIMLZ2uh 2020 REFLEXIVE URINE CULTURE SEE NOTE Normal [facility] [employer] Comment on above: Order Comment: [facility] performed at: [employer] [facility], [address] [facility], [address] [place] [address], [phone], Harnessmaker Apprentice: Scout Lin MD [facility] Date/Time: [facility] Results Received Date/Time: [facility] Reported Date/Time: Result Comment: CULT URE INDICATED - RESULTS TO FOLLOW Performed By: #### 6 304R, 3020X, %SBCULI #### [facility] Default [address] [place] [address] Q - URINALYSIS,COMPLETE,WITH REFLEX TO CULTUREon 01-24-2021 Appearance (U) CLOUDY Abnormal CLEAR [facility] Specialist Comment on above: Order Comment: [facility] performed at: [employer], [employer] [facility], [address], [address] [place] [address], [phone], Harnessmaker Apprentice: Scout Lin MD [facility] Date/Time: [facility] Results Received Date/Time: [facility] Reported Date/Time: Performed By: #### 6 304R, 3020X, %SBCULI #### [facility] Default [address] [place] [address] BACTERIA MANY Abnormal NONE SEEN [facility] [employer] Comment on above: Order Comment: [facility] performed at: [employer] [facility], [address] , [address] [place] [address], [phone], Harnessmaker Apprentice: Scout Lin MD [facility] Date/Time: [facility] Results Received Date/Time: [facility] Reported Date/Time: Performed By: #### 6 304R, 3020X, %SBCULI #### [facility] Default [address] [place] [address] Bilirubin Ql (U) Negative Normal NEGATIVE [facility] Specialist Comment on above: Order Comment: [facility] performed at: [employer], [employer] [facility], [address] , [address] [place] [address], [phone], Harnessmaker Apprentice: Scout Lin MD [facility] Date/Time: [facility] Results Received Date/Time: [facility] Reported Date/Time: Performed By: #### 6 304R, 3020X, %SBCULI #### [facility] Default [address] [place] [address] Color (U) YELLOW Normal YELLOW [facility] [employer] Comment on above: Order Comment: [facility] performed at: [employer] [facility], [address] [place] [address], [address] [place] [address], [address] [place] [address], Harnessmaker Apprentice: Scout Lin MD [facility] Date/Time: [facility] Results Received Date/Time: [facility] Reported Date/Time: Performed By: #### 6 304R, 3020X, %SBCULI #### [facility] Default [address] [place] [address] Glucose Ql (U) Negative Normal NEGATIVE [facility] Specialist Comment on above: Order Comment: [facility] performed at: [employer] [facility], [address] , [address] [place] [address], [address] [place] [address], Harnessmaker Apprentice: Scout Lin MD [facility] Date/Time: [facility] Results Received Date/Time: [facility] Reported Date/Time: Performed By: #### 6 304R, 3020X, %SBCULI #### [facility] Default [address] [place] [address] HYALINE CAST 1-3 Abnormal NONE SEEN [facility] [employer] Comment on above: Order Comment: [facility] performed at: [employer] [facility], [address] [facility], [address] [place] [address], [address] [place] [address], Harnessmaker Apprentice: Scout Lin MD [facility] Collection Date/Time: [facility] Results Received Date/Time: [facility] Reported Date/Time: Performed By: #### 6 304R, 3020X, %SBCULI #### [facility] Default [address] [place] [address] Ketones Ql (U) TRACE Abnormal NEGATIVE [facility] [employer] Comment on above: Order Comment: [facility] performed at: [employer] [facility], [address] [facility], [address] [place] [address], [address] [place] [address], Harnessmaker Apprentice: Scout Lin MD [facility] Collection Date/Time: [facility] Results Received Date/Time: [facility] Reported Date/Time: Performed By: #### 6 304R, 3020X, %SBCULI #### [facility] Default [address] [place] [address] Leukocyte esterase Test strip Ql (U) TRACE Abnormal NEGATIVE [facility] [employer] Comment on above: Order Comment: [facility] performed at: [employer] [facility], [address] , [address] [place] [address], [address] [place] [address], Harnessmaker Apprentice: Scout Lin MD [facility] Date/Time: [facility] Results Received Date/Time: [facility] Reported Date/Time: Performed By: #### 6 304R, 3020X, %SBCULI #### [facility] Default [address] [place] [address] Nitrite Ql (U) Positive Abnormal NEGATIVE [facility] [employer] Comment on above: Order Comment: [facility] performed at: [employer] [facility], [address] , [address] [place] [address], [phone], Harnessmaker Apprentice: Scout Lin MD [facility] Date/Time: [facility] Results Received Date/Time: [facility] Reported Date/Time: Performed By: #### 6 304R, 3020X, %SBCULI #### [facility] Default [address] [place] [address] OCCULT BLOOD 2+ Abnormal NEGATIVE [facility] [employer] Comment on above: Order Comment: [facility] performed at: [employer] [facility], [address] [facility], [address] [place] [address], [address] [place] [address], Harnessmaker Apprentice: Scout Lin MD [facility] Date/Time: [facility] Results Received Date/Time: [facility] Reported Date/Time: Performed By: #### 6 304R, 3020X, %SBCULI #### [facility] Default [address] [place] [address] pH (U) [pH] Normal 5.0-8.0 [facility] [employer] Comment on above: Order Comment: [facility] performed at: [employer] [facility], [address] , [address] [place] [address], [address] [place] [address], Harnessmaker Apprentice: Scout Lin MD [facility] Date/Time: [facility] Results Received Date/Time: [facility] Reported Date/Time: Performed By: #### 6 304R, 3020X, %SBCULI #### [facility] Default [address] [place] [address] Protein Ql (U) Negative Normal NEGATIVE [facility] [employer] Comment on above: Order Comment: [facility] performed at: [employer] [facility], [address] , [address] [place] [address], [address] [place] [address], Harnessmaker Apprentice: Scout Lin MD [facility] Date/Time: [facility] Results Received Date/Time: [facility] Reported Date/Time: Performed By: #### 6 304R, 3020X, %SBCULI #### [facility] Default [address] [place] [address] RBC 0-2 Normal < OR = 2 [facility] [employer] Comment on above: Order Comment: [facility] performed at: [employer] [facility], [address] [place] [address], [address] [place] [address], [address] [place] [address], Harnessmaker Apprentice: Scout Lin MD [facility] Date/Time: [facility] Results Received Date/Time: [facility] Reported Date/Time: Performed By: #### 6 304R, 3020X, %SBCULI #### [facility] Default [address] [place] [address] Specific gravity (U) [Rel density] 1.021 Normal 1.001-1.035 [facility] [employer] Comment on above: Order Comment: [facility] performed at: [employer] [facility], [address] [place] [address], [address] [place] [address], [address] [place] [address], Harnessmaker Apprentice: Scout Lin MD [facility] Date/Time: [facility] Results Received Date/Time: [facility] Reported Date/Time: Performed By: #### 6 304R, 3020X, %SBCULI #### [facility] Default [address] [place] [address] SQUAMOUS EPITHELIAL CELLS 40-60 Abnormal < OR = 5 [facility] [employer] Comment on above: Order Comment: [facility] performed at: [employer] [facility], [address] [place] [address], [address] [place] [address], [address] [place] [address], Harnessmaker Apprentice: Scout Lin MD [facility] Date/Time: [facility] Results Received Date/Time: [facility] Reported Date/Time: Performed By: #### 6 304R, 3020X, %SBCULI #### [facility] Default [address] [place] [address] WBC 0-5 Normal < OR = 5 [facility] [employer] Comment on above: Order Comment: [facility] performed at: [employer], [facility], [address], [address] [facility], [place], [phone], Harnessmaker Apprentice: Scout Lin MD [facility] Date/Time: [facility] Results Received Date/Time: [facility] Reported Date/Time: Performed By: #### 6 304R, 3020X, %SBCULI #### [facility] Default [address] [place] [address] TSHon 01-24-2021 TSH 2.230 uIU/mL Normal 0.400-4.500 [facility] [employer] Comment on above: Performed By: #### C MP, TSH, FT4, VITD, LIPD, CBC #### [facility] [address] [place] [id number] Vitamin D 25-OHon 01-24-2021 VIT D 25 OH 25 ng/ml Low >29 [facility] [employer] Comment on above: Result Comment: Niru min D Status Deficiency <20 ng/mL Insufficiency 20-29 ng/mL Optimal 30-100 ng/mL Possible Toxicity >=150 ng/mL Performed By: #### C MP, TSH, FT4, VITD, LIPD, CBC #### [facility] [address] [place], [place] [id number] HCG, Quantitative, on 07-11-2019 hCG Quant <1 <5 IU/L [place], [place] Comment on above: Non-preg premeno <=5 [...] Facility 10-27-2024 09:54-0400 Body height 157.5 cm Ceasar Luis [employer] Work Phone: [facility] 10-27-2024 09:54-0400 Body mass index (BMI) [Ratio] 38.23 kg/m2 Ceasar Luis DO Work Phone: [facility] 10-27-2024 09:54-0400 Body weight 94.8 kg Ceasar Luis DO Work Phone: [facility] 10-27-2024 09:54-0400 Diastolic blood pressure 72 mm[Hg] Ceasar Luis DO Work Phone: [facility] 10-27-2024 09:54-0400 Systolic blood pressure 120 mm[Hg] Ceasar Luis DO Work Phone: [facility] 10-27-2024 07:02-0400 Body height 157.5 cm Ashleigh Rine RUBY ENGINE[employer] Work Phone: [facility] 10-27-2024 07:02-0400 Body mass index (BMI) [Ratio] 38.23 kg/m2 Ashleigh Rine RUBY ENGINEER Work Phone: [facility] 10-27-2024 07:02-0400 Body temperature 97.5 [degF] Ashleigh Rine RUBY ENGINEER Work Phone: [facility] 10-27-2024 07:02-0400 Body weight 94.8 kg Ashleigh Rine RUBY ENGINEER Work Phone: [facility] 10-27-2024 07:02-0400 Diastolic blood pressure 80 mm[Hg] Ashleigh Rine RUBY ENGINEER Work Phone: [facility] 10-27-2024 07:02-0400 Heart rate 87 /min Ashleigh Rine RUBY ENGINEER Work Phone: [facility] 10-27-2024 07:02-0400 Respiratory rate 18 /min Ashleigh Rine RUBY ENGINEER Work Phone: [facility] 10-27-2024 07:02-0400 SaO2% (BldA) [Mass fraction] 97 % Ashleigh Rine RUBY ENGINEER Work Phone: [facility] 10-27-2024 07:02-0400 Systolic blood pressure 118 mm[Hg] Ashleigh Rine RUBY ENGINEER Work Phone: [facility] 07-22-2024 14:17-0400 Body mass index (BMI) [Ratio] 38.04 kg/m2 Ceasar Luis DO Work Phone: [facility] 07-22-2024 14:17-0400 Body weight 94.35 kg Ceasar Luis DO Work Phone: [facility] 07-22-2024 14:17-0400 Diastolic blood pressure 78 mm[Hg] Ceasar Luis DO Work Phone: [facility] 07-22-2024 14:17-0400 Systolic blood pressure 128 mm[Hg] Ceasar Luis DO Work Phone: [facility] 06-03-2024 07:44-0400 Body height 157.5 cm Ashleigh Rine RUBY ENGINEER Work Phone: [facility] 06-03-2024 07:44-0400 Body mass index (BMI) [Ratio] 37.53 kg/m2 Ashleigh Rine RUBY ENGINEER Work Phone: [facility] 06-03-2024 07:44-0400 Body temperature 98.1 [degF] Ashleigh Rine RUBY ENGINEER Work Phone: [facility] 06-03-2024 07:44-0400 Body weight 93.08 kg Ashleigh Rine RUBY ENGINEER Work Phone: [facility] 06-03-2024 07:44-0400 Diastolic blood pressure 70 mm[Hg] Ashleigh Rine RUBY ENGINEER Work Phone: [facility] 06-03-2024 07:44-0400 Heart rate 85 /min Ashleigh Rine RUBY ENGINEER Work Phone: [facility] 06-03-2024 07:44-0400 Respiratory rate 18 /min Ashleigh Rine RUBY ENGINEER Work Phone: [facility] 06-03-2024 07:44-0400 SaO2% (BldA) [Mass fraction] 98 % Ashleigh Rine RUBY ENGINEER Work Phone: [facility] 06-03-2024 07:44-0400 Systolic blood pressure 120 mm[Hg] Ashleigh Rine RUBY ENGINEER Work Phone: [facility] 01-22-2024 09:04-0500 Body height 157.5 cm Ashleigh Rine RUBY ENGINEER Work Phone: [facility] 01-22-2024 09:04-0500 Body mass index (BMI) [Ratio] 37.35 kg/m2 Ashleigh Rine RUBY ENGINEER Work Phone: [facility] 01-22-2024 09:04-0500 Body temperature 98.01 [degF] Ashleigh Rine RUBY ENGINEER Work Phone: [facility] 01-22-2024 09:04-0500 Body weight 92.63 kg Ashleigh Rine RUBY ENGINEER Work Phone: [facility] 01-22-2024 09:04-0500 Diastolic blood pressure 78 mm[Hg] Ashleigh Rine RUBY ENGINEER Work Phone: [facility] 01-22-2024 09:04-0500 Heart rate 105 /min Ashleigh Rine RUBY ENGINEER Work Phone: [facility] 01-22-2024 09:04-0500 Respiratory rate 18 /min Ashleigh Rine RUBY ENGINEER Work Phone: [facility] 01-22-2024 09:04-0500 SaO2% (BldA) [Mass fraction] 99 % Ashleigh Rine RUBY ENGINEER Work Phone: [facility] 01-22-2024 09:04-0500 Systolic blood pressure 114 mm[Hg] Ashleigh Rine RUBY ENGINEER Work Phone: [facility] 01-07-2024 07:18-0500 Body height 157.5 cm Ashleigh Rine RUBY ENGINEER Work Phone: [facility] 01-07-2024 07:18-0500 Body mass index (BMI) [Ratio] 37.39 kg/m2 Ashleigh Rine RUBY ENGINEER Work Phone: [facility] 01-07-2024 07:18-0500 Body temperature 98.4 [degF] Ashleigh Rine RUBY ENGINEER Work Phone: [facility] 01-07-2024 07:18-0500 Body weight 92.72 kg Ashleigh Rine RUBY ENGINEER Work Phone: [facility] 01-07-2024 07:18-0500 Diastolic blood pressure 76 mm[Hg] Ashleigh Rine RUBY ENGINEER Work Phone: [facility] 01-07-2024 07:18-0500 Heart rate 85 /min Ashleigh Rine RUBY ENGINEER Work Phone: [facility] 01-07-2024 07:18-0500 Respiratory rate 18 /min Ashleigh Rine RUBY ENGINEER Work Phone: [facility] 01-07-2024 07:18-0500 SaO2% (BldA) [Mass fraction] 98 % Ashleigh Rine RUBY ENGINEER Work Phone: [facility] 01-07-2024 07:18-0500 Systolic blood pressure 122 mm[Hg] Ashleigh Rine RUBY ENGINEER Work Phone: [facility] 10-15-2023 07:35-0400 Body height 157.5 cm Ashleigh Rine RUBY ENGINEER Work Phone: [facility] 10-15-2023 07:35-0400 Body mass index (BMI) [Ratio] 36.95 kg/m2 Ashleigh Rine RUBY ENGINEER Work Phone: [facility] 10-15-2023 07:35-0400 Body temperature 98.29 [degF] Ashleigh Rine RUBY ENGINEER Work Phone: [facility] 10-15-2023 07:35-0400 Body weight 91.63 kg Ashleigh Rine RUBY ENGINEER Work Phone: [facility] 10-15-2023 07:35-0400 Diastolic blood pressure 78 mm[Hg] Ashleigh Rine RUBY ENGINEER Work Phone: [facility] 10-15-2023 07:35-0400 Heart rate 85 /min Ashleigh Rine RUBY ENGINEER Work Phone: [facility] 10-15-2023 07:35-0400 Respiratory rate 18 /min Ashleigh Rine RUBY ENGINEER Work Phone: [facility] 10-15-2023 07:35-0400 SaO2% (BldA) [Mass fraction] 96 % Ashleigh Rine RUBY ENGINEER Work Phone: [facility] 10-15-2023 07:35-0400 Systolic blood pressure 115 mm[Hg] Ashleigh Rine RUBY ENGINEER Work Phone: [facility] 03-07-2023 17:35-0500 Diastolic blood pressure 80 mm[Hg] Darlene Nuñez DO Work Phone: [facility] [employer] 03-07-2023 17:35-0500 Heart rate 82 /min Darlene Nuñez DO [facility] 03-07-2023 17:35-0500 Respiratory rate 16 /min Darlene Nuñez DO [facility] 03-07-2023 17:35-0500 SaO2% (BldA) [Mass fraction] 95 % Darlene Nuñez DO [facility] 03-07-2023 17:35-0500 Systolic blood pressure 120 mm[Hg] Darlene Nuñez DO [facility] 03-07-2023 15:42-0500 Body temperature 98.29 [degF] Darlene Nuñez DO [facility] 05-11-2019 10:32-0400 BMI (Body Mass Index) 37.11 kg/m2 [facility] [place] 05-11-2019 10:32-0400 Body Temperature 98.1 [degF] [facility] [place] 05-11-2019 10:32-0400 Body weight 86.18 kg [facility] [place] 05-11-2019 10:32-0400 BP Diastolic 95 mm[Hg] [facility] [place] 05-11-2019 10:32-0400 BP Systolic 126 mm[Hg] Matt Fletcher [facility] , [place] 05-11-2019 10:32-0400 Height 152.4 cm [facility] , [place] 05-11-2019 10:32-0400 Pulse (Heart Rate) 80 /min [facility] [place] 05-11-2019 10:32-0400 Pulse Oximetry 98 % Matt Fletcher [facility] , [place] 05-11-2019 10:32-0400 Respiratory Rate 16 /min [facility] [place] Encounters Encounter Date Encounter Type Care Provider Facility Start: 01-15-2025 ambulatory Mary Patton erer INVENTORY ASSOCIATE-PIE FILLER Facility[facility] Start: 11-10-2024 End: 11-10-2024 Clinisync Result Encounter Ceasar Luis DO Work Phone: [facility] Unsolicited Start: 11-10-2024 End: 11-10-2024 Clinisync Result Encounter Ceasar Luis DO Work Phone: [facility] Unsolicited Start: 10-28-2024 End: 10-28-2024 Office outpatient new 30 minutes Fatuma Perez DPM Work Phone: [facility] Comment on above: Plantar fasciitis (P rimary Dx); Bilateral foot pain Start: 10-28-2024 End: 10-28-2024 ambulatory FATUMA PEREZ Not Available Start: 10-28-2024 End: 10-28-2024 Bamboo flowsheet Fatuma Perez DPM Work Phone: [facility] Start: 10-28-2024 End: 10-28-2024 Bamboo flowsheet Fatuma Perez DPM Work Phone: [facility] Start: 10-27-2024 End: 10-27-2024 Bamboo flowsheet Ashleigh Dillon RUBY ENGINEER Work Phone: [facility] Start: 10-27-2024 End: 10-27-2024 Bamboo flowsheet Ashleigh L Isae RUBY ENGINEER Work Phone: [facility] Start: 10-27-2024 End: 10-27-2024 Office outpatient visit 15 minutes Ceasar Smith DO Work Phone: [facility] Meche RICHARDS Comment on above: Pre-op examination; Abnormal uterine bleeding (AUB) Start: 10-27-2024 End: 10-27-2024 Preprocedural examination done Ceasar Smith DO Work Phone: [facility] Start: 10-27-2024 End: 10-27-2024 ambulatory CEASAR PUGHO Not Available Start: 10-27-2024 End: 10-27-2024 Patient encounter status Ashleigh L Isae RUBY ENGINEER Work Phone: [facility] Work Phone: Start: 10-27-2024 End: 10-27-2024 Periodic preventive med est patient 40-64yrs Ashleigh L Isae RUBY ENGINEER Work Phone: [facility] Comment on above: Wellness examination (Primary Dx); Gastroesophageal reflux disease without esophagitis; Vitamin D deficiency; Body mass index (BMI) 37.0-37.9, adult; Morbid (severe) obesity due to excess calories ([facility]); Unilateral vestibular weakness, right; LESLEE (generalized anxiety disorder) ; Migraine with aura and with status migrainosus, not intractable ; Dyslipidemia ; Decreased libido; Vaginal dryness; Screen for colon cancer; Immunization due; Bilateral foot pain Start: 10-27-2024 End: 10-27-2024 ambulatory ASHLEIGH L RINE Not Available Start: 10-15-2024 End: 10-15-2024 Refill Ashleigh L Rine RUBY ENGINEER Work Phone: [facility] Comment on above: Trochanteric bursiti s of both hips Start: 10-14-2024 End: 10-14-2024 Refill Ashleigh L Rine RUBY ENGINEER Work Phone: [facility] Comment on above: Prolonged grief reac tion Start: 10-13-2024 End: 10-13-2024 Orders Only Ashleigh L Rine RUBY ENGINEER Work Phone: [facility] Comment on above: Bilateral foot pain (Primary Dx) Start: 10-06-2024 End: 10-06-2024 Refill Ashleigh L Rine RUBY ENGINEER Work Phone: [facility] Comment on above: Dyslipidemia Start: 10-02-2024 End: 10-02-2024 ambulatory ASHLEIGH L RINE Not Available Start: 09-26-2024 End: 09-26-2024 Refill Ashleigh L Rine RUBY ENGINEER Work Phone: [facility] Comment on above: Vitamin D deficiency Start: 09-18-2024 End: 09-18-2024 ambulatory ASHLEIGH RINE Not Available Start: 09-16-2024 End: 09-16-2024 Patient encounter status Ashleigh L Rine RUBY ENGINEER Work Phone: [facility] Start: 09-16-2024 End: 09-16-2024 Telephone encounter Ashleigh L Rine RUBY ENGINEER Work Phone: [facility] Start: 08-22-2024 ambulatory Parmjit Jason MD Facility:[facility] Start: 08-22-2024 End: 08-22-2024 ambulatory Kimberly Garcia PA-C Facility[facility] Start: 08-17-2024 End: 08-17-2024 Refill Ashleigh L Rine RUBY ENGINEER Work Phone: [facility] Comment on above: Prolonged grief reac tion Start: 08-11-2024 End: 08-11-2024 Patient encounter procedure [facility] Work Phone: Start: 08-11-2024 End: 08-11-2024 ambulatory NON STAFF [facility] Work Phone: Start: 07-22-2024 End: 07-22-2024 ambulatory CEASAR LUIS Not Available Start: 07-22-2024 End: 07-22-2024 Bamboo flowsheet Ceasar Smith DO Work Phone: [facility] Start: 07-22-2024 End: 07-25-2024 Bamboo flowsheet Ceasar Garciazio DO Work Phone: [facility] Start: 07-22-2024 End: 07-25-2024 Clinisync Result Encounter Ceasar Luis DO Work Phone: [facility] External Department Unsolicited Start: 07-22-2024 End: 07-22-2024 Patient encounter procedure Ceasar Luis DO Work Phone: [facility] Healthcare Start: 07-22-2024 End: 07-22-2024 Periodic preventive med est patient 40-64yrs Ceasar Pugho DO Work Phone: [facility] Comment on above: Well woman exam with routine gynecological exam; Breast cancer screening by mammogram; Breast lump on right side at 6 o'clock position; Abnormal uterine bleeding (AUB); Yeast infection Start: 07-18-2024 End: 07-18-2024 ambulatory Kimberly Garcia PA-C Facility[facility] Start: 06-29-2024 End: 06-29-2024 Refill Ashleigh L Rine RUBY ENGINEER Work Phone: [facility] Comment on above: Dyslipidemia (CMS/HC C) Start: 06-03-2024 End: 06-03-2024 Bamboo flowsheet Ashleigh L Rine RUBY ENGINEER Work Phone: [facility] Start: 06-03-2024 End: 06-03-2024 Bamboo flowsheet Ashleigh L Rine RUBY ENGINEER Work Phone: [facility] Start: 06-03-2024 End: 06-03-2024 ambulatory ASHLEIGH L RINE Not Available Start: 06-03-2024 End: 06-03-2024 Office outpatient visit 25 minutes Ashleigh L Rine RUBY ENGINEER Work Phone: [facility] Comment on above: Prolonged grief reac tion (CMS/HCC) (Primary Dx); Decreased libido Start: 03-28-2024 End: 03-28-2024 Refill Ashleigh L Rine RUBY ENGINEER Work Phone: [facility] Comment on above: Dyslipidemia (CMS/HC C) Start: 01-22-2024 End: 01-22-2024 Bamboo flowsheet Ashleigh L Rine RUBY ENGINEER Work Phone: [facility] Start: 01-22-2024 End: 01-22-2024 Bamboo flowsheet Ashleigh L Rine RUBY ENGINEER Work Phone: [facility] Start: 01-22-2024 End: 01-22-2024 ambulatory ASHLEIGH L RINE Not Available Start: 01-22-2024 End: 01-22-2024 Office outpatient visit 15 minutes Ashleigh L Rine RUBY ENGINEER Work Phone: [facility] Comment on above: Vertigo Start: 01-15-2024 End: 01-15-2024 Refill Ashleigh L Rine RUBY ENGINEER Work Phone: [facility] Comment on above: LESLEE (generalized anx iety disorder) (CMS/[facility]) Start: 01-07-2024 End: 01-07-2024 Bamboo flowsheet Ashleigh L Rine RUBY ENGINEER Work Phone: [facility] Start: 01-07-2024 End: 01-07-2024 Bamboo flowsheet Ashleigh L Rine RUBY ENGINEER Work Phone: [facility] Start: 01-07-2024 End: 01-07-2024 ambulatory ASHLEIGH L RINE Not Available Start: 01-07-2024 End: 01-07-2024 Office outpatient visit 25 minutes Ashleigh L Rine RUBY ENGINEER Work Phone: [facility] Comment on above: Trochanteric bursiti s of both hips (Primary Dx); Vaginal dryness; BMI 37.0-37.9, adult; Grief ([facility]/HCC); Immunization due Start: 12-27-2023 End: 12-27-2023 Refill Ashleigh L Rine RUBY ENGINEER Work Phone: [facility] Comment on above: Dyslipidemia (CMS/HC C) Start: 10-28-2023 End: 10-28-2023 Refill Ashleigh Dillon RUBY ENGINEER Work Phone: [facility] Comment on above: Vitamin D deficiency Start: 10-15-2023 End: 10-15-2023 Bamboo flowsheet Ashleigh L Isae RUBY ENGINEER Work Phone: [facility] Start: 10-15-2023 End: 10-15-2023 Bamboo flowsheet Ashleigh Bhupendra Gonzalese RUBY ENGINEER Work Phone: [facility] Start: 10-15-2023 End: 10-15-2023 Patient encounter status Ashleigh Bhupendra Gonzalese RUBY ENGINEER Work Phone: [facility] Healthcare Work Phone: Start: 10-15-2023 End: 10-15-2023 Periodic preventive med est patient 40-64yrs Ashleigh Bhupendra Gonzalese RUBY ENGINEER Work Phone: [facility] Comment on above: Wellness examination (Primary Dx); [...] (AAA) Start: 09-26-2023 End: 09-26-2023 Refill Ashleigh Bhupendra Gonzalese RUBY ENGINEER Work Phone: [facility] Comment on above: Dyslipidemia (CMS/HC C) Start: 08-28-2023 ambulatory ASHLEIGH L ISAE [facility] Start: 08-28-2023 End: 08-30-2023 Subsequent hospital visit by physician Mth Ultrasound Room [facility] Ultrasound Comment on above: Unspecified atherosc lerosis; Elevated blood pressure reading without diagnosis of hypertension; Family history of ischemic heart disease and other diseases of the circulatory system Start: 03-30-2023 End: 04-01-2023 ambulatory VASYLNOVA DENIS [facility] Start: 03-30-2023 End: 04-01-2023 Subsequent hospital visit by physician Mth Mri Scanner [facility] MRI Comment on above: Ataxia Start: 03-26-2023 Chart abstracting Cyril weston PT Work Phone: [facility] Start: 03-20-2023 Refill Ashleigh Dillon N P Work Phone: [facility] Comment on above: Localized edema; Dyslipidemia (CMS/HCC) Start: 03-20-2023 Telephone encounter Ashleigh L Ri ne RUBY ENGINEER Work Phone: [facility] Comment on above: Cough Start: 03-19-2023 Telephone encounter Ashleigh L Ri ne RUBY ENGINEER Work Phone: [facility] Start: 03-16-2023 End: 03-16-2023 Evaluation Cyril Arnold PT Work Phone: [facility] Comment on above: Balance disorder (Pr imary Dx); Cervicalgia; Unilateral vestibular weakness, right Start: 03-13-2023 Telephone encounter Jeff almaraz DO Work Phone: [facility] Start: 03-07-2023 End: 03-07-2023 Emergency department patient visit Darlene Pamela Nuñez DO Work Phone: [facility] ED Comment on above: Benign paroxysmal po sitional vertigo, unspecified laterality (Primary Dx); Dizziness Start: 03-06-2023 End: 03-06-2023 Encounter for preprocedural laboratory examination [facility] Start: 03-06-2023 End: 03-08-2023 ambulatory [facility] Start: 04-18-2022 ambulatory SELF SELF Facility:[facility] Start: 10-21-2021 End: 10-22-[address] ASHLEIGH DILLON Facility:[facility] Start: 04-08-2021 End: 04-09-[address] CEASAR SMITH Facility:[facility] Start: 03-28-2021 End: 03-29-[address] CEASAR SMIHT Facility:[facility] Start: 03-08-2021 End: 03-08-[address] CEASAR SMITH Facility:[facility] Start: 07-11-2019 End: 07-11-2019 Subsequent hospital visit by physician Cyril Britt [facility] Laboratory Start: 05-11-2019 End: 05-11-2019 Emergency department patient visit Matt Fletcher Work Phone: [facility] ED Comment on above: Abscess (Primary Dx) Procedures Date Procedure Procedure Detail Performing Clinician Start: 11-10-2024 ECG 12-LEAD Ceasar Radhaporsha o DO Work Phone: Start: 10-28-2024 End: 10-28-2024 Radex foot complete minimum 3 views Fatuma Perez DPM Work Phone: Start: 08-11-2024 Bilateral mammography C orenehemias Pugho DO Work Phone: Start: 08-11-2024 Ultrasonography of r ight breast Ceasar Pugho DO Work Phone: Start: 07-22-2024 IGP,APTIMA HPV,AGE GDLN Ceasarnehemias Pugho DO Work Phone: Start: 07-22-2024 Microscopic observat ion [Identifier] in Cervix by Cyto stain Ashleigh Dillon RUBY ENGINEER Work Phone: Start: 07-07-2024 Mammography Ashleigh Dillon RUBY ENGINEER Work Phone: Start: 12-21-2023 Mammography Ashleigh Dillon RUBY ENGINEER Work Phone: Start: 08-28-2023 Us abdominal aorta r eal time screen study aaa Ashleigh L Wilma INVENTORY ASSOCIATE - RUBY ENGINEER Work Phone: Start: 03-30-2023 Mri brain brain [...] DO Work Phone: Start: 11-24-2022 Mammography Jeff Granger jazlyn DO Work Phone: Start: 03-08-2021 Microscopic observat ion [Identifier] in Cervix by Cyto stain Jeff Josephjuanjose DO Work Phone: Start: 07-11-2019 Gonadotropin chorion ic quantitative Ceasar Smith Work Phone: Plan of Treatment Date Care Activity Detail Author Start: 01-25-2028 Screening for malign ant neoplasm of cervix [facility] Start: 07-23-2027 Screening for malign ant neoplasm of cervix Pap Smear [facility] Start: 03-08-2026 Screening for malign ant neoplasm of cervix [facility] Start: 07-07-2025 Screening for malign ant neoplasm of breast Mammogram [facility] Start: 02-24-2025 End: 02-24-2025 Patient encounter procedure 02/24/2025 7:00 AM EST Office Visit [facility] [address] [place] [address] Ahsleigh Dillon, RUBY ENGINEER [address] [place] [address] [facility]ly [facility] Start: 12-20-2024 Screening for malign ant neoplasm of breast Mammogram [facility] Start: 12-02-2024 End: 12-02-2024 Patient encounter procedure 12/02/2024 3:30 PM EDT [facility] [address] [place] [phone] Fatuma Perez DPM [address] [place] [address] [facility] Start: 11-25-2024 End: 11-25-2024 Patient encounter procedure 11/25/2024 9:30 AM EDT Office Visit [facility] [address] [place] [phone] Meryl Fragoso PA [address] [facility] [place], [place] [id number] [facility] [place] [facility] Start: 10-28-2024 End: 10-28-2024 Patient encounter procedure [facility] Comment on above: Arrived Start: 10-27-2024 End: 10-27-2025 Noninvasive colorectal cancer DNA and occult blood screening [Presence] in Stool Cologuard colon cancer screening Lab Routine Screen for colon cancer Expected: 10/27/2024 (Approximate), Expires: 10/27/2025 [facility] Work Phone: Comment on above: Expected: 10/27/2024 (Approximate), Expires: 10/27/2025 Start: 10-27-2024 End: 10-27-2024 Professional / ancillary services management 10/27/2024 9:00 AM EDT Ancillary Procedure [facility]A RICHARDS [address] [place] [address] [facility] [place] [facility] Start: 10-27-2024 End: 10-27-2024 Patient encounter procedure [facility] Comment on above: Wellness examination (Primary Dx); Gastroesophageal reflux disease without esophagitis; Vitamin D deficiency; Unilateral vestibular weakness, right; Migraine with aura and with status migrainosus, not intractable ; Dyslipidemia ; Decreased libido; Vaginal dryness; Hormone disorder Start: 10-06-2024 Influenza vaccination Influenza Vacc ine (#1) [facility] Start: 10-02-2024 End: 10-02-2024 Professional / ancillary services management 10/02/2024 10:30 AM EDT Ancillary Procedure [facility] [address] [place] [address] [facility] Start: 09-18-2024 End: 09-18-2024 Clinical Support 09/18/2024 2:10 PM EDT Clinical Support [facility] [address] [place] [address] [place] [address] [facility] Start: 09-16-2024 End: 09-16-2025 25-hydroxyvitamin D3 [Mass/volume] in Serum or Plasma Vitamin D 25 hydroxy Total Lab Routine Encounter for vitamin deficiency screening Expected: 09/16/2024 (Approximate), Expires: 09/16/2025 [facility] Healthcare Comment on above: Expected: 09/16/2024 (Approximate), Expires: 09/16/2025 Start: 09-16-2024 End: 09-16-2025 CBC panel - Blood by Automated count CBC Lab Routine Screening for deficiency anemia Wellness examination Expected: 09/16/2024 (Approximate), Expires: 09/16/2025 [facility] Comment on above: Expected: 09/16/2024 (Approximate), Expires: 09/16/2025 Start: 09-16-2024 End: 09-16-2025 Comprehensive metabolic 2000 panel - Serum or Plasma Comprehensive metabolic panel Lab Routine Diabetes mellitus screening Wellness examination Expected: 09/16/2024 (Approximate), Expires: 09/16/2025 [facility] Comment on above: Expected: 09/16/2024 (Approximate), Expires: 09/16/2025 Start: 09-16-2024 End: 09-16-2025 Hemoglobin a1c with eag Hemoglobin a1c with eag Lab Routine Diabetes mellitus screening Expected: 09/16/2024 (Approximate), Expires: 09/16/2025 [facility] Healthcare Comment on above: Expected: 09/16/2024 (Approximate), Expires: 09/16/2025 Start: 09-16-2024 End: 09-16-2025 Lipid 1996 panel - Serum or Plasma Lipid panel Lab Routine Screening, lipid Wellness examination Expected: 09/16/2024 (Approximate), Expires: 09/16/2025 [facility] Comment on above: Expected: 09/16/2024 (Approximate), Expires: 09/16/2025 Start: 09-16-2024 End: 09-16-2025 TSH W/REFLEX TO FT4 TSH W/REFLEX TO FT4 Lab Routine Screening for thyroid disorder Expected: 09/16/2024 (Approximate), Expires: 09/16/2025 [facility] Comment on above: Expected: 09/16/2024 (Approximate), Expires: 09/16/2025 Start: 09-16-2024 End: 09-16-2025 URINALYSIS, COMPLETE W/REFLEX TO CULTURE URINALYSIS, COMPLETE W/REFLEX TO CULTURE Lab Routine Dysuria Wellness examination Expected: 09/16/2024, Expires: 09/16/2025 [facility] Comment on above: Expected: 09/16/2024 , Expires: 09/16/2025 Start: 09-16-2024 End: 09-16-2025 Vascular US ankle brachial index (DAMION) complete without exercise Vascular US ankle brachial index (DAMION) complete without exercise Imaging Routine Bilateral leg pain Claudication Expected: 09/16/2024, Expires: 09/16/2025 [facility] Work Phone: Comment on above: Expected: 09/16/2024 , Expires: 09/16/2025 Start: 09-01-2024 End: 09-01-2024 Patient encounter procedure 09/01/2024 9:10 AM EDT Consult [facility] [address] [place] [phone] Ceasar Smith, DO [address] [place], [place] [id number] [facility] Start: 09-01-2024 End: 09-01-2024 Professional / ancillary services management 09/01/2024 8:00 AM EDT Ancillary Procedure [facility] [address] [place] [phone] [facility] Start: 07-22-2024 End: 09-21-2025 MG Breast - bilateral Diagnostic Bilateral diagnostic mammogram Imaging Routine Breast lump on right side at 6 o'clock position Expected: 07/22/2024 (Approximate), Expires: 09/21/2025 [facility] Comment on above: Expected: 07/22/2024 (Approximate), Expires: 09/21/2025 Start: 07-22-2024 End: 07-22-2024 Patient encounter procedure 07/22/2024 2:00 PM EDT Office Visit [facility] [address] [place] [address] Ceasar Smith DO [address] [place] [address] [facility] Start: 07-22-2024 End: 01-21-2025 US Pelvis US Pelvis w/ TV Imaging Routine Abnormal uterine bleeding (AUB) Expected: 07/22/2024, Expires: 01/21/2025 [facility] Comment on above: Expected: 07/22/2024 , Expires: 01/21/2025 Start: 05-07-2024 End: 05-07-2024 Patient encounter procedure 05/07/2024 7:00 AM EDT Office Visit [facility] [address] [place] [phone] Ashleigh Dillon RUBY ENGINEER [address] [place], [place] [id number] [facility] Start: 01-07-2024 End: 01-07-2024 Patient encounter procedure 01/07/2024 7:00 AM EST Office Visit [facility] [address] [place] [address] Ashleigh Dillon RUBY ENGINEER [address] [place] [address] [facility] Start: 12-13-2023 End: 12-13-2023 Clinical Support 12/13/2023 1:00 PM EST Clinical Support [facility] [address] [facility] [place] [phone] Lidia Parker, MS, RDN, LD, CHES [address] [place], [place] [facility] Start: 12-06-2023 Screening for malign ant neoplasm of breast Mammogram [facility] Comment on above: Postponed from 11/24 (Other Patient Reasons) Start: 11-25-2023 Screening for malign ant neoplasm of breast Mammogram [facility] Start: 10-22-2023 Screening for malign ant neoplasm of breast Breast cancer screen [facility] Start: 10-15-2023 End: 10-15-2023 Patient encounter procedure [facility] Comment on above: Wellness examination (Primary Dx); Atherosclerosis; Elevated blood pressure reading; Family history of abdominal aortic aneurysm (AAA); Family history of abdominal aortic aneurysm (AAA); Gastroesophageal reflux disease without esophagitis; Dyslipidemia (CMS/HCC); Vitamin D deficiency Start: 10-07-2023 Influenza vaccination Influenza Vacc ine (#1) [facility] Start: 09-06-2023 Influenza vaccination Flu vaccine (# 1) [facility] Start: 08-05-2023 Influenza vaccination Influenza Vacc ine (#1) [facility] Comment on above: Postponed from 10/06 (Patient Refused) Start: 03-26-2023 Chart abstracting 03/26/2023 A bstract [facility] PT [address] [place] [address] Cyril Arnold, PT [address] [place] [address] [facility] PT Start: 03-26-2023 End: 03-26-2023 ambulatory 03/26/2023 9:00 AM EST Treatment [facility] PT [address] [place] [address] Cyril Arnold, PT [address] [place] [address] [facility] PT Start: 2023 Screening for malign ant neoplasm of colon [facility] Start: 10-06-2022 COVID-19 Vaccine ( season) COVID-19 Vaccine ( season) [facility] Start: 09-05-2022 Influenza vaccination Flu vaccine (# 1) [facility] Start: 10-07-2019 Influenza vaccination Flu vacc ine (Season Ended) [place], [place] Start: 2018 Diabetes screen Diabetes screen [place], [place] Start: 2018 Lipid panel Lipid screen [place], [place] Start: 2018 Lipid screen Lipid screen [place] Start: 2013 Diabetes screen Diabetes screen [facility] Start: 02-08-2008 Screening for malign ant neoplasm of cervix [facility] Start: 1999 Cervical cancer screen Cervical canc er screen [place], [place] Start: 1999 Screening for malign ant neoplasm of cervix [facility] Start: 1997 DTaP/Tdap/Td vaccine (1 - Tdap) DTaP/Tdap/Td vaccine (1 - Tdap) [facility] Start: 02-08-1996 Hepatitis C screening Hepatitis C sc reen [facility] Start: 1993 HIV screen HIV screen [place], [place] Start: 1993 HIV screening HIV screen [facility] Start: 1990 Depression Screen Depression Screen [facility] Start: 02-08-1988 Lipid panel Lipids [facility] Start: 1978 Hepatitis B vaccine (1 of 3 - 3-dose series) Hepatitis B vaccine (1 of 3 - 3-dose series) [facility] Start: 1978 Screening for malign ant neoplasm of colon [facility] Noninvasive colorect al cancer DNA and occult blood screening [Presence] in Stool Cologuard colon cancer screening Lab Routine Screen for colon cancer Ordered: 10/15/2023 [facility] [employer] Work Phone: Comment on above: Ordered: 10/15/2023 THIN PREP TIS PAP AN D HR HPV DNA THIN PREP TIS PAP AND HR HPV DNA Pathology and Cytology Routine Well woman exam with routine gynecological exam Ordered: 07/22/2024 [facility] [employer] Work Phone: Comment on above: Ordered: 07/22/2024 Immunizations Immunization Date Immunization Notes Care Provider Radha jin 10-27-2024 influenza, seasonal, injectable, preservative free Ashleigh Rine RUBY ENGINEER Work Phone: [facility] 10-27-2024 tetanus toxoid, redu bridger diphtheria toxoid, and acellular pertussis vaccine, adsorbed Ashleigh Rine RUBY ENGINEER Work Phone: [facility] 01-07-2024 influenza, seasonal, injectable, preservative free Ashleigh Rine RUBY ENGINEER Work Phone: [facility] 01-07-2024 influenza virus vacc ine, unspecified formulation Ashleigh Rine RUBY ENGINEER Work Phone: [facility] 01-22-2021 influenza, injectabl e, quadrivalent, preservative free Jeff Biedenbach DO Work Phone: [facility] 01-22-2021 influenza virus vacc ine, unspecified formulation Jeff Biedenbach DO Work Phone: [facility] 11-18-2018 influenza, seasonal, injectable Jeff Biedenbach DO Work Phone: [facility] 11-14-2018 Seasonal, quadrivale nt, recombinant, injectable influenza vaccine, preservative free Jeff Biedenbach DO Work Phone: [facility] 02-15-2017 seasonal influenza, intradermal, preservative free Jeff Biedenbach DO Work Phone: [facility] 02-10-2017 influenza, injectabl e, quadrivalent, preservative free Jeff Biedenbach DO Work Phone: [facility] 06-19-2013 tetanus toxoid, redu bridger diphtheria toxoid, and acellular pertussis vaccine, adsorbed Ashleigh Rine RUBY ENGINEER Work Phone: [facility] Payers Date Payer Category Payer Self-pay 2024 Unknown [id number] 2024 Private Health Insurance [employer] [id number] 2024 Unknown [id number] 2022 Blue Cross Blue Shield [id number] 2022 Unknown [id number] .[id number] 2022 Unknown [id number] 2019 Unknown [employer] [address] xxxxxxxxxxxx 2019-Present [phone] [address] [place] [address] xxxxxxxxxxxx [id number] .[id number] 1978 Unknown [id number] 2.16.840.1.939528.3.579.2 .593 1978 Unknown [id number] 2.16.840.1.111637.3.579.2 .593 1978 Unknown [id number] 2.16.840.1.620243.3.579.2 .593 1978 Unknown [id number] 2.16.840.1.175717.3.579.2 .593 1978 Unknown [id number] 2.16.840.1.083330.3.579.2 .594 1978 Unknown [id number] 2.16.840.1.229461.3.579.2 .173 1978 Unknown [id number] 2.16.840.1.689036.3.579.2 .173 1978 Unknown [id number] 2.16.840.1.373692.3.579.2 .173 1978 Unknown [id number] 2.16.840.1.748312.3.579.2 .173 1978 Unknown [id number] 2.16.840.1.904245.3.579.2 .173 1978 Unknown [id number] 2.16.840.1.837018.3.579.2 .173 1978 Unknown [id number] 2.16.840.1.899626.3.579.2 .196 1978 Unknown [id number] 2.16.840.1.727790.3.579.2 .196 1978 Unknown [id number] 2.16.840.1.494354.3.579.2 .196 1978 Unknown [id number] 2.16.840.1.036776.3.579.2 .196 1978 Unknown [id number] 2.16.840.1.563617.3.579.2 .196 1978 Unknown [id number] 2.16.840.1.154334.3.579.2 .9 1978 Unknown [id number] 2.16.840.1.563617.3.579.2 .9 1978 Unknown [id number] 2.16.840.1.887157.3.579.2 .9 1978 Unknown [id number] 2.16.840.1.932980.3.579.2 .9 1978 Unknown [id number] 2.16.840.1.774462.3.579.2 .9 1978 Unknown [id number] 2.16.840.1.375874.3.579.2 .9 1978 Unknown [id number] 2.16.840.1.368456.3.579.2 .1259 1978 Unknown [id number] 2.16.840.1.091486.3.579.2 .1259 1978 Unknown [id number] 2.16.840.1.072413.3.579.2 .1259 1978 Unknown [id number] 2.16.840.1.332564.3.579.2 .1259 1959 Private Health Insurance [id number] Unknown [id number] 2.16.840.1.947429.3.579.2 .531 Social History Date Type Detail Facility Start: 05-11-2019 End: 09-13-2022 Tobacco smoking status [facility] Never smoker [facility] [employer] Start: 1980 Sex Assigned At Not on file [place] Exposure to SARS-CoV -2 (event) Unable to assess [place] Start: 05-11-2019 End: 09-13-2022 Tobacco use and exposure Smokeless tobacco non-user [facility] [employer] Start: 05-11-2020 End: 02-28-2023 History of Social function [facility] Start: 05-11-2020 End: 02-28-2023 Tobacco use panel [facility] Start: 03-06-2023 End: 10-28-2024 Alcohol intake Current drinker of alcohol (finding) [facility] Within the last year , have you been afraid of your partner or ex-partner? No [facility] Do you belong to any clubs or organizations such as scientology groups, unions, fraternal or athletic groups, or [...] - these days [OSQ] Only a little [facility] (I/We) worried wheth er (my/our) food would run out before (I/we) got money to buy more. Never true [facility] Start: 09-12-2022 Alcohol Comment 1-2 drinks 2-4 x a month in the past year [facility] Tobacco smoking stat [facility] Unknown if ever smoked [facility] Work Phone: Sex Female (finding) [facility] Start: 1980 Sex Assigned At Female F [facility] Functional Status Date Assessment Result Facility 10-27-2024 [facility] ionnaire 2 item (PHQ-2) [Reported] [facility] 10-27-2024 PHQ-9 quick depressi on assessment panel [Reported.PHQ] [facility] Clinical Notes 03-07-2023 to 10-28-2024 Fatuma Perez DPM - 10/28/2024 4:00 PM EDTPatient InstructionsAshleigh Dillon NP - 10/27/2024 7:00 AM EDTPatient InstructionsAshleigh Dillon NP - 10/13/2024 6:45 AM EDTPatient [...] therapy if needed. documented in this encounter [facility] 10-28-2024 Instructions Fatuma Perez DPM [...] foot and heel over the water bottle. Omjr-elg-laizluz (OTC) arch supports: Spenco, Powerstep, UCOs Continued [...] The doctor may have given you an [facility] arch support called a UCO. This is [...] get them is at an online supplier. [facility] offers many options for night splints. There [...] wake up in the morning and provide business employment specialist flexibility to help decrease the chance of [...] of 6-8 weeks. documented in this encounter [facility] 10-27-2024 History of Present illness [...] recording. 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 Stomach Pain She has daily bowel movements but has been experiencing diarrhea recently. She maintains good hydration. She takes omeprazole daily for stomach acid control. She is scheduled for an ultrasound with her OB-CYTOLOGIST today due to abdominal pain. Foot Pain She experiences foot pain when standing but not when sitting. She has an appointment with a barrel filler head tomorrow and manages her foot pain with [...] uses vaginal estrogen intermittently. Occupation: Works at [employer] in [place] Diet: Fasting for the past 6 weeks, [...] rhinorrhea and sore throat. Saw ent in [place] regarding snoring , deviated septum Eyes: Negative for visual disturbance. Did lasik surg earlier this year, has some dry eyes Respiratory: Negative for cough and wheezing. Cardiovascular: Negative for chest pain, palpitations and leg swelling. Gastrointestinal: Positive for abdominal pain. Negative for blood in stool. Nonspecific, has been seeing classer, has appt for US today Genitourinary: Negative [...] Morbid (severe) obesity due to excess calories ([facility]) Comments: as above Unilateral vestibular weakness, right Comments: she is following with ent in [place] LESLEE (generalized anxiety disorder) Comments: edmr therapy, Migraine with aura and with status migrainosus, not intractable Comments: no recent issues Dyslipidemia Decreased libido Comments: following with rail assembler, not discussed today Vaginal dryness Comments: still an issue, working with rail assembler, not always compliant with vaginal estrogen Screen [...] 4 mo recheck. documented in this encounter [facility] 10-27-2024 Instructions Ashleigh Dillon NP - 10/27/2024 7:00 AM EDT Keep podiatry appt tomorrow Consider moving the eating hours earlier in the day Consider resistance training 30 grams of protein with each meal documented in this encounter [facility] 10-13-2024 History of Present illness Narrative Podiatry referral created per conversation documented in this encounter [facility] 10-06-2024 Telephone encounter Note Atorvastatin 10 sent per kroger request [facility] 10-06-2024 Miscellaneous Notes Atorvastatin 10 sent per kroger request documented in this encounter [facility] 09-16-2024 Telephone encounter Note See emessage from pt, orders created. [facility] 09-16-2024 Miscellaneous Notes See emessage from pt, orders created. documented in this encounter [facility] 07-22-2024 History of Present illness [...] nursing note reviewed. Exam conducted with a retail coverage merchandiser present. Vitals: Estimated body mass index is [...] them. Patient can also view results via [employer]. I reinforced importance of condom use for [...] Ceasar Smith DO documented in this encounter [facility] 06-03-2024 History of Present illness [...] been attending grief counseling sessions through her scientology since 04/2024. She has been experiencing issues [...] the morning, which was prescribed by her OB-CYTOLOGIST to manage her emotional distress. SOCIAL HISTORY [...] recheck on chronic. documented in this encounter [facility] 06-03-2024 Instructions Ashleigh Dillon NP [...] in 2 weeks documented in this encounter [facility] 01-22-2024 History of Present illness [...] as she has plans to go to [facility] for the weekend Dizziness Pertinent negatives include [...] [place] is ut[place]. documented in this encounter [facility] 01-22-2024 Instructions Ashleigh Dillon NP - 01/22/2024 9:00 AM EST Up to 4 times of day take meclizine, prednisone burst with food and zofran as well as SE. taper off meclizine as better. call if no relief documented in this encounter [facility] 01-07-2024 History of Present illness Narrative Fabi Concepcion is a 43 y.o. female presents with chief complaint of Follow-up (Pain that will shoot down her legs, has this pain every night and she is not getting any rest) HPI: Last seen by this provider on 10-15-23, was to return for recheck on venlafaxine, to see plumbing engineer ANXIETY/DEPRESSION Unsure about the venlafaxine Feels a [...] right Tyenol helps She is going to [employer] [facility] 3 times per week, resistance training and [...] adult Comments: keep up the exercise, see plumbing engineer Grief ([facility]) Comments: venlafaxine, discussed service project/hobby, gratitude journal Immunization due Comments: flu vaccine today, update covid in near future Orders: - Flu vaccine greater than or equal to 3 years old, PF IM (IMM19) Follow up for 4 mo recheck on meds . documented in this encounter [facility] 01-07-2024 Instructions Ashleigh Dillon NP - 01/07/2024 7:00 AM EST Update flu and covid vaccine Call lidia parker to see about getting appt on the books moving forward Stretch sheet given for hips Meloxicam 15mg daily for 1-2 weeks and as needed, do not take with other anti inflammatory meds like motrin/aleve documented in this encounter [facility] 10-15-2023 History of Present illness Narrative Fabi Concepcion is a 43 y.o. female presents with chief complaint of Annual Exam (Is working with OB as is having hormone issues) HPI: Working for [employer], she is busy, believes that her employer [...] update on vaccines LESLEE (generalized anxiety disorder) ([facility]) Comments: increase the venlafaxine to 75mg per day, call in a few weeks if desires increase in dose. aware to be compliant with dosage Orders: - venlafaxine XR (Effexor XR) 75 MG 24 hr capsule; Take 1 capsule (75 mg) by mouth Daily Do not crush or chew. Dyslipidemia (CMS/HCC) Comments: to goal per labs oct 02, 2023 Orders: - Ambulatory referral to Nutrition Services; Future Migraine with aura and without status migrainosus, not intractable (CMS/HCC) Comments: well controlled at this point in time Morbid (severe) obesity due to excess calories (CMS/HCC) Comments: as above BMI 36.0-36.9,adult Comments: referral to plumbing engineer , we discussed whole foods , intermittent [...] recheck on venlafaxine. documented in this encounter [facility] 10-15-2023 Instructions Ashleigh Dillon NP - 10/15/2023 7:30 AM EDT Update the rail assembler appt, get mammo Encouraged to increase water intake Consider 25 gram protein with each meal Increase the venlafaxine to 75mg per day, call with update as needed Intermittant fasting even 12 and 12 step in the right direction See the plumbing engineer, lidia horn Covid vaccine alejandra, flu halloween time documented in this encounter [facility] 03-20-2023 Telephone encounter Note Phone call to pt no albut at home. Ribs hurt from coughing. Rev meds admin and common SE.offered appt . Will insist on appt if no better. She will keep ent appt and keep us updated. [facility] 03-20-2023 Miscellaneous Notes Phone call [...] just getting worse. documented in this encounter [facility] 03-20-2023 Telephone encounter Note Does she have an inhaler? Nebulizer? Ashleigh sent antibiotic last noel to cover strep. Should cover some chest bacteria, not all. She cannot have more steroid. [facility] 03-20-2023 Telephone encounter Note She doesn't know what to do last Sunday she started with a cough, and it is just getting worse. [facility] 03-19-2023 Telephone encounter Note Text from pt this pm. Son has strep. She now has sore throat also. Asking for antibiotic. Sent late this noel. Pt advised per text. Call if no better. [facility] 03-19-2023 Miscellaneous Notes Text from pt this pm. Son has strep. She now has sore throat also. Asking for antibiotic. Sent late this noel. Pt advised per text. Call if no better. documented in this encounter [facility] 03-19-2023 Telephone encounter Note Called [...] terribly bad. She will call MRI at [facility] and ask if they need more specific order for IAC with the DAYANA. She voiced understanding. She will taper off of the steroid. She reports that her father had benign tumors removed from his head, X 7. She is unsure what this was. Call as needed [facility] 03-19-2023 Miscellaneous Notes Called in [...] terribly bad. She will call MRI at [facility] and ask if they need more specific order for IAC with the DAYANA. She voiced understanding. She will taper off of the steroid. She reports that her father had benign tumors removed from his head, X 7. She is unsure what this was. Call as needed documented in this encounter [facility] 03-16-2023 History of Present illness Narrative Fabi Concepcion [id number] 03/15/23 Subjective: Phone consult 03/15: 43 yof sent to PT by Dr Denis for dizziness. Onset 2 wks ago on [place] thru night, driving to work everything started [...] Director Vestibular Rehabilitation documented in this encounter [facility] 03-13-2023 Telephone encounter Note Ashleigh Dillon office called wanting to get this patient in [place] for an appointment. They sent this to Dr. De Paz but his office could not get her in until May. I explained that all three ENTs share the same warehousing technician, we are all booking out until then. I checked with warehousing technician there are no cancellations. Unfortunately for all three offices we are booked until May patient is required to have hearing test before appointment. I tried to call [place] office back but their office is closed [facility] 03-13-2023 Miscellaneous Notes Ashleigh Dillon office called wanting to get this patient in [place] for an appointment. They sent this to Dr. De Paz but his office could not get her in until May. I explained that all three ENTs share the same warehousing technician, we are all booking out until then. I checked with warehousing technician there are no cancellations. Unfortunately for all three offices we are booked until May patient is required to have hearing test before appointment. I tried to call [facility] office back but their office is closed documented in this encounter [facility] 03-07-2023 Hospital Discharge instructions Darlene [...] attachments cannot be sent through Care Everywhere.Vertigo ([place])documented in this encounter [facility] Evaluation note Diagnosis Benign paroxysmal positional vertigo, unspecified laterality- Primary Dizziness Dizziness and giddiness [facility] Diagnosis Balance disorder- Primary Cervicalgia Unilateral vestibular weakness, right documented in this encounter [facility]* Diagnosis Influenza B- Primary Influenza with other respiratory manifestations documented in this encounter [facility]* Diagnosis Pharyngitis due to other organism- Primary [facility]* Diagnosis Localized edema Edema Dyslipidemia ([facility]) Other and unspecified hyperlipidemia documented in [facility] encounter [facility]* Diagnosis Acute cough- Primary documented in this encounter [facility]* Diagnosis Ataxia Lack of coordination [facility] Diagnosis Unspecified atherosclerosis Elevated blood pressure reading without diagnosis of hypertension Family history of ischemic heart disease and other diseases of the circulatory system [facility] Diagnosis Dyslipidemia ([facility]) Other and unspecified hyperlipidemia [facility]* Diagnosis Trochanteric bursitis of both hips- Primary Vaginal dryness Postmenopausal atrophic vaginitis BMI 37.0-37.9, adult Grief ([facility]) Adjustment disorder with depressed mood Immunization due documented [facility] encounter [facility]* Diagnosis LESLEE (generalized anxiety disorder) ([facility]) Generalized anxiety disorder documented in this encounter [facility]* Diagnosis Vertigo Dizziness and giddiness documented in this encounter [facility]* Diagnosis Dyslipidemia ([facility]) Other and unspecified hyperlipidemia documented in this encounter [facility]* Diagnosis Wellness examination- Primary LESLEE (generalized anxiety disorder) ([facility]) Generalized anxiety disorder Dyslipidemia ([facility]) Other and unspecified hyperlipidemia Migraine with aura and without status migrainosus, not intractable ([facility]) Morbid (severe) obesity due to excess calories ([facility]) BMI 36.0-36.9,adult Gastroesophageal reflux disease without esophagitis [...] this encounter [facility]* Diagnosis Dyslipidemia ([facility]) Other and unspecified hyperlipidemia documented in this encounter [facility]* 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 Decreased libido documented in [facility] encounter [facility]* Diagnosis Dyslipidemia ([facility]) Other and unspecified hyperlipidemia documented in this encounter [facility]* Diagnosis Well woman exam with routine gynecological exam Routine gynecological examination Breast cancer screening by mammogram Breast lump on right side at 6 o'clock position Lump or mass in breast Abnormal uterine bleeding (AUB) Yeast infection documented in this encounter [facility] noteNo assessment information availableUniversity Hospitals [facility] Work Phone: Evaluation note* Diagnosis Prolonged grief [...] Morbid (severe) obesity due to excess calories ([facility]) Unilateral vestibular weakness, right LESLEE (generalized anxiety [...] [facility] N[facility]ative* Betty Tay - 10/27/2024 10:20 AM EDT Reason for Appointment: Patient ID: Fabi Concepcion is a 44 y.o. female who presents for Pre-op Visit Patient presents today for Pre Op appointment. Patient is scheduled to undergo D&C Hysteroscopy, possible Myosure on 11-14-[address] Smith at [facility]. MEDICATIONS Current Outpatient Medications Medication [...] Morbid (severe) obesity due to excess calories ([facility]) 10/27/2024 Resolved Ambulatory Problems Diagnosis Date Noted Abnormal mammogram 09/11/2022 Abnormal weight gain 09/11/2022 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/2022 Allergic rhinitis 08/01/2007 Disorder of breast 09/11/2022 Dysuria 09/11/2022 Microcytic anemia 09/11/2022 Weight loss 09/11/2022 Balance disorder 03/15/2023 Cervicalgia 03/16/2023 Hormone disorder 05/31/2023 Follow-up encounter involving medication 05/31/2023 Pelvic pain in female 05/31/2023 Past Medical History: Diagnosis Date Allergies Gastritis 2007 Irritable bowel syndrome 2008 Migraine headache HISTORY [...] reviewed, and patient is to proceed to [facility] OR. Follow Up: Patient is to follow up between 1-2 weeks post operative to assess proper healing and recovery fromprocedure. Documented by Gem Chacon LPN on behalf of: Ceasar Smith DO documented in [facility] for referral (narrative)* Consultation (Routine) - Pending Review Specialty Diagnoses / Procedures Referred By Contac t Referred To Contact Diagnoses Dyslipidemia (CMS/HCC) BMI 36.0-36.9,adult Procedures [place] OFFICE/OUTPATIENT NEW HIGH MDM 60 MINUTES Ashleigh Dillon, RUBY ENGINEER [address] [place] [id number] Lidia Parker, MS, RDN, LD, CHES [address] [place], [place] Referral ID Status Reason Start Date Expiration Date Visits Requested Visits Authorized [id number] Pending Review Specialty Services Required 10/15/2023 04/12/2024 1 1 SHEILA Gonzalez for referral (narrative)No reason for referral information availableCleveland [facility] Ctr Work Phone: Discharge Instructions * Instructions* Matt Fletcher MD - 05/11/2019 If you have a fever unable to keep things by mouth or any other concerns please return to emergencydepartment. * Attachments The following attachments cannot be sent through Care Everywhere. * Abscess: Skin ([place]) documented in this encounter Assessments Diagnosis Abscess Cellulitis and abscess of unspecified site Advance Directives Documents on File Type Date Recorded Patient Seed Cleaner Expl anation Advance Directives and Living Will Power of Hay Rake Operator Advance Directive Response Recorded Date/ Time Advance [...] BRAIN W WO CONTRAST Enid Denis, DO [address] [place] [id number] Referral ID Status Reason Start Date Expiration Date Visits Re quested Visits Authorized [id number] Closed 03/24/2023 03/18/2024 1 1 Specialty Diagnoses / Procedures Referred By Contac t Referred To Contact Diagnoses Unspecified atherosclerosis Elevated blood pressure reading without diagnosis of hypertension Family history of ischemic heart disease and other diseases of the circulatory system Procedures Vascular AAA screening Ashleigh Dillon, INVENTORY ASSOCIATE - RUBY ENGINEER [address] [place] [id number] Referral ID Status Reason Start Date Expiration Date Visits Re quested Visits Authorized [id number] Open 07/10/2023 07/09/2024 1 1 Chief Complaint [...] yesterday. Specialty Diagnoses / Procedures Referred By Eufemiaac t Referred To Contact Physical Therapy Diagnoses Benign paroxysmal vertigo, bilateral Procedures [place] PHYSICAL THERAPY EVALUATION LOW COMPLEX 20 MINS Enid Denis MD [address] [place] [id number] Cyril Arnold, PT [address] [place] [address] Referral ID Status Reason Start Date Expiration Date V isits Requested Visits Authorized [id number] Closed Consult and Treat 03/16/2023 09/12/2023 1 1 Reason Comments Med Refill Reason Onset Date Comments Cough 03/20/2023 Specialty Diagnoses / Procedures Referred By Eufemiaac t Referred To Contact Radiology Diagnoses Ataxia Procedures MRI BRAIN W WO CONTRAST Enid Denis, DO [address] [place] [id number] Referral ID Status Reason Start Date Expiration Date Visits Re quested Visits Authorized [id number] Closed 03/24/2023 03/18/2024 1 1 Specialty Diagnoses / Procedures Referred By Virginia iniguez Referred To Contact Diagnoses Unspecified atherosclerosis Elevated blood pressure reading without diagnosis of hypertension Family history of ischemic heart disease and other diseases of the circulatory system Procedures Vascular AAA screening Ashleigh Dillon Bhupendra, INVENTORY ASSOCIATE - RUBY ENGINEER [address] [place] [id number] Referral ID Status Reason Start Date Expiration Date Visits Re quested Visits Authorized [id number] Open 07/10/2023 07/09/2024 1 1 Reason Comments [...] section and content) DATE CREATED AUTHOR 06/16/2021 [facility] Me dical Specialist DATE CREATED AUTHOR AUTHOR'S ORGANIZ ATION 11/04/[address] [facility] pitva DATE CREATED AUTHOR AUTHOR'S ORGANIZ ATION 04/18/2022 [facility] DATE CREATED AUTHOR AUTHOR'S ORGANIZ ATION 08/30/2023 [facility] DATE CREATED AUTHOR AUTHOR'S ORGANIZ ATION 08/20/2024 [facility] DATE CREATED AUTHOR AUTHOR'S ORGANIZ ATION 10/17/[address] [facility] DATE CREATED AUTHOR AUTHOR'S ORGANIZ ATION 10/29/2024 [facility]ists EPIC Scheduled Active and Recently [...] Care Teams (unrecognized sec tion and content) Roll Icer Relationship Specialty Start Date End Date Cyril Britt DO [address] [place] [address] PCP - General Family Medicine 05/11/19 Roll Icer Relationship Specialty Start Date End Date Cyril Britt DO [address] [place] [address] PCP - General Family Medicine 06/13/22 Cyril Britt DO [address] [place] [address] PCP - [place] [employer] 12/06/22 Roll Icer Relationship Specialty Start Date End Date Cyril Britt DO [address] [place] [address] PCP - General Family Medicine 06/13/22 Cyril Britt DO [address] [place] [address] PCP - [employer] 12/06/22 Roll Icer Relationship Specialty Start Date End Date Cyril Britt DO [address] [place] [address] PCP - General Family Medicine 06/13/22 Cyril Britt, [address] [place] [address] PCP - [employer] 12/06/22 Roll Icer Relationship Specialty Start Date End Date Cyril Britt, DO [address] [place] [address] PCP - General Family Medicine 06/13/22 Cyril Britt, DO [address] [place] [address] PCP - [employer] 12/06/22 Roll Icer Relationship Specialty Start Date End Date Cyril Britt, DO [address] [place] [address] PCP - General Family Medicine 06/13/22 Cyril Britt, DO [address] [place] [address] PCP - [employer] 12/06/22 Roll Icer Relationship Specialty Start Date End Date Cyril Britt DO [address] [place] [address] PCP - General Family Medicine 06/13/22 Cyril Britt, [address] [place] [address] PCP - [employer] 12/06/22 Roll Icer Relationship Specialty Start Date End Date Cyril Britt, [address] [place] [address] PCP - General Family Medicine 06/13/22 Cyril Britt, [address] [place] [address] PCP - [place] 12/06/22 Roll Icer Relationship Specialty Start Date End Date Cyril Britt DO [address] [address] [facility] [place] [place] [address] PCP - General Family Medicine 05/11/19 Roll Icer Relationship Specialty Start Date End Date Cyril Britt DO [address] [facility] [place] [address] PCP - General Family Medicine 05/11/19 Roll Icer Relationship Specialty Start Date End Date Cyril Britt DO [address] [place], [place] [id number] PCP - General Family Medicine 06/13/22 Ashleigh Dillon, RUBY ENGINEER [address] [place] [address] PCP - [employer] 04/06/23 Roll Icer Relationship Specialty Start Date End Date Cyril Britt DO [address] [place] [address] PCP - General Family Medicine 06/13/22 Ashleigh Dillon, RUBY ENGINEER [address] [place] [address] PCP - [employer] 04/06/23 Roll Icer Relationship Specialty Start Date End Date Cyril Britt DO [address] [place] [address] PCP - General Family Medicine 06/13/22 Ashleigh Dillon, RUBY ENGINEER [address] [place] [address] PCP - [employer] 04/06/23 Roll Icer Relationship Specialty Start Date End Date Cyril Britt DO [address] [place] [address] PCP - General Family Medicine 06/13/22 Roll Icer Relationship Specialty Start Date End Date Cyril Britt DO [address] [place] [address] PCP - General Family Medicine 06/13/22 Roll Icer Relationship Specialty Start Date End Date Cyril Britt DO [address] [place] [address] PCP - General Family Medicine 06/13/22 Roll Icer Relationship Specialty Start Date End Date Cyril Britt DO [address] [place] [address] PCP - General Family Medicine 06/13/22 Ashleigh Dillon, RUBY ENGINEER [address] [place] [address] PCP - [employer] 04/06/23 Roll Icer Relationship Specialty Start Date End Date Cyril Britt DO [address] [place] [address] PCP - General Family Medicine 06/13/22 Ashleigh Dillon, RUBY ENGINEER [address] [place] [address] PCP - [employer] 04/06/23 Roll Icer Relationship Specialty Start Date End Date Cyril Britt DO [address] [place], [place] [id number] PCP - General Family Medicine 06/13/22 Ashleigh Dillon, RUBY ENGINEER [address] [place], [place] [id number] PCP - [employer] 04/06/23 Roll Icer Relationship Specialty Start Date End Date Cyril Britt DO [address] [place] [address] PCP - General Family Medicine 06/13/22 Roll Icer Relationship Specialty Start Date End Date Cyril Brtit DO [address] [place], [place] [id number] PCP - General Family Medicine 06/13/22 Roll Icer Relationship Specialty Start Date End Date Cyril Britt DO [address] [place], [place] [id number] PCP - General Family Medicine 06/13/22 Roll Icer Relationship Specialty Start Date End Date Cyril Britt DO [address] [place] [address] PCP - General Family Medicine 06/13/22 Team Status: Active Member Role Status Dates NON STAFF Primary Care Provider Active Team Status: Inactive Member Role Status Dates Ceasar Smith DO Attending Provider Active Start : August 11, 2024 End: August 11, 2024 NON STAFF Primary Care Provider Active Start: August 11, 2024 End: August 11, 2024 Roll Icer Relationship Specialty Start Date End Date Cyril Britt DO [address] [place], [place] [id number] PCP - General Family Medicine 06/13/22 Ashleigh Dillon, RUBY ENGINEER [address] [place], [place] [id number] PCP - [employer] 05/06/24 Roll Icer Relationship Specialty Start Date End Date Cyril Britt DO [address] [place] [address] PCP - General Family Medicine 06/13/22 Ashleigh Dillon, RUBY ENGINEER [address] [place] [address] PCP - [employer] 05/06/24 Roll Icer Relationship Specialty Start Date End Date Cyril Britt DO [address] [place] [address] PCP - General Family Medicine 06/13/22 Ashleigh Dillon, RUBY ENGINEER [address] [place] [address] PCP - [employer] 05/06/24 Roll Icer Relationship Specialty Start Date End Date Cyril Britt DO [address] [place] [address] PCP - General Family Medicine 06/13/22 Ashleigh Dillon, RUBY ENGINEER [address] [place] [address] PCP - [employer] 05/06/24 Roll Icer Relationship Specialty Start Date End Date Cyril Britt DO [address] [place] [address] PCP - General Family Medicine 06/13/22 Ashleigh Dillon, RUBY ENGINEER [address] [place] [address] PCP - [employer] 05/06/24 Roll Icer Relationship Specialty Start Date End Date Cyril Britt DO [address] [place] [address] PCP - General Family Medicine 06/13/22 Ashleigh Dillon, RUBY ENGINEER [address] [place] [address] PCP - [employer] 05/06/24 Roll Icer Relationship Specialty Start Date End Date Cyril Britt DO [address] [place] [address] PCP - General Family Medicine 06/13/22 Ashleigh Dillon, RUBY ENGINEER [address] [place] [address] PCP - [employer] 05/06/24 Roll Icer Relationship Specialty Start Date End Date Cyril Britt DO [address] [place] [address] PCP - General Family Medicine 06/13/22 Ashleigh Dillon, RUBY ENGINEER [address] [place] [address] PCP - [employer] 05/06/24 Roll Icer Relationship Specialty Start Date End Date Cyril Britt DO [address] [place] [address] PCP - General Family Medicine 06/13/22 Ashleigh Dillon, RUBY ENGINEER [address] [place] [address] PCP - [employer] 05/06/24 Roll Icer Relationship Specialty Start Date End Date Cyril Britt DO [address] [place] [address] PCP - General Family Medicine 06/13/22 Ashleigh Dillon NP [address] [place], [place] [id number] PCP - [employer] 05/06/24 Goals (unrecognized section and content) Goals [...] BE BASED ON THE PRIMARY CLINICAL RECORDS. [employer] provides no warranty or guarantee of the accuracy or completeness of information in this document.
[2024-11-14 06:22] VITALS: BP 145/98; PULSE 84; TEMP 36.2; O2SAT 95; BMI 40.1
[2024-11-14 06:24] LABS: Hematocrit 42.9 % (36.0-48.0); Hemoglobin 14.8 g/dL (12.0-16.0); Immature Granulocytes Abs Auto 0.03 10^3/uL (0.00-0.03); Immature Granulocytes Pct Auto 0.3 % (0.0-0.5); Lymphocytes Absolute Auto 3.8 10^3/uL (1.2-3.8); Mean Corpuscular HGB Conc 34.5 g/dL (29.9-35.2); Mean Corpuscular Hemoglobin 32.2 pg (26.7-34.0); Mean Corpuscular Volume 93.5 fL (81.0-99.0); Platelet Count 268 10^3/uL (150-450); Red Blood Count 4.59 10^6/uL (4.20-5.40); White Blood Count 10.1 10^3/uL (4.0-11.0)
[2024-11-14 08:30] VITALS: BP 146/89; PULSE 84; TEMP 36.6; O2SAT 98
[2024-11-14 08:45] VITALS: BP 127/74; PULSE 78; O2SAT 100
--- NOTE | 2024-11-14 08:58 | PM.ONB ---
Brief Operative Note Date of procedure: 11/14/24 Pre-op diagnosis general: aub, thickend endometrium Post-op diagnosis: same as pre-op Procedure: NAME OF PROCEDURE: [ D&c hysteroscopy with myosure] PROCEDURE: The patient was taken back to the Operating Room where she was prepped and draped in normal sterile fashion after being placed under general anesthesia without difficulty. She was also placed in the dorsal lithotomy position. A weighted speculum was placed in the patient?s vagina. The anterior lip of the cervix was identified and grasped with a single tooth tenaculum. The patient?s uterus was then sounded roughly to [? 8] cm. The patient was then gently dilated using Hegar dilators. The hysteroscope was passed through the patient?s cervix into the uterus. Both ostia were identified. fluffy appearing endometrium. No gross evidence of malignancy, no gross evidence of polyps or fibroids. The myosure apparatus was placed through the scope, The myosure was engaged and endometrial curretting were removed along with endometrial polyp, The hysteroscope was then removed from the uterus. The endometrial curettings were sent out to pathology. The single tooth tenaculum was then removed from the patient's anterior lip of the cervix where excellent hemostasis was noted. All instruments were removed from the patient?s vagina. The patient tolerated the procedure well. Sponge, lap and needle counts were correct times two. The patient was taken to the Recovery Room in stable condition.Room in stable condition. Anesthesia: MAC Surgeon: Ceasar Smith Estimated blood loss (mL): 10 Pathology: other (endometrial currettings) Condition: stable Disposition: PACU Urinary Catheter Management Urinary Catheter Management Straight: Cath placed during this visit: no
[2024-11-14 09:00] VITALS: BP 142/88; PULSE 79; O2SAT 100
[2024-11-14] MEDS: HYDROCODONE/ACET 5-325 MG TABLET 1 TAB PO (09:03)
--- NOTE | 2024-11-14 09:05 | PC.NURSE ---
0903: pt pain 08/14,given PRN Dozier at this time per Dr.Fazio craig.
[2024-11-14 09:20] VITALS: BP 147/92; PULSE 80; O2SAT 100
--- NOTE | 2024-11-14 09:35 | PC.NURSE ---
0920: pt ambulates to bathroom with minimal assistance. pt voids without difficulty.
== END 2024-11-14 09:25 | disposition home or self-care (01) ==
LOC: SURGOUT 06:17
PROVIDERS: PCP Nurse Practitioner; Visit Provider Obstetrics & Gynecology
PROC: (CPT 952; principal; 2024-11-14 07:30)
DX: N93.9 Abnormal uterine and vaginal bleeding, unspecified (principal); R93.89 Abnormal findings on diagnostic imaging of other specified body structures; N84.0 Polyp of corpus uteri; Z90.49 Acquired absence of other specified parts of digestive tract; Z98.51 Tubal ligation status; E78.5 Hyperlipidemia, unspecified; I10 Essential (primary) hypertension; K21.9 Gastro-esophageal reflux disease without esophagitis; Z86.718 Personal history of other venous thrombosis and embolism; F32.A Depression, unspecified
CPT/HCPCS: 58558; 36415; 84702; 85025; J0131; J1100; J1885; J2250; J2704; J3010